=== PATIENT | female | born 1960 | race Caucasian/White ===

== ENCOUNTER 2020-10-05 06:54 | Outpatient (NON) | payer OTHER, SELFPAY ==
[2020-10-05 21:13] LABS: SARS-CoV-2 RNA PCR Positive
== END 2020-10-05 06:55 ==
PROVIDERS: PCP Family Medicine; Visit Provider Family Medicine
DX: U07.1 COVID-19 (principal)
CPT/HCPCS: C9803; U0003; U0005

== ENCOUNTER 2021-03-10 08:45 | Outpatient (CLI) | payer OTHER, SELFPAY ==
--- NOTE | ~2021-03-10 | MM_ITS ---
EXAMINATION: MM screening yves BI w joaquin HISTORY: Screening TECHNIQUE: Craniocaudal and mediolateral oblique 3-D tomosynthesis images were obtained and synthetic 2-D images were generated. CAD analysis was submitted and interpreted. COMPARISON: Comparison to multiple prior studies sequentially, with oldest reviewed study dated 10/08. BREAST PARENCHYMAL COMPOSITION: The breasts are heterogeneously dense, which may obscure small masses . FINDINGS: There is no evidence of suspicious mass, calcification, or architectural distortion to sugg est malignancy in either breast. There has been no suspicious interval change. IMPRESSION: 1. No mammographic evidence of malignancy. 2. Recommend routine screening mammography in one year. BI-RADS Category 1: Negative Reviewed, dictated and finalized at location A.
== END 2021-03-10 08:46 | disposition home or self-care (01) ==
LOC: ANHIMG 08:48
PROVIDERS: PCP Family Medicine; Visit Provider Nurse Practitioner Obstetrics & Gynecology
DX: Z12.31 Encounter for screening mammogram for malignant neoplasm of breast (principal)
CPT/HCPCS: 77063; 77067

== ENCOUNTER → 2021-04-28 17:42 | Outpatient (CLI) | payer OTHER, SELFPAY ==
--- NOTE | ~2021-04-28 | DEXA_ITS ---
Bone Density Report Name: Haydee Delgado Age: 60 Sex: Female Ethnicity: White Date of : 1960 Indication: osteopenia; monitoring treatment; prior fracture; postmenopausal Referring Provider: Jean Claude, Mariebl Hackett Study: Bone densitometry was performed. Exam Date: April 28, 2021 Accession number: [id number] Bone Density: Region BMD T-score Z-score Classification AP Spine (L1, L4) 1.126 0.8 2.4 Normal Femoral Neck (Left) 0.649 -1.8 -0.4 Osteopenia Total Hip (Left) 0.770 -1.4 -0.3 Osteopenia Femoral Neck (Right) 0.655 -1.7 -0.4 Osteopenia Total Hip (Right) 0.794 -1.2 -0.1 Osteopenia Total Hip Mean 0.782 -1.3 -0.2 Osteopenia World Health Organization criteria for BMD impression classify patients as: Normal (T-score at or above -1.0), Osteopenia (T-score between -1.0 and -2.5), or Osteoporosis (T-score at or below -2.5). 10-year Fracture Risk: FRAX not reported because: Treated for osteoporosis Previous Exams: Region Exam Age BMD T-score BMD Change BMD Change Date g/cm2 vs Baseline vs Previous AP Spine(L1, L4) 04/28/2021 60 1.126 0.8 0.092* 0.092* 07/13/2010 49 1.034 0.0 -0.001 0.013 07/09/2009 48 1.021 -0.1 -0.014 -0.036* 06/12/2008 47 1.056 0.2 0.022 0.022 05/31/2007 46 1.035 0.0 Total Hip(Left) 04/28/2021 60 0.770 -1.4 0.031* -0.044* 07/13/2010 49 0.814 -1.0 0.075* 0.069* 07/09/2009 48 0.745 -1.6 0.006 -0.006 06/12/2008 47 0.750 -1.6 0.011 0.011 05/31/2007 46 0.739 -1.7 Total Hip(Right) 04/28/2021 60 0.794 -1.2 0.020 -0.005 07/13/2010 49 0.800 -1.2 0.026 -0.002 07/09/2009 48 0.802 -1.2 0.027* 0.027* 06/12/2008 47 0.774 -1.4 0.000 0.000 05/31/2007 46 0.774 -1.4 *Denotes significance at 95% confidence level, LSC for AP Spine = 0.022 g/cm2, LSC for Total Hip = 0.027 g/cm2 Clinical Information Provided by Patient: Has had a low trauma fracture Is being treated for osteoporosis Has used the following medications: Evista (i.e. raloxifene), Vitamin D, Calcium Patient maximum height was 65 Menopause Age: 38 Drinks caffeinated beverages Onset of menses at age 12 Number of children 2 Impression: The patient has low bone mass, based on the Left
== END ==
PROVIDERS: PCP Family Medicine; Visit Provider Nurse Practitioner Obstetrics & Gynecology
DX: Z78.0 Asymptomatic menopausal state (principal); M85.852 Other specified disorders of bone density and structure, left thigh; M85.851 Other specified disorders of bone density and structure, right thigh
CPT/HCPCS: 77080

== ENCOUNTER 2022-01-24 15:02 | Emergency (ER) | payer OTHER, SELFPAY ==
--- NOTE | ~2022-01-24 | XR_ITS ---
EXAMINATION: XR wrist LT min 3V DATE: 01/24/2022 15:31 INDICATION: Left wrist pain. Fall. TECHNIQUE: 4 views of left wrist were obtained. COMPARISON: None. FINDINGS: Bone alignment is normal. No fracture. There is mild osteoarthritis of triscaphe joint and first carpometacarpal joint. There is moderate osteoarthritis of first and third metacarpophalangeal joints. IMPRESSION: 1. Polyarticular osteoarthritis. Reviewed, dictated and finalized at location B.
--- NOTE | 2022-01-24 15:12 | ED.UPPEXIN ---
HPI - Extremity Injury (Upper) General Chief Complaint: Extremity Injury, Upper Stated Complaint: Lt Wrist Pain Due to Fall Time Seen by Provider: 01/24/22 15:16 Source: patient and RN notes reviewed Mode of arrival: ambulatory Limitations: no limitations History of Present Illness HPI narrative: 61-year-old female presents with concern for multiple injuries after a fall. She reports she fell outside of a store just prior to arrival, injuring her left wrist, her lower lip and her knee. She reports she scraped her knee however it is not painful at this time and it does not hurt to bear weight. She reports her lower lip is swollen, bruised, she is concerned about loose teeth. She reports left wrist pain, slight swelling. MD complaint: injury to: left and wrist Related Data Home Medications Medication Instructions Recorded Confirmed atorvastatin 10 mg PO DAILY 01/24/22 01/24/22 benazepril-hydrochlorothiazide 1 tablet PO DAILY 01/24/22 01/24/22 bupropion HCl 150 mg PO DAILY 01/24/22 01/24/22 buspirone 10 mg PO BID 01/24/22 01/24/22 ergocalciferol (vitamin D2) 1,250 mcg PO WEEKLY 01/24/22 01/24/22 escitalopram oxalate 20 mg PO DAILY 01/24/22 01/24/22 icosapent ethyl [Vascepa] 1 g PO TID 01/24/22 01/24/22 meloxicam 7.5 mg PO BID 01/24/22 01/24/22 raloxifene 60 mg PO DAILY 01/24/22 01/24/22 Allergies Allergy/AdvReac Type Severity Reaction Status Date / Time No Known Allergies Allergy Mild Verified 01/24/22 15:23 Review of Systems Review of Systems: CONSTITUTIONAL: Denies malaise, chills, sweats, or fever. CARDIOVASCULAR: Denies chest pain, palpitations, or edema. RESPIRATORY: Denies cough or dyspnea. SKIN: Reports lower lip swelling, bruising MUSCULOSKELETAL: Reports left wrist pain and swelling NEUROLOGIC: Denies numbness, weakness All systems reviewed & are unremarkable except as noted in HPI and below PMFSH Comments At time of signature, agree with nursing past medical, surgical, social and family history. There is no relevant family history pertinent to the presenting complaint Exam Narrative: GENERAL: Well-appearing, well-nourished, and in no acute distress. HEAD: Normocephalic, atraumatic. EYES: PERRLA, conjunctivae clear NECK: Supple. CHEST: Speaks in full sentences. No respiratory distress. HEART: Regular rate and rhythm. Normal and equal peripheral pulses. EXTREMITIES: Left wrist, hand, is have normal strength and sensation, grossly normal range of motion. Mild circumferential edema, no erythema or ecchymosis. 5/5 strength with digit flexion and extension. Normal sensation with sensitivity to light touch and pain. Ulnar wrist tenderness. No open wounds, no skin tenting, no devitalized tissue or atrophy, no trophic changes, no obvious deformity, alignment normal, nearby joints and structures intact. Distal pulses palpable and equal bilaterally, skin warm, dry, pink. Capillary refill less than 3 seconds. SKIN: Warm, dry, no rash. Very superficial abrasion to the left knee without surrounding erythema, edema, induration or tenderness NEURO: Alert and oriented x3. PSYCH: Normal mood and affect Course Course Emergency Course: Patient is aware of diagnosis, understands and agrees to treatment plan. Anticipatory guidance given. Patient agrees to follow-up as directed and is aware of reasons to seek care at the emergency department. Portions of this record may have been created with voice recognition software Level of Care: Express Care Visit Vital Signs Vital signs: Reviewed. MDM - Extremity Injury (Upper) MDM Narrative Medical decision making narrative: Patients injury and pain is consistent with musculoskeletal etiology. No signs of neurological or vascular compromise on exam. Compartments and tissues are soft without signs of compartment syndrome. Pain is felt appropriate for further evaluation on an outpatient basis. Imaging Data My impression: Images reviewed, interpreted by radiologist, agree, see report. Radi
[2022-01-24 15:14] VITALS: BP 150/88; PULSE 78; RESP 18; TEMP 36.3; O2SAT 100
== END 2022-01-24 15:58 | disposition home or self-care (01) ==
PROVIDERS: Emergency Provider Nurse Practitioner; PCP Family Medicine
DX: S63.502A Unspecified sprain of left wrist, initial encounter (principal); S66.912A Strain of unspecified muscle, fascia and tendon at wrist and hand level, left hand, initial encounter; W19.XXXA Unspecified fall, initial encounter; S00.531A Contusion of lip, initial encounter; E78.00 Pure hypercholesterolemia, unspecified; I10 Essential (primary) hypertension
CPT/HCPCS: 73110; 99213; G0463

== ENCOUNTER 2022-06-08 10:01 | Outpatient (CLI) | payer OTHER, SELFPAY ==
--- NOTE | ~2022-06-08 | MM_ITS ---
EXAMINATION: MM screening yves BI w joaquin HISTORY: Screening mammogram TECHNIQUE: Craniocaudal and mediolateral oblique 3-D tomosynthesis images were obtained and synthetic 2-D images were generated. CAD analysis was submitted and interpreted. COMPARISON: 03/10/2021 bilateral screening mammogram 11/15/2018 bilateral diagnostic mammography and bilateral Limited breast ultrasound 10/18/2018 bilateral screening mammogram BREAST PARENCHYMAL COMPOSITION: The breasts are heterogeneously dense, which may obscure small masses . FINDINGS: There is no evidence of suspicious mass, calcification, or architectural distortion to sugg est malignancy in either breast. There has been no suspicious interval change. IMPRESSION: 1. No mammographic evidence of malignancy. 2. Recommend routine screening mammography in one year. BI-RADS Category 1: Negative Reviewed, dictated and finalized at location A.
== END 2022-06-08 10:02 | disposition home or self-care (01) ==
PROVIDERS: PCP Family Medicine; Visit Provider Family Medicine
DX: Z12.31 Encounter for screening mammogram for malignant neoplasm of breast (principal)
CPT/HCPCS: 77063; 77067

== ENCOUNTER 2023-06-20 08:17 | Outpatient (CLI) | payer OTHER, SELFPAY ==
--- NOTE | 2023-07-11 11:38 | WPDHOMESLEEP ---
Sleep Study - Home Unattended Date of Study: 06/20/23 Ordering Provider: Luke Guidry, Interpreting Provider: Jane Reina, DO Home Sleep Study Type: Watch PAT Height: 1.68 m Weight: 73.936 kg Body Mass Index: 26.3 Neck Circumference (inches): 14 [place]: 13 Reason for Sleep Study Daytime hypersomnia Sleep History The patient is a 62-year-old female with hypertension, depression, anxiety, GERD, hyperlipidemia, osteoarthritis, osteoporosis, prediabetes and peripheral venous insufficiency that had a sleep study ordered by his primary care for evaluation sleep apnea. The patient denies awakening from sleep short of breath. She occasionally awakens at night with heartburn, belching or cough. She frequently snores and is frequently loud that others complain. She occasionally has trouble sleeping when she has a cold. She denies waking up gasping for air throughout the night. She rarely sweats excessively at night. She rarely has heart palpitations or irregular heartbeats during the night. She occasionally falls asleep during the day but never while driving. She denies sleep paralysis and cataplexy. She denies having trouble at school or work due to sleepiness. She occasionally experiences vivid dreamlike scenes upon awakening or falling asleep. She denies feeling afraid of going to sleep. She rarely has nightmares and occasionally remembers her dreams. She occasionally has thoughts racing through her mind. She occasionally feels sad, depressed and anxious. She occasionally has muscular tension. She rarely notices parts of her body jerk. She frequently kicks during the night. She frequently has crawling and aching feelings in her legs but rarely has leg pain during the night. She occasionally grinds her teeth during sleep but never awakens with morning jaw pain. She is frequently bothered by pain during the day and occasionally awakened by pain during the night. She frequently wakes up feeling stiff in the morning. She frequently wakes up with sore or achy muscles. She frequently wakes up with pain in neck, spine or other joints. She goes to bed at 8:30 p.m. on week days. It takes her 1 hour to fall asleep. She wakes up 4 times throughout the night for unknown reasons. When she awakens, she will look at her phone. It can take her 10-15 minutes to fall back asleep. She wakes up at 5:15 a.m. weekdays and 8:00 a.m. on the weekends. She typically gets 6 hours of sleep per night. She does not stay in bed after waking up in the morning. She currently lives with her . She will consume caffeinated beverages within 2 hours of bedtime. She denies engaging in physical exercise before bedtime. She will watch television before falling asleep. She will occasionally take naps in the afternoon or the evening but they are not refreshing. She consumes 4 caffeinated beverages throughout the day. She denies tobacco, alcohol and recreational drug use. Medications Home Medications Medication Instructions Recorded Confirmed Type atorvastatin 10 mg tablet 10 mg PO DAILY 01/24/22 01/24/22 History benazepril 10 1 tablet PO DAILY 01/24/22 01/24/22 History mg-hydrochlorothiazide 12.5 mg tablet bupropion HCl 150 mg 24 hr tablet, 150 mg PO DAILY 01/24/22 01/24/22 History extended release buspirone 10 mg tablet 10 mg PO BID 01/24/22 01/24/22 History ergocalciferol (vitamin D2) 1,250 1,250 mcg PO WEEKLY 01/24/22 01/24/22 History mcg (50,000 unit) capsule escitalopram oxalate 20 mg tablet 20 mg PO DAILY 01/24/22 01/24/22 History icosapent ethyl 1 gram capsule 1 g PO TID 01/24/22 01/24/22 History (Vascepa) meloxicam 7.5 mg tablet 7.5 mg PO BID 01/24/22 01/24/22 History raloxifene 60 mg tablet 60 mg PO DAILY 01/24/22 01/24/22 History Sleep Procedure The sleep study was completed using WatchPAT a technically adequate device with seven channels: peripheral arterial tone, actigraphy, body position, snore, re
[2023-07-11 11:39] VITALS: BMI 26.3
== END 2023-06-21 11:01 | disposition home or self-care (01) ==
LOC: ANHCSM 08:30
PROVIDERS: PCP Family Medicine; Visit Provider Family Medicine
DX: G47.30 Sleep apnea, unspecified (principal); G47.9 Sleep disorder, unspecified
CPT/HCPCS: 95800

== ENCOUNTER → 2023-06-29 08:58 | Outpatient (CLI) | payer OTHER, SELFPAY ==
--- NOTE | ~2023-06-29 | XR_ITS ---
Right ankle Technique: AP, oblique, and lateral views were obtained. Clinical History: Pain Findings: No acute fracture or dislocation is seen. Old, healed fracture deformity of the distal fibu lar shaft noted. Ankle mortise is intact. There is degenerative change at the talonavicular articulat ion. There is enthesopathic change at the Achilles tendon insertion. Impression: No acute abnormality. Old, healed fracture deformity of the distal fibular shaft. Enthesopathic change at the Achilles tendon insertion. Degenerative change at the talonavicular articulation dorsally. Reviewed, dictated and finalized at location . Impression: No acute abnormality. Old, healed fracture deformity of the distal fibular shaft. Enthesopathic change at the Achilles tendon insertion. Degenerative change at the talonavicular articulation dorsally.
--- NOTE | ~2023-06-29 | XR_ITS ---
Left Shoulder Technique: AP and axillary views were obtained. Clinical History: Pain Findings: No fracture or dislocation is seen. Osseous alignment is anatomic. There is moderate degene rative change of the glenohumeral joint with large inferomedial humeral head osteophyte. There is mil d AC joint degenerative change. Soft tissues are unremarkable. Impression: Moderate glenohumeral joint degenerative change. Mild AC joint degenerative change. Reviewed, dictated and finalized at location . Impression: Moderate glenohumeral joint degenerative change. Mild AC joint degenerative change.
--- NOTE | ~2023-06-29 | XR_ITS ---
Right foot Technique: AP, oblique, and lateral views were obtained. Clinical History: Pain Findings: No acute fracture or dislocation is seen. Osseous alignment is anatomic. Joint spaces are p reserved without erosive or degenerative change. There is prominent enthesopathic change at the Achil les tendon insertion. Impression: Prominent enthesopathic change at the Achilles tendon insertion. Reviewed, dictated and finalized at location . Impression: Prominent enthesopathic change at the Achilles tendon insertion.
== END ==
PROVIDERS: PCP Family Medicine; Visit Provider Family Medicine
DX: M19.012 Primary osteoarthritis, left shoulder (principal); M19.071 Primary osteoarthritis, right ankle and foot
CPT/HCPCS: 73030; 73610; 73630

== ENCOUNTER 2023-09-12 09:58 | Outpatient (CLI) | payer MEDICARE, OTHER, SELFPAY ==
--- NOTE | ~2023-09-12 | XR_ITS ---
XR lumbar spine min 4V DATE: 09/12/2023 11:13 INDICATION: Low back pain TECHNIQUE: AP, lateral, coned lateral lumbosacral and bilateral oblique views COMPARISON: November 06, 2012 lumbar spine FINDINGS: There is diffuse osteopenia. There is mild rotatory dextroscoliosis of the lumbar spine. There is mild cupping of the superior vertebral endplate of L1. There is minimal anterior wedging and loss of height of L2 consistent with small compression fracture deformity since November 06, 2012. No other lumbar spine fracture deformity is noted. There is severe degenerative disc disease at L1-2, L2-3 and L3-4. L4-5 and L5-S1 interspaces are well preserved. No spondylolisthesis. The sacroiliac joints are intact. Status post cholecystectomy. Prominent amount of fecal material in the colon. IMPRESSION: Osteopenia Mild rotatory dextroscoliosis Severe degenerative disc disease at L1-2, L2-3 and L3-4 Mild cupping of L1 superior vertebral endplate Minimal anterior wedge compression fracture deformity of L2, new since November 06, 2012 Reviewed, dictated and finalized at location B. 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
--- NOTE | ~2023-09-12 | XR_ITS ---
AP view of the pelvis and AP and lateral views of the right hip Clinical history: Pain Findings: No acute fracture or dislocation is seen. Osseous alignment is anatomic. Bilateral hip and SI joint spaces are preserved. Soft tissues are unremarkable. Impression: No significant abnormality is seen. Reviewed, dictated and finalized at [facility]. 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
== END 2023-09-12 09:59 ==
PROVIDERS: PCP Family Medicine; Visit Provider Family Medicine
DX: M25.551 Pain in right hip (principal); M85.88 Other specified disorders of bone density and structure, other site; M51.36 Other intervertebral disc degeneration, lumbar region
CPT/HCPCS: 72110; 73502

== ENCOUNTER 2023-09-24 09:51 | Outpatient (CLI) | payer MEDICARE, OTHER, SELFPAY ==
--- NOTE | ~2023-09-24 | MM_ITS ---
EXAMINATION: MM screening yves BI w joaquin HISTORY: Screening TECHNIQUE: Craniocaudal and mediolateral oblique 3-D tomosynthesis images were obtained and synthetic 2-D images were generated. CAD analysis was submitted and interpreted. COMPARISON: Comparison to multiple prior studies sequentially, with oldest reviewed study dated 09/2016. BREAST PARENCHYMAL COMPOSITION: The breasts are heterogeneously dense, which may obscure small masses FINDINGS: There is no evidence of suspicious mass, calcification, or architectural distortion to sugg est malignancy in either breast. There has been no suspicious interval change. IMPRESSION: 1. No mammographic evidence of malignancy. 2. Recommend routine screening mammography in one year. BI-RADS Category 1: Negative Reviewed, dictated and finalized at location A. INTERN
== END 2023-09-24 09:52 | disposition home or self-care (01) ==
LOC: ANHIMG 09:54
PROVIDERS: PCP Family Medicine; Visit Provider Family Medicine
DX: Z12.31 Encounter for screening mammogram for malignant neoplasm of breast (principal)
CPT/HCPCS: 77063; 77067

== ENCOUNTER 2024-07-09 08:10 | Outpatient (CLI) | payer MEDICARE, OTHER, SELFPAY ==
--- NOTE | ~2024-07-09 | US_ITS ---
EXAMINATION: US abdomen complete DATE: 07/09/2024 08:54 INDICATION: Generalized abdominal pain. TECHNIQUE: Multiple grayscale and Doppler ultrasound images of the abdomen were obtained. COMPARISON: None FINDINGS: Abdominal aorta is normal in caliber. Inferior vena cava is normal. The visualized portions of the head, body, and tail of the pancreas are normal. There is diffuse hepatic steatosis. There is normal flow in main portal vein. The gallbladder is absent. The common duct is normal and measures 6 mm. The kidneys are normal in size. There are 2 cysts in right kidney measuring up to 3.8 cm. The sp eleni is normal in size. IMPRESSION: 1. Diffuse hepatic steatosis. Reviewed, dictated and finalized at location B.
--- NOTE | ~2024-07-09 | XR_ITS ---
EXAMINATION: XR chest 1V DATE: 07/09/2024 09:15 INDICATION: Epigastric abdominal pain. TECHNIQUE: A single frontal view of the chest was obtained. COMPARISON: None. FINDINGS: There is no pneumonia, pleural effusion, or pneumothorax. The heart size is normal. There i s a moderate-sized hiatal hernia. IMPRESSION: 1. Moderate-sized hiatal hernia. Reviewed, dictated and finalized at location B.
--- NOTE | ~2024-07-09 | XR_ITS ---
EXAMINATION: XR abdomen obstructive series DATE: 07/09/2024 09:15 INDICATION: Epigastric abdominal pain. TECHNIQUE: Upright and supine views of the abdomen on 3 radiographs were obtained. COMPARISON: None. FINDINGS: There are no dilated loops of bowel. There is a volume of stool in the colon. No free intra peritoneal gas. There is a moderate-sized hiatal hernia. Surgical clips in the right upper quadrant a re likely from cholecystectomy. IMPRESSION: 1. Nonobstructive bowel gas pattern. 2. Moderate-sized hiatal hernia. Reviewed, dictated and finalized at location B.
== END 2024-07-09 08:11 | disposition home or self-care (01) ==
PROVIDERS: PCP Family Medicine; Visit Provider Family Medicine
DX: R10.13 Epigastric pain (principal); K44.9 Diaphragmatic hernia without obstruction or gangrene; K76.0 Fatty (change of) liver, not elsewhere classified
CPT/HCPCS: 71045; 74019; 76700

== ENCOUNTER 2024-09-16 00:47 | Day surgery (SDC) | payer MEDICARE, OTHER, SELFPAY ==
[2024-08-27 09:50] VITALS: BMI 24.1
[2024-09-16 06:20] VITALS: BP 119/84; PULSE 81; RESP 18; TEMP 35.8; O2SAT 99; BMI 24.5
[2024-09-16] MEDS: LACTATED RINGERS 1,000 ML 150 ML IV CONT (06:41)
[2024-09-16 06:43] LABS: Glucose Point of Care 99 mg/dl (65-105)
--- NOTE | 2024-09-16 07:23 | WPDANESEPPF ---
Anes - Initial Pre Proc Eval Procedure: Operation Date: 09/16/24 08:00 Proposed Procedures p Esophagogastroduodenoscopy - Eric Woods DO Date/Time: 09/16/24 07:23 Surgeon: Eric Woods DO Pre Op Diagnosis: GERD Patient Data Age: 63 Gender: F Height: 1.65 m Weight: 66.9 kg Last Vital Signs Temp 96.4 F L 09/16/24 06:20 Pulse 81 09/16/24 06:20 Resp 18 09/16/24 06:20 BP 119/84 09/16/24 06:20 Pulse Ox 99 09/16/24 06:20 O2 Del Method Room Air 09/16/24 06:20 Allergies Allergy/AdvReac Type Severity Reaction Status Date / Time No Known Allergies Allergy Mild Verified 08/27/24 09:42 Home Medications ?Medication ?Instructions ?Recorded ?Confirmed ?Type atorvastatin 10 mg tablet 10 mg PO DAILY 01/24/22 09/16/24 History benazepril 10 1 tablet PO DAILY 01/24/22 09/16/24 History mg-hydrochlorothiazide 12.5 mg tablet bupropion HCl 150 mg 24 hr tablet, 150 mg PO DAILY 01/24/22 09/16/24 History extended release buspirone 10 mg tablet 10 mg PO BID 01/24/22 09/16/24 History ergocalciferol (vitamin D2) 1,250 1,250 mcg PO WEEKLY 01/24/22 09/16/24 History mcg (50,000 unit) capsule escitalopram oxalate 20 mg tablet 20 mg PO DAILY 01/24/22 09/16/24 History icosapent ethyl 1 gram capsule 1 g PO TID 01/24/22 09/16/24 History (Vascepa) meloxicam 7.5 mg tablet 7.5 mg PO BID 01/24/22 09/16/24 History raloxifene 60 mg tablet 60 mg PO DAILY 01/24/22 09/16/24 History cyclobenzaprine 10 mg tablet 10 mg PO Q12H PRN muscle spasm 08/27/24 09/16/24 History diclofenac sodium 75 mg 75 mg PO Q12H PRN pain 08/27/24 08/27/24 History tablet,delayed release empagliflozin 25 mg tablet 25 mg PO DAILY 08/27/24 09/16/24 History (Jardiance) fenofibrate 160 mg tablet 54 mg PO DAILY 08/27/24 09/16/24 History metformin 500 mg tablet 500 mg PO DAILY 08/27/24 09/16/24 History metoprolol succinate 25 mg 25 mg PO DAILY 08/27/24 09/16/24 History tablet,extended release 24 hr Laboratory Tests 09/16/24 06:34 POC Capillary Glucose 99 mg/dl (65-105) Patient hx anesthesia problems: none Family hx anesthesia problems: none Results Review: All pre-operative results and documents have been reviewed as part of the pre-operative evaluation. [facility], [facility] Past Medical History Medical History (System 08/06/24 @ 14:06 by Mariam Hillman) Hypertension Diabetes Arthritis Anxiety Surgical History Surgical History (System 08/06/24 @ 14:06 by Mariam Hillman) Hx laparoscopic cholecystectomy H/O tubal ligation Family History Family History (System 08/06/24 @ 14:06 by Mariam Hillman) Father Diabetes mellitus Hypertension Heart disease Cerebrovascular accident Sibling Diabetes mellitus Hypertension Mother Hypertension Heart disease Thyroid disorder Social History Social History (System 08/06/24 @ 14:06 by Mariam Hillman) Smoking status: Never smoker Substance use type: does not use Living arrangements: with family Spiritual care concerns: No Anes - Eval Final PreProcedure Day of Procedure 09/16/24 07:23 Patient weight: normal Heart: regular rate and rhythm Lungs: clear to auscultation Airway: Mallampati scale class II Neurological: alert and oriented Last oral intake: >/= 8 hours ASA classification: II Emergent: no Anesthetic plan: proceed Anesthesia type and monitoring: general GIVS and standard monitoring Results Review: All pre-operative results and documents have been reviewed as part of the pre-operative evaluation. Informed Consent: The patient's anesthetic plan and its attendant risks and benefits were discussed with the patient/family/POA. Questions were solicited and answers provided to the satisfaction of the patient/family/POA.
--- NOTE | 2024-09-16 07:29 | WPDHPUPDATE1 ---
History and Physical Update Update Date/Time: 09/16/24 07:29 History and Physical has been reviewed, including an updated exam of the patient. There are NO changes in the patient's condition. Risks, benefits, and alternatives have been discussed and questions answered. Patient agrees to proceed with procedure.
--- NOTE | 2024-09-16 07:30 | PM.IMHP ---
H&P: HPI History of Present Illness Date/Time: 09/16/24 07:30 Chief Complaint: GERD Narrative: 63 yo woman presents for EGD. She has been experiencing GERD and had an Xray that showed a hiatal hernia. Review of Systems Review of Systems: All systems reviewed & are unremarkable except as noted in HPI and below Constitutional: Constitutional: Denies chills, Denies fever(s), Denies headache(s) and Denies weight loss Eyes: Eyes: Denies change in vision ENT: Denies dizziness, Denies headache(s), Denies neck mass and Denies throat swelling Cardiovascular: Cardiovascular: Denies chest pain, Denies lightheadedness and Denies dyspnea Respiratory: Respiratory: Denies cough, Denies dyspnea and Denies wheezing Gastrointestinal: Gastrointestinal: Denies abdominal pain, Denies change in bowel habits, Denies nausea and Denies vomiting Genitourinary: Genitourinary: Denies hematuria and Denies dysuria Musculoskeletal: Musculoskeletal: Reports as per HPI Integumentary/Breasts: Skin/Breast: Reports as per HPI Neurologic: Denies dizziness and Denies headache(s) Allergic/Immunologic: Allergic/Immunologic: Denies throat swelling and Denies wheezing [facility] Past Medical History Medical History (System 08/06/24 @ 14:06 by Mariam Hillman) Hypertension Diabetes Arthritis Anxiety Surgical History Surgical History (System 08/06/24 @ 14:06 by Mariam Hillman) Hx laparoscopic cholecystectomy H/O tubal ligation Family History Family History (System 08/06/24 @ 14:06 by Mariam Hillman) Father Diabetes mellitus Hypertension Heart disease Cerebrovascular accident Sibling Diabetes mellitus Hypertension Mother Hypertension Heart disease Thyroid disorder Social History Social History (System 08/06/24 @ 14:06 by Mariam Hillman) Smoking status: Never smoker Substance use type: does not use Living arrangements: with family Spiritual care concerns: No Meds Home Medications and Allergies Home Medications ?Medication ?Instructions ?Recorded ?Confirmed ?Type atorvastatin 10 mg tablet 10 mg PO DAILY 01/24/22 09/16/24 History benazepril 10 1 tablet PO DAILY 01/24/22 09/16/24 History mg-hydrochlorothiazide 12.5 mg tablet bupropion HCl 150 mg 24 hr tablet, 150 mg PO DAILY 01/24/22 09/16/24 History extended release buspirone 10 mg tablet 10 mg PO BID 01/24/22 09/16/24 History ergocalciferol (vitamin D2) 1,250 1,250 mcg PO WEEKLY 01/24/22 09/16/24 History mcg (50,000 unit) capsule escitalopram oxalate 20 mg tablet 20 mg PO DAILY 01/24/22 09/16/24 History icosapent ethyl 1 gram capsule 1 g PO TID 01/24/22 09/16/24 History (Vascepa) meloxicam 7.5 mg tablet 7.5 mg PO BID 01/24/22 09/16/24 History raloxifene 60 mg tablet 60 mg PO DAILY 01/24/22 09/16/24 History cyclobenzaprine 10 mg tablet 10 mg PO Q12H PRN muscle spasm 08/27/24 09/16/24 History diclofenac sodium 75 mg 75 mg PO Q12H PRN pain 08/27/24 08/27/24 History tablet,delayed release empagliflozin 25 mg tablet 25 mg PO DAILY 08/27/24 09/16/24 History (Jardiance) fenofibrate 160 mg tablet 54 mg PO DAILY 08/27/24 09/16/24 History metformin 500 mg tablet 500 mg PO DAILY 08/27/24 09/16/24 History metoprolol succinate 25 mg 25 mg PO DAILY 08/27/24 09/16/24 History tablet,extended release 24 hr Allergies Allergy/AdvReac Type Severity Reaction Status Date / Time No Known Allergies Allergy Mild Verified 08/27/24 09:42 Vital Signs Vital Signs - 24 hr 09/16/24 06:20 Temperature 96.4 F L Pulse Rate 81 Respiratory Rate 18 Blood Pressure 119/84 Pulse Oximetry 99 Oxygen Delivery Room Air Exam Const: General: no acute distress and alert Orientation/consciousness: patient oriented x3 HENMT: Head: normocephalic and atraumatic Ears: hearing grossly normal bilaterally Face/Nose/Sinus: Normal nares present Mouth: Yes Normal oral and palatal mucosa present Eyes: Periorbital: periorbital findings normal Sclera: sclerae normal EOM: EOMs intact bilaterally Neck: Neck: normal visual inspection, no lymphadenopathy and trachea midline Chest: Chest palpation & inspection: normal inspection of the chest Resp: Effort & Inspection: normal respiratory effort Auscultation: clear to auscultation bilaterally Cardio: Jugular venous distension: no JVD Rate: regular rate Rhythm: regular rhythm Heart sounds: S1 normal heart sound present and S2 normal heart sound present Peripheral pulses: Peripheral pulses 2+ throughout GI: Inspection: normal to inspection GI Palp: Yes Soft to palpation, No Tenderness to palpation present (GI), No Guarding due to palpation present (GI) and No Rebound tenderness present Percussion: Yes normal to percussion Auscultation: normal bowel sounds : General: Yes no CVA tenderness Back/Spine/Pelvis: Back: no CVA tenderness Neuro: General: patient oriented x3, no focal motor deficits and CN's II-XI intact bilaterally Cognition (Neuro): normal cognition Speech: normal speech Motor exam (neuro): 5/5 motor strength present throughout Extrem: General: capillary refill normal and no clubbing, cyanosis or edema Assessment and Plan Assessment and plan (1) GERD (gastroesophageal reflux disease): Qualifiers: Esophagitis presence: esophagitis presence not specified Qualified Code(s): K21.9 - Gastro-esophageal reflux disease without esophagitis Code(s): K21.9 - Gastro-esophageal reflux disease without esophagitis Status: Acute Assessment and Plan: I have recommended EGD. I have discussed the procedure, risks, benefits, and alternatives. Questions were answered. Patient is agreeable to proceed. (2) Hiatal hernia: Code(s): K44.9 - Diaphragmatic hernia without obstruction or gangrene Status: Acute
[2024-09-16 07:40] VITALS: BP 99/52; PULSE 70; RESP 12; O2SAT 100
[2024-09-16 07:50] VITALS: BP 105/46; PULSE 72; RESP 15; O2SAT 98
[2024-09-16 08:00] VITALS: BP 114/64; PULSE 71; RESP 17; O2SAT 98
[2024-09-16 08:46] LABS: HPYLORIRESULT Negative (Negative)
--- OUTSIDE RECORDS SUMMARY | 2024-09-22 10:31 | XMS_ITS | Encounter Summary ---
Author Organization [facility] Address [facility] [place] [address] [place] [address] Care Team Providers Care Prison Psychiatrist Name Role Phone Unavailable Primary Care Provider Unavailabl e Encounter Details Date Type Department Care Team (Late st Contact Info) Description 07/28/2015 Abstract [facility] Medical [facility] Family & Internal Medicine [facility] [address] [place] [address] Alysha Whitmore MD [address] [place] [id number] Social History Tobacco Use Types Packs/Day Years Used Date Smoking Tobacco: Never Assessed Comments Unknown Sex and Gender Information Value Date Recorded Sex Assigned at Not on file Legal Sex Female 8:14 PM CDT Gender Identity Not on file Sexual Orientation Not on file documented as of this encounter Last Filed Vital Signs Vital Sign Reading Time Taken Comments Blood Pressure 110/70 07/28/2015 9:38 AM FRAMING INSPECTOR Pulse 76 07/28/2015 9:38 AM FRAMING INSPECTOR Temperature - - Respiratory Rate - - Oxygen Saturation - - Inhaled Oxygen Concentration - - Weight 59.9 kg (132 lb) 07/28/2015 9:38 AM FRAMING INSPECTOR Height 165.7 cm (5' 5.25 ) 07/28/2015 9:38 AM CS T Body Mass Index 21.8 07/28/2015 9:38 AM FRAMING INSPECTOR documented in this encounter Progress Notes * Alysha Whitmore MD - 07/28/2015 9:30 AM CST Reason For Visit New Patient Visit Chief Complaint Pt here to get established as a new pt. Needs physical form filled out for work. History of Present Illness HM, Adult Female: The patient is being seen for a health maintenance evaluation. General Health: The patient's health since the last visit is described as good. Immunizations status: up to date. Lifestyle:. She consumes a diverse and healthy diet. She has weight concerns. Screening: Review of Systems Constitutional: feeling tired. Head and Face: negative. Eyes: negative. ENT: negative. Cardiovascular: negative. Respiratory: negative. Gastrointestinal: negative. Genitourinary: negative. Musculoskeletal: joint stiffness. Integumentary negative. Psychiatric: negative. Hematologic and Lymphatic: negative. Neurological Negative. Endocrine Negative. Active Problems 1. No active medical problems Past Medical History 1. History of Fracture (829.0) (T14.8) Surgical History 1. History of Cholecystectomy 2. History of Tubal Ligation Family History Mother 1. No pertinent family history Family History 2. Family history of Anxiety 3. Family history of arthritis (V17.7) (Z82.61) 4. Family history of cardiac disorder (V17.49) (Z82.49) 5. Family history of diabetes mellitus (V18.0) (Z83.3) 6. Family history of hypertension (V17.49) (Z82.49) Social History ?? Caffeine use (V49.89) (F15.90) ?? Employed ?? Exercise: Cycling ?? Exercise: Walking ? Never a smoker ?? No alcohol use ?? Some college Current Meds 1. Benazepril-Hydrochlorothiazide 10-12.5 MG Oral Tablet; take 1/2 tab q d; Therapy: (Recorded:28Jul2015) to Recorded 2. BuPROPion HCl ER (XL) 150 MG Oral Tablet Extended Release 24 Hour; TAKE 1 TABLET BY MOUTH EVERY MORNING; Therapy: [id number] to Recorded 3. Escitalopram Oxalate 10 MG Oral Tablet; TAKE 1 TABLET BY MOUTH EVERY DAY; Therapy: 19Feb2015 to Recorded 4. Fenofibrate 160 MG Oral Tablet; TAKE 1 TABLET DAILY; Therapy: (Recorded:28Jul2015) to Recorded 5. Raloxifene HCl - 60 MG Oral Tablet; TAKE 1 TABLET DAILY; Therapy: (Recorded:28Jul2015) to Recorded Allergies 1. No Known Drug Allergies Vitals Recorded: 28Jul2015 09:38AM Heart Rate 76 Systolic 110 Diastolic 70 O2 Saturation 97 Height 5 ft 5.25 in Weight 132 lb BMI Calculated 21.8 BSA Calculated 1.66 Physical Exam Constitutional General appearance: No acute distress, well appearing and well nourished. Head and Face Head and face: Normal. Eyes Conjunctiva and lids: No swelling, erythema or discharge. Ears, Nose, Mouth, and Throat External inspection of ears and nose: Normal. Neck Neck: Supple, symmetric, trachea midline, no masses. Pulmonary Respiratory effort: No increased work of breathing or signs of respiratory distress. Auscultation of lungs: Clear to auscultation. Cardiovascular Auscultation of heart: Normal rate and rhythm, normal S1 and S2, no murmurs. Carotid pulses: 2+ bilaterally. Examination of extremities for edema and/or varicosities: Normal. Abdomen Abdomen: Non-tender, no masses. Liver and spleen: No hepatomegaly or splenomegaly. Lymphatic Palpation of lymph nodes in neck: No lymphadenopathy. Skin Skin and subcutaneous tissue: Normal without rashes or lesions. Neurologic Cranial nerves: Cranial nerves II-XII intact. Psychiatric Judgment and insight: Normal. Mood and affect: Normal. Assessment 1. Encounter for preventive health examination (V70.0) (Z00.00) Plan Health Maintenance 1. Follow-up PRN Outpatient Follow-up Status: Complete Done: 28Jul2015 Ordered; For: Health Maintenance; Ordered By: Alysha Whitmore Performed: Due: [id number] 2. Fluarix Quadrivalent 0.5 ML Intramuscular Suspension Prefilled Syringe For: Health Maintenance; Ordered By:Alysha Whitmore; Effective Date:28Jul2015; Administered by: Lisa Reyes: 07/28/2015 4:35:00 PM; Last Updated By: Lisa Reyes; 07/28/2015 4:36:19 PM Discussion/Summary Health maintenance, physical exam for childcare. Denies any contagious illnesses and has otherwise good health. Eats healthy and exercises regularly. Thinks she is up-to-date on her TB test. If thereis anything that requires that she can go ahead and return for a TB test. We will go ahead and update her influenza vaccine and she will follow up for routine care as needed. Signatures Electronically signed by : Alysha Whitmore M.D.; Jul 29 2015 7:39AM FRAMING INSPECTOR (Author) documented in this encounter Plan of Treatment Not on file documented as of this encounter Visit Diagnoses Not on filedocumented in this encounter
--- OUTSIDE RECORDS SUMMARY | 2024-09-22 10:31 | XMS_ITS | Clinical Summary ---
Author Organization [facility] Address [facility] [place] [address] [place] [address] Care Team Providers Care Oracle Drm Consultant Name Role Phone Luke Guidry MD Primary Care Provider [phone] Allergies Active Allergy Reactions Criticality Noted Date Comments Codeine Dizziness Low 01/24/2023 Promethazine Dizziness Low 01/24/2023 Medications atorvastatin (LIPITOR) 10 MG tablet atorvastatin 10 mg tablet TAKE 1 TABLET DAILY AT BEDTIME Active benazepril-hydr oCHLOROthiazide (LOTENSIN HCT) 10-12.5 MG tablet benazepril 10 mg-hydrochloroth iazide 12.5 mg tablet Active buPROPion XL (WELLBUTRIN XL) 150 MG 24 hr tablet bupropion HCl XL 150 mg 24 hr tablet, extended release TAKE 1 TABLET DAILY EVERY EVENING 5 Active diclofenac EC (VOLTAREN) 75 MG tablet Take 1 tablet (75 mg total) by mouth every 12 (twelve) hours as needed. 3 Active JARDIANCE 25 MG tablet Take 1 tablet (25 mg total) by mouth every morning. 3 Active escitalopram (LEXAPRO) 20 MG tablet escitalopram 20 mg tablet TAKE 1 TABLET DAILY EVERY MORNING DIRECTED Active fenofibrate 160 MG tablet Take 1 tablet (160 mg total) by mouth daily. Active icosapent ethyl (VASCEPA) 1 G capsule Vascepa 1 gram capsule Active meloxicam (MOBIC) 7.5 MG tablet meloxicam 7.5 mg tablet TAKE 1 TABLET EVERY 12 HOURS WITH FOOD ONLY NEEDED Active metFORMIN ER (GLUCOPHAGE-XR) 500 MG 24 hr tablet Take 1 tablet (500 mg total) by mouth 2 (two) times daily with meals. 3 Active raloxifene (EVISTA) 60 MG tablet raloxifene 60 mg tablet Active methylPREDNISol one, CIARA, (MEDROL DOSEPAK) 4 MG tabletIndicatio ns:Strain of lumbar region, initial encounter 6 TABLETS ON DAY ONE, 5 TABLETS DAY TWO, 4 TABLETS DAY THREE, 3 TABLETS DAY FOUR, 2 TABLETS DAY FIVE, AND 1 TABLET DAY SIX 1 each 3 Active Active Problems No known active problems Encounters Date Type Department Care Team Description 07/05/2024 10:24 AM CDT - 07/05/2024 11:27 AM CDT Emergency [facility] Emergency Room [address] [place] [address] Abisai Hubbard MD Abnormal Lab Results Discharge Disposition: Home or Self Care (Routine Discharge) 07/05/2024 Travel from Last 3 Months Immunizations Name Administration Dates Next Due Influenza (Generic) 06/27/2014 Influenza Adult (Generic) 07/01/2019,07/15/2018, 07/02/2017,07/28/2015 Pneumococcal (Pneumovax 23) 11/11/2019 Shingrix 09/25/2020,07/03/2020,04/03/2019 Tdap (Generic) 01/09/2014 Social History Tobacco Use Types Packs/Day Years Used Date Smoking Tobacco: Never Smokeless Tobacco: Never Tobacco Cessation:Counseling Given: No Alcohol Use Standard Drinks/Week Comments Never 0 (1 standard drink = 0.6 oz pur e alcohol) Comments Unknown Sex and Gender Information Value Date Recorded Sex Assigned at Not on file Legal Sex Female 8:14 PM CDT Gender Identity Not on file Sexual Orientation Not on file Last Filed Vital Signs Vital Sign Reading Time Taken Comments Blood Pressure 107/62 07/05/2024 11:26 AM CDT Pulse 72 07/05/2024 11:26 AM CDT Temperature 36.4 ??C (97.6 ??F) 07/05/2024 11:26 AM C DT Respiratory Rate 18 07/05/2024 11:26 AM CDT Oxygen Saturation 100% 07/05/2024 11:26 AM CDT Inhaled Oxygen Concentration - - Weight 68.5 kg (151 lb) 07/05/2024 10:30 AM CDT Height 165.1 cm (5' 5 ) 07/05/2024 10:30 AM CDT Body Mass Index 25.13 07/05/2024 10:30 AM CDT Plan of Treatment Health Maintenance Due Date Last Done Comments Colorectal Cancer Screening Colonoscopy (10 Years) 1958 Hepatitis C 1976 Mammogram Screening 1998 Dexa Scan (General) 2023 Pneumococcal Vaccine: 65+ Years (2 of 2 - PCV) 2023 11/11/2019 COVID-19 Vaccine (2 - season) 2024 05/13/2021 Influenza Adult (#1) 2024 06/28/2023, 08/16/2022, 08/03/2021, Additional history exists RSV Immunization or 60+ Years (1 - 1-dose 75+ series) 2033 DTaP, Tdap and Td Vaccines (3 - Td or Tdap) 05/21/2034 05/21/2024, 01/09/2014 Pneumococcal Vaccine: Pediatrics (0 to 5 Years) and At-Risk Patients (6 to 64 Years) Aged Out 11/11/2019 No longer eligible based on patient's age to complete this topic Zoster Vaccines Completed 09/25/2020, 06/11, 04/03/2019 Meningococcal Vaccine Aged Out No christa tru eligible based on patient's age to complete this topic RSV Immunizations Under 20 Months Aged Out No longer eligible based on patient's age to complete this topic Procedures Procedure Name Priority Date/Time Associated Diagnosis Comments XR CHEST PORTABLE STAT 07/05/2024 11: 05 AM CDT ECG 12-LEAD Routine 07/05/2024 11:00 AM CDT LIPASE STAT 07/05/2024 10:42 AM CDT TROPONIN, QUANT STAT 07/05/2024 10:42 AM CDT COMPREHENSIVE METABOLIC PANEL STAT 07/05/2024 10:42 AM CDT CBC W/DIFF AUTOMATED STAT 07/05/2024 10:42 AM CDT from Last 3 Months Results * XR CHEST PORTABLE (07/05/2024 11:05 AM CDT) Anatomical Region Laterality Modality Chest Radiographic Jacquie ging 07/05/2024 11:0 8 AM CDT Impressions 07/05/2024 11:10 AM CDT IMPRESSION: 1) No radiographic evidence of active disease the chest. Ordered By: ABISAI HUBBARD Interpreted By: John Oliva MD, 07/05/2024 11:08 AM Narrative 07/05/2024 11:10 AM CDT [address] [place] [address] Examination: XR CHEST PORTABLE Exam time: 07/05/2024 11:05 AM Clinical history: Short of breath, fatigue Comparison: None Technique: AP chest Findings: Heart size within normal limits. Pulmonary vasculature unremarkable. No significant pulmonary parenchymal opacity. No pleural effusion. No hyperinflation. Procedure Note John Oliva MD - 07/05/[address] [place] [address] Examination: XR CHEST PORTABLE Exam time: 07/05/2024 11:05 AM Clinical history: Short of breath, fatigue Comparison: None Technique: AP chest Findings: Heart size within normal limits. Pulmonary vasculatureunremarkable. No significant pulmonary parenchymal opacity. No pleuraleffusion. No hyperinflation. IMPRESSION: 1) No radiographic evidence of active disease the chest. Ordered By: ABISAI HUBBARD Interpreted By: John Oliva MD, 07/05/2024 11:08 AM us Abisai Hubbard MD GENERAL IMAGING Final Result * ECG 12 lead (07/05/2024 11:00 AM CDT) 07/05/2024 11:0 0 AM CDT Narrative [facility] RAD - 07/06/2024 9:46 AM CDT ?[facility] ? Test Date: ?2024-07-05 Pat Name: ? SAMUEL SHANNON ? Department: ?? 85 ? Room: ? EXAM 202 Gender: ? Female ? Detail Supervisor: ?? : ?1960 ? Requested By: ABISAI HUBBARD Order Number: [id number] ? Reading MD: ?? Neptali Dee ? Measurements Intervals ?[place] ? Rate: ? 72 ? P: ?5 TX: ? 211 ?QRS: ?45 QRSD: ? 86 ? T: ?22 QT: ? 391 ? QTc: ?430 ? Interpretive Statements SINUS RHYTHM WITH FIRST DEGREE AV BLOCK No previous ECG available for comparison Procedure Note Neptali Dee MD - 07/06/2024 [facility] Test Date: 2024-07-05 Pat Name: SAMUEL SHANNON Department: 85 Room: EXAM 202 Gender: Female Detail Supervisor: : 1960 Requested By: ABISAI HUBBARD Order Number: [id number] [place] MD: Neptali Dee Measurements Intervals [place] Rate: 72 P: 5 TX: 211 QRS: 45 QRSD: 86 T: 22 QT: 391 QTc: 430 Interpretive Statements SINUS RHYTHM WITH FIRST DEGREE AV BLOCK No previous ECG available for comparison us Abisai Hubbard MD ECG ORDERABLES Final Result [facility] RAD * (ABNORMAL) COMPREHENSIVE METABOLIC PANEL (07/05/2024 10:42 AM CDT) [facility] GLUCOSE 110(H) 70 - 99 MG/DL 07/05/2024 11:[address] [facility] BUN 15 7 - 18 MG/DL 07/05/2024 11:07 [facility] CREATININE S/P/B 1.08(H) 0.55 - 1.02 MG/DL 07/05/2024 11:07 AM [facility] SODIUM S/P/B 143 136 - 145 MMOL/L 07/05/2024 11:07 AM [facility] POTASSIUM S/P/B 3.8 3.5 - 5.1 MMOL/L 07/05/2024 11:07 AM [facility] CHLORIDE S/P/B 108 100 - 108 MMOL/L 07/05/2024 11:07 AM [facility] CO2 30.5 21 - 32 MMOL/L 07/05/2024 11:07 AM [facility] CALCIUM S/P/B 8.8 8.5 - 10.1 MG/DL 07/05/2024 11:07 AM [facility] BILIRUBIN TOTAL S/P/B 0.3 0.2 - 1.2 MG/DL 07/05/2024 11:07 AM [facility] TOTAL PROTEIN S/P/B 5.5(L) 6.4 - 8.2 G/DL 07/05/2024 11:07 AM [facility] ALBUMIN S/P/B 2.7(L) 3.4 - 5.0 G/DL 07/05/2024 11:07 AM [facility] AST 14(L) 15 - 37 U/L 07/05/2024 11:07 AM [facility] ALT 20 14 - 55 U/L 07/05/2024 11:07 AM [facility] ALKALINE PHOSPHATASE S/P/B 67 50 - 136 U/L 07/05/2024 11:07 AM [facility] ANION GAP 4.5(L) 5 - 15 MMOL/L 07/05/2024 11:07 AM CDT [facility] BUN CREATININE RATIO 13.9 6 - 07/05/2024 11:07 AM T [facility] A/G RATIO 1.0 1.0 - 2.0 RATIO 07/05/2024 11:07 AM T [facility] GFR ESTIMATE 57(L) >90 ML/MIN/1.7 3 M2 07/05/2024 11:07 AM T [facility] Comment: NOTE: eGFR is not calculated for patients <18 years of age. This is an estimated GFR calculation using the new CKD EPI creatinine equation without race and so does not require a correction factor for race. This estimated GFR should not be used for calculating drug doses. 07/05/2024 10:4 2 AM CDT us Abisai Hubbard MD LABORATORY Final Result [facility] [address] [place] [address], * (ABNORMAL) CBC W/DIFF AUTOMATED (07/05/2024 10:42 AM CDT) WBC 10.75 4.4 - 11.0 x10'3/uL 07/05/2024 10:58 AM CDT [facility] RBC 3.87(L) 4.50 - 5.10 x10'6/uL 07/05/2024 10:58 AM CDT [facility] HGB 12.3 12.3 - 15.3 G/DL 07/05/2024 10:58 AM CDT [facility] HCT 37.9 35.9 - 44.6 % 07/05/2024 10:58 AM CDT [facility] MCV 97.9(H) 80.0 - 96.0 FL 07/05/2024 10:58 AM CDT [facility] MCH 31.8(H) 25.3 - 30.9 PG 07/05/2024 10:58 AM T [facility] MCHC 32.5 31.0 - 34.1 G/DL 07/05/2024 10:58 AM CDT [facility] RDW 13.6 12.4 - 15.1 % 07/05/2024 10:58 AM T [facility] PLT 315 151 - 353 x10'3/uL 07/05/2024 10:58 AM T [facility] MPV 8.6(L) 9.6 - 12.0 FL 07/05/2024 10:58 AM T [facility] SEG NEUTROPHILS 24(L) 42 - 72 % 11:18 AM T [facility] LYMPHOCYTES 21 15.8 - 45.0 % 07/05/2024 11:18 AM T [facility] MONOCYTES 5(L) 5.7 - 12.5 % 07/05/2024 11:18 AM T [facility] EOSINOPHILS 46(H) 0 - 5.6 % 07/05/2024 11:18 AM T [facility] ATYP. LYMPHS 4 % 07/05/2024 11:18 AM T [facility] ABS. NEUTROPHILS 2.58 1.40 - 6.00 x10'3/uL 07/05/2024 11:18 AM T [facility] ABS. LYMPHOCYTES 2.69 0.80 - 4.70 x10'3/uL 07/05/2024 11:18 AM T [facility] PLT MORPH. NORMAL 07/05/2024 11:18 AM CDT [facility] RBC MORPHOLOGY NORMAL 07/05/2024 11:18 AM CDT [facility] WBC MORPHOLOGY NORMAL 07/05/2024 11:18 AM CDT [facility] 07/05/2024 10:4 2 AM CDT Abisai Hubbard MD LABORATORY Final Result [facility] [address] [place] [address], [place] [phone] * TROPONIN, QUANT (07/05/2024 10:42 AM CDT) Pathologist [facility] TROPONIN I HIGH SENSITIVITY <4 0 - 50 ng/L 07/05/2024 11:14 AM CDT [facility] Comment: HIGH DOSES OF BIOTIN, TROPONIN-SPECIFIC AUTOANTIBODIES, AND ANTIBODY THERAPY CONTAINING HAMA MAY INTERFERE WITH THIS TEST RESULT. CORRELATION TO CLINICAL HISTORY AND PRESENTATION RECOMMENDED. 07/05/2024 10:4 2 AM CDT Abisai Hubbard MD LABORATORY Final Result Performing Organization Address City/[facility]/ZIP Co de Phone Number [facility] [address] [place] [address], [place] [phone] * LIPASE (07/05/2024 10:42 AM CDT) Pathologist [facility] LIPASE 51 16 - 77 UNITS/L 07/05/2024 11:07 AM CDT [facility] 07/05/2024 10:4 2 AM CDT us Abisai Hubbard MD LABORATORY Final Result [facility] [address] [place] [address], [place] [phone] from Last 3 Months Insurance [employer] MEDICARE Care Teams Oracle Drm Consultant Relationship Specialty Start Date End Date Luke Guidry MD PCP - General HOSPITALIST 09/04/23
--- OUTSIDE RECORDS SUMMARY | 2024-09-22 10:31 | XMS_ITS | Encounter Summary ---
Author Organization [facility] Address [facility] [facility] [place] [address] [place] [address] Care Team Providers Care Sports Centre Manager Name Role Phone Unavailable Primary Care Provider Unavailabl e Encounter Details Date Type Department Care Team (Late st Contact Info) Description 06/07/2007 Abstract [facility] CONVERSION [address] [place], [place] [id number] Lynda Guillen MD [address], [place], [place] [id number] Social History Tobacco Use Types Packs/Day Years Used Date Smoking Tobacco: Never Assessed Comments Unknown Sex and Gender Information Value Date Recorded Sex Assigned at Not on file Legal Sex Female 8:14 PM CDT Gender Identity Not on file Sexual Orientation Not on file documented as of this encounter Plan of Treatment Not on file documented as of this encounter Visit Diagnoses Not on filedocumented in this encounter
--- OUTSIDE RECORDS SUMMARY | 2024-09-22 10:31 | XMS_ITS | Encounter Summary ---
Author Organization [facility] Address [facility], [id number] [place] [address] [place] [address] Care Team Providers Care Smt Machine Operator Name Role Phone Unavailable Primary Care Provider Unavailabl e Encounter Details Date Type Department Care Team (Late st Contact Info) Description 09/30/2014 Abstract [facility] Emergency Room [address] [place] [address] Neptali Narvaez Jr., MD [address] [address] Social History Tobacco Use Types Packs/Day Years Used Date Smoking Tobacco: Never Assessed Comments Unknown Sex and Gender Information Value Date Recorded Sex Assigned at Not on file Legal Sex Female 8:14 PM CDT Gender Identity Not on file Sexual Orientation Not on file documented as of this encounter Plan of Treatment Not on file documented as of this encounter Visit Diagnoses Diagnosis Other and unspecified noninfectious gastroenteritis and colitis documented in this encounter
--- OUTSIDE RECORDS SUMMARY | 2024-09-22 10:31 | XMS_ITS | Encounter Summary ---
Author Organization [facility] Address [facility] [facility] [place] [address] [place] [address] Care Team Providers Care Claims Customer Service Representative Name Role Phone Unavailable Primary Care Provider Unavailabl e Encounter Details Date Type Department Care Team (Late st Contact Info) Description 02/23/2004 Abstract [facility] CONVERSION [id number] [place], [place] [id number] Lynda Guillen MD [address], [place], [place] [address] Social History Tobacco Use Types Packs/Day Years [...]
--- OUTSIDE RECORDS SUMMARY | 2024-09-22 10:31 | XMS_ITS | Continuity of Care Document ---
Author Organization [place] - [facility], [facility] Address [address] [place] [address] Care Team Providers Care Environmental Engineering Professor Name Role Phone LUKE GUIDRY Primary Care Provider LUKE GUIDRY Referring Provider LUKE GUIDRY Primary Care Provider [phone] Assessment No assessment recorded. Plan of Treatment Reminders Order Date Submit Date Provider Last Modified By Organization Details Last Modified Time Details Appointments Follow Up 15 2024 08:45A Maximino Guidry MD Not available Not available Not available Lab None recorded. Referral gastroent erologist referral - Please call patient to schedule. 2023 [email or web address] Nicola Monreal MD, [address], [facility] [address], [place], [address], 07/18/2024 15:16:54 Procedures None recorded. Surgeries None recorded. Imaging None recorded. Medication Orders pantopraz ole 40 mg tablet,de layed release 2023 024 [id number], [address], [place], [id number], 07/10/2024 10:40:12 Patient TargetsNo targets recorded. Patient InstructionsNo instructions recorded. 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 Referring Physician: [facility], Encounter Date: 07/10/2024 Results Created Date Observation Date Name Description Value Unit Range Abnormal Flag Note LastModifiedBy Organization Detail LastModifiedTime 07/09/20 24 07/09/2024 US, abdom en, compl ete No observ ation record ed. [email or web address] [facility] [address], [place], [address], 07/10/2024 10:36:28 07/09/20 24 07/09/2024 XR, chest , 1 view No observ ation record ed. [facility] [address], [place], [address], 07/10/2024 11:45:08 Result Notes None recorded. Problems Name Problem SNOMED Code Status Onset Date Resolution Date Notes Provider Name and Address Organization Details Recorded Time Sore throat 066488652 Active 2022 Luke Guidry MD [address], [address], [place], [address] , [employer] 10:45:22 Dysuria 19296686 Active 2022 Luke Guidry MD [address], [address], [place], [address] , [employer] 4 10:45:22 Pharyngit is 911782963 Active 2022 Luke Guidry MD [address], [employer], [place], [address] , [employer] 10:45:22 Dyspnea on exertion 56990828 Active 2022 Luke Guidry MD [address], [address], [place], [address] , [employer] 10:45:22 Gastroeso phageal reflux disease without esophagit is 653273823 Active 2022 Luke Guidry MD [address], [address], [place], [address] , [employer] 10:45:22 Sleep apnea 40410680 Active 2022 Luke Guidry MD [address], [address], [place], [address] , [facility] [employer] [facility] 4 10:45:22 Pain of right ankle joint 08633303902 365747 Active 2022 Luke Guidry MD [address], [address], [place], [address] , [facility] 4 10:45:21 Pain of left shoulder joint 81489836961 670223 Active 2022 Luke Guidry MD [address], [address], [place], [address] , [facility] 4 10:45:21 Pain in right foot 28323012112 9107 Active 2022 Luke Guidry MD [address], [address], [place], [address] , [employer] [facility] 4 10:45:22 Pain in right hip joint 18058878062 9102 Active 2023 Luke Guidry MD [address], [address], [place], [address] , [facility] [employer] [facility] 4 10:45:22 Chronic low back pain 563860413 Active 2023 Luke Guidry MD [address], [address], [place], [address] , [facility] 4 10:45:22 Lumbar radiculop athy 626186558 Active 2023 Luke Guidry MD [address], [place], [address] , [facility] 4 10:45:21 Degenerat ion of lumbar intervert ebral disc 18430610 Active 2023 Luke Guidry MD [address], [address], [place], [address] , [facility] 4 10:45:22 Arthritis 1732462 Active 2023 Luke Guidry MD [address], [place], [address] , [facility] 4 10:45:22 Diabetes mellitus 73113465 Active 2023 Luke Guidry MD [address], [place], [address] , [facility] 4 10:45:22 Bone spur of right foot 28481748819 9103 Active 2023 Luke Guidry MD [address], [place], [address] , [facility] 4 10:45:22 Calcific tendiniti s of achilles tendon 964679001 Active 2023 Luke Guidry MD [address], [place], [address] , [facility] 4 10:45:22 Epigastri c pain 40954830 Active 2023 Luke Guidry MD [address], [place], [address] , [facility] 4 10:45:22 Nausea and vomiting 90677203 Active 2023 Luke Guidry MD [address], [place], [address] , [facility] 4 10:45:22 Gastritis 3053836 Active 2023 Luke Guidry MD [address], [place], [address] , [facility] 4 10:45:22 Abdominal pain 63766371 Active 2023 Luke Guidry MD [address], [place], [address] , [facility] 4 10:45:22 Hiatal hernia with gastroeso phageal reflux 750532418 Active 2023 Luke Guidry MD [address] [address], [place], [address] , [facility] [employer] [facility] [employer] [facility] 4 10:45:22 Impacted cerumen of bilateral ears 32125757845 42507 Active 2017 Luke Guidry MD [address] [address], [place], [address] , [employer] [facility] [employer] [facility] 4 10:45:21 Sprain of left foot [id number] 484417 Active 2021 Luke Guidry MD [address], [address] [address], [place], [address] , [employer] [facility] [employer] [facility] 4 10:45:21 Urticaria 066160587 Completed Not Available [facility] 3 04:51:15 Excessive cerumen in ear canal 479834303 Completed Not Available [facility] 3 04:51:15 Acute sinusitis 73764285 Completed Not Available [facility] 3 04:51:15 Pain of left ankle joint 75009779227 040495 Active 2021 Luke Guidry MD [address], [address], [address] , [facility] [employer] [facility] [employer] [facility] 4 10:45:21 Excessive upper gastroint estinal gas 174666546 Completed Not Available [facility] 3 04:51:15 Impacted cerumen 11919136 Completed Not Available [facility] 3 04:51:15 Congenita l pes cavus 821514870 Active 2021 Luke Guidry MD [address], [address] [address], [place], [address] , [facility] [employer] [facility] [employer] [facility] 4 10:45:22 Periphera l venous insuffici ency 54409434 Active 2017 Luke Guidry MD [address], [address] [address], [place], [address] , [employer] 4 10:45:22 Abdominal pain 66509065 Completed Luke Guidry MD [address], [address], [place], [address] , [employer] [facility] [employer] 4 11:02:57 Mixed anxiety and depressiv e disorder 383357226 Active 2016 Luke Guidry MD [address], [address], [place], [address] , [employer] [facility] [employer] 4 10:45:22 Gastroeso phageal reflux disease 060016671 Active Luke Guidry MD [address], [address], [place], [address] , [employer] [facility] [employer] 4 10:45:22 Osteoarth ritis of knee 364013964 Active 2016 Luke Guidry MD [address], [address], [place], [address] , [employer] [facility] [employer] 4 10:45:22 Lumbar spondylos is 301127615 Active 2021 Luke Guidry MD [address], [address], [place], [address] , [employer] 4 10:45:22 Ankle pain 551804580 Active 2021 Luke Guidry MD [address], [address] [address], [place], [address] , [employer] [facility] [employer] [facility] 4 10:45:22 Urinary symptoms 461701344 Completed Not Available [facility] 3 04:51:16 Gastroent eritis 00141351 Completed Not Available [facility] 3 04:51:16 Eruption 653950790 Completed Not Available [facility] 3 04:51:16 Hypertrig lyceridem ia 717018983 Active 2016 Luke Guidry MD [address], [address], [place], [address] , [employer] [facility] [employer] 4 10:45:22 Osteopeni a 679397506 Active 2017 Luke Guidry MD [address] [address], [place], [address] , [facility] [employer] [facility] [employer] [facility] 4 10:45:22 Pain in left foot 10699541463 9107 Active 2021 Luke Guidry MD [address] [address], [place], [address] , [facility] [employer] [facility] [employer] [facility] 4 10:45:22 Peroneal tendiniti s of left lower limb 94443302734 9107 Active 2021 Luke Guidry MD [address] [address], [place], [address] , [facility] [employer] [facility] [employer] [facility] 4 10:45:22 Vitamin D deficienc y 89050134 Active 2016 Luke Guidry MD [address] [address], [place], [address] , [facility] [employer] [facility] [employer] [facility] 4 10:45:22 Depressiv e disorder 58712386 Active Luke Guidry MD [address] [address], [place], [address] , [facility] [employer] [facility] [employer] [facility] 4 10:45:22 Sinusitis 90100929 Active 2021 Luke Guidry MD [address] [address], [place], [address] , [facility] [employer] [facility] [employer] [facility] 4 10:45:22 Hypertens edward disorder 89786935 Active 2020 Luke Guidry MD [address] [address], [place], [address] , [facility] [employer] [facility] 4 10:45:22 Cervical spondylos is 621457857 Active 2021 Luke Guidry MD [address] [address], [place], [address] , [facility] [employer] [facility] [employer] [facility] 4 10:45:22 Thoracic spondylos is 088518699 Active 2021 Luke Guidry MD [address], [address], [place], [address] , [employer] [facility] 4 10:45:22 Osteoarth ritis 512268532 Active Luke Guidry MD [address], [address], [place], [address] , [employer] [facility] [employer] 4 10:45:22 Kyphoscol iosis deformity of spine 816096067 Active 2021 Luke Guidry MD [address], [address], [place], [address] , [employer] 4 10:45:22 Kyphosis deformity of spine 306145361 Active 2017 Luke Guidry MD [address], [address] [facility], [place], [address] , [employer] [facility] 4 10:45:22 Nausea 525847029 Completed Not Available [facility] 3 04:51:18 Eczema 08277880 Completed Not Available [facility] 3 04:51:19 Anxiety 87455077 Active 2017 Luke Guidry MD [address], [address], [place], [address] , [employer] [facility] 4 10:45:22 Cough 22067660 Active 2021 Luke Guidry MD [address], [address], [place], [address] , [employer] [facility] 4 10:45:22 Abnormal gallbladd er function 58292735 Completed Not Available [facility] 3 04:51:19 Hyperlipi demia 44704298 Active Luke Guidry MD [address], [address], [place], [address] , [employer] 4 10:45:22 Essential hypertens ion 74458617 Completed Not Available [facility] 3 04:51:19 Diarrhea 44493208 Completed Not Available [facility] 3 04:51:20 Osteoporo sis 54276291 Active 2016 Luke Guidry MD [address], [address], [place], [address] , [employer] 4 10:45:22 Prediabet es 074856642 Active 2017 Luke Guidry MD [address], [address], [place], [address] , [employer] 4 10:45:22 Postmenop ausal osteopeni a 704483819 Active 2021 Luke Guidry MD [address], [address], [place], [address] , [employer] 4 10:45:22 Decreased renal function 69561981 Completed Not Available [facility] 3 04:51:20 Epigastri c pain 53694562 Completed Luke Guidry MD [address], [address], [place], [address] , [employer] 4 10:58:33 Hyperglyc emia 15403401 Completed Not Available [facility] 3 04:51:21 Neck pain 46185318 Completed Not Available [facility] 3 04:51:21 Fatigue 73059748 Active 2020 Luke Guidry MD [address], [address], [place], [address] , [employer] 4 10:45:22 Problem Notes None recorded. Procedures Surgical History Date Name Laterality Status Provider Name and Address Organization Details Recorded Time Cholecystectomy completed Not Available [facility] 11/08/2022 04:42:01 Imaging Results None recorded. Procedure Notes None recorded. Medical Equipment None Reported. Allergies Allergen ID Allergen Name Allergen Category Reaction Reaction Severity Criticality Documentation Date Start Date Code Code System Note Provider Name and Address Organization Details Recorded Time 41384 promethaz ine medicatio n dizziness Not available Not available 07/10/20242022 8745 RxNorm Luke Guidry MD [address], [facility] [address], [place], [address], [facility] [employer] [facility] [employer] 4 10:44:50 7971 Phenergan medicatio n dizziness Not available Not available 11/08/2022 10170 8 RxNorm Not Available [facility] 3 05:03:18 7972 codeine medicatio n dizziness Not available Not available 11/08/20222022 2670 RxNorm Luke Guidry MD [address], [facility] [address], [place], [address], [facility] [employer] [facility] 4 10:44:51 Medications Name Sig Start Date Stop Date Status Note LastModified by Organization Details LastModified Time cyclobenza medina 10 mg tablet Take 1 tablet every 12 hours by oral route as needed for 90 days. 2023 active Not Available Not Available Not Avai lable fenofibrat e micronized 160 mg tablet 160 mg by oral route. active Not Available Not Available No t Available amoxicilli n 500 mg capsule TAKE 1 CAPSULE BY MOUTH EVERY 8 HOURS FOR 7 DAYS DIRECTED 12/19 completed Not Available Not Available Not Available clonidine HCl 0.1 mg tablet TAKE 1 TABLET EVERY 12 HOURS DIRECTED 04/11 completed Not Available Not Available Not Available prednisone 10 mg tablet TAKE 4 TABLETS BY MOUTH FOR 2 DAYS THEN 2 FOR 2 DAYS THEN 1 FOR 3 DAYS active Not Available Not Available No t Available atorvastat in 20 mg tablet Take 1 tablet every day by oral route at bedtime for 90 days. active Not Available Not Available No t Available atorvastat in 10 mg tablet active Not Available Not Available Not Available azithromyc in 250 mg tablet TK 2 TS PO ON DAY 1, THEN TK 1 T PO D FOR 4 DAYS active Not Available Not Available No t Available benzonatat e 200 mg capsule Take 1 capsule every 8 hours by oral route as needed for 7 days. active Not Available Not Available No t Available metoprolol succinate ER 50 mg tablet,ext ended release 24 hr active Not Available Not Available Not Available phenazopyr idine 200 mg tablet TAKE 1 TABLET BY MOUTH EVERY 8 HOURS FOR 5 DAYS NEEDED 12/19 completed Not Available Not Available Not Available ondansetro n HCl 4 mg tablet TAKE 1 TABLET BY MOUTH EVERY 6 TO 8 HOURS FOR 7 DAYS NEEDED active Not Available Not Available No t Available Tubersol 5 tub. unit/0.1 mL intraderma l injection solution Inject 0.1 mL by intrader mal route for 1 day. 05/17 completed Not Available Not Available Not Available methylpred nisolone 4 mg tablet 2022 active Not Available Not Available Not Avai lable Debrox 6.5 % ear drops INSTILL 4 DROPS INTO AFFECTED EAR(S) BY OTIC ROUTE 2 TIMES PER DAY active Not Available Not Available No t Available fenofibrat e micronized 200 mg capsule Take 1 capsule every day by oral route in the morning for 90 days. active Not Available Not Available No t Available TobraDex 0.3 %-0.1 % eye ointment APPLY A SMALL AMOUNT ONTO EYELID IN AFFECTED EYE(S) BY OPHTHALM IC ROUTE 2 TIMES PER DAY PRN active prn Not Available Not Available No t Available Zantac 150 mg tablet Take 1 tablet twice a day by oral route for 30 days. active Not Available Not Available No t Available meloxicam 7.5 mg tablet active Not Available Not Available Not Available alprazolam 0.25 mg tablet Take 1 tablet twice a day by oral route as needed. active Not Available Not Available No t Available benzonatat e 100 mg capsule 07/01 completed Not Available Not Available Not Available cephalexin 500 mg capsule 04/03 completed for UTI Not Available Not Available Not Available pantoprazo le 40 mg tablet,del ayed release TAKE 1 TABLET BY MOUTH EVERY DAY DIRECTED 2023 active Not Available Not Available Not Avai lable buspirone 10 mg tablet Take 1 tablet every 12 hours by oral route as needed for 90 days. 10/04 completed Take as needed for anxiety . Not Available Not Available Not Available omeprazole 20 mg capsule,de layed release TAKE ONE CAPSULE BY MOUTH EVERY DAY active Not Available Not Available No t Available raloxifene 60 mg tablet TAKE 1 TABLET DAILY DIRECTED , TAKE DIRECTED BY GYNECOLO GIST active Not Available Not Available No t Available diclofenac sodium 75 mg tablet,del ayed release take 1 tablet by mouth every 12 hours as needed 2023 active Not Available Not Available Not Avai lable metoprolol succinate ER 25 mg tablet,ext ended release 24 hr active Not Available Not Available Not Available ergocalcif halle (vitamin D2) 1,250 mcg (50,000 unit) capsule TAKE 1 CAPSULE WEEKLY 05/21 completed Not Available Not Available Not Available cefuroxime axetil 500 mg tablet 07/01 completed Not Available Not Available Not Available methylpred nisolone 4 mg tablets in a dose pack FOLLOW PACKAGE DIRECTIO NS 09/27 completed Not Available Not Available Not Available ipratropiu m bromide 42 mcg (0.06 %) nasal spray 04/07 completed Not Available Not Available Not Available ondansetro n 4 mg disintegra ting tablet DISSOLVE 1 TABLET ON THE TONGUE EVERY 6 TO 8 HOURS NEEDED active Not Available Not Available No t Available metformin ER 500 mg tablet,ext ended release 24 hr Take 1 tablet twice a day by oral route after meals for 90 days. 2023 active Not Available Not Available Not Avai lable benazepril 10 mg-hydroch lorothiazi de 12.5 mg tablet TAKE 1 TABLET DAILY EVERY MORNING active Not Available Not Available No t Available amoxicilli n 875 mg-potassi um clavulanat e 125 mg tablet TAKE 1 TABLET BY MOUTH EVERY 12 HOURS FOR 7 DAYS active Not Available Not Available No t Available escitalopr am 10 mg tablet Take 1 tablet every day by oral route for 90 days. 03/29 completed has been taking 20 mg since 01/22/17 Not Available Not Available Not Available escitalopr am 20 mg tablet Take 1 tablet every day by oral route as directed for 90 days. 2023 active Not Available Not Available Not Avai lable bupropion HCl XL 150 mg 24 hr tablet, extended release TAKE 1 TABLET DAILY QPM. 2023 active Not Available Not Available Not Avai lable nitrofuran toin monohydrat e/macrocry stals 100 mg capsule Take 1 capsule every 12 hours by oral route for 7 days. 03/20 completed Not Available Not Available Not Available fenofibrat e 160 mg tablet TAKE 1 TABLET DAILY QAM 06/19 completed Not Available Not Available Not Available Fish Oil 1 po qd 2012 active Not Available Not Available Not Avai lable Evista 1 po qd 2012 active Not Available Not Available Not Avai lable multivitam in 1 po qd 10/04 completed Not Available Not Available Not Available Calcium 600 + D(3) 600 mg-10 mcg (400 unit) tablet Take 1 tablet twice a day by oral route as directed . 10/04 completed Not Available Not Available Not Available fenofibrat e 54 mg tablet Take 1 tablet every day by oral route in the morning for 90 days. 12/19 completed Not Available Not Available Not Available Caltrate 600 plus D 2 po qd 10/04 completed Not Available Not Available Not Available Vascepa 1 gram capsule Take 2 capsules twice a day by oral route as directed for 90 days. 2023 active Not Available Not Available Not Avai lable Virtussin AC 10 mg-100 mg/5 mL oral liquid 07/01 completed Not Available Not Available Not Available Afluria 4685-9383( PF) 45 mcg (15 mcg x 3)/0.5 mL intramuscu lar syringe TO BE ADMINIST ERED BY [employer] ST FOR IMMUNIZA TION 09/28 completed Not Available Not Available Not Available Jardiance 25 mg tablet Take 1 tablet every day by oral route in the morning for 90 days. active Not Available Not Available No t Available Shingrix (PF) 50 mcg/0.5 mL intramuscu lar suspension , kit INJECT 0.5 ML IN THE MUSCLE DIRECTED 10/20 completed Not Available Not Available Not Available Adult Aspirin Regimen 81 mg tablet,del ayed release Take 1 tablet every day by oral route after meals for 90 days. active Not Available Not Available No t Available Vitals Date Recorded Body height Body mass index (BMI) Body weight Systolic blood pressure Diastolic blood pressure Provider Name and Address Organization Details Last Updated DateTime 07/10/2024 165.1 cm 25.1 kg/m2 05294.45 g 110 mm[Hg] 60 mm[Hg] TERI [place] [facility] [place] [employer] 4 10:33:26 Date Recorded Body temperature Heart rate Respiratory rate Oxygen saturation Oxygen saturation in Arterial blood by Pulse oximetry Provider Name and Address Organization Details Last Updated DateTime 4 98 [degF] 80 /min 16 /min 98 % 98 % Luke Guidry MD [address], [facility] [address], [place], [address] , [facility] [employer] 4 10:41:55 Social History Question Answer Notes LastModified by Organizat ion Details LastModified Time Tobacco Smoking Status Never Smoker Fidelina Santana null, [facility] [employer] [facility] 06/11/2023 09:52:34 Do You Have An Advance Directive? No [id number] Information not available 11/08/2022 What Is Your Level Of Alcohol Consumption? None [id number] Information not available 11/08/2022 Do You Wear A Helmet When Biking? No [email or web address] Information not available 06/11/2023 What Is Your Level Of Caffeine Consumption? Heavy [id number] Information not available 11/08/2022 How Much Tobacco Do You Chew? None [id number] Information not available 11/08/2022 In The 14 Days Before Symptom Onset, Have You Had Close Contact With A Laboratory-confi rmed COVID-19 While That Case Was Ill? No [email or web address] Information not available 06/11/2023 In The 14 Days Before Symptom Onset, Have You Had Close Contact With A Person Who Is Under Investigation For COVID-19 While That Person Was Ill? No Information not available 06/11/2023 What Type Of Diet Are You Following? REGULAR [id number] Information not available 11/08/2022 Do You Or Have You Ever Used E-cigarettes Or Vape? Never Used Electronic Cigarettes [email or web address] Information not available 06/11/2023 What Is The Highest Grade Or Level Of School You Have Completed Or The Highest Degree You Have Received? 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 No [email or web address] Information not available 06/11/2023 What Is The Fluoride Status Of Your Home? Fluoridated [email or web address] Information not available 06/11/2023 Are There Any Guns Present In Your Home? No [email or web address] Information not available 06/11/2023 Do You Use Insect Repellent Routinely? Yes [email or web address] Information not available 06/11/2023 Where Do You Live? SingleLevelHouse [email or web address] Information not available 06/11/2023 Do You Have A Medical Power Of Jewelry Salesperson? No [email or web address] Information not available 06/11/2023 What Was The Date Of Your Most Recent Tobacco Screening? 06/05/2022 [email or web address] Information not available 06/11/2023 Do You Have Any Pets? Yes [email or web address] Information not available 06/11/2023 What Is Your Relationship Status? [id number] Information not available 11/08/2022 Do You Use Your Seat Belt Or Car Seat Routinely? Yes [email or web address] Information not available 06/11/2023 Do You Have Smoke And Carbon Monoxide Detectors In Your Home? Yes [email or web address] Information not available 06/11/2023 Are You Passively Exposed To Smoke? No [email or web address] Information not available 06/11/2023 Do You Or Have You Ever Used Smokeless Tobacco? Never Used Smokeless Tobacco [id number] Information not available 11/08/2022 Are There Any Smokers In Your House? No [email or web address] Information not available 06/11/2023 Do You Participate In Social Media? Yes [email or web address] Information not available 06/11/2023 Do You Feel Stressed (tense, Restless, Nervous, Or Anxious, Or Unable To Sleep At Night)? [id number] [email or web address] Information not available 06/11/2023 Do You Use Any Illicit Or Recreational Drugs? No [email or web address] Information not available 06/11/2023 Do You Use Sunscreen Routinely? Yes Information not available 06/11/2023 Has Tobacco Cessation Counseling Been Provided? No [email or web address] Information not available 06/11/2023 Have You Recently Traveled Abroad? No [email or web address] Information not available 06/11/2023 Are You Currently In School? No Information not available 06/11/2023 Do You Have Any Dietary Restrictions? No [email or web address] Information not available 06/11/2023 Do You Or Have You Ever Used Any Other Forms Of Tobacco Or Nicotine? No [email or web address] Information not available 06/11/2023 Sex: Female Functional Status Question Answer Note LastModified by Organizat ion Details LastModified Time What is your exercise level? Heavy [id number] Information not available 11/08/2022 Mental Status None recorded. Family History Relationship Description Onset Age of this Age Resolved Age Notes LastModified by Organization Details LastModified Time Father Diabetes mellitus [id number] Not available 11/08/2022 04:42:08 Father Hypertensive disorder [id number] Not available 11/08/2022 04:42:08 Father Family history of stroke [email or web address] Not available 06/11 09:52:31 Father Arthritis [email or web address] Not availa ble 06/11/2023 09:52:31 Mother Arthritis [email or web address] Not availa ble 06/11/2023 09:52:31 Mother Hypertensive disorder [id number] Not available 11/08/2022 04:42:09 Medical History Condition Response BLINDNESS N RHEUMATIC FEVER N KIDNEY STONES N BLADDER PROBLEMS N MRSA N OTHER # 1 N POLIO N LUNG DISEASE/DISORDER N HISTORY OF DRUG ABUSE N RADIATION / CHEMOTHERAPY N COPD N Other # 2 N SURGERY N EAR OR HEARING PROBLEMS N MUMPS N SHINGLES N BOWEL PROBLEMS N FEMALE PROBLEMS / INFECTIONS N DEPRESSION (INCLUDING POST ) Y STROKE/TIA N THYROID DISEASE N ULCERS N BENIGN PROSTATIC HYPERPLASIA N MEASLES N CERVICALGIA N HYPOTENSION N TB SKIN TEST N MYOCARDIAL INFARCTION N PARAPELGIA N OBESITY N GERD/NAUSEA N ANEURYSM N URINARY/BLADDER/KIDNEY PROBLEMS N MENIERE'S DISEASE N ADDICTION CONCERNS N ENDOMETRIOSIS N USE OF BLOOD THINNERS N SKIN PROBLEMS N EMPHYSEMA N GASTROINTESTINAL DISORDER N MUSCLE,JOINT OR BONE PROBLEMS N GASTROINTESTINAL BLEEDING N BLOOD CLOTS N ASTHMA N CATARACTS N ERECTILE DYSFUNCTION N GI PROBLEMS N CHF N Low Testosterone N NEUROPATHY N INFERTILITY N AIDS/HIV N FRACTURES N CHEMOTHERAPY / RADIATION N VISION/EYE PROBLEMS Y LIVER DISEASE N MALE HYPOGONADISM N HYPERTENSION Y TOURETTE'S N ANXIETY DISORDER Y BLOOD TRANSFUSION N ANEMIA/BLOOD DISORDER N CHRONIC EAR INFECTIONS N BRONCHITIS N TUBERCULOSIS N GLAUCOMA N FOOT PROBLEM N DIVERTICULITIS N CHICKENPOX N SLEEP APNEA N ALLERGIES/HAYFEVER N INFECTIOUS DISEASE N HEART ARRHYTHMIA N PROSTATE N INSOMNIA N HIGH CHOLESTEROL / HYPERLIPIDEMIA Y HYPERTHYROIDISM N EYE PROBLEMS N EATING DISORDER N EDEMA N CHRONIC PAIN SYNDROME N CONSTIPATION N HAVE YOU BEEN HOSPITALIZED OR SEEN IN [facility] IN THE PAST YEAR ? N ATHEROSCLEROSIS N BREAST PROBLEMS N DIALYSIS N ECZEMA N FIBROMYALGIA N OSTEOPOROSIS N ARTHRITIS Y NO SIGNIFICANT PAST MEDICAL HISTORY N DIABETES, TYPE Y BAD TEETH N HEARTBURN / REFLUX N ADD/ADHD N AUTISM SPECTRUM DISORDER (ASD) N HEPATITIS / LIVER DISEASE N PULMONARY DISEASE N GOUT N SLEEP DISORDER N ALZHEIMER'S DISEASE N PAIN N HERPES N DEMENTIA N HEADACHES/MIGRAINES N SEIZURES/EPILEPSY N VASCULAR DISEASE N PACEMAKER N DIZZINESS N HEART DISEASE/HEART PROBLEMS N KIDNEY DISEASE N DEVELOPMENTAL OR BEHAVIORAL DISORDERS N MULTIPLE SCLEROSIS N SCARLET FEVER N MENTAL DISORDER/ILLNESS N CANCER: SPECIFY N PNEUMONIA N ATRIAL FIBRILLATION N Gall Stones N PULMONARY EMBOLISM N Gynecological HistoryNo gynecological history recorded. Obstetrics History GPAL:G 0 P 0 0 0 0 Immunizations Vaccine Type Date Status Note Provider Nam e and Address Organization Details Recorded Time zoster recombinant 1 completed Luke Guidry MD [address], [place], [address], [employer] 07/10/2024 10:45:40 zoster recombinant 0 completed Luke Guidry MD [address], [place], [address], [employer] 07/10/2024 10:45:40 influenza, unspecified formulation 4 completed Luke Guidry MD [address], [place], [address], [employer] 07/10/2024 10:45:40 influenza, unspecified formulation 9 completed Luke Guidry MD [address], [place], [address], [employer] 07/10/2024 10:45:40 influenza, unspecified formulation 7 completed Luke Guidry MD [address], [place], [address], [employer] 07/10/2024 10:45:40 influenza, unspecified formulation 8 completed Luke Guidry MD [address], [place], [address], [employer] 07/10/2024 10:45:40 influenza, unspecified formulation 5 completed Luke Guidry MD [address], [address], [place], [address], [employer] [facility] 07/10/2024 10:45:40 Influenza, split virus, trivalent, preservative 4 completed Luke Guidry MD [address], [address], [place], [address], [employer] [facility] 07/10/2024 10:45:41 Influenza, split virus, quadrivalent, PF 9 completed Luke Guidry MD [address], [address], [place], [address], [employer] [facility] 07/10/2024 10:45:41 zoster recombinant 9 completed Not Available [facility] 10/05/2023 09:35:12 Influenza, split virus, quadrivalent, PF 8 completed Luke Guidry MD [address], [address], [place], [address], [employer] [facility] 07/10/2024 10:45:41 Influenza, split virus, quadrivalent, PF 7 completed Luke Guidry MD [address], [address], [place], [address], [employer] [facility] [employer] [facility] 07/10/2024 10:45:41 Influenza, split virus, quadrivalent, PF 2 completed Not Available [employer] 10/05/2023 09:35:12 Influenza, split virus, quadrivalent, PF 1 completed Not Available [employer] 10/05/2023 09:35:12 pneumococcal polysaccharide PPV23 0 completed Luke uGidry MD [address], [address], [place], [address], [employer] [facility] [employer] [facility] 07/10/2024 10:45:40 Tdap 4 completed Not Available [employer] 10/05/2023 09:35:12 Influenza, split virus, quadrivalent, PF 3 completed Luke Guidry MD [address], [place], [address], [facility] [employer] [facility] [employer] [facility] 06/28/2023 11:18:51 Tdap 4 completed Josue perez [employer] 05/21/2024 10:07:07 Past Encounters Encounter ID Performer Location Encounter Start Date Encounter Closed Date Diagnosis/Indication Diagnosis SNOMED-CT Code Diagnosis ICD10 Code Diagnosis Note [id number] Luke Guidry MD [address] [address] 06/19/2024 09:44:17 06/19/2024 10:20:39 Hyperlipidemia 14917545 E78.5 Hypertriglyceridemia 302 208145 E78.2 Prediabetes 347187640 R7 3.03 Depressive disorder 3548 9007 F32.9 Hypertensive disorder 38 846382 I10 Gastroesop hageal reflux disease without esophagitis 166174180 K21.9 Vitamin D deficiency 347 23005 E55.9 Improved Degenerati on of lumbar intervertebral disc 10881788 M51.369 Chronic low back pain 27 5032119 M54.50 [id number] Luke Guidry MD [address] [address] 07/03/2024 10:43:37 07/03/2024 11:35:12 Epigastric pain 39612349 R10.13 Nausea and vomiting 1693 2000 R11.2 Gastritis 9122617 K29.70 Abdominal pain 00804458 R10.9 [id number] Luke Guidry MD [address] [address] 07/10/2024 10:25:30 07/10/2024 10:50:27 Seen in emergency clinic [id number] Z76.89 D/w pt about her findings and further plan of care. Pt agreed. Epigastric pain 40742562 R10.13 Resolved Hiatal her karsten with gastroesophageal reflux 047954683 K21.9 Health Concerns Section Related Observation LastModified by Organization Detai ls LastModified Time None Recorded Concern Status LastModified by Organization Details LastModified Time None Recorded Payers Encounter Date Sequence Insurance Name Policy Number Policy Wright Covered Member ID Wright Member ID Guarantor Name 07/10/2024 2 [place] - DOS PRIOR TO 2024 - [employer] () Haydee Delgado [id number] Haydee Delgado 07/10/2024 1 [place] Haydee Delgado [id number] Haydee Delgado Notes Date Note Type Note Provider Name and Address Organization Details Recorded Time 07/10/2024 text/html Pt is here for f/u on her labs, US, x-ray and ED visit. Pt went to ED on 07/05/24 due to high WBC count and got more testing there and it was good as per pt. So pt was d/c to home without any new Rx. Pt says she is feeling much better and for last 3-4 days, no more pain. Pt is tolerating food well now. No more concern. C/o epigastric area pain for last 1 month, on/off; but for last 1 week, its more constant. Its over her epigastric area only, radiation to back ++. Nausea, vomiting and diarrhea ++, denies any blood in stool/vomitus. Denies any unusual outside food intake, denies any known sick contact. Denies any chest pain/chest pressure/sob/palp itations/sweating /fever/chills/uri nary symptoms. Denies any recent use of any antibiotics. Luke Guidry MD [address] [place] [address], [facility] [address], [place], [address], [facility] [employer] 07/10/2024 10:47:29 OBGyn Episode No OBEpisode recorded.
--- OUTSIDE RECORDS SUMMARY | 2024-09-22 10:31 | XMS_ITS | Encounter Summary ---
Author Organization [facility] Address [facility]. [place], [place] [address] [place] [address] Care Team Providers Care Hygiene Assistant Name Role Phone Unavailable Primary Care Provider Unavailabl e Encounter Details Date Type Department Care Team (Latest Contact Info) Description 09/28/2015 Abstract [facility] Social History Tobacco Use Types Packs/Day Years Used Date Smoking Tobacco: Never Assessed Comments Unknown Sex and Gender Information Value Date Recorded Sex Assigned at Not on file Legal Sex Female 8:14 PM CDT Gender Identity Not on file Sexual Orientation Not on file documented as of this encounter Progress Notes * Generic Conversion MD Antoine - 09/28/2015 11:17 AM CST Message Recorded as Task Date: 09/27/2015 09:32 AM, Created By: Kirstie Hale Task Name: Follow Up [facility] Nurse Team Regarding Patient: Haydee Delgado, Status: Active Comment: Kirstie Hale - 27 Sep 2015 9:32 AM TASK CREATED Caller: Self; Haydee states that she has been breaking out in hives for several months and the only thing that has changed with her is starting the Bupropion. After reading about the medicaiton, she found that itcan cause hives and rash. She would like further information and to know if she needs to change medicaitons. Please contact Haydee at [phone] Lisa Reyes - 27 Sep 2015 1:50 PM TASK EDITED printed task to discuss with Lisa Oliver - 27 Sep 2015 4:32 PM TASK EDITED PER DR ENCARNACION D/C BUPROPION AND SEE HOW SHE DOES OFF OF MED. LMTCB RE MED Lisa Reyes - 27 Sep 2015 4:32 PM TASK IN PROGRESS GayGaryIlene - 28 Sep 2015 10:46 AM TASK EDITED Pt returned call and has been informed of Dr. Encarnacion's recommendations to d/c bupropion. Pt asking if she should stop taking medication abruptly or ween off. Pt takes once daily. Niharika Jackman - 28 Sep 2015 11:10 AM TASK EDITED Printed to review with provider. Niharika Jackman - 28 Sep 2015 11:17 AM TASK EDITED Spoke with pt, she will stop the medication and call us back later on this week to see if the Hiveshave stopped. Signatures Electronically signed by : Niharika Jackman, ; Sep 28 2015 11:17AM TELEPHONE SOLICITOR SUPERVISOR (Author) documented in this encounter Plan of Treatment Not on file documented as of this encounter Visit Diagnoses Not on filedocumented in this encounter
--- OUTSIDE RECORDS SUMMARY | 2024-09-22 10:31 | XMS_ITS | Encounter Summary ---
Author Organization [facility] Address [address] [place] [address]. [place], [place] [id number] [place] [address] Care Team Providers Care Electric Spot Welder Name Role Phone Luke Guidry MD Primary Care Provider [phone] Encounter Details Date Type Department Care Team (Latest Contact Info) Description 07/05/2024 Travel Social History Tobacco Use Types Packs/Day Years Used Date Smoking Tobacco: Never Smokeless Tobacco: Never Alcohol Use Standard Drinks/Week Comments Never 0 [...] Diagnoses Not on filedocumented in this encounter Care Teams Electric Spot Welder Relationship Specialty Start Date End Date Luke Guidry MD PCP - General HOSPITALIST 09/04/23 documented as of this encounter
--- OUTSIDE RECORDS SUMMARY | 2024-09-22 10:31 | XMS_ITS | Encounter Summary ---
Author Organization [facility] Address [address] [place] [address]. [place], [place] [address] [place] [address] Care Team Providers Care Social Media Marketer Name Role Phone Luke Guidry MD Primary Care Provider [phone] Encounter Details Date Type Department Care Team (Latest Contact Info) Description 09/04/2023 Travel Social History Tobacco Use Types Packs/Day [...] on filedocumented in this encounter Care Teams Social Media Marketer Relationship Specialty Start Date End Date Luke Guidry MD PCP - General HOSPITALIST 09/04/23 documented as of this encounter
--- OUTSIDE RECORDS SUMMARY | 2024-09-22 10:31 | XMS_ITS | Encounter Summary ---
Author Organization [facility] Address [address] [place] [address]. [place], [place] [id number] [place] [id number] Care Team Providers Care Field Clerk Name Role Phone Luke Guidry MD Primary Care Provider [phone] Reason for Visit * Reason Comments Back Pain Back pain radiating to right hip and down right leg x5 days Encounter Details Date Type Department Care Team (Late st Contact Info) Description 09/04/2023 10:00 AM ALMOND SORTER Office Visit [facility] [id number] [place] [phone] Rosi Ball, [place] [id number] [place] [address] Back Pain (Back pain radiating to right hip and down right leg x5 days) Social History Tobacco Use Types Packs/Day Years [...] Sign Reading Time Taken Comments Blood Pressure 122/75 09/04/2023 10:12 AM ALMOND SORTER Pulse 81 09/04/2023 10:12 AM ALMOND SORTER Temperature 36.4 ??C (97.6 ??F) 09/04/2023 10:[address] Respiratory Rate 20 09/04/2023 10:12 AM ALMOND SORTER Oxygen Saturation 97% 09/04/2023 10:12 AM ALMOND SORTER Inhaled Oxygen Concentration - - Weight 72.6 kg (160 lb) 09/04/2023 10:12 AM ALMOND SORTER Height 165.7 cm (5' 5.25 ) 09/04/2023 10:12 AM Calvin FATIMA Body Mass Index 26.42 09/04/2023 10:12 AM ALMOND SORTER documented in this encounter Patient Instructions * Attachments The following attachments cannot be sent through Care Everywhere. * Back Exercises (Eritrean) documented in this encounter Progress Notes * OSMAR Flores - 09/04/2023 10:00 AM CST Images from the original note were not included. _ Reason for Visit: Back Pain (Back pain radiating to right hip and down right leg x5 days) Right side History of Present Illness: HPI Haydee Delgado is a 62-year-old female [facility] low back pain rating down the right side. Patient states that 5 days ago she helped her lift something and she has been having pain ever since. She did not feel any pop or issue at the time that she was helping her . It was afterwards. She is not noticing any numbness in her extremity. She is noticing some weakness on her right side compared to her left. She does not have any issues with her bowels or bladder. She has never had pain radiate down her leg from an injury before. But she has had back issues for a long time. She does have a primary care doctor that she normally sees. She is on an anti-inflammatory and she has a muscle relaxant that she uses that has not been helping either. She is a diabetic states her blood sugars have been under very good control. ROS: Review of Systems Feeling well. Denies headaches, vision or hearing problems. No recent colds or flus, denies symptoms suggestive of allergies. Denies dysphagia, heartburn or indigestion. No dyspnea or chest pain on exertion. No nausea, abdominal pain, change in bowel habits, black or bloody stools. No urinary symptoms. No muscle or joint aches or pains. No foot or leg edema. No numbness, tingling,or weakness. No anxiety or depressive symptoms, Sleeping well. No significant weight gain or loss. No fatigue. Medications: Outpatient Medications Marked as Taking for the 09/04/23 encounter (Office Visit) with OSMAR Flores Medication Sig Dispense Refill atorvastatin (LIPITOR) 10 MG tablet atorvastatin 10 mg tablet TAKE 1 TABLET DAILY AT BEDTIME benazepril-hydroCHLOROthiazide (LOTENSIN HCT) 10-12.5 MG tablet benazepril 10 mg-hydrochlorothiazide 12.5 mg tablet buPROPion XL (WELLBUTRIN XL) 150 MG 24 hr tablet bupropion HCl XL 150 mg 24 hr tablet, extended release TAKE 1 TABLET DAILY EVERY EVENING diclofenac EC (VOLTAREN) 75 MG tablet Take 1 tablet (75 mg total) by mouth every 12 (twelve) hours as needed. escitalopram (LEXAPRO) 20 MG tablet escitalopram 20 mg tablet TAKE 1 TABLET DAILY EVERY MORNING DIRECTED fenofibrate 160 MG tablet Take 1 tablet (160 mg total) by mouth daily. icosapent ethyl (VASCEPA) 1 G capsule Vascepa 1 gram capsule JARDIANCE 25 MG tablet Take 1 tablet (25 mg total) by mouth every morning. meloxicam (MOBIC) 7.5 MG tablet meloxicam 7.5 mg tablet TAKE 1 TABLET EVERY 12 HOURS WITH FOOD ONLY NEEDED metFORMIN ER (GLUCOPHAGE-XR) 500 MG 24 hr tablet Take 1 tablet (500 mg total) by mouth 2 (two) times daily with meals. methylPREDNISolone, CIARA, (MEDROL DOSEPAK) 4 MG tablet 6 TABLETS ON DAY ONE, 5 TABLETS DAY TWO, 4 TABLETS DAY THREE, 3 TABLETS DAY FOUR, 2 TABLETS DAY FIVE, AND 1 TABLET DAY SIX 1 each 0 metoprolol succinate ER (TOPROL-XL) 50 MG 24 hr tablet Take 1 tablet (50 mg total) by mouth daily. raloxifene (EVISTA) 60 MG tablet raloxifene 60 mg tablet Review of patient's allergies indicates: Allergen Reactions Codeine Dizziness Promethazine Dizziness Past Medical History: Diagnosis Date HTN (hypertension) History reviewed. No pertinent surgical history. Social History Tobacco Use Smoking status: Never Smokeless tobacco: Never Vaping Use Vaping Use: Never used Substance Use Topics Alcohol use: Never Drug use: Never No family history on file. No family status information on file. Physical Exam Constitutional: Patient is oriented to person, place, and time. Patient appears well-developed and well-nourished. Head: Normocephalic. Eyes: Pupils are equal, round, and reactive to light. Neck: No JVD present. No thyromegaly present. Cardiovascular: Normal rate, regular rhythm, normal heart sounds and intact distal pulses. No murmur heard. Pulmonary/Chest: No respiratory distress. Patient has no wheezes. Patient has no rales. Patient exhibits no tenderness. Abdominal: Patient exhibits no distension and no mass. There is no suprapubic tenderness. There is no rebound and no guarding. Musculoskeletal: Decreased range of motion. She is walking with a guarded gait. There is paraspinous muscle tenderness on the right in the lumbar spine area. Patient exhibits no edema, tenderness or deformity. Straight leg raises are decreased on the right. Lymphadenopathy: Patient has no cervical adenopathy. Neurological: Patient is alert and oriented to person, place, and time. Skin: No rash noted. No erythema. Psychiatric: Patient has a normal mood and affect. The behavior is normal. Thought content normal. No data to display Vitals: 09/04/23 1012 Patient Position: Sitting BP Location: Left arm Cuff size: Adult Regular BP: 122/75 Pulse: 81 Body mass index is 26.42 kg/m??. Assessment and Plan Encounter Diagnose(s) ICD-10-CM SNOMED CT(R) 1. Strain of lumbar region, initial encounter S39.012A LOW BACK STRAIN methylPREDNISolone, CIARA, (MEDROL DOSEPAK) 4 MG tablet We discussed the risk and benefit of adding a steroid and to her treatment plan. She can still use Tylenol but I would hold off on the ibuprofen for now. She will watch her blood sugars and blood pressure while on the steroid therapy. She will follow-up with her PCP if no improvement. Orders Placed This Encounter atorvastatin (LIPITOR) 10 MG tablet benazepril-hydroCHLOROthiazide (LOTENSIN HCT) 10-12.5 MG tablet buPROPion XL (WELLBUTRIN XL) 150 MG 24 hr tablet diclofenac EC (VOLTAREN) 75 MG tablet JARDIANCE 25 MG tablet escitalopram (LEXAPRO) 20 MG tablet fenofibrate 160 MG tablet icosapent ethyl (VASCEPA) 1 G capsule meloxicam (MOBIC) 7.5 MG tablet metFORMIN ER (GLUCOPHAGE-XR) 500 MG 24 hr tablet metoprolol succinate ER (TOPROL-XL) 50 MG 24 hr tablet raloxifene (EVISTA) 60 MG tablet methylPREDNISolone, CIARA, (MEDROL DOSEPAK) 4 MG tablet We discussed the risk and benefit of patient's usage of a steroid Patient was told that if symptoms do not improve to utilize the emergency room, call their PCP, or follow back up with the walk-in clinic. If patient needs any additional time off not discussed at this office visit they will need to contact the PCP or be seen in the walk in clinic. Patient should follow annual wellness exams recommended for age and sex of patient. Items to consider but not limited included yearly annual fasting labs, colonscopy or cologuard when indicated. PSA and prostate for males. Mammogram and female exam for females, Portions of this note were dictated using [employer] speech recognition software. Occasional wrong wordor sound-alike substitutions may have occurred due to the inherent limitations of voice recognition software. Please read the chart carefully and recognize, using context, where the substitutions may have occurred. Rosi Ball PA-C evaluated and Dr. Luz Lopez reviewed and agrees with plan. Cosigned by Luz Lopez MD at 09/04/2023 3:10 PM ALMOND SORTER ND SORTER ND SORTER documented in this encounter Plan of Treatment Not on file documented as of this encounter Visit Diagnoses Diagnosis Strain of lumbar region, initial encounter- Primary documented in this encounter Care Teams Field Clerk Relationship Specialty Start Date End Date Luke Guidry MD PCP - General HOSPITALIST 09/04/23 documented as of this encounter
--- OUTSIDE RECORDS SUMMARY | 2024-09-22 10:31 | XMS_ITS | Encounter Summary ---
Author Organization [facility] Address [address] [place] [address]. [place] [address] [place] [address] Care Team Providers Care Medication Care Manager Name Role Phone Luke Guidry MD Primary Care Provider Reason for Visit * Reason Comments Abnormal Lab Results Encounter Details Date Type Department Care Team (Late st Contact Info) Description 07/05/2024 10:24 AM CDT - 07/05/2024 11:27 AM CDT Emergency [facility] Emergency Room [id number] [place] [address] Abisai Hubbard MD [address] [place] [address] [id number] Abnormal Lab Results Discharge Disposition: Home or Self Care (Routine Discharge) Social History Tobacco Use Types Packs/Day Years [...] Mass Index 25.13 07/05/2024 10:30 AM CDT documented in this encounter Discharge Instructions * Discharge Instructions* Abisai Hubbard MD - 07/05/2024 11:18 AM CDT You had normal labs today, please follow up with your doctor.. You will not be sent home with any prescriptions Please schedule a follow up appointment with your primary care physician within the next 5-7 days Please return to the Emergency Department for any new or worsening concern * Attachments The following attachments cannot be sent through Care Everywhere. * Fatigue ED (Ukrainian) * Complete blood count (CBC) (Ukrainian) documented in this encounter Medications at Time of Discharge atorvastatin (LIPITOR) 10 MG tablet atorvastatin 10 mg tablet TAKE 1 TABLET DAILY AT BEDTIME benazepril-hydro CHLOROthiazide (LOTENSIN HCT) 10-12.5 MG tablet benazepril 10 mg-hydrochlorothia zide 12.5 mg tablet buPROPion XL (WELLBUTRIN XL) 150 MG 24 hr tablet bupropion HCl XL 150 mg 24 hr tablet, extended release TAKE 1 TABLET DAILY EVERY EVENING 03/31/2015 diclofenac EC (VOLTAREN) 75 MG tablet Take 1 tablet (75 mg total) by mouth every 12 (twelve) hours as needed. 07/20/2023 escitalopram (LEXAPRO) 20 MG tablet escitalopram 20 mg tablet TAKE 1 TABLET DAILY EVERY MORNING DIRECTED fenofibrate 160 MG tablet Take 1 tablet (160 mg total) by mouth daily. icosapent ethyl (VASCEPA) 1 G capsule Vascepa 1 gram capsule JARDIANCE 25 MG tablet Take 1 tablet (25 mg total) by mouth every morning. 06/11/2023 meloxicam (MOBIC) 7.5 MG tablet meloxicam 7.5 mg tablet TAKE 1 TABLET EVERY 12 HOURS WITH FOOD ONLY NEEDED metFORMIN ER (GLUCOPHAGE-XR) 500 MG 24 hr tablet Take 1 tablet (500 mg total) by mouth 2 (two) times daily with meals. 06/11/2023 CIARA Dick, (MEDROL DOSEPAK) 4 MG tabletIndication s:Strain of lumbar region, initial encounter 6 TABLETS ON DAY ONE, 5 TABLETS DAY TWO, 4 TABLETS DAY THREE, 3 TABLETS DAY FOUR, 2 TABLETS DAY FIVE, AND 1 TABLET DAY SIX 1 each 09/04/2023 raloxifene (EVISTA) 60 MG tablet raloxifene 60 mg tablet documented as of this encounter ED Notes * Abisai Hubbard MD - 07/05/2024 10:31 AM CDT Chief Complaint Chief Complaint Patient presents with Abnormal Lab Results History of Present Illness Patient is a 63-year-old female with past medical history of diabetes, hyperlipidemia presenting with abnormal labs. She states on she is her primary care provider because at that time she had 3 days of epigastric pain, 1 episode of vomiting. They did a CBC and she thinks they got the results back this morning as her white count was elevated at 22 and she was called to come in. She states they also ordered an x-ray and an ultrasound which she has not yet been able to do. She is feelinggenerally tired, has some shortness of breath on exertion which she states may not be different from previously. She has no further abdominal pain. Has been tolerating p.o. intake, no vomiting. She denies any other symptoms at this time and is otherwise feeling well. No known COVID or flu or other sick contacts. History of cholecystectomy. Medical History ALLERGIES: Review of patient's allergies indicates: Allergen Reactions Codeine Dizziness Promethazine Dizziness MEDICATIONS: Prior to Admission medications Medication Sig Start Date End Date Taking? Authorizing Provider atorvastatin (LIPITOR) 10 MG tablet atorvastatin 10 mg tablet TAKE 1 TABLET DAILY AT BEDTIME Default History Genericprovider benazepril-hydroCHLOROthiazide (LOTENSIN HCT) 10-12.5 MG tablet benazepril 10 mg-hydrochlorothiazide 12.5 mg tablet Default History Genericprovider buPROPion XL (WELLBUTRIN XL) 150 MG 24 hr tablet bupropion HCl XL 150 mg 24 hr tablet, extended release TAKE 1 TABLET DAILY EVERY EVENING 03/31/15 Default History Genericprovider diclofenac EC (VOLTAREN) 75 MG tablet Take 1 tablet (75 mg total) by mouth every 12 (twelve) hours as needed. 07/20/23 Default History Genericprovider escitalopram (LEXAPRO) 20 MG tablet escitalopram 20 mg tablet TAKE 1 TABLET DAILY EVERY MORNING DIRECTED Default History Genericprovider fenofibrate 160 MG tablet Take 1 tablet (160 mg total) by mouth daily. Default History Genericprovider icosapent ethyl (VASCEPA) 1 G capsule Vascepa 1 gram capsule Default History Genericprovider JARDIANCE 25 MG tablet Take 1 tablet (25 mg total) by mouth every morning. 06/11/23 Default History Genericprovider meloxicam (MOBIC) 7.5 MG tablet meloxicam 7.5 mg tablet TAKE 1 TABLET EVERY 12 HOURS WITH FOOD ONLY NEEDED Default History Genericprovider metFORMIN ER (GLUCOPHAGE-XR) 500 MG 24 hr tablet Take 1 tablet (500 mg total) by mouth 2 (two) times daily with meals. 06/11/23 Default History Genericprovider methylPREDNISolone, CIARA, (MEDROL DOSEPAK) 4 MG tablet 6 TABLETS ON DAY ONE, 5 TABLETS DAY TWO, 4 TABLETS DAY THREE, 3 TABLETS DAY FOUR, 2 TABLETS DAY FIVE, AND 1 TABLET DAY SIX 09/04/23 OSMAR Flores raloxifene (EVISTA) 60 MG tablet raloxifene 60 mg tablet Default History Genericprovider PAST MEDICAL HISTORY: Past Medical History: Diagnosis Date HTN (hypertension) PAST SURGICAL HISTORY: History reviewed. No pertinent surgical history. FAMILY HISTORY: No family history on file. SOCIAL HISTORY: Social History Tobacco Use Smoking status: Never Smokeless tobacco: Never Vaping Use Vaping status: Never Used Substance Use Topics Alcohol use: Never Drug use: Never Review of Systems Review of Systems Constitutional: Negative for appetite change, chills and fever. HENT: Negative for congestion, rhinorrhea, sore throat and trouble swallowing. Respiratory: Positive for shortness of breath. Negative for cough and wheezing. Cardiovascular: Negative for chest pain. Gastrointestinal: Negative for abdominal pain, blood in stool, constipation, diarrhea, nausea and vomiting. Genitourinary: Negative for dysuria and hematuria. Skin: Negative for rash and wound. Neurological: Negative for dizziness and light-headedness. Physical Exam Filed Vitals: 07/05/24 1030 BP: 118/67 Pulse: 71 Resp: 18 Temp: 97.9 ??F (36.6 ??C) TempSrc: Temporal SpO2: 97% Weight: 68.5 kg (151 lb) Height: 1.651 m (5' 5 ) Physical Exam Vitals and nursing note reviewed. Constitutional: General: She is not in acute distress. Appearance: Normal appearance. She is not ill-appearing. HENT: Head: Normocephalic and atraumatic. Cardiovascular: Rate and Rhythm: Normal rate and regular rhythm. Pulmonary: Effort: Pulmonary effort is normal. No respiratory distress. Breath sounds: Normal breath sounds. Abdominal: General: Abdomen is flat. There is no distension. Palpations: Abdomen is soft. Tenderness: There is no abdominal tenderness. Skin: General: Skin is warm and dry. Neurological: Mental Status: She is alert. Psychiatric: Mood and Affect: Mood normal. Behavior: Behavior normal. Diagnostic Studies / Procedures ELECTROCARDIOGRAMS: Results for orders placed or performed during the hospital encounter of 07/05/24 ECG 12 lead Narrative [facility] Test Date: 2024-07-05 Pat Name: SAMUEL SHANNON Department: 85 Room: EXAM 202 Gender: Female Crossbar Frame Wirer: : 1960 Requested By: ABISAI HUBBARD Order Number: [id number] Reading MD: Measurements Intervals [place] Rate: 72 P: 5 GA: 211 QRS: 45 QRSD: 86 T: 22 QT: 391 QTc: 430 Interpretive Statements SINUS RHYTHM WITH FIRST DEGREE AV BLOCK No previous ECG available for comparison LABORATORY STUDIES: Results for orders placed or performed during the hospital encounter of 07/05/24 CBC W/DIFF AUTOMATED Result Value Ref Range WBC 10.75 4.4 - 11.0 x10'3/uL RBC 3.87 (L) 4.50 - 5.10 x10'6/uL HGB 12.3 12.3 - 15.3 G/DL HCT 37.9 35.9 - 44.6 % MCV 97.9 (H) 80.0 - 96.0 FL MCH 31.8 (H) 25.3 - 30.9 PG MCHC 32.5 31.0 - 34.1 G/DL RDW 13.6 12.4 - 15.1 % PLT 315 151 - 353 x10'3/uL MPV 8.6 (L) 9.6 - 12.0 FL SEG NEUTROPHILS 24 (L) 42 - 72 % LYMPHOCYTES 21 15.8 - 45.0 % MONOCYTES 5 (L) 5.7 - 12.5 % EOSINOPHILS 46 (H) 0 - 5.6 % ATYP. LYMPHS 4 % ABS. NEUTROPHILS 2.58 1.40 - 6.00 x10'3/uL ABS. LYMPHOCYTES 2.69 0.80 - 4.70 x10'3/uL PLT MORPH. NORMAL RBC MORPHOLOGY NORMAL WBC MORPHOLOGY NORMAL COMPREHENSIVE METABOLIC PANEL Result Value Ref Range GLUCOSE 110 (H) 70 - 99 MG/DL BUN 15 7 - 18 MG/DL CREATININE S/P/B 1.08 (H) 0.55 - 1.02 MG/DL SODIUM S/P/B 143 136 - 145 MMOL/L POTASSIUM S/P/B 3.8 3.5 - 5.1 MMOL/L CHLORIDE S/P/B 108 100 - 108 MMOL/L CO2 30.5 21 - 32 MMOL/L CALCIUM S/P/B 8.8 8.5 - 10.1 MG/DL BILIRUBIN TOTAL S/P/B 0.3 0.2 - 1.2 MG/DL TOTAL PROTEIN S/P/B 5.5 (L) 6.4 - 8.2 G/DL ALBUMIN S/P/B 2.7 (L) 3.4 - 5.0 G/DL AST 14 (L) 15 - 37 U/L ALT 20 14 - 55 U/L ALKALINE PHOSPHATASE S/P/B 67 50 - 136 U/L ANION GAP 4.5 (L) 5 - 15 MMOL/L BUN CREATININE RATIO 13.9 6 - 26 A/G RATIO 1.0 1.0 - 2.0 RATIO GFR ESTIMATE 57 (L) >90 ML/MIN/1.73 M2 TROPONIN, QUANT Result Value Ref Range TROPONIN I HIGH SENSITIVITY <4 0 - 50 ng/L LIPASE Result Value Ref Range LIPASE 51 16 - 77 UNITS/L IMAGING STUDIES XR CHEST PORTABLE Final Result by User, [id number] (07/05 1113) [facility] [address] [place] [address] Examination: XR CHEST PORTABLE Exam time: 07/05/2024 11:05 AM Clinical history: Short of breath, fatigue Comparison: None Technique: AP chest Findings: Heart size within normal limits. Pulmonary vasculature unremarkable. No significant pulmonary parenchymal opacity. No pleural effusion. No hyperinflation. IMPRESSION: 1) No radiographic evidence of active disease the chest. Ordered By: ABISAI HUBBARD Interpreted By: John Oliva MD, 07/05/2024 11:08 AM ED Course / Medical Decision Making Patient is a 63-year-old female who presents with abnormal labs as described above. On arrival she is hemodynamically stable, afebrile. She is clinically well-appearing. Her abdomen is nontender, soft to palpation. She states her abdominal pain, nausea and vomiting have gone. Due to her complaint of shortness of breath will obtain chest x-ray to assess for pneumonia, EKG and troponin rule out ACSarrhythmia. She does not want any COVID or flu swabbing at this time. For the elevated white count will obtain UA to assess for infection. She denies any wounds or rashes. Will obtain CBC to assess leukocytosis today, assess for anemia. Will obtain CMP for renal hepatic impairment electrolyte derangement. Due to her nausea vomiting abdominal pain which has since resolved will obtain a lipase. Sheis agreeable to seeing what her blood work shows and if elevations in liver enzymes or lipase obtaining a CT scan otherwise we will hold off at this time. Answered all questions and she is agreeable with plan. I reviewed care everywhere, unable to see recent lab work done for the last year. She does follow with Dr. Guidry at outlying facility. I am unable to download the note from her visit on 07/03/24. Medical Decision Making ED Course as of 07/05/24 1122 Sat Jul 05, 2024 1101 EKG done at 11:00 rate 65 bpm, sinus, no ectopy; no stemi [JS] ED Course User Index [JS] Abisai Hubbard MD Clinical Impression Fatigue (Primary) Malaise Updated patient on all results. Her white blood cell count is within normal limits, no abnormalities in abdominal labs, no evidence of pneumonia. EKG and troponin are unremarkable. She is not having dysuria or hematuria at this time we will have her follow-up with her primary care provider. She hasultrasound and x-ray do on Sunday and she will see her provider on this coming week. She feels safe for discharge. I discussed strict return precautions answered all questions. She is remained vitally stable in no distress. She feels safe going home. I was able to download patient's note from her encounter, I can only see the assessment. It states that they discussed with her about findings and further plan of care. She declined going to the emergency room. They were going to do labs, nonspecific, ultrasound and x-ray of the abdomen. Medications as directed. Encourage good liquid and fiber intake. And discussed alarming symptoms to call or goto the ER. Portions of this note were dictated using [employer] speech recognition software. Occasional wrong wordor sound-alike substitutions may have occurred due to the inherent limitations of voice recognition software. Please read the chart carefully and recognize, using context, where the substitutions may have occurred. Disposition: Discharge Abisai Hubabrd MD 07/05/24 1122 * Hudson Kim RN - 07/05/2024 10:29 AM CDT Pt ambulatory to ED sent by PCP Dr. Mcnamara for elevated WBC. C/o fatigue documented in this encounter Plan of Treatment Not on file documented as of this encounter Procedures Procedure Name Priority Date/Time Associated Diagnosis Comments XR CHEST PORTABLE STAT 07/05/2024 11: 05 AM CDT ECG 12-LEAD Routine 07/05/2024 11:00 AM CDT COMPREHENSIVE METABOLIC PANEL STAT 07/05/2024 10:42 AM CDT CBC W/DIFF AUTOMATED STAT 07/05/2024 10:42 AM CDT TROPONIN, QUANT STAT 07/05/2024 10:42 AM CDT LIPASE STAT 07/05/2024 10:42 AM CDT documented in this encounter Results * XR CHEST PORTABLE (07/05/2024 11:05 AM CDT) Anatomical Region Laterality Modality Chest Radiographic Jacquie ging 07/05/2024 11:0 8 AM CDT Impressions 07/05/2024 11:10 AM CDT IMPRESSION: 1) No radiographic evidence of active disease the chest. Ordered By: ABISAI HUBBARD Interpreted By: John Oliva MD, 07/05/2024 11:08 AM Narrative 07/05/2024 11:10 AM CDT [address] [place] [address] Examination: XR CHEST PORTABLE Exam time: 07/05/2024 11:05 AM Clinical history: Short of breath, fatigue Comparison: None Technique: AP chest Findings: Heart size within normal limits. Pulmonary vasculature unremarkable. No significant pulmonary parenchymal opacity. No pleural effusion. No hyperinflation. Procedure Note John Oliva MD - 07/05/[address] [place] [address] Examination: XR CHEST PORTABLE Exam time: 07/05/2024 [...] CDT) 07/05/2024 11:0 0 AM CDT Narrative [facility] RAD - 07/06/2024 9:46 AM CDT ?[facility] ? Test Date: ?2024-07-05 Pat Name: ? SAMUEL SHANNON ? Department: ?? 85 ? Room: ? EXAM 202 Gender: ? Female ? Crossbar Frame Wirer: ?? : ?1960 ? Requested By: ABISAI HUBBARD Order Number: [id number] ? Reading MD: ?? Neptali Dee ? Measurements Intervals ?Rhod[place]ron ? Rate: ? 72 ? P: ?5 GA: ? 211 ?QRS: ?45 QRSD: ? 86 ? T: ?22 QT: ? 391 ? QTc: ?430 ? Interpretive Statements SINUS RHYTHM WITH FIRST DEGREE AV BLOCK No previous ECG available for comparison Procedure Note Neptali Dee MD - 07/06/2024 [facility] Test Date: 2024-07-05 Pat Name: SAMUEL SHANNON Department: 85 Room: EXAM 202 Gender: Female Crossbar Frame Wirer: : 1960 Requested By: ABISAI HUBBARD Order Number: [id number] Reading MD: Neptali Dee Measurements Intervals [place] Rate: 72 P: 5 GA: 211 QRS: 45 QRSD: 86 T: 22 QT: 391 QTc: 430 Interpretive Statements SINUS RHYTHM WITH FIRST DEGREE AV BLOCK No previous ECG available for comparison us Abisai Hubbard MD ECG ORDERABLES Final Result Performing Organization Address [facility]/ZIP Co de Phone Number [facility] * LIPASE (07/05/2024 10:42 AM CDT) LIPASE 51 16 - 77 UNITS/L 07/05/2024 11:07 AM CDT [facility] 07/05/2024 10:4 2 AM CDT us Abisai Hubbard MD LABORATORY Final Result Performing Organization Address [facility] Co de Phone Number [facility] [address] [place] [address], [place] [phone] * TROPONIN, QUANT (07/05/2024 10:42 AM CDT) [facility] TROPONIN I HIGH SENSITIVITY <4 0 - 50 ng/L 07/05/2024 11:14 AM CDT [facility] Comment: HIGH DOSES OF BIOTIN, TROPONIN-SPECIFIC AUTOANTIBODIES, AND ANTIBODY THERAPY CONTAINING HAMA MAY INTERFERE WITH THIS TEST RESULT. CORRELATION TO CLINICAL HISTORY AND PRESENTATION RECOMMENDED. 07/05/2024 10:4 2 AM CDT us Abisai Hubbard MD LABORATORY Final Result [facility] [address] [place] [address], [place] [phone] * (ABNORMAL) COMPREHENSIVE METABOLIC PANEL (07/05/2024 10:42 AM CDT) [facility] GLUCOSE 110(H) 70 - 99 MG/DL 07/05/2024 11:07 AM CDT [facility] BUN 15 7 - 18 MG/DL 07/05/2024 11:07 AM CDT [facility] CREATININE S/P/B 1.08(H) 0.55 - 1.02 MG/DL 07/05/2024 11:07 AM CDT [facility] SODIUM S/P/B 143 136 - 145 MMOL/L 07/05/2024 11:07 AM CDT [facility] POTASSIUM S/P/B 3.8 3.5 - 5.1 MMOL/L 07/05/2024 11:07 AM CDT [facility] CHLORIDE S/P/B 108 100 - 108 MMOL/L 07/05/2024 11:07 AM CDT [facility] CO2 30.5 21 - 32 MMOL/L 07/05/2024 11:07 AM [facility] CALCIUM S/P/B 8.8 8.5 - 10.1 MG/DL 07/05/2024 11:07 AM [facility] BILIRUBIN TOTAL S/P/B 0.3 0.2 - 1.2 MG/DL 07/05/2024 11:07 AM [facility] TOTAL PROTEIN S/P/B 5.5(L) 6.4 - 8.2 G/DL 07/05/2024 11:07 AM [facility] ALBUMIN S/P/B 2.7(L) 3.4 - 5.0 G/DL 07/05/2024 11:07 AM [facility] AST 14(L) 15 - 37 U/L 07/05/2024 11:07 AM [facility] ALT 20 14 - 55 U/L 07/05/2024 11:07 AM [facility] ALKALINE PHOSPHATASE S/P/B 67 50 - 136 U/L 07/05/2024 11:07 AM [facility] ANION GAP 4.5(L) 5 - 15 MMOL/L 07/05/2024 11:07 AM [facility] BUN CREATININE RATIO 13.9 6 - 07/05/2024 11:07 AM [facility] A/G RATIO 1.0 1.0 - 2.0 RATIO 07/05/2024 11:07 AM [facility] GFR ESTIMATE 57(L) >90 ML/MIN/1.7 3 M2 07/05/2024 11:07 AM [facility] Comment: NOTE: eGFR is not calculated for patients <18 years of age. This is an estimated GFR calculation using the new CKD EPI creatinine equation without race and so does not require a correction factor for race. This estimated GFR should not be used for calculating drug doses. 07/05/2024 10:4 2 AM CDT us Abisai Hubbard MD LABORATORY Final Result [facility] [address] [place] [id number], [place] [phone] * (ABNORMAL) CBC W/DIFF AUTOMATED (07/05/2024 10:42 AM CDT) WBC 10.75 4.4 - 11.0 x10'3/uL 07/05/2024 10:58 AM CDT [facility] RBC 3.87(L) 4.50 - 5.10 x10'6/uL 07/05/2024 10:58 AM CDT [facility] HGB 12.3 12.3 - 15.3 G/DL 07/05/2024 10:58 AM CDT [facility] HCT 37.9 35.9 - 44.6 % 07/05/2024 10:58 AM CDT [facility] MCV 97.9(H) 80.0 - 96.0 FL 07/05/2024 10:58 AM CDT [facility] MCH 31.8(H) 25.3 - 30.9 PG 07/05/2024 10:58 AM CDT [facility] MCHC 32.5 31.0 - 34.1 G/DL 07/05/2024 10:58 AM CDT [facility] RDW 13.6 12.4 - 15.1 % 07/05/2024 10:58 AM CDT [facility] PLT 315 151 - 353 x10'3/uL 07/05/2024 10:58 AM CDT [facility] MPV 8.6(L) 9.6 - 12.0 FL 07/05/2024 10:58 AM CDT [facility] SEG NEUTROPHILS 24(L) 42 - 72 % 11:18 AM CDT [facility] LYMPHOCYTES 21 15.8 - 45.0 % 07/05/2024 11:18 AM CDT [facility] MONOCYTES 5(L) 5.7 - 12.5 % 07/05/2024 11:18 AM CDT [facility] EOSINOPHILS 46(H) 0 - 5.6 % 07/05/2024 11:18 AM CDT [facility] ATYP. LYMPHS 4 % 07/05/2024 11:18 AM CDT [facility] ABS. NEUTROPHILS 2.58 1.40 - 6.00 x10'3/uL 07/05/2024 11:18 AM CDT [facility] ABS. LYMPHOCYTES 2.69 0.80 - 4.70 x10'3/uL 07/05/2024 11:18 AM T [facility] PLT MORPH. NORMAL 07/05/2024 11:18 AM T [facility] RBC MORPHOLOGY NORMAL 07/05/2024 11:18 AM CDT [facility] WBC MORPHOLOGY NORMAL 07/05/2024 11:18 AM T [facility] 07/05/2024 10:4 2 AM CDT us Abisai Hubbard MD LABORATORY Final Result [facility] [address] [place] [address], [place] [phone] documented in this encounter Visit Diagnoses Diagnosis Fatigue- Primary Other malaise and fatigue Malaise Other malaise and fatigue documented in this encounter Care Teams Medication Care Manager Relationship Specialty Start Date End Date Luke Guidry MD PCP - General HOSPITALIST 09/04/23 documented as of this encounter
--- OUTSIDE RECORDS SUMMARY | 2024-09-22 10:31 | XMS_ITS | Data Portability ---
Author Organization [facility], Main Office Address [address] [place] [address] Care Team Providers Care Wheelage Clerk Name Role Phone LUKE GUIDRY Primary Care Provider LUKE GUIDRY Referring Provider LUKE GUIDRY Primary Care Provider [phone] Assessment Encounter Date Assessment Date Assessment LastModified by Organization Details LastModified Time 12/27/2023 12/27/2023 63 yo F with - HLD - HTG - PRE-DM - HTN - DDD L-SPINE, severe - C, T, L SPONDYLOSIS - KYPHOSCOLIOSIS OF SPINE - RT SHOULDER OA - LT KNEE OA - LT ANKLE PAIN, chronic - OSTEOPENIA - FATIGUE, chronic - DEPRESSION - H/O OSTEOPOROSIS - H/O VIT D DEFICIENCY HbA1c: 6.0(05/03/22) - 6.0(08/02/22) - 6.0(01/20/23) - 6.2(05/26/23) - 6.1(09/15/23) - 5.9(12/15/23) X-ray L-spine: 09/12/23. X-ray Rt hip: 09/12/23. X-ray Rt shoulder, Lt foot, Lt ankle: 06/29/23. Home sleep study: 06/20/23. Annual labs: 05/26/23. X-ray scoliosis: 05/05/22. Annual labs: 05/03/22. X-ray Lt wrist: 01/24/22. Annual labs: 03/20/19. X-ray Rt shoulder: 09/27/18. Annual labs: 04/04/18. US Rt LE venous: 01/14/18. X-ray Lt knee: 07/10/17. Annual labs: 03/29/17. D/w pt in detail about her findings, recent labs & imagines and further plan of care. All meds verified with pt. Meds as directed. Cont OTC Knee sleeve as directed prn. BP diary education given and advised to call us if any concerns. Diet and exercise explained in detail. Fall risk precautions explained. Cont f/u with Ortho at [facility] as per schedule. Cont f/u with Gyne as per schedule. Cont f/u with Ophtho at [facility] as per schedule. Cont f/u with Cardio as per schedule. Advised to refer to Psych/counsellor; but pt declined. Advised to refer to Pain clinic/Spine surgeon; but pt declined. HM: [facility] - 03/31, normal as per pt. Cont f/u with Gyne as per their recommendations. Mammo - 09/24/23, normal. Colonoscopy - 10-11 yrs ago, normal as per pt. Pt declined. Cologuard 05/17/22, Neg. DEXA - 04/28/21, Osteopenia ++. Tdap - 01/21. Flu - Pt declined. Pneumo - 11/11/19. Shingrix - 07/03/20, 09/25/20. F/u in 3 months. Annual labs in 06/03. Not available 12/27/2023 10:14:35 05/21/2024 05/21/2024 63 yo F with - WELL ADULT VISIT - HLD - HTG - PRE-DM - HTN - DDD L-SPINE, severe - C, T, L SPONDYLOSIS - KYPHOSCOLIOSIS OF SPINE - RT SHOULDER OA - LT KNEE OA - LT ANKLE PAIN, chronic - OSTEOPENIA - FATIGUE, chronic - DEPRESSION - H/O OSTEOPOROSIS - H/O VIT D DEFICIENCY HbA1c: 6.0(05/03/22) - 6.0(08/02/22) - 6.0(01/20/23) - 6.2(05/26/23) - 6.1(09/15/23) - 5.9(12/15/23) X-ray L-spine: 09/12/23. X-ray Rt hip: 09/12/23. X-ray Rt shoulder, Lt foot, Lt ankle: 06/29/23. Home sleep study: 06/20/23. Annual labs: 05/26/23. X-ray scoliosis: 05/05/22. Annual labs: 05/03/22. X-ray Lt wrist: 01/24/22. Annual labs: 03/20/19. X-ray Rt shoulder: 09/27/18. Annual labs: 04/04/18. US Rt LE venous: 01/14/18. X-ray Lt knee: 07/10/17. Annual labs: 03/29/17. D/w pt in detail about her findings, recent labs & imagines and further plan of care. Will do routine labs. All meds verified with pt. Meds as directed. Cont OTC Knee sleeve as directed prn. BP diary education given and advised to call us if any concerns. Diet and exercise explained in detail. Fall risk precautions explained. Cont f/u with Ortho at [facility] as per schedule. Cont f/u with Gyne as per schedule. Cont f/u with Ophtho at [facility] as per schedule. Cont f/u with Cardio as per schedule. Cont f/u with [facility]erm at [facility] as per schedule. Advised to refer to Psych/counsellor; but pt declined. Advised to refer to Pain clinic/Spine surgeon; but pt declined. HM: WWE - 03/31, normal as per pt. Cont f/u with Gyne as per their recommendations. Mammo - 09/24/23, normal. Colonoscopy - 10-11 yrs ago, normal as per pt. Pt declined. Cologuard 05/17/22, Neg. DEXA - 04/28/21, Osteopenia ++. Tdap - 01/21. Flu - Pt declined. Pneumo - 11/11/19. Shingrix - 07/03/20, 09/25/20. F/u in 2-3 weeks. Annual labs in 06/04. [email or web address] Not available 05/21/2024 09:53:06 06/19/2024 06/19/2024 63 yo F with - HLD, uncontrolled - HTG, uncontrolled - PRE-DM, improved - HTN - DDD L-SPINE, severe - C, T, L SPONDYLOSIS - KYPHOSCOLIOSIS OF SPINE - RT SHOULDER OA - LT KNEE OA - LT ANKLE PAIN, chronic - OSTEOPENIA - FATIGUE, chronic - DEPRESSION - H/O OSTEOPOROSIS - H/O VIT D DEFICIENCY HbA1c: 6.0(05/03/22) - 6.0(08/02/22) - 6.0(01/20/23) - 6.2(05/26/23) - 6.1(09/15/23) - 5.9(12/15/23) - 6.0(05/31/24) Annual labs: 05/31/24. X-ray L-spine: 09/12/23. X-ray Rt hip: 09/12/23. X-ray Rt shoulder, Lt foot, Lt ankle: 06/29/23. Home sleep study: 06/20/23. Annual labs: 05/26/23. X-ray scoliosis: 05/05/22. Annual labs: 05/03/22. X-ray Lt wrist: 01/24/22. Annual labs: 03/20/19. X-ray Rt shoulder: 09/27/18. Annual labs: 04/04/18. US Rt LE venous: 01/14/18. X-ray Lt knee: 07/10/17. Annual labs: 03/29/17. D/w pt in detail about her findings, recent labs & imagines and further plan of care. Pt declined any Repatha for her uncontrolled HLD. All meds verified with pt. Meds as directed. Cont OTC Knee sleeve as directed prn. BP diary education given and advised to call us if any concerns. Diet and exercise explained in detail. Fall risk precautions explained. Cont f/u with Ortho at [facility] as per schedule. Cont f/u with Gyne as per schedule. Cont f/u with Ophtho at [facility] as per schedule. Cont f/u with Cardio as per schedule. Cont f/u with Derm at [facility] as per schedule. Pt has done PT and now doing at home. Advised to refer to Psych/counsellor; but pt declined. Advised to refer to Pain clinic/Spine surgeon; but pt declined. HM: WWE - 03/31, normal as per pt. Cont f/u with Gyne as per their recommendations. Mammo - 09/24/23, normal. Colonoscopy - 10-11 yrs ago, normal as per pt. Pt declined. Cologuard 05/17/22, Neg. DEXA - 04/28/21, Osteopenia ++. Ordered. Tdap - 05/21/24. Flu - Pt declined. Pneumo - 11/11/19. On next visit. Shingrix - 07/03/20, 09/25/20. F/u in 3 months. Lipids, A1c in 10/04. Annual labs in 06/04. [email or web address] Not available 06/19/2024 10:17:25 07/03/2024 07/03/2024 D/w pt about her findings and further plan of care. Explained about different options for her. Pt declined to go to ED. Will do labs and US & x-ray abdomen. Meds as directed. Good liquid and fiber intake explained. Educated pt about alarming symptoms to monitor at home and call us back or get checked in ED. Pt verbalized understanding it. F/u as directed. [email or web address] Not available 07/03/2024 11:25:23 Plan of Treatment Reminders Order Date Submit Date Provider Last Modified By Organization Details Last Modified Time Details Appointments Follow Up 15 2024 08:45A Maximino Guidry MD Not available Not available Not available Lab vitamin B12 + folate, serum or blood [address] (Lab), [address] [place], [address], 05/29/2024 10:37:35 magnesium , serum or plasma [address] (Lab), [address] [place], [address], 05/29/2024 10:37:36 CBC w/ auto diff [address] (Lab), [address] [place], [address], 05/29/2024 10:37:35 urinalysi s complete, reflex culture [address] (Lab), [address] [place], [address], 05/29/2024 10:37:35 glycohemo globin, total, blood 2023 024 [email or web address] [facility] (Lab), [address] [place], [address], 06/23/2024 08:06:33 CMP, serum or plasma [address] (Lab), [address] [place], [address], 05/29/2024 10:37:34 lipid panel, serum [address] (Lab), [address] [place], [address], 05/29/2024 10:37:35 TSH, serum or plasma [address] (Lab), [address] [place], [address], 05/29/2024 10:37:35 vitamin D, 25-hydrox y, total, serum [address] (Lab), [address] [place], [address], 05/29/2024 10:37:35 glycohemo globin, total, blood 2023 025 [email or web address] [facility] (Lab), [address] [place], [address], 09/11/2024 15:00:49 lipid panel, serum 2023 025 [facility] (Lab), [address] [place], [address], 09/18/2024 09:48:56 CBC w/ auto diff 2023 024 [facility] (Lab), [address] [place], [address], 07/05/2024 11:56:04 CMP, serum or plasma 2023 024 [facility] (Lab), [address] [place], [address], 07/04/2024 14:29:26 lipase, serum or plasma [address] (Lab), [address] [place], [address], 07/17/2024 08:25:27 amylase, serum or plasma [address] (Lab), [address] [place], [address], 07/17/2024 08:25:27 ESR (erythroc yte sedimenta tion rate), blood [address] (Lab), [address] [place], [address], 07/17/2024 08:25:27 urinalysi s complete, reflex culture [address] (Lab), [address] [place], [address], 07/17/2024 08:25:27 troponin I, ultrasens itive, serum [address] (Lab), [address] [place], [address], 07/17/2024 08:25:27 Referral gastroent erologist referral - Please call patient to schedule. 2023 Nicola Monreal MD, [address] [facility], [address], [place], [address], 07/18/2024 15:16:54 Procedures None recorded. Surgeries None recorded. Imaging DEXA 2023 024 [email or web address] 56 [facility], [address], [address], [place], [address], 06/04/2024 16:42:19 XR, abdomen, 2 or more views + XR, chest, 1 view 2023 024 [email or web address] 56 [facility], [address], [address], [place], [address], 07/10/2024 10:04:53 US, abdomen, complete 2023 024 [facility], [address], [address], [place], [address], 07/09/2024 15:12:26 Medication Orders cyclobenz aprine 10 mg tablet 2023 024 [facility], [address] [place] [address], [address], 12/27/2023 10:09:55 fenofibra te 160 mg tablet 2023 024 [email or web address] [facility], [address] [place] [address], [address], 06/19/2024 09:58:05 Vascepa 1 gram capsule 2023 024 [facility], [address] [place] [address], [address], 12/27/2023 10:08:28 benazepri l 10 mg-hydroc hlorothia zide 12.5 mg tablet 2023 024 [facility], [address] [place] [address], [address], 12/27/2023 10:07:43 metformin ER 500 mg tablet,ex tended release 24 hr 2023 024 [email or web address] [facility], [address] [place] [address], [address], 07/10/2024 10:44:57 Jardiance 25 mg tablet 2023 024 [facility], [address] [place] [address], [address], 07/10/2024 10:44:56 diclofena c sodium 75 mg tablet,de layed release 2023 024 [facility], [address] [place] [address], [address], 07/10/2024 10:44:56 bupropion HCl XL 150 mg 24 hr tablet, extended release 2023 024 [email or web address], [address] [place] [address], [address], 12/27/2023 10:07:45 escitalop shaneka 20 mg tablet 2023 024 [facility], [address] [place] [address], [address], 12/27/2023 10:13:09 atorvasta tin 10 mg tablet 2023 024 [email or web address] [facility], [address] [place] [address], [address], 06/19/2024 09:57:59 cyclobenz aprine 10 mg tablet 2023 024 [facility], [address] [place] [address], [address], 05/21/2024 09:50:03 fenofibra te 160 mg tablet 2023 024 [email or web address] [facility], [address] [place] [address], [address], 06/19/2024 09:58:05 Vascepa 1 gram capsule 2023 [facility], [address] [place] [address], [address], 05/21/2024 09:50:05 benazepri l 10 mg-hydroc hlorothia zide 12.5 mg tablet 2023 024 [facility], [address] [place] [address], [address], 05/21/2024 09:50:01 metformin ER 500 mg tablet,ex tended release 24 hr 2023 024 [email or web address] [facility], [address] [place] [address], [address], 07/10/2024 10:44:57 Jardiance 25 mg tablet 2023 024 [email or web address] [facility], [address] [place] [address], [address], 07/10/2024 10:44:56 diclofena c sodium 75 mg tablet,de layed release 2023 024 [email or web address] [facility], [address] [place] [address], [address], 07/10/2024 10:44:56 atorvasta tin 10 mg tablet 2023 024 [email or web address] [facility], [address] [place] [address], [address], 06/19/2024 09:57:59 bupropion HCl XL 150 mg 24 hr tablet, extended release 2023 024 [facility], [address] [place] [address], [address], 05/21/2024 09:50:01 escitalop shaneka 20 mg tablet 2023 [email or web address] [facility], [address] [place] [address], [address], 05/21/2024 09:50:22 cyclobenz aprine 10 mg tablet 2023 [facility], [address] [place] [address], [address], 06/19/2024 09:57:12 Vascepa 1 gram capsule 2023 [facility], [address] [place] [address], [address], 06/19/2024 09:57:07 fenofibra te micronize d 200 mg capsule 2023 [facility], [address] [place] [address], [address], 06/19/2024 09:57:10 benazepri l 10 mg-hydroc hlorothia zide 12.5 mg tablet 2023 [facility], [address] [place] [address], [address], 06/19/2024 09:57:08 metformin ER 500 mg tablet,ex tended release 24 hr 2023 [email or web address] [facility], [address] [place] [address], [address], 07/10/2024 10:44:57 Jardiance 25 mg tablet 2023 [facility], [address] [place] [address], [address], 07/10/2024 10:44:56 diclofena c sodium 75 mg tablet,de layed release 102023 [email or web address] [facility], [address] [place] [address], [address], 07/10/2024 10:44:55 atorvasta tin 20 mg tablet 2023 [facility], [address] [place] [address], [address], 06/19/2024 09:57:13 bupropion HCl XL 150 mg 24 hr tablet, extended release 2023 [facility], [address] [place] [address], [address], 06/19/2024 09:57:13 escitalop shaneka 20 mg tablet 2023 [facility], [address] [place] [address], [address], 06/19/2024 09:57:07 ondansetr on HCl 4 mg tablet 2023 [id number], [address] [place], [place], [id number], 07/03/2024 11:05:55 pantopraz ole 40 mg tablet,de layed release 2023 [email or web address] [facility] #[id number], [address] [place], [place], [id number], 07/03/2024 11:27:24 pantopraz ole 40 mg tablet,de layed release 2023 [id number], [address] [place], [place], [id number], 07/10/2024 10:40:12 Patient TargetsNo targets recorded. Patient InstructionsNo instructions recorded. 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 Referring Physician: Luke Guidry, Family Medicine, Encounter Date: 07/10/2024 Results Created Date Observation Date Name Description Value Unit Range Abnormal Flag Note LastModifiedBy Organization Detail LastModifiedTime 12/19/1906/29/2023 XR, foot, 3 or more view No observ ation record ed. Not Available 2023 10:03:24 12/19/19 24 06/29/2023 XR, ankle , 3 or more view No observ ation record ed. [email or web address] Not Available 2023 10:03:24 07/09/20 24 07/09/2024 US, abdom en, compl ete No observ ation record ed. [email or web address] [facility] [address], [place], [address], 07/10/2024 10:36:28 07/09/20 24 07/09/2024 XR, chest , 1 view No observ ation record ed. [facility] [address], [place], [address], 07/10/2024 11:45:08 Result Notes None recorded. Problems Name Problem SNOMED Code Status Onset Date Resolution Date Notes Provider Name and Address Organization Details Recorded Time Sore throat 947598261 Active 2022 Luke Guidry MD [address], [address], [place], [address] , [facility] 10:45:22 Dysuria 83481819 Active 2022 Luke Guidry MD [address], [address], [place], [address] , [facility] 4 10:45:22 Pharyngit is 184065592 Active 2022 Luke Guidry MD [address], [address], [place], [address] , [facility] 10:45:22 Dyspnea on exertion 32213019 Active 2022 Luke Guidry MD [address], [address], [place], [address] , [place] [facility] 4 10:45:22 Gastroeso phageal reflux disease without esophagit is 989853596 Active 2022 Luke Guidry MD [address], [address], [place], [address] , [place] [facility] 4 10:45:22 Sleep apnea 37204132 Active 2022 Luke Guidry MD [address], [address], [place], [address] , [place] [facility] 4 10:45:22 Pain of right ankle joint 62428013628 135809 Active 2022 Luke Guidry MD [address], [address], [place], [address] , [place] [facility] 4 10:45:21 Pain of left shoulder joint 45077384657 422992 Active 2022 Luke Guidry MD [address], [address], [place], [address] , [place] [facility] 4 10:45:21 Pain in right foot 38546406357 9107 Active 2022 Luke Guidry MD [address], [address], [place], [address] , [place] [facility] 4 10:45:22 Pain in right hip joint 09216083804 9102 Active 2023 Luke Guidry MD [address], [address], [place], [address] , [place] [facility] 4 10:45:22 Chronic low back pain 811500086 Active 2023 Luke Guidry MD [address], [address], [place], [address] , [place] [facility] 4 10:45:22 Lumbar radiculop athy 142809922 Active 2023 Luke Guidry MD [address], [address], [place], [address] , [facility] 10:45:21 Degenerat ion of lumbar intervert ebral disc 40279381 Active 2023 Luke Guidry MD [address], [address], [place], [address] , [facility] 4 10:45:22 Arthritis 0969860 Active 2023 Luke Guidry MD [address], [address], [place], [address] , [facility] 4 10:45:22 Diabetes mellitus 51562050 Active 2023 Luke Guidry MD [address], [address], [place], [address] , [facility] 10:45:22 Bone spur of right foot 81451746067 9103 Active 2023 Luke Guirdy MD [address], [address], [place], [address] , [facility] 10:45:22 Calcific tendiniti s of achilles tendon 410659116 Active 2023 Luke Guidry MD [address], [address], [place], [address] , [facility] 10:45:22 Epigastri c pain 92910851 Active 2023 Luke Guidry MD [address], [address], [place], [address] , [facility] 4 10:45:22 Nausea and vomiting 08097749 Active 2023 Luke Guidry MD [address], [address], [place], [address] , [facility] 4 10:45:22 Gastritis 4485224 Active 2023 Luke Guidry MD [address], [address], [place], [address] , [employer] [facility] 4 10:45:22 Abdominal pain 10511045 Active 2023 Luke Guidry MD [address], [address], [place], [address] , [employer] [facility] [employer] [facility] 4 10:45:22 Hiatal hernia with gastroeso phageal reflux 628444054 Active 2023 Luke Guidry MD [address], [address], [place], [address] , [employer] [facility] 4 10:45:22 Impacted cerumen of bilateral ears 75894966234 78372 Active 2017 Luke Guidry MD [address], [address], [place], [address] , [employer] [facility] 4 10:45:21 Sprain of left foot 15810763446 098904 Active 2021 Luke Guidry MD [address], [address], [place], [address] , [employer] [facility] [employer] [facility] 4 10:45:21 Urticaria 290289233 Completed Not Available [facility] 3 04:51:15 Excessive cerumen in ear canal 433263122 Completed Not Available [facility] 3 04:51:15 Acute sinusitis 72922653 Completed Not Available [facility] 3 04:51:15 Pain of left ankle joint 61491690312 082827 Active 2021 Luke Guidry MD [address], [address], [place], [address] , [employer] [facility] [employer] [facility] 4 10:45:21 Excessive upper gastroint estinal gas 642455520 Completed Not Available [facility] 3 04:51:15 Impacted cerumen 59930744 Completed Not Available [facility] 3 04:51:15 Congenita l pes cavus 740875670 Active 2021 Luke Guidry MD [address], [place], [address] , [facility] 4 10:45:22 Periphera l venous insuffici ency 17962150 Active 2017 Luke Guidry MD [address], [place], [address] , [employer] 4 10:45:22 Abdominal pain 06242796 Completed Luke Guidry MD [address], [place], [address] , [facility] 4 11:02:57 Mixed anxiety and depressiv e disorder 968733294 Active 2016 Luke Guidry MD [address], [place], [address] , [employer] 4 10:45:22 Gastroeso phageal reflux disease 848390992 Active Luke Guidry MD [address], [place], [address] , [facility] 4 10:45:22 Osteoarth ritis of knee 329462100 Active 2016 Luke Guidry MD [address], [place], [address] , [facility] 4 10:45:22 Lumbar spondylos is 393875835 Active 2021 Luke Guidry MD [address], [place], [address] , [facility] 4 10:45:22 Ankle pain 969130300 Active 2021 Luke Guidry MD [address], [place], [address] , [facility] 4 10:45:22 Urinary symptoms 219653465 Completed Not Available [facility] 3 04:51:16 Gastroent eritis 05435555 Completed Not Available [facility] 3 04:51:16 Eruption 643112183 Completed Not Available [facility] 3 04:51:16 Hypertrig lyceridem ia 484456892 Active 2016 Luke Guidry MD [address], [address], [place], [address] , [facility] 4 10:45:22 Osteopeni a 627562579 Active 2017 Luke Guidry MD [address], [address], [place], [address] , [facility] 4 10:45:22 Pain in left foot 01338285374 9107 Active 2021 Luke Guidry MD [address], [address], [place], [address] , [facility] 4 10:45:22 Peroneal tendiniti s of left lower limb 63253089872 9107 Active 2021 Luke Guidry MD [address], [address], [place], [address] , [facility] 4 10:45:22 Vitamin D deficienc y 49691872 Active 2016 Luke Guidry MD [address], [address], [place], [address] , [facility] 4 10:45:22 Depressiv e disorder 35781014 Active Luke Guidry MD [address], [address], [place], [address] , [facility] 4 10:45:22 Sinusitis 26470037 Active 2021 Luke Guidry MD [address], [address], [place], [address] , [facility] 4 10:45:22 Hypertens edward disorder 01064601 Active 2020 Luke Guidry MD [address], [address], [place], [address] , [facility] 4 10:45:22 Cervical spondylos is 246098378 Active 2021 Luke Guidry MD [address], [address], [place], [address] , [facility] 4 10:45:22 Thoracic spondylos is 258669289 Active 2021 Luke Guidry MD [address], [address], [place], [address] , [facility] 4 10:45:22 Osteoarth ritis 733104548 Active Luke Guidry MD [address], [address], [place], [address] , [facility] 4 10:45:22 Kyphoscol iosis deformity of spine 152522868 Active 2021 Luke Guidry MD [address], [address], [place], [address] , [facility] 4 10:45:22 Kyphosis deformity of spine 751592417 Active 2017 Luke Guidry MD [address], [address], [place], [address] , [facility] 4 10:45:22 Nausea 749606570 Completed Not Available [facility] 3 04:51:18 Eczema [id number] Completed Not Available [employer] 3 04:51:19 Anxiety 53359671 Active 2017 Luke Guidry MD [address], [address], [place], [address] , [employer] 4 10:45:22 Cough 39823197 Active 2021 Luke Guidry MD [address], [address], [place], [address] , [employer] 4 10:45:22 Abnormal gallbladd er function 96682254 Completed Not Available [employer] 3 04:51:19 Hyperlipi demia 09957245 Active Luke Guidry MD [address], [address], [place], [address] , [employer] 4 10:45:22 Essential hypertens ion 61429949 Completed Not Available [employer] 3 04:51:19 Diarrhea 50773272 Completed Not Available [facility] 3 04:51:20 Osteoporo sis 95946781 Active 2016 Luke Guidry MD [address], [address], [place], [address] , [employer] 4 10:45:22 Prediabet es 241836810 Active 2017 Luke Guidry MD [address], [address], [place], [address] , [employer] 4 10:45:22 Postmenop ausal osteopeni a 792093003 Active 2021 Luke Guidry MD [address], [place], [address] , [employer] [facility] [employer] 4 10:45:22 Decreased renal function 41634960 Completed Not Available [facility] 3 04:51:20 Epigastri c pain 33523954 Completed Luke Guidry MD [address], [place], [address] , [employer] 4 10:58:33 Hyperglyc emia 90056468 Completed Not Available [employer] 3 04:51:21 Neck pain 17666283 Completed Not Available [facility] 3 04:51:21 Fatigue 03806176 Active 2020 Luke Guidry MD [address], [address], [place], [address] , [facility] [employer] [facility] [employer] 10:45:22 Problem Notes None recorded. Procedures Surgical History Date Name Laterality Status Provider Name and Address Organization Details Recorded Time Cholecystectomy completed Not Available [employer] 11/08/2022 04:42:01 Imaging Results Imaging Date Name Status LastModified by Organiz ation Details LastModified Time 06/29/2023 XR, foot, 3 or more view completed [email or web address] Information not available 12/27/2023 10:03:24 06/29/2023 XR, ankle, 3 or more view completed Information not available 12/27/2023 10:03:24 07/09/2024 US, abdomen, complete completed [facility] [address], [place], [address], 07/10/2024 10:36:28 07/09/2024 XR, chest, 1 view completed [email or web address] [facility] [address], [place], [address], 07/10/2024 11:45:08 Procedure Notes None recorded. Medical Equipment None Reported. Allergies Allergen ID Allergen Name Allergen Category Reaction Reaction Severity Criticality Documentation Date Start Date Code Code System Note Provider Name and Address Organization Details Recorded Time 12881 promethaz ine medicatio n dizziness Not available Not available 07/10/20242022 8745 RxNorm Luke Guidry MD [address], [place], [address], [facility] [employer] [facility] [employer] 4 10:44:50 7971 Phenergan medicatio n dizziness Not available Not available 11/08/2022 66468 8 RxNorm Not Available [employer] 05:03:18 7972 codeine medicatio n dizziness Not available Not available 11/08/20222022 2670 RxNorm Luke Guidry MD [address], [place], [address], [facility] [employer] [facility] [employer] [facility] 4 10:44:51 Medications Name Sig Start Date [...] Not Available Not Available Not Available Afluria 7468-1963( PF) 45 mcg (15 mcg x 3)/0.5 mL intramuscu lar syringe TO BE ADMINIST ERED BY PHARMACI ST FOR IMMUNIZA TION 09/28 completed Not [...] height Body mass index (BMI) Body weight Body temperature Heart rate Respiratory rate Systolic blood pressure Diastolic blood pressure Provider Name and Address Organization Details Last Updated DateTime 4 165.1 cm 26.3 kg/m2 85923.3 4 g 98.2 [degF] 78 /min 16 /min 132 mm[Hg] 72 mm[Hg] [employer] [facility] [employer] [facility] [employer] 4 10:02:06 Date Recorded Body height Body mass index (BMI) Body weight Body temperature Heart rate Respiratory rate Oxygen saturation Oxygen saturation in Arterial blood by Pulse oximetry Systolic blood pressure Diastolic blood pressure Provider Name and Address Organization Details Last Updated DateTime 4 165.1 cm 26.6 kg/m2 91567.1 3 g 98.1 [degF] 76 /min 16 /min 99 % 99 % 112 mm[Hg] 76 mm[Hg] [employer] [facility] [employer] [facility] 4 09:40:04 Date Recorded Body height Body mass index (BMI) Body weight Body temperature Heart rate Respiratory rate Oxygen saturation Oxygen saturation in Arterial blood by Pulse oximetry Systolic blood pressure Diastolic blood pressure Provider Name and Address Organization Details Last Updated DateTime 4 165.1 cm 26.1 kg/m2 00562.5 7 g 98.2 [degF] 76 /min 16 /min 99 % 99 % 118 mm[Hg] 78 mm[Hg] Josue Ayala [facility] 09:52:48 Date Recorded Body height Body mass index (BMI) Body weight Body temperature Heart rate Respiratory rate Oxygen saturation Oxygen saturation in Arterial blood by Pulse oximetry Systolic blood pressure Diastolic blood pressure Provider Name and Address Organization Details Last Updated DateTime 165.1 cm 25.7 kg/m2 26285.6 7 g 98.2 [degF] 84 /min 16 /min 98 % 98 % 106 mm[Hg] 76 mm[Hg] Josue Ayala [facility] 10:55:55 Date Recorded Body height Body mass index (BMI) Body weight Systolic blood pressure Diastolic blood pressure Provider Name and Address Organization Details Last Updated DateTime 07/10/2024 165.1 cm 25.1 kg/m2 93573.45 g 110 mm[Hg] 60 mm[Hg] Karen King Poonam [facility] 10:33:26 Date Recorded Body temperature Heart rate Respiratory rate Oxygen saturation Oxygen saturation in Arterial blood by Pulse oximetry Provider Name and Address Organization Details Last Updated DateTime 98 [degF] 80 /min 16 /min 98 % 98 % Luke Guidry MD [address] [place] [address], [address] , [facility] 10:41:55 Social History Question Answer Notes LastModified by Organizat ion Details LastModified Time Tobacco Smoking Status Never Smoker Fidelina Santana [facility], [facility] 06/11/2023 09:52:34 Do You Have An Advance Directive? No [id number] Information not available 11/08/2022 What Is Your Level Of Alcohol Consumption? None [id number] Information not available 11/08/2022 Do You Wear A Helmet When Biking? No [email or web address] Information not available 06/11/2023 What Is Your Level Of Caffeine Consumption? Heavy [id number] Information not available 11/08/2022 How Much Tobacco Do You Chew? None [id number] Information not available 11/08/2022 In The 14 Days Before Symptom Onset, Have You Had Close Contact With A Laboratory-confi rmed COVID-19 While That Case Was Ill? No Information not available 06/11/2023 In The 14 Days Before Symptom Onset, Have You Had Close Contact With A Person Who Is Under Investigation For COVID-19 While That Person Was Ill? No [email or web address] Information not available 06/11/2023 What Type Of Diet Are You Following? REGULAR [id number] Information not available 11/08/2022 Do You Or Have You Ever Used E-cigarettes Or Vape? Never Used Electronic Cigarettes [email or web address] Information not available 06/11/2023 What Is The Highest Grade Or Level Of School You Have Completed Or The Highest Degree You Have Received? 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 No [email or web address] Information not available 06/11/2023 What Is The Fluoride Status Of Your Home? Fluoridated Information not available 06/11/2023 Are There Any Guns Present In Your Home? No [email or web address] Information not available 06/11/2023 Do You Use Insect Repellent Routinely? Yes [email or web address] Information not available 06/11/2023 Where Do You Live? SingleLevelHouse [email or web address] Information not available 06/11/2023 Do You Have A Medical Power Of Membership Advisor? No [email or web address] Information not available 06/11/2023 What Was The Date Of Your Most Recent Tobacco Screening? 06/05/2022 Information not available 06/11/2023 Do You Have Any Pets? Yes [email or web address] Information not available 06/11/2023 What Is Your Relationship Status? [id number] Information not available 11/08/2022 Do You Use Your Seat Belt Or Car Seat Routinely? Yes [email or web address] Information not available 06/11/2023 Do You Have Smoke And Carbon Monoxide Detectors In Your Home? Yes [email or web address] Information not available 06/11/2023 Are You Passively Exposed To Smoke? No [email or web address] Information not available 06/11/2023 Do You Or Have You Ever Used Smokeless Tobacco? Never Used Smokeless Tobacco MIGRATION.[id number] Information not available 11/08/2022 Are There Any Smokers In Your House? No [email or web address] Information not available 06/11/2023 Do You Participate In Social Media? Yes [email or web address] Information not available 06/11/2023 Do You Feel Stressed (tense, Restless, Nervous, Or Anxious, Or Unable To Sleep At Night)? [id number] [email or web address] Information not available 06/11/2023 Do You Use Any Illicit Or Recreational Drugs? No [email or web address] Information not available 06/11/2023 Do You Use Sunscreen Routinely? Yes [email or web address] Information not available 06/11/2023 Has Tobacco Cessation Counseling Been Provided? No [email or web address] Information not available 06/11/2023 Have You Recently Traveled Abroad? No [email or web address] Information not available 06/11/2023 Are You Currently In School? No [email or web address] Information not available 06/11/2023 Do You Have Any Dietary Restrictions? No [email or web address] Information not available 06/11/2023 Do You Or Have You Ever Used Any Other Forms Of Tobacco Or Nicotine? No [email or web address] Information not available 06/11/2023 Sex: Female Functional Status Question Answer Note LastModified by [employer] ion Details LastModified Time What is your exercise level? Heavy [id number] Information not available 11/08/2022 Mental Status None recorded. Family History Relationship Description Onset Age of this Age Resolved Age Notes LastModified by Organization Details LastModified Time Father Diabetes mellitus [id number] Not available 11/08/2022 04:42:08 Father Hypertensive disorder [id number] Not available 11/08/2022 04:42:08 Father Family history of stroke [email or web address] Not available 06/11 09:52:31 Father Arthritis [email or web address] Not availa ble 06/11/2023 09:52:31 Mother Arthritis Not availa ble 06/11/2023 09:52:31 Mother Hypertensive disorder [id number] Not available 11/08/2022 04:42:09 Medical History Condition Response BLINDNESS N RHEUMATIC FEVER N KIDNEY STONES N BLADDER PROBLEMS N MRSA N OTHER # 1 N POLIO N LUNG DISEASE/DISORDER N HISTORY OF DRUG ABUSE N RADIATION / CHEMOTHERAPY N COPD N Other # 2 N SURGERY N EAR OR HEARING PROBLEMS N MUMPS N SHINGLES N FEMALE PROBLEMS / INFECTIONS N DEPRESSION (INCLUDING POST ) Y BOWEL PROBLEMS N STROKE/TIA N THYROID DISEASE N ULCERS N BENIGN PROSTATIC HYPERPLASIA N MEASLES N CERVICALGIA N TB SKIN TEST N HYPOTENSION N MYOCARDIAL INFARCTION N PARAPELGIA N OBESITY [...] GLAUCOMA N FOOT PROBLEM N DIVERTICULITIS N SLEEP APNEA N CHICKENPOX N ALLERGIES/HAYFEVER N INFECTIOUS DISEASE N PROSTATE N HEART ARRHYTHMIA N INSOMNIA N HIGH CHOLESTEROL / HYPERLIPIDEMIA Y EYE PROBLEMS N HYPERTHYROIDISM N EATING DISORDER N EDEMA N CHRONIC PAIN SYNDROME N CONSTIPATION N HAVE YOU BEEN HOSPITALIZED OR SEEN IN [facility] IN THE PAST YEAR ? N ATHEROSCLEROSIS N BREAST PROBLEMS N DIALYSIS N ECZEMA N FIBROMYALGIA N OSTEOPOROSIS N ARTHRITIS Y NO SIGNIFICANT PAST MEDICAL HISTORY N DIABETES, TYPE Y BAD TEETH N HEARTBURN / REFLUX N ADD/ADHD N AUTISM SPECTRUM DISORDER (ASD) N HEPATITIS / LIVER DISEASE N PULMONARY DISEASE N GOUT N SLEEP DISORDER N ALZHEIMER'S DISEASE N PAIN N DEMENTIA N HERPES N SEIZURES/EPILEPSY N HEADACHES/MIGRAINES N VASCULAR DISEASE N PACEMAKER N DIZZINESS N HEART DISEASE/HEART PROBLEMS N KIDNEY DISEASE N SCARLET FEVER N DEVELOPMENTAL OR BEHAVIORAL DISORDERS N MENTAL DISORDER/ILLNESS N MULTIPLE SCLEROSIS N CANCER: SPECIFY N PNEUMONIA N ATRIAL FIBRILLATION N Gall Stones N PULMONARY EMBOLISM N Gynecological HistoryNo gynecological history recorded. Obstetrics History GPAL:G 0 P 0 0 0 0 Immunizations Vaccine Type Date Status Note Provider Nam e and Address Organization Details Recorded Time zoster recombinant 1 completed Luke Guidry MD [address] [address], [place], [address], [employer] [facility] [employer] 07/10/2024 10:45:40 zoster recombinant 0 completed Luke Guidry MD [address], [facility] [address], [place], [address], [employer] [facility] [employer] [facility] 07/10/2024 10:45:40 influenza, unspecified formulation 4 completed Luke Guidry MD [address], [address], [place], [address], [employer] [facility] [employer] [facility] 07/10/2024 10:45:40 influenza, unspecified formulation 9 completed Luke Guidry MD [address], [address], [place], [address], [employer] [facility] [employer] [facility] 07/10/2024 10:45:40 influenza, unspecified formulation 7 completed Luke Guidry MD [address], [address], [place], [address], [employer] [facility] [employer] [facility] 07/10/2024 10:45:40 influenza, unspecified formulation 8 completed Luke Guidry MD [address], [place], [address], [employer] [facility] [employer] [facility] 07/10/2024 10:45:40 influenza, unspecified formulation 5 completed Luke Guidry MD [address], [address], [place], [address], [employer] [facility] [employer] [facility] 07/10/2024 10:45:40 Influenza, split virus, trivalent, preservative 4 completed Luke Guidry MD [address], [place], [address], [employer] [facility] [employer] [facility] 07/10/2024 10:45:41 Influenza, split virus, quadrivalent, PF 9 completed Luke Guidry MD [address], [address], [place], [address], [employer] [facility] [employer] [facility] 07/10/2024 10:45:41 zoster recombinant 9 completed Not Available [facility] 10/05/2023 09:35:12 Influenza, split virus, quadrivalent, PF 8 completed Luke Guidry MD [address], [address], [place], [address], [employer] 07/10/2024 10:45:41 Influenza, split virus, quadrivalent, PF 7 completed Luke Guidry MD [address], [facility] [address], [place], [address], [facility] 07/10/2024 10:45:41 Influenza, split virus, quadrivalent, PF 2 completed Not Available [facility] 10/05/2023 09:35:12 Influenza, split virus, quadrivalent, PF 1 completed Not Available [facility] 10/05/2023 09:35:12 pneumococcal polysaccharide PPV23 0 completed Luke Guidry MD [address], [facility] [address], [place], [address], [employer] 07/10/2024 10:45:40 Tdap 4 completed Not Available [facility] 10/05/2023 09:35:12 Influenza, split virus, quadrivalent, PF 3 completed Luke Guidry MD [address], [address] [address], [place], [address], [employer] 06/28/2023 11:18:51 Tdap 4 completed Josue perez, [employer] [facility] [employer] 05/21/2024 10:07:07 Past Encounters Encounter ID Performer Location Encounter Start Date Encounter Closed Date Diagnosis/Indication Diagnosis SNOMED-CT Code Diagnosis ICD10 Code Diagnosis Note [id number] [facility] [place] [address] [place] [address] 01/05/2021 00:00:00 01/05/2021 09:05:52 [id number] [facility] [place] [address] [place] [address] 01/19/2021 00:00:00 01/19/2021 12:01:[id number] [address] 03/15/2021 00:00:00 03/15/2021 09:15:46 [id number] [facility] [place] [address] [place] [address] 04/21/2021 00:00:00 04/21/2021 09:26:13 [id number] [facility] [place] [address] [place] [address] 05/05/2021 00:00:00 05/05/2021 12:23:14 [id number] [facility] [place] [address] [place] [address] 07/25/2021 00:00:00 07/25/2021 10:27:05 [id number] [facility] [place] [address] [place] [address] 08/02/2021 00:00:00 08/02/2021 18:19:46 [id number] [facility] [place] [address] [place] [address] 10/19/2021 00:00:00 10/19/2021 10:21:41 [id number] [facility] [place] [address] [place] [address] 11/09/2021 00:00:00 11/10/2021 12:11:57 [id number] [facility] [place] [address] [place] [address] 11/17/2021 00:00:00 11/17/2021 12:43:19 [id number] [facility] [place] [address] [place] [address] 02/13/2022 00:00:00 02/13/2022 17:53:55 [id number] [facility] [place] [address] [place] [address] 03/23/2022 00:00:00 03/23/2022 16:07:09 [id number] [facility] [place] [address] [place] [address] 05/03/2022 00:00:00 05/03/2022 12:03:[id number] [address] 05/17/2022 00:00:00 05/17/2022 12:34:46 [id number] _ATHENA_M IGRATION_ DEFAULT_1 _1 , 06/05/2022 00:00:00 06/05/2022 15:38:[id number] [address] 08/02/2022 00:00:00 08/02/2022 17:34:[id number] [address] 08/16/2022 00:00:00 08/16/2022 10:21:[id number] [address] 10/30/2022 00:00:00 10/30/2022 11:59:14 [id number] Luke Guidry MD [address] [address] 11/09/2022 11:49:23 11/09/2022 12:35:26 Sore throat 610427470 J02.9 Dysuria 60363356 R30.0 Pharyngitis 426936861 J0 2.9 Hypertriglyceridemia 302 559344 E78.2 Hyperlipidemia 07871567 E78.5 Prediabetes 511228522 R7 3.03 Depressive disorder 9007 7967 F32.9 [id number] Luke Guidry MD [address] [address] 12/19/2022 09:45:19 12/19/2022 10:10:23 Fatigue 72123141 R53.83 Dyspnea on exertion 6084 5006 R06.09 Depressive disorder 5408 9007 F32.9 Hypertensive disorder 38 562289 I10 Mixed anxi ety and depressive disorder 772075884 F41.8 Prediabetes 223937708 R7 3.03 Gastroesop hageal reflux disease without esophagitis 090026653 K21.9 [id number] Luke Guidry MD [address] [address] 01/01/2023 10:10:01 01/01/2023 10:26:01 [id number] Luke Guidry MD [address] [address] 04/11/2023 13:56:42 04/11/2023 14:16:19 Dyspnea on exertion 46516106 R06.09 resolved Fatigue 70681111 R53.83 Depressive disorder 3548 9007 F32.9 Hypertensive disorder 38 925543 I10 Mixed anxi ety and depressive disorder 315704128 F41.8 Prediabetes 239813586 R7 3.03 Gastroesop hageal reflux disease without esophagitis 699632062 K21.9 Hyperlipidemia 34043183 E78.5 Hypertriglyceridemia 302 292633 E78.2 [id number] Luke Guidry MD [address] [address] 05/21/2023 09:49:01 05/21/2023 10:09:33 Depressive disorder 75062272 F32.9 Dyspnea on exertion 6084 5006 R06.09 resolved Fatigue 92270926 R53.83 Hypertensive disorder 38 403946 I10 Mixed anxi ety and depressive disorder 729321203 F41.8 Prediabetes 644065270 R7 3.03 Gastroesop hageal reflux disease without esophagitis 322031330 K21.9 Hyperlipidemia 66755698 E78.5 Hypertriglyceridemia 302 222968 E78.[address] [facility] th examination 498835000 Z00.00 Vitamin D deficiency 347 20014 E55.9 Screening mammography 24 586305 Z12.31 Sleep apnea 95593060 G47 .30 [id number] Luke Guidry MD [address] [address] 06/11/2023 09:51:50 06/11/2023 10:36:30 Depressive disorder 97634613 F32.9 Dyspnea on exertion 6084 5006 R06.09 resolved Fatigue 27199558 R53.83 Hypertensive disorder 38 637831 I10 Mixed anxi ety and depressive disorder 717120388 F41.8 Prediabetes 150278427 R7 3.03 Gastroesop hageal reflux disease without esophagitis 020831537 K21.9 Hyperlipidemia 56779491 E78.5 Hypertriglyceridemia 302 080088 E78.2 Vitamin D deficiency 347 55916 E55.9 Resolved [id number] Luke Guidry MD [address] [address] 06/28/2023 10:49:13 06/28/2023 11:25:35 Pain of right ankle joint 1000506580 7016253 M25.571 Pain of le ft shoulder joint 0711730623 2864276 M25.512 Pain in right foot 59717 14463 08464 M79.671 Administra tion of influenza vaccine 94694583 Z23 [id number] Luke Guidry MD [address] [address] 07/18/2023 10:16:02 07/18/2023 10:47:41 Pain of right ankle joint 6732458066 6901924 M25.571 Pain in right foot 07987 64694 22427 M79.671 Pain of le ft shoulder joint 2082784824 1237053 M25.512 Osteoarthritis 128985747 M19.90 Lt shoulder, Rt foot, Rt ankle [id number] Luke Guidry MD [address] [address] 09/12/2023 09:56:20 09/12/2023 10:24:18 Pain in right hip joint 3863756593 21764 M25.551 Chronic low back pain 27 8676217 M54.50 Lumbar radiculopathy 128 919525 M54.16 Rt [id number] Luke Guidry MD [address] [address] 09/27/2023 09:55:22 09/27/2023 10:39:10 Prediabetes 569397008 R73.03 Depressive disorder 3548 9007 F32.9 Dyspnea on exertion 6084 5006 R06.09 resolved Fatigue 17495750 R53.83 Hypertensive disorder 38 732482 I10 Mixed anxi ety and depressive disorder 174955865 F41.8 Gastroesop hageal reflux disease without esophagitis 756003499 K21.9 Hyperlipidemia 92147545 E78.5 Hypertriglyceridemia 302 084036 E78.2 Vitamin D deficiency 347 27781 E55.9 Resolved Degenerati on of lumbar intervertebral disc 33200069 M51.36 [id number] [place] Linda DPM [facility] [address] [place] [address] 10/04/2023 10:45:09 10/10/2023 09:34:14 Calcific tendinitis of achilles tendon 305253539 M76.61 recommend rice therapy and topical Voltaren gelStretch ing and icing instructio ns reviewed knee flexedcont inue supportive shoe gearFollow -up in February for surgical clearance- retrocalca kieran exostectom y with hardware Bone spur of right foot 3048395783 15755 M25.774 calcanealx -rays reviewedtr eatment options reviewed [id number] Luke Guidry MD [facility] [place] [address] [place] [address] 12/27/2023 09:55:10 12/27/2023 10:18:25 Prediabetes 126470886 R73.03 Depressive disorder 3548 9007 F32.9 Dyspnea on exertion 6084 5006 R06.09 resolved Hypertensive disorder 38 533001 I10 Mixed anxi ety and depressive disorder 574566297 F41.8 Gastroesop hageal reflux disease without esophagitis 118306712 K21.9 Hyperlipidemia 42456822 E78.5 Hypertriglyceridemia 302 810323 E78.2 Vitamin D deficiency 347 73554 E55.9 Resolved Degenerati on of lumbar intervertebral disc 60605311 M51.36 Chronic low back pain 27 3444629 M54.50 [id number] Luke Guidry MD [address] [address] 05/21/2024 09:33:14 05/21/2024 09:56:37 Prediabetes 911703119 R73.03 Hyperlipidemia 02066135 E78.5 Hypertriglyceridemia 302 167341 E78.2 Depressive disorder 3548 9007 F32.9 Hypertensive disorder 38 857023 I10 Mixed anxi ety and depressive disorder 143248326 F41.8 Gastroesop hageal reflux disease without esophagitis 486038449 K21.9 Vitamin D deficiency 347 58944 E55.9 Degenerati on of lumbar intervertebral disc 10709306 M51.36 Chronic low back pain 27 6868354 M54.50 Osteopenia 150901747 M85 .80 Active immunization 3387 9002 Z23 [id number] Luke Guidry MD [address] [address] 06/19/2024 09:44:17 06/19/2024 10:20:39 Hyperlipidemia 55286156 E78.5 Hypertriglyceridemia 302 875077 E78.2 Prediabetes 642058065 R7 3.03 Depressive disorder 3548 9007 F32.9 Hypertensive disorder 38 347852 I10 Gastroesop hageal reflux disease without esophagitis 580031412 K21.9 Vitamin D deficiency 347 43654 E55.9 Improved Degenerati on of lumbar intervertebral disc 02808799 M51.369 Chronic low back pain 27 [id number] M54.50 [id number] Luke Guidry MD [address] [address] 07/03/2024 10:43:37 07/03/2024 11:35:12 Epigastric pain [id number] R10.13 Nausea and vomiting 1693 2000 R11.2 Gastritis [id number] K29.70 Abdominal pain [id number] R10.9 [id number] Luke Guidry MD [address] [id number] 07/10/2024 10:25:30 07/10/2024 10:50:27 Seen in emergency clinic [id number] Z76.89 D/w pt about her findings and further plan of care. Pt agreed. Epigastric pain [id number] R10.13 Resolved Hiatal her karsten with gastroesophageal reflux [id number] K21.9 Health Concerns Section Related Observation LastModified by Organization Detai ls LastModified Time None Recorded Concern Status LastModified by Organization Details LastModified Time None Recorded Advance Directives Directive N: Payers Encounter Date Sequence Insurance Name Policy Number Policy Wright Covered Member ID Wright Member ID Guarantor Name 12/27/2023 2 EAST - DOS PRIOR TO 2024 - [employer] () Haydee Delgado [id number] Haydee Delgado 12/27/2023 1 MEDICARE-PR (MEDICARE) Haydee Delgado [id number] Haydee Delgado 05/21/2024 2 [place] - [place] PRIOR TO 2024 - [employer] () Haydee Delgado [id number] Haydee Delgado 05/21/2024 1 MEDICARE-PR (MEDICARE) Haydee Delgado [id number] Haydee Delgado 06/19/2024 2 [place] - [place] PRIOR TO 2024 - [employer] () Haydee Delgado [id number] Haydee Delgado 06/19/2024 1 MEDICARE-PR (MEDICARE) Haydee Delgado [id number] Haydee Delgado 07/03/2024 2 [place]AST - [place] PRIOR TO 2024 - [employer] () Haydee Delgado [id number] Haydee Delgado 07/03/2024 1 MEDICARE-PR (MEDICARE) Haydee Delgado [id number] Haydee Delgado 07/10/2024 2 [place]AST - [place] PRIOR TO 2024 - [employer] () Haydee Delgado [id number] Haydee Delgado 07/10/2024 1 MEDICARE-PR (MEDICARE) Haydee Delgado [id number] Haydee Delgado Notes Date Note Type Note Provider Name and Address Organization Details Recorded Time 12/27/2023 text/html Pt is here for f/u on her labs and chronic conditions. Doing overall better. Denies any problem with meds. Denies any new concern. Doing much better with her back pain. Pt has finished PT and now doing at home. C/o Rt hip pain for last 3-4 weeks. Pt denies any recent fall/injury. Pt did help her to move some stuff couple weeks ago, but it was not that heavy. At times, she get this pain going over her Rt buttock, Rt thigh, Rt leg too. No incontinence. Pt has chronic low back pain for last several yrs, but its not that bad. Doing overall Ok with her mood. Denies any problem with meds. Denies any mood swings/SI/HI. Pt is f/u with Cardio for her SOB and got testing done with them and she is doing better now. No concerns with it. Pt has chronic GERD and is controlled well with otc meds. Denies any blood in stool. Luke Guidry MD [address] [facility], [place], [address], [employer] [facility] [employer] 12/27/2023 10:15:17 05/21/2024 text/html Pt is here for her annual exam. Doing overall better. Denies any problem with meds. Denies any new concern. Doing much better with her back pain. Pt has finished PT and now doing at home. C/o Rt hip pain for last 3-4 weeks. Pt denies any recent fall/injury. Pt did help her to move some stuff couple weeks ago, but it was not that heavy. At times, she get this pain going over her Rt buttock, Rt thigh, Rt leg too. No incontinence. Pt has chronic low back pain for last several yrs, but its not that bad now. Doing overall Ok with her mood. Denies any problem with meds. Denies any mood swings/SI/HI. Pt is f/u with Cardio for her SOB and got testing done with them and she is doing better now. No concerns with it. Pt has chronic GERD and is controlled well with otc meds. Denies any blood in stool. Luke Guidry MD [address] [facility], [address], [place], [address], [employer] [facility] [employer] 05/21/2024 09:55:41 06/19/2024 text/html Pt is here for f/u on her annual labs. Doing overall better. Denies any problem with meds. Denies any new concern. Doing much better with her back pain. Pt has finished PT and now doing at home. Pt has chronic low back pain for last several yrs, but its not that bad now. Doing overall Ok with her mood. Denies any problem with meds. Denies any mood swings/SI/HI. Pt is f/u with Cardio for her SOB and got testing done with them and she is doing better now. No concerns with it. Pt has chronic GERD and is controlled well with otc meds. Denies any blood in stool. Luke Guidry MD [address] [facility], [facility] [address], [place], [address], [employer] 06/19/2024 10:18:27 07/03/2024 text/html ACV: C/o epigastric area pain for last 1 [...] use of any antibiotics. Luke Guidry MD [address] [facility], [facility] [address], [place], [address], [employer] 07/03/2024 11:27:28 07/10/2024 text/html Pt is here for f/u [...] use of any antibiotics. Luke Guidry MD [address] [facility], [facility] [address], [place], [address], [facility] 07/10/2024 10:47:29 OBGyn Episode No OBEpisode recorded.
--- OUTSIDE RECORDS SUMMARY | 2024-09-22 10:31 | XMS_ITS | Encounter Summary ---
Author Organization [facility] Address [facility]. [place], [place] [address] [place] [id number] Care Team Providers Care Livestock Inspector Name Role Phone Unavailable Primary Care Provider Unavailabl e Encounter Details Date Type Department Care Team (Latest Contact Info) Description 10/22/2015 Abstract [facility] Social History Tobacco Use Types Packs/Day Years Used Date Smoking Tobacco: Never Assessed Comments Unknown Sex and Gender Information Value Date Recorded Sex Assigned at Not on file Legal Sex Female 8:14 PM CDT Gender Identity Not on file Sexual Orientation Not on file documented as of this encounter Progress Notes * Generic Conversion MD Antoine - 10/22/2015 11:51 AM CST Message Recorded as Task Date: 10/01/2015 01:28 PM, Created By: Mark Huerta Task Name: Medical Complaint [facility]back [facility] Regarding Patient: Haydee Delgado, Status: Active Comment: Mark Huerta - 01 Oct 2015 1:28 PM TASK CREATED Caller: Self; Wanted to let doctor know rash has cleared since she stop taking anti- depressent. Should we try a new medication? Maryana Sweet - 01 Oct 2015 1:44 PM TASK REASSIGNED: Previously Ass[facility] Alysha Whitmore - 10 Oct 2015 3:34 PM TASK REPLIED TO: Previously Assigned To [facility] Whitmore perhaps she should schedule an appt to discuss her symptoms and treatment options Niharika Jackman - 11 Oct 2015 7:31 AM TASK REASSIGNED: Previously Assigned To [facility] Lisa Reyes 11 Oct 2015 9:17 AM TASK IN PROGRESS Lisa Reyes 11 Oct 2015 9:19 AM TASK EDITED Left message to schedule an appt to discuss her symptoms and treatment options. Lisa Reyes 14 Oct 2015 4:00 PM TASK EDITED LEFT MESSAGE TO CALL OFFICE RE AN APPT FOR HER ANTI DEPRESSION MED. Lisa Reyes 21 Oct 2015 11:29 AM TASK EDITED called and left message x 3 requesting her to call back either for an appt to discuss the Anti depressant or let us know if she has decided to not take the med. Kirstie Hale 21 Oct 2015 1:23 PM TASK EDITED Pt returned call and stated that she was told to stop taking bupropion because she had broken out in a rash and she and Dr. Encarnacion thought that might be causing the rash because it is the only thing she had changed. Louisa states that she now knows that is not the case so she is taking the bupropion. She is planning to be available for the rest of the day today if further information is needed, but she is taking her antidepressant. Lisa Reyes 21 Oct 2015 1:29 PM TASK REASSIGNED: Previously Assigned To [facility] FYI med put back on med list... Alysha Whitmore - 21 Oct 2015 3:50 PM TASK REPLIED TO: Previously Assigned To Alysha Whitmore That is fine to take her medication did she need a callback from us? Signatures Electronically signed by : Lisa Reyes MA; Oct 22 2015 11:51AM HAND SAMPLE MAKER (Author) documented in this encounter Plan of Treatment Not on file documented as of this encounter Visit Diagnoses Not on filedocumented in this encounter
--- OUTSIDE RECORDS SUMMARY | 2024-09-22 10:34 | XMS_ITS | CONTINUITY OF CARE DOCUMENT ---
Author Name isac chau Address Unknown Organization [facility] Address [address] [place] [address] Phone [phone] Care Team Providers Care Director Organizational Name Role Phone Francisco ESPINOSA, Isidro Unavailable AUNDREA ESPINOSA, MARTIR Stanton Unavailable [phone] BRONWYN ESPINOSA, EFFIE Stanton Unavailable INSURANCE PROVIDERS Payer name Policy type / Coverage type [place] [employer] party ID LAURIE WALL [id number] [employer] Commercial insuran ce company [id number]
--- OUTSIDE RECORDS SUMMARY | 2024-09-22 10:34 | XMS_ITS | Continuity of Care Document ---
Author Organization [place] - [facility], [facility] [place] Address [address] [place] [address] Care Team Providers Care Nursing Unit Clerk Name Role Phone LUKE GUIDRY Primary Care Provider LUKE GUIDRY Referring Provider [phone] LUKE GUIDRY Primary Care Provider Assessment Encounter Date Assessment Date Assessment LastModified by Organization Details LastModified Time 07/03/2024 07/03/2024 D/w pt about her findings [...] Pt verbalized understanding it. F/u as directed. [email or web address] Not available 07/03/2024 11:25:23 Plan of Treatment Reminders Order Date Submit Date Provider Last Modified By Organization Details Last Modified Time Details Appointments Follow Up 15 2024 08:45A Maximino Guidry MD Not available Not available Not available Lab CBC w/ auto diff 2023 [facility] (Lab), [address] [place], [address], 07/05/2024 11:56:04 CMP, serum or plasma 2023 024 [facility] (Lab), [address] [place], [address], 07/04/2024 14:29:26 lipase, serum or plasma [address] (Lab), [address] [place], [address], 07/17/2024 08:25:27 amylase, serum or plasma [address] (Lab), [address] [place], [address], 07/17/2024 08:25:27 ESR (erythroc yte sedimenta tion rate), blood [address] (Lab), [address] [place], [address], 07/17/2024 08:25:27 urinalysi s complete, reflex culture [address] (Lab), [address] [place], [address], 07/17/2024 08:25:27 troponin I, ultrasens itive, serum [address] (Lab), [address] [place], [address], 07/17/2024 08:25:27 Referral None recorded. Procedures None recorded. Surgeries None recorded. Imaging XR, abdomen, 2 or more views + XR, chest, 1 view 2023 [email or web address] [id number] [facility], [address], [place], [address], 07/10/2024 10:04:53 US, abdomen, [facility] [address], [place], [address], 07/09/2024 15:12:26 Medication Orders ondansetr on HCl 4 mg tablet 2023 [id number], [address], [place], [place], [id number], 07/03/2024 11:05:55 pantopraz ole 40 mg tablet,de layed release 2023 [facility] #[id number], [address], [place], [place], [id number], 07/03/2024 11:27:24 Patient TargetsNo targets recorded. Patient InstructionsNo instructions recorded. Reason for Referral None Reported. Results Created Date Observation Date Name Description Value Unit Range Abnormal Flag Note LastModifiedBy Organization Detail LastModifiedTime 07/09/2007/09/2024 US, abdom en, compl ete No observ ation record ed. [email or web address] [facility] [address], [place], [address], 07/10/2024 10:36:28 07/09/2007/09/2024 XR, chest , 1 view No observ ation record ed. [email or web address] [facility] [address], [place], [address], 07/10/2024 11:45:08 Result Notes None recorded. Problems Name Problem SNOMED Code Status Onset Date Resolution Date Notes Provider Name and Address Organization Details Recorded Time Sore throat 782448138 Active 2022 Luke Guidry MD [address], [address], [place], [address] , [employer] 10:45:22 Dysuria 63098050 Active 2022 Luke Guidry MD [address], [place], [address] , [employer] 10:45:22 Pharyngit is 088988996 Active 2022 Lkue Guidry MD [address], [address], [place], [address] , [place] - [facility] 4 10:45:22 Dyspnea on exertion 42937181 Active 2022 Luke Guidry MD [address], [address], [place], [address] , [place] - [facility] 4 10:45:22 Gastroeso phageal reflux disease without esophagit is 252864686 Active 2022 Luke Guidry MD [address], [address], [place], [address] , [employer] - [facility] 4 10:45:22 Sleep apnea 08692050 Active 2022 Lkue Guidry MD [address], [address], [place], [address] , [employer] - [facility] 4 10:45:22 Pain of right ankle joint 49465930565 301694 Active 2022 Luke Guidry MD [address], [address], [place], [address] , [employer] - S [employer] [facility] 4 10:45:21 Pain of left shoulder joint 89314528850 895990 Active 2022 Luke Guidry MD [address], [address], [place], [address] , [employer] - [facility] 4 10:45:21 Pain in right foot 32501652027 9107 Active 2022 Luke Guidry MD [address], [address], [place], [address] , [employer] - [facility] 4 10:45:22 Pain in right hip joint 35809220146 9102 Active 2023 Luke Guidry MD [address], [address], [place], [address] , [place] - [facility] 4 10:45:22 Chronic low back pain 815553368 Active 2023 Luke Guidry MD [address], [place], [address] , [facility] [employer] [facility] [employer] GROUP [facility] 10:45:22 Lumbar radiculop athy 665430559 Active 2023 Luke Guidry MD [address], [place], [address] , [employer] [facility] [employer] [facility] 10:45:21 Degenerat ion of lumbar intervert ebral disc 54339587 Active 2023 Luke Guidry MD [address], [place], [address] , [employer] [facility] [employer] [facility] 10:45:22 Arthritis 2175537 Active 2023 Luke Guidry MD [address], [place], [address] , [employer] [facility] [employer] GROUP [facility] 10:45:22 Diabetes mellitus 73866424 Active 2023 Luke Guidry MD [address], [place], [address] , [employer] [facility] [employer] [facility] 10:45:22 Bone spur of right foot 21310437272 9103 Active 2023 Luke Guidry MD [address], [place], [address] , [employer] [facility] [employer] [facility] 10:45:22 Calcific tendiniti s of achilles tendon 084013582 Active 2023 Luke Guidry MD [address], [place], [address] , [employer] [facility] [employer] [facility] 10:45:22 Epigastri c pain 72178945 Active 2023 Luke Guidry MD [address], [place], [address] , [employer] [facility] 4 10:45:22 Nausea and vomiting 15859095 Active 2023 Luke Guidry MD [address], [place], [address] , [facility] 4 10:45:22 Gastritis 8042642 Active 2023 Luke Guidry MD [address], [place], [address] , [facility] 4 10:45:22 Abdominal pain 42794104 Active 2023 Luke Guidry MD [address], [address], [place], [address] , [facility] - [facility] 4 10:45:22 Hiatal hernia with gastroeso phageal reflux 289450171 Active 2023 Luke Guidry MD [address], [place], [address] , [facility] 4 10:45:22 Impacted cerumen of bilateral ears 71384776378 55763 Active 2017 Luke Guidry MD [address], [address], [place], [address] , [facility] 4 10:45:21 Sprain of left foot 99872455814 541793 Active 2021 Luke Guidry MD [address], [address], [place], [address] , [facility] 4 10:45:21 Urticaria 989762073 Completed Not Available [facility] 3 04:51:15 Excessive cerumen in ear canal 574496443 Completed Not Available [facility] 3 04:51:15 Acute sinusitis 13395852 Completed Not Available [facility] 3 04:51:15 Pain of left ankle joint 40066441717 135528 Active 2021 Luke Guidry MD [address], [address], [place], [address] , [employer] 4 10:45:21 Excessive upper gastroint estinal gas 899665899 Completed Not Available [facility] 3 04:51:15 Impacted cerumen 14164000 Completed Not Available [facility] 3 04:51:15 Congenita l pes cavus 851157397 Active 2021 Luke Guidry MD [address], [place], [address] , [employer] 4 10:45:22 Periphera l venous insuffici ency 19870098 Active 2017 Luke Guidry MD [address], [place], [address] , [employer] 4 10:45:22 Abdominal pain 92710970 Completed Luke Guidry MD [address], [place], [address] , [employer] 4 11:02:57 Mixed anxiety and depressiv e disorder 389003141 Active 2016 Luke Guidry MD [address], [place], [address] , [employer] 4 10:45:22 Gastroeso phageal reflux disease 739629386 Active Luke Guidry MD [address], [place], [address] , [employer] 4 10:45:22 Osteoarth ritis of knee 805743297 Active 2016 Luke Guidry MD [address], [place], [address] , [employer] 4 10:45:22 Lumbar spondylos is 605088950 Active 2021 Luke Guidry MD [address], [place], [address] , [employer] 4 10:45:22 Ankle pain 466615306 Active 2021 Luke Guidry MD [address], [place], [address] , [facility] [employer] [facility] 4 10:45:22 Urinary symptoms 694281578 Completed Not Available [facility] 3 04:51:16 Gastroent eritis 94749702 Completed Not Available [facility] 3 04:51:16 Eruption 768896922 Completed Not Available [facility] 3 04:51:16 Hypertrig lyceridem ia 314850858 Active 2016 Luke Guidry MD [address], [place], [address] , [facility] [employer] [facility] 4 10:45:22 Osteopeni a 916444962 Active 2017 Luke Guidry MD [address] [place], [address] , [facility] [employer] [facility] 4 10:45:22 Pain in left foot 92397635032 9107 Active 2021 Luke Guidry MD [address], [place], [address] , [facility] [employer] [facility] 4 10:45:22 Peroneal tendiniti s of left lower limb 09260869571 9107 Active 2021 Luke Guidry MD [address], [place], [address] , [facility] [employer] [facility] 4 10:45:22 Vitamin D deficienc y 93837321 Active 2016 Luke Guidry MD [address], [place], [address] , [facility] [employer] [facility] 4 10:45:22 Depressiv e disorder 06164074 Active Luke Guidry MD [address], [place], [address] , [facility] [employer] 4 10:45:22 Sinusitis 75173933 Active 2021 Luke Guidry MD [address], [address], [place], [address] , [employer] 4 10:45:22 Hypertens edward disorder 63034727 Active 2020 Luke Guidry MD [address], [address], [place], [address] , [employer] 4 10:45:22 Cervical spondylos is 090582347 Active 2021 Luke Guidry MD [address], [address], [place], [address] , [employer] 4 10:45:22 Thoracic spondylos is 853635660 Active 2021 Luke Guidry MD [address], [place], [address] , [employer] 4 10:45:22 Osteoarth ritis 128935641 Active Luke Guidry MD [address], [address], [place], [address] , [employer] 4 10:45:22 Kyphoscol iosis deformity of spine 431848267 Active 2021 Luke Guidry MD [address], [address], [place], [address] , [employer] 4 10:45:22 Kyphosis deformity of spine 443476297 Active 2017 Luke Guidry MD [address], [place], [address] , [employer] 4 10:45:22 Nausea 600183316 Completed Not Available [facility] 3 04:51:18 Eczema 95769477 Completed Not Available [facility] 3 04:51:19 Anxiety 35967657 Active 2017 Luke Guidry MD [address], [place], [address] , [employer] GROUP [employer] 4 10:45:22 Cough 65562263 Active 2021 Luke Guidry MD [address], [address], [place], [address] , [employer] - [employer] GROUP [employer] 4 10:45:22 Abnormal gallbladd er function 46097642 Completed Not Available [facility] 3 04:51:19 Hyperlipi demia 81172668 Active Luke Guidry MD [address], [address], [place], [address] , [employer] 4 10:45:22 Essential hypertens ion 66770534 Completed Not Available [facility] 3 04:51:19 Diarrhea 50199624 Completed Not Available [facility] 3 04:51:20 Osteoporo sis 77959222 Active 2016 Luke Guidry MD [address], [address], [place], [address] , [employer] 4 10:45:22 Prediabet es 280641167 Active 2017 Luke Guidry MD [address], [address], [place], [address] , [employer] 4 10:45:22 Postmenop ausal osteopeni a 793640563 Active 2021 Luke Guidry MD [address], [address], [place], [address] , [employer] 4 10:45:22 Decreased renal function 20876468 Completed Not Available [facility] 3 04:51:20 Epigastri c pain 05526381 Completed Luke Guidry MD [address], [place], [address] , [employer] 4 10:58:33 Hyperglyc emia 94529276 Completed Not Available [facility] 3 04:51:21 Neck pain 21175975 Completed Not Available [facility] 3 04:51:21 Fatigue 41460393 Active 2020 Luke Guidry MD [address], [address] , [facility] [employer] [facility] [employer] [facility] 4 10:45:22 Problem Notes None recorded. Procedures Surgical History Date Name Laterality Status Provider Name and Address Organization Details Recorded Time Cholecystectomy completed Not Available [facility] 11/08/2022 04:42:01 Imaging Results None recorded. Procedure Notes None recorded. Medical Equipment None Reported. Allergies Allergen ID Allergen Name Allergen Category Reaction Reaction Severity Criticality Documentation Date Start Date Code Code System Note Provider Name and Address Organization Details Recorded Time 86695 promethaz ine medicatio n dizziness Not available Not available 07/10/20242022 8745 RxNorm Luke Guidry MD [address], [address], [employer] [facility] [employer] 4 10:44:50 7971 Phenergan medicatio n dizziness Not available Not available 11/08/2022 61818 8 RxNorm Not Available [facility] 3 05:03:18 7972 codeine medicatio n dizziness Not available Not available 11/08/20222022 2670 RxNorm Luke Guidry MD [address], [address], [employer] [facility] [employer] 4 10:44:51 Medications Name Sig Start Date [...] Not Available Not Available Not Available Afluria 9235-8619( PF) 45 mcg (15 mcg x 3)/0.5 [...] Details Last Updated DateTime 4 165.1 cm 25.7 kg/m2 62540.6 7 g 98.2 [degF] 84 /min 16 /min 98 % 98 % 106 mm[Hg] 76 mm[Hg] Josue Ayala [employer] 4 10:55:55 Social History Question Answer Notes LastModified by Organizat ion Details LastModified Time Tobacco Smoking Status Never Smoker Fidelina perez [employer] 06/11/2023 09:52:34 Do You Have An Advance Directive? No [id number] Information not available 11/08/2022 What Is Your Level Of Alcohol Consumption? None [id number] Information not available 11/08/2022 Do You Wear A Helmet When Biking? No [email or web address] Information not available 06/11/2023 What Is Your Level Of Caffeine Consumption? Heavy MIGRATION.76196 [id number] Information not available 11/08/2022 How Much Tobacco Do You Chew? None [id number] Information not available 11/08/2022 In The 14 Days Before Symptom Onset, Have You Had Close Contact With A Laboratory-confi rmed COVID-19 While That Case Was Ill? No [email or web address] Information not available 06/11/2023 In The 14 Days Before Symptom Onset, Have You Had Close Contact With A Person Who Is Under Investigation For COVID-19 While That Person Was Ill? No [email or web address] Information not available 06/11/2023 What Type Of Diet Are You Following? REGULAR [id number] Information not available 11/08/2022 Do You Or Have You Ever Used E-cigarettes Or Vape? Never Used Electronic Cigarettes [email or web address] Information not available 06/11/2023 What Is The Highest Grade Or Level Of School You Have Completed Or The Highest Degree You Have Received? 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 No [email or web address] Information not available 06/11/2023 What Is The Fluoride Status Of Your Home? Fluoridated [email or web address] Information not available 06/11/2023 Are There Any Guns Present In Your Home? No [email or web address] Information not available 06/11/2023 Do You Use Insect Repellent Routinely? Yes [email or web address] Information not available 06/11/2023 Where Do You Live? SingleLevelHouse [email or web address] Information not available 06/11/2023 Do You Have A Medical Power Of Purchasing Contracting Clerk? No [email or web address] Information not available 06/11/2023 What Was The Date Of Your Most Recent Tobacco Screening? 06/05/2022 [email or web address] Information not available 06/11/2023 Do You Have Any Pets? Yes [email or web address] Information not available 06/11/2023 What Is Your Relationship Status? [id number] [id number] Information not available 11/08/2022 Do You Use Your Seat Belt Or Car Seat Routinely? Yes [email or web address] Information not available 06/11/2023 Do You Have Smoke And Carbon Monoxide Detectors In Your Home? Yes [email or web address] Information not available 06/11/2023 Are You Passively Exposed To Smoke? No Information not available 06/11/2023 Do You Or Have You Ever Used Smokeless Tobacco? Never Used Smokeless Tobacco MIGRATION.36573 [id number] Information not available 11/08/2022 Are There Any Smokers In Your House? No [email or web address] Information not available 06/11/2023 Do You Participate In Social Media? Yes [email or web address] Information not available 06/11/2023 Do You Feel Stressed (tense, Restless, Nervous, Or Anxious, Or Unable To Sleep At Night)? [id number] [email or web address] Information not available 06/11/2023 Do You Use Any Illicit Or Recreational Drugs? No [email or web address] Information not available 06/11/2023 Do You Use Sunscreen Routinely? Yes [email or web address] Information not available 06/11/2023 Has Tobacco Cessation Counseling Been Provided? No [email or web address] Information not available 06/11/2023 Have You Recently Traveled Abroad? No [email or web address] Information not available 06/11/2023 Are You Currently In School? No [email or web address] Information not available 06/11/2023 Do You Have Any Dietary Restrictions? No Information not available 06/11/2023 Do You Or Have You Ever Used Any Other Forms Of Tobacco Or Nicotine? No [email or web address] Information not available 06/11/2023 Sex: Female Functional Status Question Answer Note LastModified by Organizat ion Details LastModified Time What is your exercise level? Heavy [id number] Information not available 11/08/2022 Mental Status None recorded. Family History Relationship Description Onset Age of this Age Resolved Age Notes LastModified by Organization Details LastModified Time Father Diabetes mellitus [id number] [id number] Not available 11/08/2022 04:42:08 Father Hypertensive disorder [id number].321 [id number] Not available 11/08/2022 04:42:08 Father Family history of stroke [email or web address] Not available 06/11 09:52:31 Father Arthritis [email or web address] Not availa ble 06/11/2023 09:52:31 Mother Arthritis [email or web address] Not availa ble 06/11/2023 09:52:31 Mother Hypertensive disorder [id number] [id number] Not available 11/08/2022 04:42:09 Medical History Condition [...] HAVE YOU BEEN HOSPITALIZED OR SEEN IN [facility] IN THE PAST YEAR ? N [...] recombinant 1 completed Luke Guidry MD [address], [address], [employer] 07/10/2024 10:45:40 zoster recombinant 0 completed Luke Guidry MD [address] [address], [place], [address], [employer] 07/10/2024 10:45:40 influenza, unspecified formulation 4 completed Luke Guidry MD [address], [address] [address], [place], [address], [employer] 07/10/2024 10:45:40 influenza, unspecified formulation 9 completed Luke Guidry MD [address], [address] [address], [place], [address], [employer] 07/10/2024 10:45:40 influenza, unspecified formulation 7 completed Luke Guidry MD [address], [address], [place], [address], [employer] [facility] 07/10/2024 10:45:40 influenza, unspecified formulation 8 completed Luke Guidry MD [address], [address], [place], [address], [employer] [facility] 07/10/2024 10:45:40 influenza, unspecified formulation 5 completed Luke Guidry MD [address], [address], [place], [address], [employer] 07/10/2024 10:45:40 Influenza, split virus, trivalent, preservative 4 completed Luke Guidry MD [address], [address], [place], [address], [employer] 07/10/2024 10:45:41 Influenza, split virus, quadrivalent, PF 9 completed Luke Guidry MD [address], [address], [place], [address], [employer] [facility] 07/10/2024 10:45:41 zoster recombinant 9 completed Not Available [facility] 10/05/2023 09:35:12 Influenza, split virus, quadrivalent, PF 8 completed Luke Guidry MD [address], [address], [place], [address], [employer] [facility] 07/10/2024 10:45:41 Influenza, split virus, quadrivalent, PF 7 completed Luke Guidry MD [address], [address], [place], [address], [employer] [facility] [employer] [facility] 07/10/2024 10:45:41 Influenza, split virus, quadrivalent, PF 2 completed Not Available [facility] 10/05/2023 09:35:12 Influenza, split virus, quadrivalent, PF 1 completed Not Available [facility] 10/05/2023 09:35:12 pneumococcal polysaccharide PPV23 0 completed Luke Guidry MD [address], [place], [address], [employer] 07/10/2024 10:45:40 Tdap 4 completed Not Available [facility] 10/05/2023 09:35:12 Influenza, split virus, quadrivalent, PF 3 completed Luke Guidry MD [address] [facility] [address], [place], [address], [employer] 06/28/2023 11:18:51 Tdap 4 completed Josue perez, [employer] 05/21/2024 10:07:07 Past Encounters Encounter ID Performer Location Encounter Start Date Encounter Closed Date Diagnosis/Indication Diagnosis SNOMED-CT Code Diagnosis ICD10 Code Diagnosis Note [id number] Luke Guidry MD [address] [address] 06/19/2024 09:44:17 06/19/2024 10:20:39 Hyperlipidemia 63844945 E78.5 Hypertriglyceridemia 302 235116 E78.2 Prediabetes 805343957 R7 3.03 Depressive disorder 3548 9007 F32.9 Hypertensive disorder 38 979492 I10 Gastroesop hageal reflux disease without esophagitis 314740337 K21.9 Vitamin D deficiency 347 70582 E55.9 Improved Degenerati on of lumbar intervertebral disc 41179465 M51.369 Chronic low back pain 27 5578106 M54.50 [id number] Luke Guidry MD [address] [address] 07/03/2024 10:43:37 07/03/2024 11:35:12 Epigastric pain [id number] R10.13 Nausea and vomiting 1693 2000 R11.2 Gastritis [id number] K29.70 Abdominal pain [id number] R10.9 Health Concerns Section Related Observation LastModified by Organization Detai ls LastModified Time None Recorded Concern Status LastModified by Organization Details LastModified Time None Recorded Payers Encounter Date Sequence Insurance Name Policy Number Policy Wright Covered Member ID Wright Member ID Guarantor Name 07/03/2024 2 EAST - DOS PRIOR TO 2024 - [employer] () Haydee Delgado [id number] Haydee Delgado 07/03/2024 1 MEDICARE-MD (MEDICARE) Haydee Delgado [id number] Haydee Delgado Notes Date Note Type Note Provider Name and Address Organization Details Recorded Time 07/03/2024 text/html ACV: C/o epigastric area pain [...] of any antibiotics. Luke Guidry MD [address] [facility], [facility] [address], [place], [address], [place] - [employer] 07/03/2024 11:27:28 OBGyn Episode No OBEpisode recorded.
--- OUTSIDE RECORDS SUMMARY | 2024-09-22 10:35 | XMS_ITS ---
Author Organization [facility] Address [address] [place], [place] [id number] Care Team Providers Care Lieutenant Colonel Name Role Phone ROSELIA HOLT Unavailable [phone] Lasha Guidry Unavailable Unavailable FRANK MENDOZA Unavailable [phone] REASON FOR VISIT no reason given Encounters Encounter Location Date Provider Diagnosis [facility] [address] [facility] [address] [place], [place] [id number] 07/17/2023 FRANK MENDOZA Plan Of Treatment No Information Progress Notes * YAEL SHANNONGEORGINANOLVIAB: 959 (63 yo F)Acc No.[id number]:07/17/2023 Patient:?SAMUEL SHANNON Provider:?Frank Mendoza DPM :1960???Age:62 Y???Sex:Female D ate:07/17/2023 Address:[address] [place] [address] Subjective: * Chief Complaints: * ???1. No reason given. * Medical History:? Objective: * Vitals:? Assessment: Plan: * Treatment: * Billing Information: * Visit Code:? * Procedure Codes:? * Electronic signature of FRANK MENDOZA DPM on 09/22/2024 at 10:35 AM KENO WRITER / RUNNER Sign off status: Pending * Provider:?Frank Mendoza DPM Date:?07/17/20 Generated for Andryi ng/Famikaylag/eTransmitting on:?09/22/2024 10:35 AM KENO WRITER / RUNNER
--- OUTSIDE RECORDS SUMMARY | 2024-09-22 10:35 | XMS_ITS | Encounter Summary ---
Author Organization [facility] Address [address] [place] [address] Care Team Providers Care News Editor Name Role Phone Luke Guidry MD Primary Care Provider [phone] Reason for Visit * Reason Comments Follow-up 10 week follow up. Encounter Details Date Type Department Care Team ([facility] st Contact Info) Description 06/27/2023 9:15 AM CDT Office Visit [facility] Cardiology [address] [facility] [address] [place] [id number] Dov Royal MD [address] [id number] Essential hypertension (Primary Dx); Diastolic dysfunction; Dyslipidemia Social History Tobacco Use Types Packs/Day Years Used Date Smoking Tobacco: Never Smokeless Tobacco: Never Comments Unknown Sex and Gender Information Value Date Recorded Sex Assigned at Not on file Legal Sex Female 10:37 AM CDT Gender Identity Female 01/25/2023 6:36 AM CDT Sexual Orientation Straight 01/25/2023 6: 36 AM CDT documented as of this encounter Last Filed Vital Signs Vital Sign Reading Time Taken Comments Blood Pressure 108/70 06/27/2023 9:01 AM CDT Pulse 80 06/27/2023 9:01 AM CDT Temperature - - Respiratory Rate - - Oxygen Saturation 97% 06/27/2023 9:01 AM CDT Inhaled Oxygen Concentration - - Weight 74.8 kg (165 lb) 06/27/2023 9:01 AM CDT Height 167.6 cm (5' 6 ) 06/27/2023 9:01 AM CDT Body Mass Index 26.63 06/27/2023 9:01 AM CDT documented in this encounter Progress Notes * Dov Royal MD - 06/27/2023 9:15 AM CDT [facility] CARDIOLOGY 06/27/2023 CHIEF COMPLAINT Shortness of breath, fatigue HPI Haydee Delgado is a 62 y.o. female with hypertension, ? Prediabetes, dyslipidemia, anxiety/ depression. 01/24/2023 initial evaluation-patient has been referred by Dr. Guidry for cardiovascular evaluation and management. Patient denies any known prior cardiac history including clinical NE, angina, heart failure or any known arrhythmias. She states that she has been experiencing dyspnea on exertion for about 2 months. She states that she gets short of breath when she climbs about 12-13 steps. She alsohas palpitations associated with shortness of breath. Denies chest pain. No dizziness or syncope. No PND, orthopnea lower extremity swelling. Denies any known history of WILLIAM. Patient reports partial compliance with antihypertensives. She states that she is not fully compliant with clonidine. 06/27/2023-on the follow-up visit today, patient reports improvement in her shortness of breath. Nochest pain. No other cardiovascular symptoms. Recent echocardiogram showed normal LVEF, grade 1 diastolic dysfunction, no valvular abnormality. MEDICAL HISTORY she has a past medical history of Hypertension., prediabetes, anxiety Cholecystectomy she Allergies Allergen Reactions Codeine Dizziness Promethazine Dizziness Current Outpatient Medications Medication Sig Dispense Refill atorvastatin (LIPITOR) 10 mg tablet atorvastatin 10 mg tablet TAKE 1 TABLET DAILY AT BEDTIME benazepril-hydroCHLOROthiazide (LOTENSIN HCT) 10-12.5 mg per tablet benazepril 10 mg-hydrochlorothiazide 12.5 mg tablet buPROPion XL (WELLBUTRIN XL) 150 mg 24 hr tablet bupropion HCl XL 150 mg 24 hr tablet, extended release TAKE 1 TABLET DAILY EVERY EVENING escitalopram (LEXAPRO) 20 mg tablet escitalopram 20 mg tablet TAKE 1 TABLET DAILY EVERY MORNING DIRECTED icosapent ethyL (Vascepa) 1 gram capsule Vascepa 1 gram capsule meloxicam (MOBIC) 7.5 mg tablet meloxicam 7.5 mg tablet TAKE 1 TABLET EVERY 12 HOURS WITH FOOD ONLY NEEDED metoprolol XL (TOPROL-XL) 50 mg extended release tablet Take 1 tablet (50 mg total) by mouth daily 30 tablet 11 raloxifene (EVISTA) 60 mg tablet raloxifene 60 mg tablet No current facility-administered medications for this visit. she family history includes Diabetes in her father; Hypertension in her father and mother; Stroke in her father. she reports that she has never smoked. She has never used smokeless tobacco. No alcohol history on file. Denies tobacco, alcohol or illicit drugs. 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 Lives with the . REVIEW OF SYSTEMS General ROS: Positive for fatigue Psychological ROS: Positive for - anxiety, depression Ophthalmic ROS: negative for - loss of vision ENT ROS: negative for - sore throat, epistaxis, headaches, nasal congestion Allergy and Immunology ROS: negative for - hives, postnasal drip Hematological and Lymphatic ROS: negative for - overt bleeding problems, bruising Respiratory ROS: negative for - cough, hemoptysis, wheezing Cardiovascular ROS: Dyspnea has improved Gastrointestinal ROS: negative for - abdominal pain Endocrine ROS: negative for - hot flashes, polydipsia/polyuria Musculoskeletal ROS: negative for - joint pain, muscle pain Neurological ROS: negative for - gait disturbance, weakness Dermatological ROS: negative for pruritus, rash LABS AND OTHER DIAGNOSTIC TESTS REVIEWED Lab Results Component Value Date WBC 6.9 01/25/2023 HGB 13.1 01/25/2023 HCT 41.0 01/25/2023 MCV 93 01/25/2023 No lab exists for component: LABALBU Lab Results Component Value Date WBC 6.9 01/25/2023 HGB 13.1 01/25/2023 HCT 41.0 01/25/2023 MCV 93 01/25/2023 No results found for: CHOL No results found for: HDL No results found for: LDL ] No results found for: TRIG Lab Results Component Value Date POCCHOL 198 01/24/2023 POCHDL 55 01/24/2023 POCTRIG 387 01/24/2023 POCLDL 66 01/24/2023 POCNONHDL 143 01/24/2023 POCCHLPL 198 01/24/2023 Lipids-total cholesterol 198, HDL 55, triglycerides 387, LDL 66, glucose 187. 01/24/2023 EKG-sinus rhythm, nonspecific ST-T abnormality. 01/24/2023 Echo- Normal left ventricular size and wall thickness. Normal global left ventricular systolic function. Impaired diastolic relaxation Grade I. Ejection fraction about 60 %. Global Longitudinal Strain -14 %. Normal Doppler with normal valvular structure and function. Normal sinus rhythm. 03/21/2023 PHYSICAL EXAM Vitals BP 108/70 (BP Location: Left arm, Patient Position: Sitting) Pulse 80 Ht 167.6 cm (5' 6 ) Wt 74.8 kg (165 lb) SpO2 97% BMI 26.63 kg/m?? General appearance - alert, no distress, oriented to time, place, person Mental status - affect appropriate to mood Eyes - extraocular eye movements intact, no pallor Ears - external ears appear normal, hearing grossly normal Nose - normal and patent, no discharge Mouth - mucous membranes moist, tongue normal Neck - supple, no JVD Chest - clear to auscultation Heart - normal rate, regular rhythm, normal S1, S2, soft systolic murmur Abdomen - soft, nontender Neurological - alert, oriented, normal speech, no gross motor deficits Musculoskeletal - no major deformity, no amputations Extremities - no pedal edema, no clubbing or cyanosis Skin - no rashes (on the exposed areas), no cyanosis ASSESSMENT Diagnoses and all orders for this visit: Essential hypertension (Primary) Diastolic dysfunction Dyslipidemia PLAN/RECOMMENDATIONS 62 y.o. female with hypertension, ? Prediabetes, dyslipidemia, anxiety/ depression. -improvement in dyspnea. Recent echocardiogram showed normal LV systolic function, grade 1 diastolic dysfunction, no valvular abnormality. Patient is prediabetic and diastolic dysfunction. Option of SGL T2 inhibitor was discussed with the patient but patient does not want any additional medicationsat this time. -blood pressure well controlled with current antihypertensives including benazepril/hydrochlorothiazide, metoprolol succinate. Low-salt diet counseling was done. Will determine need for any sleep study in future. -patient is currently on atorvastatin and cosapent ethyl for mixed dyslipidemia. -counseling done regarding heart healthy/low-salt diet, aerobic activity as tolerated. -follow-up in approximately 12 months or sooner if needed. Dov Royal MD 06/27/23 Voice recognition software was used to complete this document, therefore, button sewer hand variances may occur. documented in this encounter Plan of Treatment Not on file documented as of this encounter Visit Diagnoses Diagnosis Essential hypertension- Primary Unspecified essential hypertension Diastolic dysfunction Unspecified heart disease Dyslipidemia Other and unspecified hyperlipidemia documented in this encounter Care Teams News Editor Relationship Specialty Start Date End Date Luke Guidry MD [address] [place] [address] PCP - General Family Medicine 12/29/22 documented as of this encounter
--- OUTSIDE RECORDS SUMMARY | 2024-09-22 10:35 | XMS_ITS | Clinical Summary ---
Author Organization [facility] Address [address] [place] [id number] Care Team Providers Care Bessemer Bottom Maker Name Role Phone Luke Guidry MD Primary Care Provider [phone] Allergies Active Allergy Reactions Criticality Noted Date Comments Codeine Dizziness Low 01/24/2023 Promethazine Dizziness Low 01/24/2023 Medications escitalopram (LEXAPRO) 20 mg tablet escitalopram 20 mg tablet TAKE 1 TABLET DAILY EVERY MORNING DIRECTED Active benazepril-hydro CHLOROthiazide (LOTENSIN HCT) 10-12.5 mg per tablet benazepril 10 mg-hydrochloroth iazide 12.5 mg tablet Active meloxicam (MOBIC) 7.5 mg tablet meloxicam 7.5 mg tablet TAKE 1 TABLET EVERY 12 HOURS WITH FOOD ONLY NEEDED Active buPROPion XL (WELLBUTRIN XL) 150 mg 24 hr tablet bupropion HCl XL 150 mg 24 hr tablet, extended release TAKE 1 TABLET DAILY EVERY EVENING Active raloxifene (EVISTA) 60 mg tablet raloxifene 60 mg tablet Active icosapent ethyL (Vascepa) 1 gram capsule Vascepa 1 gram capsule Active pantoprazole DR (PROTONIX) 40 mg EC tablet Take 1 tablet (40 mg total) by mouth daily 4 Active ondansetron (ZOFRAN) 4 mg tablet TAKE 1 TABLET BY MOUTH EVERY 6 TO 8 HOURS FOR 7 DAYS NEEDED 4 Active atorvastatin (LIPITOR) 20 mg tablet 4 Active fenofibrate micronized (LOFIBRA) 200 mg capsule 4 Active metFORMIN XR (GLUCOPHAGE XR) 500 mg 24 hr tablet Take 1 tablet (500 mg total) by mouth 2 times daily 3 Active Jardiance 25 mg tablet Take 1 tablet (25 mg total) by mouth every morning Active diclofenac DR (VOLTAREN) 75 mg EC tablet Take 1 tablet (75 mg total) by mouth every 12 (twelve) hours as needed 3 Active cyclobenzaprine (FLEXERIL) 10 mg tablet 4 Active metoprolol XL (TOPROL-XL) 25 mg extended release tabletIndication s:Essential hypertension Take 1 tablet (25 mg total) by mouth daily 90 tablet 3 4 025 Active Active Problems No known active problems Encounters Date Type Department Care Team Description 07/11/2024 1:00 PM CDT Office Visit [facility] Cardiology [address] [place] [address] Gabrielle Brandon NP Diastolic dysfunction; SILVA (dyspnea on exertion); Essential hypertension; Dyslipidemia; Lipid screening from Last 3 Months Medical History Medical History Date Comments Hypertension Family History Medical History Relation Name Comments Diabetes Father Hypertension Father Stroke Father Hypertension Mother Relation Name Status Comments Father Mother Social History Tobacco Use Types Packs/Day Years Used Date Smoking Tobacco: Never Smokeless Tobacco: Never Tobacco Cessation:Counseling Given: Not Answered Personal Safety Answer Date Recorded Getting School Help Needed Not on file 09/24 Comments Unknown Sex and Gender Information Value Date Recorded Sex Assigned at Not on file Legal Sex Female 10:37 AM CDT Gender Identity Female 01/25/2023 6:36 AM CDT Sexual Orientation Straight 01/25/2023 6: 36 AM CDT Obstetrics History Last Filed Vital Signs Vital Sign Reading Time Taken Comments Blood Pressure 90/56 07/11/2024 1:08 PM CDT Pulse 78 07/11/2024 1:08 PM CDT Temperature - - Respiratory Rate - - Oxygen Saturation 98% 07/11/2024 1:08 PM CDT Inhaled Oxygen Concentration - - Weight 69.4 kg (153 lb) 07/11/2024 1:08 PM CDT Height 167.6 cm (5' 6 ) 07/11/2024 1:08 PM CDT Body Mass Index 24.69 07/11/2024 1:08 PM CDT Plan of Treatment Health Maintenance Due Date Last Done Comments Breast Cancer Screening-Mammogram 1960 Cervical Cancer Screening 1960 Colon Cancer Screening-Colonoscopy 1960 Depression Screening 1960 Fall Risk Assessment 1960 Hepatitis C Screening 1960 Osteoporosis Screening-Bone Density Scan 1960 Hepatitis B Screening 1976 Pneumococcal vaccine 65+ (2 of 2 - PCV) 2023 11/11/2019 Well Visit 65+ 2023 Covid-19 Vaccine (2 - 2023-2 5 season) 2024 05/13/2021 Influenza Vaccine (#1) 2024 3, 08/16/2022, 08/03/2021, Additional history exists DTaP/Tdap/Td Vaccine (3 - Td or Tdap) 05/21/2034 05/21/2024, 01/09/2014 Zoster Vaccine Completed 09/25/2020, 06/11, 04/03/2019 Procedures Procedure Name Priority Date/Time Associated Diagnosis Comments POCT LIPID PANEL Routine 07/11/2024 1:13 PM CDT Lipid screening from Last 3 Months Results * POCT lipid panel (07/11/2024 1:13 PM CDT) Cholesterol, POC 144 mg/dL HDL, POC 32 mg/dL Triglycerides, POC 154 mg/dL LDL Cholesterol POC 81 mg/dL Chol/HDL Ratio, POC 2.5 Non-HDL Cholesterol, POC 112 mg/dL Cholesterol Total, POC 144 mg/dL Capillary blood 07/11/2024 1 :13 PM CDT Gabrielle Brandon NP POINT OF CARE TEST ORDERA BLES Final Result from Last 3 Months Insurance MEDICARE FOR LIFE Care Teams Bessemer Bottom Maker Relationship Specialty Start Date End Date Luke Guidry MD [address] [place] [address] PCP - General Family Medicine 12/29/22
--- OUTSIDE RECORDS SUMMARY | 2024-09-22 10:35 | XMS_ITS | Referral Summary ---
Author Organization [facility] Address [address] [place] [address] Care Team Providers Care Factory Process Workers Name Role Phone Luke Guidry MD Primary Care Provider [phone] Encounters Date Type Department Care Team Description 07/11/2024 1:00 PM CDT Office Visit [facility] Cardiology [address] [facility] [address] [place] [address] Gabrielle Brandon NP Diastolic dysfunction; SILVA (dyspnea on exertion); Essential hypertension; Dyslipidemia; Lipid screening from Last 3 Months Allergies Active Allergy Reactions Criticality Noted Date [...] Active Active Problems No known active problems Social History Tobacco Use Types Packs/Day Years [...] Orientation Straight 01/25/2023 6: 36 AM CDT Last Filed Vital Signs Vital Sign Reading [...] 07/11/2024 1:08 PM CDT Plan of Treatment Not on file Procedures Procedure Name Priority Date/Time Associated Diagnosis [...] Result from Last 3 Months Insurance MEDICARE [employer] Care Teams Factory Process Workers Relationship Specialty Start Date End Date Luke Guidry MD [address] [place] [address] PCP - General Family Medicine 12/29/22
--- OUTSIDE RECORDS SUMMARY | 2024-09-22 10:35 | XMS_ITS | Encounter Summary ---
Author Organization [facility] Address [address] [address] Care Team Providers Care Collections Specialist Name Role Phone Luke Guidry MD Primary Care Provider [phone] Reason for Referral * Cardiology (Routine) - Closed Specialty Diagnoses / Procedures Referred By Lisa gonzalez Referred To Contact Diagnoses SILVA (dyspnea on exertion) Essential hypertension Procedures Transthoracic Echo (TTE) Complete W Doppler/CF Claudine Burgess MD [address] [place] [address] Phone: tel: fax: [facility] Referral ID Status Reason Start Date Expiration Date Visits Re quested Visits Authorized [id number] Closed 01/24/2023 02/23/2024 1 1 Reason for Visit * Consultation (Routine) - Closed Specialty Diagnoses / Procedures Referred By Lisa gonzalez Referred To Contact Cardiology Diagnoses Fatigue, unspecified type Other forms of dyspnea Essential hypertension Major depressive disorder with single episode, remission status unspecified Other specified anxiety disorders Prediabetes Gastroesophageal reflux disease with esophagitis, unspecified whether hemorrhage Luke Guidry MD [address] [place] [address] [place] [address] Phone: tel: fax: [facility] Cardiology [address] [place] [phone] Phone: tel: fax: Referral ID Status Reason Start Date Expiration Date V isits Requested Visits Authorized [id number] Closed Specialty Services Required 12/29/2022 01/28/2024 1 1 Encounter Details Date Type Department Care Team (Late st Contact Info) Description 01/24/2023 9:30 AM CDT Office Visit [facility] Cardiology [address] [place] [address] Claudine Burgess MD [address] [address] SILVA (dyspnea on exertion) (Primary Dx); Palpitations; Essential hypertension; Prediabetes; Lipid screening Social History Tobacco Use Types Packs/Day Years [...] Sign Reading Time Taken Comments Blood Pressure 140/80 01/24/2023 9:40 AM CDT Pulse 100 01/24/2023 9:40 AM CDT Temperature - - Respiratory Rate - - Oxygen Saturation 98% 01/24/2023 9:40 AM CDT Inhaled Oxygen Concentration - - Weight 75.3 kg (166 lb) 01/24/2023 9:40 AM CDT Height 167.6 cm (5' 6 ) 01/24/2023 9:40 AM CDT Body Mass Index 26.79 01/24/2023 9:40 AM CDT documented in this encounter Ordered Prescriptions Prescription Sig Dispense Quantity Refills Last Filled Start Date End Date metoprolol XL (TOPROL-XL) 50 mg extended release tablet Take 1 tablet (50 mg total) by mouth daily 30 tablet 11 01/24/2023 01/01/2024 documented in this encounter Progress Notes * Claudine Burgess MD - 01/24/2023 9:30 AM CDT [facility] CARDIOLOGY 01/24/2023 CHIEF COMPLAINT Shortness of breath, fatigue HPI Samuel Shannon is a 62 y.o. female with hypertension, ? Prediabetes, dyslipidemia, anxiety/ depression. 01/24/2023 initial evaluation-patient has been referred by Dr. Guidry for cardiovascular evaluation and management. Patient denies any known prior cardiac history including clinical GA, angina, heart failure or any known arrhythmias. [...] she is not fully compliant with clonidine. MEDICAL HISTORY she has a past medical [...] EVERY 12 HOURS WITH FOOD ONLY NEEDED raloxifene (EVISTA) 60 mg tablet raloxifene 60 mg tablet metoprolol XL (TOPROL-XL) 50 mg extended release tablet Take 1 tablet (50 mg total) by mouth daily 30 tablet 11 No current facility-administered medications for this visit. [...] for - cough, hemoptysis, wheezing Cardiovascular ROS: negative for - chest pain, positive for dyspnea on exertion associated with palpitations Gastrointestinal ROS: negative for - abdominal pain, nausea/vomiting, hematemesis, blood in the stool Endocrine ROS: negative for - hot flashes, polydipsia/polyuria Musculoskeletal ROS: negative for - joint pain, muscle pain Neurological ROS: negative for - gait disturbance, weakness Dermatological ROS: negative for pruritus, rash LABS AND OTHER DIAGNOSTIC TESTS REVIEWED No results found for: WBC, HGB, HCT, MCV, PLT No lab exists for component: LABALBU No results found for: WBC, HGB, HCT, MCV, PLT No results found for: CHOL No results found for: HDL No results found for: LDL] No results found for: TRIG Lab Results Component Value Date POCCHOL 198 01/24/2023 POCHDL 55 01/24/2023 POCTRIG 387 01/24/2023 POCLDL 66 01/24/2023 POCNONHDL 143 01/24/2023 POCCHLPL 198 01/24/2023 Lipids-total cholesterol 198, HDL 55, triglycerides 387, LDL 66, glucose 187. 01/24/2023 EKG-sinus rhythm, nonspecific ST-T abnormality. 01/24/2023 PHYSICAL EXAM Vitals BP 140/80 (BP Location: Left arm, Patient Position: Sitting) Pulse 100 Ht 167.6 cm (5' 6 ) Wt 75.3 kg (166 lb) SpO2 98% BMI 26.79 kg/m?? General appearance - alert, no distress, [...] Diagnoses and all orders for this visit: SILVA (dyspnea on exertion) (Primary) - Ambulatory referral to Cardiology - Comprehensive metabolic panel; Future - CBC with auto differential; Future - Pro B-type natriuretic peptide; Future - Transthoracic Echo (TTE) Complete W Doppler/CF; Future Palpitations - TSH reflex to free T4; Future Essential hypertension - Ambulatory referral to Cardiology - ECG 12 lead - Transthoracic Echo (TTE) Complete W Doppler/CF; Future Prediabetes - Ambulatory referral to Cardiology - Hemoglobin A1c; Future Lipid screening - POCT lipid panel Other orders - metoprolol XL (TOPROL-XL) 50 mg extended release tablet; Take 1 tablet (50 mg total) by mouth daily PLAN/RECOMMENDATIONS 62 y.o. female with hypertension, ? Prediabetes, dyslipidemia, anxiety/ depression. -patient has been experiencing dyspnea on climbing stairs for last couple of months. Current EKG shows sinus rhythm with nonspecific ST-T abnormality. Will do echocardiogram with Doppler to rule out any structural heart disease. -blood pressure is mildly elevated in the clinic today. Patient is not fully compliant with clonidine, which will be weaned off. Patient may continue benazepril/hydrochlorothiazide combination. Due to relatively elevated heart rates, will add metoprolol succinate 50 mg p.o. daily. Will modify antihy pertensives as needed. Low-salt diet counseling was done. Will determine need for any sleep study in future. -check labs including CMP, CBC, NT proBNP, thyroid panel. -patient is currently on atorvastatin and cosapent ethyl for mixed dyslipidemia. -counseling done regarding heart healthy/low-salt diet, aerobic activity as tolerated. -follow-up in 8-10 weeks or sooner if needed. 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 documented in this encounter Plan of Treatment Not on file documented as of this encounter Procedures Procedure Name Priority Date/Time Associated Diagnosis Comments POCT LIPID PANEL Routine 01/24/2023 9:52 AM CDT Lipid screening ECG 12-LEAD Routine 01/24/2023 Essential hypertension documented in this encounter Results * TRANSTHORACIC ECHO (TTE) COMPLETE W DOPPLER/CF WO CONTRAST (03/21/2023 8:55 AM CDT) Anatomical Region Laterality Modality Ultrasound 03/21/2023 8:28 AM CDT Narrative 03/21/2023 4:34 PM CDT [facility] Cardiology [address], [place] [address] [address], [place] [address] P:[phone] P:[phone] Echocardiographic Report Patient Name: SAMUEL SHANNON : 1960 Study Date: 03/21/2023 8:28:10 AM Gender: F Tech: Location: [place] Ref.Provider: CLAUDINE BURGESS Height(Cm): 168 BSA: 1.87 Weight(Kg): 75.3 Heart Rate: 69 BP: 146 / 89 Quality: Good Order Provider: CLAUDINE BURGESS Procedures: Echocardiographic Report: Transthoracic echocardiogram with complete 2D, M-Mode, and color Doppler examination. With Strain Analysis. Indications: Hypertensive Heart Disease, and Shortness of breath. Measurements: 2D/M Mode ? Doppler ? Measurement ?Value ?Normal Range ?Measurement ?Value ?Normal Range ? LVIDd 2D ? 4.03 ? [ 3.90 - 5.30 ] cm ?DIAZ Vmax ? 2.06 ? [ 2.00 - 4.00 ] cm2 ? LVIDs 2D ? 2.80 ? [ 2.30 - 3.90 ] cm ?AV Mean PG ? 2 ?mmHg ? LVPWd 2D ? 0.85 ? [ 0.60 - 1.00 ] cm ?AV Peak Den ?1.03 ? m/s ? IVSd 2D ?0.85 ? [ 0.60 - 0.90 ] cm ?AV Peak PG ? 4 ?mmHg ? LA Dimension MM ?2.34 ? [ 2.70 - 3.80 ] cm ?AV VTI ? 20.27 ?cm ? AoR Diam MM ?2.59 ? [ 2.60 - 3.70 ] cm ?LVOT Diam ?1.91 ? [ 1.70 - 2.10 ] cm ? LA Volume Index ?12 ? [ 16 - 28 ] cc/m2 ? LVOT Peak Den ?0.74 ? [ 0.70 - 1.10 ] m/s ? ACS MM ? 1.41 ? cm ?LVOT VTI ? 13.77 ?cm ?MV E Peak Den ?0.61 ? [ 0.60 - 1.30 ] m/s ?MV A Peak Den ?0.55 ? [ 0.40 - 0.80 ] m/s ?MV Decel Time ?166 ?[ 150 - 200 ] msec ?Lateral E` ? 0.07 ? cm/sec ?E` ? 0.06 ? cm/sec ?E/E` ? 9 ? - Findings: Interpretation Site: Exam was interpreted at [facility]. Left Ventricle: Normal left ventricular size. Normal left ventricular wall thickness. Normal global left ventricular systolic function. Impaired diastolic relaxation Grade I. Ejection fraction is visually estimated at 60 %. Ejection fraction is measured at 58 %. Global Longitudinal Strain is -14 %. Right Ventricle: Normal right ventricular size. Normal right ventricular systolic function. Left Atrium: The left atrium is normal in size. Right Atrium: The right atrium is normal in size. Atrial Septum: Normal atrial septum. Mitral Valve: Normal appearance of the mitral valve. Aortic Valve: Normal appearance of the aortic valve. No evidence of hemodynamically significant aortic stenosis by Doppler. Tricuspid Valve: Normal appearance of the tricuspid valve. Trivial regurgitation in the tricuspid valve. Pulmonic Valve: Normal appearance of the pulmonic valve. Trivial regurgitation in the pulmonic valve. Pericardium: Normal pericardium with no significant pericardial effusion. There is an anterior echo free space consistent with epicardial fat pad. Aorta: Normal aortic root. IVC: Normal size and normal respiratory collapse consistent with normal right atrial pressure (<5 mmHg). Conclusions: Normal left ventricular size and wall thickness. Normal global left ventricular systolic function. Impaired diastolic relaxation Grade I. Ejection fraction about 60 %. Global Longitudinal Strain -14 %. Normal Doppler with normal valvular structure and function. Normal sinus rhythm. Electronically Signed By: Claudine Burgess MD, [facility] 2023-03-21 16:34:29 CDT CC: CC: Procedure Note Claudine Burgess MD - 03/21/2023 [facility] Cardiology [address] [facility] [address] [place] [id number] [address] [facility] [address], [place] [address] P:[phone] P:[phone] Echocardiographic Report Patient Name: Lauren SHANNON ID: [id number] : [id number] Date: 03/21/2023 8:28:10 AM Gender: FAccession #: [id number] Tech: Location: [place] Ref.Provider: CLAUDINE BURGESSHeight(Cm): 168 BSA: 1.87Weight(Kg): 75.3 Heart Rate: 69BP: 146 / 89 Quality: GoodOrder Provider: CLAUDINE BURGESS Procedures: Echocardiographic Report: Transthoracic echocardiogram with complete 2D, M-Mode, and color Dopplerexamination. With Strain Analysis. Indications: Hypertensive Heart Disease, and Shortness of breath. Measurements: 2D/M Mode Doppler Measurement Value Normal Range Measurement ValueNormal Range LVIDd 2D 4.03 [ 3.90 - 5.30 ] cm DIAZ Vmax 2.06[ 2.00 - 4.00 ] cm2 LVIDs 2D 2.80 [ 2.30 - 3.90 ] cm AV Mean PG 2mmHg LVPWd 2D 0.85 [ 0.60 - 1.00 ] cm AV Peak Den 1.03m/s IVSd 2D 0.85 [ 0.60 - 0.90 ] cm AV Peak PG 4mmHg LA Dimension MM 2.34 [ 2.70 - 3.80 ] cm AV VTI 20.27cm AoR Diam MM 2.59 [ 2.60 - 3.70 ] cm LVOT Diam 1.91[ 1.70 - 2.10 ] cm LA Volume Index 12 [ 16 - 28 ] cc/m2 LVOT Peak Den 0.74[ 0.70 - 1.10 ] m/s ACS MM 1.41 cm LVOT VTI 13.77cm MV E Peak Den 0.61[ 0.60 - 1.30 ] m/s MV A Peak Den 0.55[ 0.40 - 0.80 ] m/s MV Decel Time 166[ 150 - 200 ] msec Lateral E` 0.07cm/sec E` 0.06cm/sec E/E` 9 - Findings: Interpretation Site: Exam was interpreted at [facility]. Left Ventricle: Normal left ventricular size. Normal left ventricular wall thickness.Normal global left ventricular systolic function. Impaired diastolic relaxation Grade I.Ejection fraction is visually estimated at 60 %. Ejection fraction is measured at 58 %.Global Longitudinal Strain is -14 %. Right Ventricle: Normal right ventricular size. Normal right ventricular systolicfunction. Left Atrium: The left atrium is normal in size. Right Atrium: The right atrium is normal in size. Atrial Septum: Normal atrial septum. Mitral Valve: Normal appearance of the mitral valve. Aortic Valve: Normal appearance of the aortic valve. No evidence of hemodynamicallysignificant aortic stenosis by Doppler. Tricuspid Valve: Normal appearance of the tricuspid valve. Trivial regurgitation in thetricuspid valve. Pulmonic Valve: Normal appearance of the pulmonic valve. Trivial regurgitation in thepulmonic valve. Pericardium: Normal pericardium with no significant pericardial effusion. There is ananterior echo free space consistent with epicardial fat pad. Aorta: Normal aortic root. IVC: Normal size and normal respiratory collapse consistent with normal rightatrial pressure (<5 mmHg). Conclusions: Normal left ventricular size and wall thickness. Normal global leftventricular systolic function. Impaired diastolic relaxation Grade I. Ejection fraction about60 %. Global Longitudinal Strain -14 %. Normal Doppler with normal valvular structure and function. Normal sinus rhythm. Electronically Signed By: Claudine Burgess MD, [facility] 2023-03-21 16:34:29 CDT CC: CC: Result Bonifacio Burgess MD CV ECHO PROCEDURES Final Result * POCT lipid panel (01/24/2023 9:52 AM CDT) Cholesterol, POC 198 mg/dL HDL, POC 55 mg/dL Triglycerides, POC 387 mg/dL LDL Cholesterol POC 66 mg/dL Chol/HDL Ratio, POC 1.2 Non-HDL Cholesterol, POC 143 mg/dL Cholesterol Total, POC 198 mg/dL Capillary blood 01/24/2023 9 :52 AM CDT Result Bonifacio Burgess MD POINT OF CARE TEST ORDERABLES Ed ited Result - Final * ECG 12 lead (01/24/2023) Result Bonifacio Burgess MD ECG ORDERABLES Edited Result - Final documented in this encounter Visit Diagnoses Diagnosis SILVA (dyspnea on exertion)- Primary Other dyspnea and respiratory abnormality Palpitations Essential hypertension Unspecified essential hypertension Prediabetes Other abnormal glucose Lipid screening Screening for lipoid disorders SILVA (dyspnea on exertion) Other dyspnea and respiratory abnormality Essential hypertension Unspecified essential hypertension documented in this encounter Discontinued Medications Medication Sig Discontinue Reason Start Date End Da te cloNIDine (CATAPRES) 0.1 mg tablet clonidine HCl 0.1 mg tablet TAKE 1 TABLET EVERY 12 HOURS DIRECTED 01/24/2023 documented as of this encounter Historical Medications * This list may reflect changes made after this encounter. icosapent ethyL (Vascepa) 1 gram capsule Vascepa 1 gram capsule raloxifene (EVISTA) 60 mg tablet raloxifene 60 mg tablet buPROPion XL (WELLBUTRIN XL) 150 mg 24 hr tablet bupropion HCl XL 150 mg 24 hr tablet, extended release TAKE 1 TABLET DAILY EVERY EVENING meloxicam (MOBIC) 7.5 mg tablet meloxicam 7.5 mg tablet TAKE 1 TABLET EVERY 12 HOURS WITH FOOD ONLY NEEDED benazepril-hydro CHLOROthiazide (LOTENSIN HCT) 10-12.5 mg per tablet benazepril 10 mg-hydrochlorothia zide 12.5 mg tablet escitalopram (LEXAPRO) 20 mg tablet escitalopram 20 mg tablet TAKE 1 TABLET DAILY EVERY MORNING DIRECTED atorvastatin (LIPITOR) 10 mg tablet atorvastatin 10 mg tablet TAKE 1 TABLET DAILY AT BEDTIME 4 cloNIDine (CATAPRES) 0.1 mg tablet clonidine HCl 0.1 mg tablet TAKE 1 TABLET EVERY 12 HOURS DIRECTED 3 added in this encounter Orders Outpatient Referral Count Last Ordered Date Fir st Ordered Date AMB REFERRAL TO CARDIOLOGY 1 01/24/2023 documented in this encounter Care Teams Collections Specialist Relationship Specialty Start Date End Date Luke Guidry MD [address] [place] [address] PCP - General Family Medicine 12/29/22 documented as of this encounter
--- OUTSIDE RECORDS SUMMARY | 2024-09-22 10:35 | XMS_ITS | Continuity of Care Document ---
Author Organization [place] - [facility], [facility] Address [address] [place] [address] Care Team Providers Care Ceramic Designer Name Role Phone LUKE GUIDRY Primary Care Provider LUKE GUIDRY Referring Provider LUKE GUIDRY Primary Care Provider [phone] Assessment Encounter Date Assessment Date Assessment LastModified by Organization Details LastModified Time 06/19/2024 06/19/2024 63 yo F with - [...] precautions explained. Cont f/u with Ortho at [facility] as per schedule. Cont f/u with Gy[facility] as per schedule. Cont f/u with Ophtho at [place] as per schedule. Cont f/u with Cardio [...] A1c in 10/04. Annual labs in 06/04. [email or web address] Not available 06/19/2024 10:17:25 Plan of Treatment Reminders Order Date Submit Date Provider Last Modified By Organization Details Last Modified Time Details Appointments Follow Up 2024 08:45A M Luke Guidry MD Not available Not available Not available Lab glycohemo globin, total, blood 2023 025 [facility] ([facility] [address] [place], [address], 09/11/2024 15:00:49 lipid panel, serum 2023 [email or web address] [facility] ([facility]), [address] [place], [address], 09/18/2024 09:48:56 Referral None recorded. Procedures None recorded. Surgeries None recorded. Imaging None recorded. Medication Orders cyclobenz aprine 10 mg tablet 2023 [facility], [address] [place] [address], [address], 06/19/2024 09:57:12 Vascepa 1 gram capsule 2023 [facility], [address] [place] [address], [address], 06/19/2024 09:57:07 fenofibra te micronize d 200 mg capsule 2023 [facility], [address] [place] [address], [address], 06/19/2024 09:57:10 benazepri l 10 mg-hydroc hlorothia zide 12.5 mg tablet 2023 [facility], [address] [place] [address], [address], 06/19/2024 09:57:08 metformin ER 500 mg tablet,ex tended release 24 hr 2023 [email or web address] [facility], [address] [place] [address], [address], 07/10/2024 10:44:57 Jardiance 25 mg tablet 2023 [facility], [address] [place] [address], [address], 07/10/2024 10:44:56 diclofena c sodium 75 mg tablet,de layed release 2023 [email or web address] [facility], [address] [place] [address], [address], 07/10/2024 10:44:55 atorvasta tin 20 mg tablet 2023 [facility], [address] [place] [address], [address], 06/19/2024 09:57:13 bupropion HCl XL 150 mg 24 hr tablet, extended release 2023 [facility], [address] [place] [address], [address], 06/19/2024 09:57:13 escitalop shaneka 20 mg tablet 2023 [facility] [employer] [facility], [address] [place] [address], [address], 06/19/2024 09:57:07 Patient TargetsNo targets recorded. Patient InstructionsNo instructions recorded. Reason for Referral None Reported. Results Created Date Observation Date Name Description Value Unit Range Abnormal Flag Note LastModifiedBy Organization Detail LastModifiedTime 07/09/2007/09/2024 US, abdom en, compl ete No observ ation record ed. [facility] [address], [place], [address], 07/10/2024 10:36:28 07/09/20 24 07/09/2024 XR, chest , 1 view No observ ation record ed. [email or web address] [facility] [address], [place], [address], 07/10/2024 11:45:08 Result Notes None recorded. Problems Name Problem SNOMED Code Status Onset Date Resolution Date Notes Provider Name and Address Organization Details Recorded Time Sore throat 022597537 Active 2022 Luke Guidry MD [address], [place], [address] , [place] [facility] 4 10:45:22 Dysuria 96816268 Active 2022 Luke Guidry MD [address], [address], [place], [address] , [place] [facility] 4 10:45:22 Pharyngit is 662546867 Active 2022 Luke Guidry MD [address], [address], [place], [address] , [place] [facility] 4 10:45:22 Dyspnea on exertion 54772560 Active 2022 Luke Guidry MD [address], [address] [address], [place], [address] , [place] [facility] 4 10:45:22 Gastroeso phageal reflux disease without esophagit is 513355560 Active 2022 Luke Guidry MD [address], [address], [place], [address] , [place] [facility] 10:45:22 Sleep apnea 77882942 Active 2022 Luke Guidry MD [address], [address] [place] [address], [place], [address] , [place] [facility] 4 10:45:22 Pain of right ankle joint 66523083672 706630 Active 2022 Luke Guidry MD [address], [address], [place], [address] , [place] [facility] 4 10:45:21 Pain of left shoulder joint 82929182939 421697 Active 2022 Luke Guidry MD [address], [address], [place], [address] , [place] [facility] 4 10:45:21 Pain in right foot 10309461345 9107 Active 2022 Luke Guidry MD [address], [address], [place], [address] , [place] [facility] 4 10:45:22 Pain in right hip joint 45690411651 9102 Active 2023 Luke Guidry MD [address], [address], [place], [address] , [place] [facility] 4 10:45:22 Chronic low back pain 702505784 Active 2023 Luke Guidry MD [address], [address], [place], [address] , [place] [facility] [employer] [facility] 4 10:45:22 Lumbar radiculop athy 299507343 Active 2023 Luke Guidry MD [address], [address], [place], [address] , [place] [facility] 10:45:21 Degenerat ion of lumbar intervert ebral disc 78486842 Active 2023 Luke Guidry MD [address], [address], [place], [address] , [place] [facility] [employer] [facility] 10:45:22 Arthritis 8442855 Active 2023 Luke Guidry MD [address], [address], [place], [address] , [place] [facility] 10:45:22 Diabetes mellitus 90807290 Active 2023 Luke Guidry MD [address], [address], [place], [address] , [place] [facility] 10:45:22 Bone spur of right foot 81642757300 9103 Active 2023 Luke Guidry MD [address], [address], [place], [address] , [place] [facility] 10:45:22 Calcific tendiniti s of achilles tendon 743353753 Active 2023 Luke Guidry MD [address], [address], [place], [address] , [place] [facility] 10:45:22 Epigastri c pain 62270631 Active 2023 Luke Guidry MD [address], [address], [place], [address] , [place] [facility] 10:45:22 Nausea and vomiting 59785896 Active 2023 Luke Guidry MD [address], [address], [place], [address] , [place] [facility] 10:45:22 Gastritis 2321500 Active 2023 Luke Guidry MD [address], [address], [place], [address] , [place] [facility] 10:45:22 Abdominal pain 70660949 Active 2023 Luke Guidry MD [address], [address], [place], [address] , [place] [facility] [employer] [facility] 4 10:45:22 Hiatal hernia with gastroeso phageal reflux 569332977 Active 2023 Luke Guidry MD [address], [address], [place], [address] , [place] [facility] 4 10:45:22 Impacted cerumen of bilateral ears 30110694392 83845 Active 2017 Luke Guidry MD [address], [address], [place], [address] , [place] [facility] 4 10:45:21 Sprain of left foot 11859609600 114692 Active 2021 Luke Guidry MD [address], [address], [place], [address] , [place] [facility] 4 10:45:21 Urticaria 982434784 Completed Not Available [facility] 3 04:51:15 Excessive cerumen in ear canal 445115570 Completed Not Available [facility] 3 04:51:15 Acute sinusitis 78080428 Completed Not Available [facility] 3 04:51:15 Pain of left ankle joint 63648915272 088774 Active 2021 Luke Guidry MD [address], [address], [place], [address] , [employer] 4 10:45:21 Excessive upper gastroint estinal gas 551186110 Completed Not Available [facility] 3 04:51:15 Impacted cerumen 22137136 Completed Not Available [facility] 3 04:51:15 Congenita l pes cavus 558590569 Active 2021 Luke Guidry MD [address], [address], [place], [address] , [employer] 4 10:45:22 Periphera l venous insuffici ency 77713509 Active 2017 Luke Guidry MD [address], [address], [place], [address] , [employer] 4 10:45:22 Abdominal pain 38391391 Completed Luke Guidry MD [address], [address], [place], [address] , [employer] 4 11:02:57 Mixed anxiety and depressiv e disorder 678335111 Active 2016 Luke Guidry MD [address], [address], [place], [address] , [employer] 4 10:45:22 Gastroeso phageal reflux disease 467861306 Active Luke Guidry MD [address], [address], [place], [address] , [employer] 4 10:45:22 Osteoarth ritis of knee 616566744 Active 2016 Luke Guidry MD [address], [address], [place], [address] , [place] [facility] [facility] [employer] 4 10:45:22 Lumbar spondylos is 503336685 Active 2021 Luke Guidry MD [address], [address], [place], [address] , [place] [facility] [employer] [facility] [employer] 4 10:45:22 Ankle pain 148152461 Active 2021 Luke Guidry MD [address], [address], [place], [address] , [employer] [place] [facility] [facility] [employer] 4 10:45:22 Urinary symptoms 617563588 Completed Not Available [facility] 3 04:51:16 Gastroent eritis 05080295 Completed Not Available [facility] 3 04:51:16 Eruption 398367954 Completed Not Available [facility] 3 04:51:16 Hypertrig lyceridem ia 822823977 Active 2016 Luke Guidry MD [address], [address], [place], [address] , [email or web address] [facility] [employer] [facility] [employer] 4 10:45:22 Osteopeni a 436808509 Active 2017 Luke Guidry MD [address], [address], [place], [address] , [email or web address] [facility] [employer] [facility] [employer] 4 10:45:22 Pain in left foot 04386169463 9107 Active 2021 Luke Guidry MD [address], [address], [place], [address] , [place] [facility] [employer] [facility] [employer] 4 10:45:22 Peroneal tendiniti s of left lower limb 17361758076 9107 Active 2021 Luke Guidry MD [address], [address], [place], [address] , [place] [facility] [employer] [facility] [employer] 4 10:45:22 Vitamin D deficienc y 76534373 Active 2016 Luke Guidry MD [address], [address], [place], [address] , [place] [facility] [facility] 4 10:45:22 Depressiv e disorder 56355474 Active Luke Guidry MD [address], [address], [place], [address] , [place] [facility] [employer] [facility] 4 10:45:22 Sinusitis 36468480 Active 2021 Luke Guidry MD [address], [address], [place], [address] , [place] [facility] [employer] [facility] [facility] 4 10:45:22 Hypertens edward disorder 12306389 Active 2020 Luke Guidry MD [address], [address], [place], [address] , [place] [facility] [employer] [facility] [employer] 4 10:45:22 Cervical spondylos is 195805924 Active 2021 Luke Guidry MD [address], [address], [place], [address] , [place] [facility] [employer] [facility] [employer] 4 10:45:22 Thoracic spondylos is 280745438 Active 2021 Luke Guidry MD [address], [address], [place], [address] , [place] [facility] [employer] [facility] 4 10:45:22 Osteoarth ritis 405449288 Active Luke Guidry MD [address], [address], [place], [address] , [place] [facility] [employer] [facility] 4 10:45:22 Kyphoscol iosis deformity of spine 775599060 Active 2021 Luke Guidry MD [address], [address], [place], [address] , [place] [facility] 4 10:45:22 Kyphosis deformity of spine 416027079 Active 2017 Luke Guidry MD [address], [address], [place], [address] , [employer] 4 10:45:22 Nausea 705838592 Completed Not Available [facility] 3 04:51:18 Eczema 74551543 Completed Not Available [facility] 3 04:51:19 Anxiety 99191328 Active 2017 Luke Guidry MD [address], [address], [place], [address] , [employer] 4 10:45:22 Cough 25370141 Active 2021 Luke Guidry MD [address], [address], [place], [address] , [employer] 4 10:45:22 Abnormal gallbladd er function 57418300 Completed Not Available [facility] 3 04:51:19 Hyperlipi demia 47975717 Active Luke Guidry MD [address], [address], [place], [address] , [employer] 4 10:45:22 Essential hypertens ion 46886047 Completed Not Available [facility] 3 04:51:19 Diarrhea 31523715 Completed Not Available [facility] 3 04:51:20 Osteoporo sis 54960934 Active 2016 Luke Guidry MD [address], [place], [address] , [employer] 4 10:45:22 Prediabet es 720343575 Active 2017 Luke Guidry MD [address], [place], [address] , [employer] 4 10:45:22 Postmenop ausal osteopeni a 893438110 Active 2021 Luke Guidry MD [address], [place], [address] , [employer] 4 10:45:22 Decreased renal function 1958 Completed Not Available [employer] 3 04:51:20 Epigastri c pain 08261639 Completed Luke Guidry MD [address] [facility], [address] [address], [place], [address] , [facility] [employer] [facility] 4 10:58:33 Hyperglyc emia 49547584 Completed Not Available [facility] 3 04:51:21 Neck pain 46057557 Completed Not Available [facility] 3 04:51:21 Fatigue 65493890 Active 2020 Luke Guidry MD [address] [facility], [address] [address], [place], [address] , [facility] [employer] [facility] 4 10:45:22 Problem Notes None [...] Name and Address Organization Details Recorded Time 45157 promethaz ine medicatio n dizziness Not available Not available 07/10/20242022 8745 RxNorm Luke Guidry MD [address] [facility], [address] [address], [place], [address], [facility] [employer] [facility] 4 10:44:50 7971 Phenergan medicatio n dizziness Not available Not available 11/08/2022 47871 8 RxNorm Not Available [facility] 3 05:03:18 7972 codeine medicatio n dizziness Not available Not available 11/08/20222022 2670 RxNorm Luke Guidry MD [address] [facility], [address] [address], [place], [address], [facility] [employer] [facility] 4 10:44:51 Medications Name Sig Start [...] Not Available Not Available Not Available Afluria ( PF) 45 mcg (15 mcg x 3)/0.5 mL intramuscu lar syringe TO BE ADMINIST ERED BY PHARMACI FOR IMMUNIZA TION 09/28 completed Not Available [...] Updated DateTime 4 165.1 cm 26.1 kg/m2 52704.5 7 g 98.2 [degF] 76 /min 16 /min 99 % 99 % 118 mm[Hg] 78 mm[Hg] Josue Ayala [employer] 4 09:52:48 Social History Question Answer Notes LastModified by Organizat ion Details LastModified Time Tobacco Smoking Status Never Smoker Fidelina perez, [employer] 06/11/2023 09:52:34 Do You Have An Advance Directive? No [id number] Information not available 11/08/2022 What Is Your Level Of Alcohol Consumption? None [id number] Information not available 11/08/2022 Do You Wear A Helmet When Biking? No [email or web address] Information not available 06/11/2023 What Is Your Level Of Caffeine Consumption? Heavy [id number] Information not available 11/08/2022 How Much Tobacco Do You Chew? None [id number] Information not available 11/08/2022 In The 14 Days Before Symptom Onset, Have You Had Close Contact With A [facility] While That Case Was Ill? No Information not available 06/11/2023 In The 14 Days Before Symptom Onset, Have You Had Close Contact With A Person Who Is Under Investigation For COVID-19 While That Person Was Ill? No [email or web address] Information not available 06/11/2023 What Type Of Diet Are You Following? REGULAR [id number] Information not available 11/08/2022 Do You Or Have You Ever Used E-cigarettes Or Vape? Never Used Electronic Cigarettes Information not available 06/11/2023 What Is The Highest Grade Or Level Of School You Have Completed Or The Highest Degree You Have Received? 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 No [email or web address] Information not available 06/11/2023 What Is The Fluoride Status Of Your Home? Fluoridated [email or web address] Information not available 06/11/2023 Are There Any Guns Present In Your Home? No [email or web address] Information not available 06/11/2023 Do You Use Insect Repellent Routinely? Yes [email or web address] Information not available 06/11/2023 Where Do You Live? SingleLevelHouse [email or web address] Information not available 06/11/2023 Do You Have A Medical Power Of Pantograph Watcher? No [email or web address] Information not available 06/11/2023 What Was The Date Of Your Most Recent Tobacco Screening? 06/05/2022 [email or web address] Information not available 06/11/2023 Do You Have Any Pets? Yes [email or web address] Information not available 06/11/2023 What Is Your Relationship Status? [id number] Information not available 11/08/2022 Do You Use Your Seat Belt Or Car Seat Routinely? Yes [email or web address] Information not available 06/11/2023 Do You Have Smoke And Carbon Monoxide Detectors In Your Home? Yes [email or web address] Information not available 06/11/2023 Are You Passively Exposed To Smoke? No [email or web address] Information not available 06/11/2023 Do You Or Have You Ever Used Smokeless Tobacco? Never Used Smokeless Tobacco MIGRATION.[id number] [id number] Information not available 11/08/2022 Are There Any Smokers In Your House? No [email or web address] Information not available 06/11/2023 Do You Participate In Social Media? Yes [email or web address] Information not available 06/11/2023 Do You Feel Stressed (tense, Restless, Nervous, Or Anxious, Or Unable To Sleep At Night)? [id number] [email or web address] Information not available 06/11/2023 Do You Use Any Illicit Or Recreational Drugs? No Information not available 06/11/2023 Do You Use Sunscreen Routinely? Yes Information not available 06/11/2023 Has Tobacco Cessation Counseling Been Provided? No [email or web address] Information not available 06/11/2023 Have You Recently Traveled Abroad? No [email or web address] Information not available 06/11/2023 Are You Currently In School? No Information not available 06/11/2023 Do You Have Any Dietary Restrictions? No [email or web address] Information not available 06/11/2023 Do You Or Have You Ever Used Any Other Forms Of Tobacco Or Nicotine? No [email or web address] Information not available 06/11/2023 Sex: Female Functional Status Question Answer Note LastModified by [employer] ion Details LastModified Time What is your exercise level? Heavy [id number] Information not available 11/08/2022 Mental Status None recorded. Family History Relationship Description Onset Age of this Age Resolved Age Notes LastModified by Organization Details LastModified Time Father Diabetes mellitus [id number] [id number] Not available 11/08/2022 04:42:08 Father Hypertensive disorder [id number].240 [id number] Not available 11/08/2022 04:42:08 Father Family history of stroke [email or web address] Not available 06/11 09:52:31 Father Arthritis Not availa ble 06/11/2023 09:52:31 Mother Arthritis [email or web address] Not availa ble 06/11/2023 09:52:31 Mother Hypertensive disorder [id number] Not available 11/08/2022 04:42:09 Medical History Condition [...] recombinant 1 completed Luke Guidry MD [address] [facility], [address], [address], [employer] 07/10/2024 10:45:40 zoster recombinant 0 completed Luke Guidry MD [address] [facility], [address] [address], [place], [address], [employer] [facility] [employer] [facility] 07/10/2024 10:45:40 influenza, unspecified formulation 4 completed Luke Guidry MD [address], [address], [place], [address], [employer] [facility] [employer] [facility] 07/10/2024 10:45:40 influenza, unspecified formulation 9 completed Luke Guidry MD [address], [address], [place], [address], [employer] [facility] [employer] [facility] 07/10/2024 10:45:40 influenza, unspecified formulation 7 completed Luke Guidry MD [address], [address], [place], [address], [employer] [facility] [employer] [facility] 07/10/2024 10:45:40 influenza, unspecified formulation 8 completed Luke Guidry MD [address], [address], [place], [address], [employer] [facility] [employer] [facility] 07/10/2024 10:45:40 influenza, unspecified formulation 5 completed Luke Guidry MD [address], [address], [place], [address], [employer] [facility] [employer] [facility] 07/10/2024 10:45:40 Influenza, split virus, trivalent, preservative 4 completed Luke Guidry MD [address], [address], [place], [address], [employer] [facility] [employer] [facility] 07/10/2024 10:45:41 Influenza, split virus, quadrivalent, PF 9 completed Luke Guidry MD [address], [address], [place], [address], [employer] [facility] [employer] [facility] 07/10/2024 10:45:41 zoster recombinant 9 completed Not Available [employer] 10/05/2023 09:35:12 Influenza, split virus, quadrivalent, PF 8 completed Luke Guidry MD [address], [address], [place], [address], [employer] [facility] [employer] 07/10/2024 10:45:41 Influenza, split virus, quadrivalent, PF 7 completed Luke Guidry MD [address], [address], [place], [address], [employer] 07/10/2024 10:45:41 Influenza, split virus, quadrivalent, PF 2 completed Not Available [facility] 10/05/2023 09:35:12 Influenza, split virus, quadrivalent, PF 1 completed Not Available [facility] 10/05/2023 09:35:12 pneumococcal polysaccharide PPV23 0 completed Luke Guidry MD [address], [address], [place], [address], [employer] 07/10/2024 10:45:40 Tdap 4 completed Not Available [facility] 10/05/2023 09:35:12 Influenza, split virus, quadrivalent, PF 3 completed Luke Guidry MD [address], [address], [place], [address], [employer] 06/28/2023 11:18:51 Tdap 4 completed Josue perez [employer] 05/21/2024 10:07:07 Past Encounters Encounter ID Performer Location Encounter Start Date Encounter Closed Date Diagnosis/Indication Diagnosis SNOMED-CT Code Diagnosis ICD10 Code Diagnosis Note [id number] Luke Guidry MD [facility] [address] [address] 05/21/2024 09:33:14 05/21/2024 09:56:37 Prediabetes 411829534 R73.03 Hyperlipidemia 84371685 E78.5 Hypertriglyceridemia 302 887704 E78.2 Depressive disorder 3548 9007 F32.9 Hypertensive disorder 38 673255 I10 Mixed anxi ety and depressive disorder 614975258 F41.8 Gastroesop hageal reflux disease without esophagitis 836044737 K21.9 Vitamin D deficiency 347 55047 E55.9 Degenerati on of lumbar intervertebral disc 70586031 M51.36 Chronic low back pain 27 0661656 M54.50 Osteopenia 166599469 M85 .80 Active immunization [id number] Luke Guidry MD [facility] [address] [place] [id number] 1 06/19/2024 09:44:17 06/19/2024 10:20:39 Hyperlipidemia 12585916 E78.5 Hypertriglyceridemia 302 699614 E78.2 Prediabetes 831630424 R7 3.03 Depressive disorder 3548 9007 F32.9 Hypertensive disorder 38 598209 I10 Gastroesop hageal reflux disease without esophagitis 793280733 K21.9 Vitamin D deficiency 347 68837 E55.9 Improved Degenerati on of lumbar intervertebral disc 12340852 M51.369 Chronic low back pain 27 8853620 M54.50 Health Concerns Section Related Observation LastModified by Organization Detai ls LastModified Time None Recorded Concern Status LastModified by Organization Details LastModified Time None Recorded Payers Encounter Date Sequence Insurance Name Policy Number Policy Wright Covered Member ID Wright Member ID Guarantor Name 06/19/2024 2 EAST - DOS PRIOR TO 2024 - [employer] () Haydee Delgado [id number] Haydee Delgado 06/19/2024 1 [place] Haydee Delgado [id number] Haydee Delgado Notes Date Note Type Note Provider Name and Address Organization Details Recorded Time 06/19/2024 text/html Pt is here for f/u [...] blood in stool. Luke Guidry MD [address] [facility], [place], [address], [facility] [employer] 06/19/2024 10:18:27 OBGyn Episode No OBEpisode recorded.
--- OUTSIDE RECORDS SUMMARY | 2024-09-22 10:35 | XMS_ITS | Encounter Summary ---
Author Organization [facility] Address [address] [facility] [address] [place] [address] Care Team Providers Care Conference Planning Manager Name Role Phone Luke Guidry MD Primary Care Provider [phone] Reason for Visit * Cardiology (Routine) - Closed Specialty Diagnoses / Procedures Referred By Contac t Referred To Contact Diagnoses SILVA (dyspnea on exertion) Essential hypertension Procedures Transthoracic Echo (TTE) Complete W Doppler/CF Claudine Burgess MD [address] [address] Phone: tel: fax: [facility] Referral ID Status Reason Start Date Expiration Date Visits Re quested Visits Authorized [id number] Closed 01/24/2023 02/23/2024 1 1 Encounter Details Date Type Department Care Team (Latest Contact Info) Description 03/21/2023 8:15 AM CDT Ancillary Procedure [facility] Cardiology [address] [facility] [address] [place] [address] SILVA (dyspnea on exertion); Essential hypertension Social History Tobacco Use Types Packs/Day Years [...] Sign Reading Time Taken Comments Blood Pressure 146/89 03/21/2023 8:54 AM CDT Pulse - - Temperature - - Respiratory Rate - - Oxygen Saturation - - Inhaled Oxygen Concentration - - Weight - - Height - - Body Mass Index - - documented in this encounter Plan of Treatment Not on file documented as of this encounter Procedures Procedure Name Priority Date/Time Associated Diagnosis Comments TRANSTHORACIC ECHO (TTE) COMPLETE W DOPPLER/CF WO CONTRAST Routine 03/21/2023 8:55 AM CDT SILVA (dyspnea on exertion) Essential hypertension documented in this encounter Results * TRANSTHORACIC ECHO (TTE) COMPLETE W DOPPLER/CF WO CONTRAST (03/21/2023 8:55 AM CDT) Anatomical Region Laterality Modality Ultrasound 03/21/2023 8:28 AM CDT Narrative 03/21/2023 4:34 PM CDT [facility] Cardiology [address] [facility] [address], [place] [address] [address] [facility] [address], [place] [address] P:[phone] P:[phone] Echocardiographic Report Patient Name: SAMUEL SHANNON : 1960 Study Date: 03/21/2023 8:28:10 AM Gender: F Tech: Location: MD Ref.Provider: CLAUDINE BURGESS Height(Cm): 168 BSA: 1.87 [...] Findings: Interpretation Site: Exam was interpreted at [facility]. Left Ventricle: Normal left ventricular size. [...] rhythm. Electronically Signed By: Claudine Burgess MD, [facility] 2023-03-21 16:34:29 CDT CC: CC: Procedure Note Claudine Burgess MD - 03/21/2023 [facility] Cardiology [address], [place] [address] [address], [place] [address] P:[phone] P:[phone] Echocardiographic Report Patient Name: Enedina SHANNONrommel ID: [id number] : [id number] Date: 03/21/2023 8:28:10 AM Gender: FAccession #: [id number] Tech: Location: MD Ref.Provider: CLAUDINE BURGESSHeight(Cm): 168 BSA: 1.87Weight(Kg): 75.3 [...] Findings: Interpretation Site: Exam was interpreted at [facility]. Left Ventricle: Normal left ventricular size. [...] rhythm. Electronically Signed By: Claudine Burgess MD, [facility] 2023-03-21 16:34:29 CDT CC: CC: us Claudine Burgess MD CV ECHO PROCEDURES Final Result documented in this encounter Visit Diagnoses Diagnosis SILVA (dyspnea on exertion) Other dyspnea and respiratory abnormality Essential hypertension Unspecified essential hypertension documented in this encounter Care Teams Conference Planning Manager Relationship Specialty Start Date End Date Luke Guidry MD [address] [facility] [place] [address] PCP - General Family Medicine 12/29/22 documented as of this encounter
--- OUTSIDE RECORDS SUMMARY | 2024-09-22 10:35 | XMS_ITS | Encounter Summary ---
Author Organization [facility] Address [address] [place] [address] Care Team Providers Care Senior Education Specialist Name Role Phone Luke Guidry MD Primary Care Provider [phone] Reason for Visit * Reason Comments Annual Exam Encounter Details Date Type Department Care Team (Late st Contact Info) Description 07/11/2024 1:00 PM CDT Office Visit [facility] Cardiology [address] [facility] [address] [place] [address] Gabrielle Brandon NP [address] [place], [place] [id number] Diastolic dysfunction; SILVA (dyspnea on exertion); Essential hypertension; Dyslipidemia; Lipid screening Social History Tobacco Use Types [...] Mass Index 24.69 07/11/2024 1:08 PM CDT documented in this encounter Ordered Prescriptions Prescription Sig Dispense Quantity Refills Last Filled Start Date End Date metoprolol XL (TOPROL-XL) 25 mg extended release tabletIndications: Essential hypertension Take 1 tablet (25 mg total) by mouth daily 90 tablet 3 07/11/2024 07/11/2025 documented in this encounter Progress Notes * Gabrielle Brandon NP - 07/11/2024 1:00 PM CDT Images from the original note were not included. [facility] Cardiology [address] [place] [address] Date of Visit: 07/11/2024 Patient ID: Haydee Delgado 1960 Chief Complaint Patient presents with Annual Exam Haydee Delgado is a 63 y.o. female who is an established patient of Dr. Royal with a history of dyspnea returning to the office for routine follow-up. History of Present Illness: Haydee Delgado is a 63 y.o. female with hypertension, ? Prediabetes, dyslipidemia, anxiety/ depression. 01/24/2023 initial evaluation-patient has been referred by Dr. Guidry for cardiovascular evaluation and management. Patient denies any known prior cardiac history including clinical MT, angina, heart failure or any known arrhythmias. [...] grade 1 diastolic dysfunction, no valvular abnormality. 07/11/2024 office visit with SPORTS SPECIALIST: She is here for annual follow-up and has no cardiac concerns. No worsening dyspnea. Does feel a dizzy today. She usually exercises at least a couple days a week riding a stationary bike and lifting weights recently has had problems with GI symptoms and has not exercise that much. She was just diagnosed with a hiatal hernia. Pantoprazole has improved her symptoms. Medical History: Past Medical History: Diagnosis Date Hypertension History reviewed. No pertinent surgical history. Social History Tobacco Use Smoking Status Never Smokeless Tobacco Never Social History Tobacco Use Smoking status: Never Smokeless tobacco: Never Substance and Sexual Activity Drug use: None Sexual activity: None Alcohol Use: Not on file Family History Problem Relation Age of Onset Hypertension Mother Stroke Father Hypertension Father Diabetes Father Review of Systems Constitutional: Negative for malaise/fatigue, weight gain and weight loss. Cardiovascular: Negative for chest pain, dyspnea on exertion, leg swelling, near-syncope, orthopnea, palpitations, paroxysmal nocturnal dyspnea and syncope. Respiratory: Negative for cough, shortness of breath and sleep disturbances due to breathing. Hematologic/Lymphatic: Negative for bleeding problem. Does not bruise/bleed easily. Gastrointestinal: Positive for nausea. Neurological: Positive for dizziness. Vital Signs: BP 90/56 (BP Location: Left arm, Patient Position: Sitting) Pulse 78 Ht 167.6 cm (5' 6 ) Wt 69.4 kg (153 lb) SpO2 98% BMI 24.69 kg/m?? Physical Exam Constitutional: General: She is not in acute distress. Appearance: She is well-developed. HENT: Head: Normocephalic and atraumatic. Eyes: General: No scleral icterus. Conjunctiva/sclera: Conjunctivae normal. Neck: Vascular: No JVD. Trachea: No tracheal deviation. Cardiovascular: Rate and Rhythm: Normal rate and regular rhythm. Heart sounds: Normal heart sounds. No murmur heard. Pulmonary: Effort: Pulmonary effort is normal. No respiratory distress. Breath sounds: Normal breath sounds. Abdominal: General: There is no abdominal bruit. Skin: General: Skin is warm and dry. Neurological: Mental Status: She is alert and oriented to person, place, and time. Psychiatric: Mood and Affect: Mood normal. Behavior: Behavior normal. Allergies Allergen Reactions Codeine Dizziness Promethazine Dizziness Current Outpatient Medications: atorvastatin (LIPITOR) 20 mg tablet, , Disp: , Rfl: benazepril-hydroCHLOROthiazide (LOTENSIN HCT) 10-12.5 mg per tablet, benazepril 10 mg-hydrochlorothiazide 12.5 mg tablet, Disp: , Rfl: buPROPion XL (WELLBUTRIN XL) 150 mg 24 hr tablet, bupropion HCl XL 150 mg 24 hr tablet, extended release TAKE 1 TABLET DAILY EVERY EVENING, Disp: , Rfl: cyclobenzaprine (FLEXERIL) 10 mg tablet, , Disp: , Rfl: diclofenac DR (VOLTAREN) 75 mg EC tablet, Take 1 tablet (75 mg total) by mouth every 12 (twelve) hours as needed, Disp: , Rfl: escitalopram (LEXAPRO) 20 mg tablet, escitalopram 20 mg tablet TAKE 1 TABLET DAILY EVERY MORNING ASDIRECTED, Disp: , Rfl: fenofibrate micronized (LOFIBRA) 200 mg capsule, , Disp: , Rfl: icosapent ethyL (Vascepa) 1 gram capsule, Vascepa 1 gram capsule, Disp: , Rfl: Jardiance 25 mg tablet, Take 1 tablet (25 mg total) by mouth every morning, Disp: , Rfl: metFORMIN XR (GLUCOPHAGE XR) 500 mg 24 hr tablet, Take 1 tablet (500 mg total) by mouth 2 times daily, Disp: , Rfl: ondansetron (ZOFRAN) 4 mg tablet, TAKE 1 TABLET BY MOUTH EVERY 6 TO 8 HOURS FOR 7 DAYS NEEDED, Disp: , Rfl: pantoprazole DR (PROTONIX) 40 mg EC tablet, Take 1 tablet (40 mg total) by mouth daily, Disp: , Rfl: raloxifene (EVISTA) 60 mg tablet, raloxifene 60 mg tablet, Disp: , Rfl: meloxicam (MOBIC) 7.5 mg tablet, meloxicam 7.5 mg tablet TAKE 1 TABLET EVERY 12 HOURS WITH FOOD ONLY NEEDED (Patient not taking: Reported on 07/11/2024), Disp: , Rfl: metoprolol XL (TOPROL-XL) 25 mg extended release tablet, Take 1 tablet (25 mg total) by mouth daily, Disp: 90 tablet, Rfl: 3 Lab Results Component Value Date BUNSER 20 01/25/2023 CREATININE 1.08 (H) 01/25/2023 EGFR 57 (L) 01/25/2023 Lab Results Component Value Date WBC 6.9 01/25/2023 HGB 13.1 01/25/2023 HCT 41.0 01/25/2023 MCV 93 01/25/2023 Recent Results (from the past 4 hour(s)) POCT lipid panel Collection Time: 07/11/24 1:13 PM Result Value Ref Range Cholesterol, POC 144 mg/dL HDL, POC 32 mg/dL Triglycerides, POC 154 mg/dL LDL, Direct, POC 81 mg/dL Chol/HDL Ratio, POC 2.5 Non-HDL Cholesterol, POC 112 mg/dL Cholesterol Total, POC 144 mg/dL Lab Results Component Value Date POCCHOL 144 07/11/2024 POCHDL 32 07/11/2024 POCTRIG 154 07/11/2024 POCLDL 81 07/11/2024 POCNONHDL 112 07/11/2024 POCCHLPL 144 07/11/2024 Assessment: Diagnoses and all orders for this visit: Diastolic dysfunction SILVA (dyspnea on exertion) Essential hypertension - metoprolol XL (TOPROL-XL) 25 mg extended release tablet; Take 1 tablet (25 mg total) by mouth daily Dyslipidemia Lipid screening - POCT lipid panel Plan/Recommendations: Dr. Royal met her last year in consultation for evaluation of dyspnea on exertion. Echocardiogram showed grade 1 diastolic dysfunction. Her dyspnea has not worsened. She is now on Jardiance at diabetic dosing. No further cardiac testing is indicated at this time. She is hypotensive today and feeling mildly dizzy. She has lost 12 lb over the last year with dietary changes and exercise. She likely does not need as much antihypertensive medication at this point.Reduce metoprolol succinate to 25 mg once daily. If low blood pressures persist, contact the officefor guidance on how to discontinue the metoprolol altogether. She could also consider talking to PCP about the dosing of her benazepril/HCTZ combination pill. Point of care lipid testing today looks favorable. Continue Vascepa and fenofibrate. Routine follow-up Dr. Royal in 1 year. 07/11/2024 TAMIA Worley- Nurse Practitioner with [facility] Cardiology This note is dictated and transcribed using [employer] Direct Software. Physical Science Professor variancesmay occur. Despite proofreading, typographical errors may occur. documented in this encounter Plan of Treatment Not on file documented as of this encounter Procedures Procedure Name Priority Date/Time Associated Diagnosis Comments POCT LIPID PANEL Routine 07/11/2024 1:13 PM CDT Lipid screening documented in this encounter Results * POCT lipid panel (07/11/2024 1:13 PM CDT) Cholesterol, POC 144 mg/dL HDL, POC 32 mg/dL Triglycerides, POC 154 mg/dL LDL Cholesterol POC 81 mg/dL Chol/HDL Ratio, POC 2.5 Non-HDL Cholesterol, POC 112 mg/dL Cholesterol Total, POC 144 mg/dL Capillary blood 07/11/2024 1 :13 PM CDT Gabrielle Brandon NP POINT OF CARE TEST ORDERA BLES Final Result documented in this encounter Visit Diagnoses Diagnosis Diastolic dysfunction Unspecified heart disease SILVA (dyspnea on exertion) Other dyspnea and respiratory abnormality Essential hypertension Unspecified essential hypertension Dyslipidemia Other and unspecified hyperlipidemia Lipid screening Screening for lipoid disorders documented in this encounter Discontinued Medications Medication Sig Discontinue Reason Start Date End Da te atorvastatin (LIPITOR) 10 mg tablet atorvastatin 10 mg tablet TAKE 1 TABLET DAILY AT BEDTIME Alternate therapy 07/11/2024 metoprolol XL (TOPROL-XL) 50 mg extended release tablet TAKE 1 TABLET DAILY Other 01/01/2024 07/11/2024 documented as of this encounter Historical Medications * This list may reflect changes made after this encounter. cyclobenzaprine (FLEXERIL) 10 mg tablet 05/21/[address] (VOLTAREN) 75 mg EC tablet Take 1 tablet (75 mg total) by mouth every 12 (twelve) hours as needed 07/20/2023 Jardiance 25 mg tablet Take 1 tablet (25 mg total) by mouth every morning metFORMIN XR (GLUCOPHAGE XR) 500 mg 24 hr tablet Take 1 tablet (500 mg total) by mouth 2 times daily 06/11/2023 fenofibrate micronized (LOFIBRA) 200 mg capsule 06/19/2024 atorvastatin (LIPITOR) 20 mg tablet 06/19/2024 ondansetron (ZOFRAN) 4 mg tablet TAKE 1 TABLET BY MOUTH EVERY 6 TO 8 HOURS FOR 7 DAYS NEEDED 07/03/[address] (PROTONIX) 40 mg EC tablet Take 1 tablet (40 mg total) by mouth daily 07/03/2024 added in this encounter Care Teams Senior Education Specialist Relationship Specialty Start Date End Date Luke Guidry MD [address] [facility] [place] [address] PCP - General Family Medicine 12/29/22 documented as of this encounter
--- OUTSIDE RECORDS SUMMARY | 2024-09-22 10:35 | XMS_ITS | Encounter Summary ---
Author Organization [facility] Address [address] [facility] [address] [place] [address] Care Team Providers Care Senior Energy Market Coordinator Name Role Phone Luke Guidry MD Primary Care Provider [phone] Encounter Details Date Type Department Care Team (Late st Contact Info) Description 01/25/2023 Orders Only [facility] Medical [facility] Cardiology [address] [facility] [address] [place] [id number] [place] [address] [place] [address] [address] [place] [address] Social History Tobacco Use Types Packs/Day Years Used Date Smoking Tobacco: Never Smokeless Tobacco: Never Comments Unknown Sex and Gender Information Value Date Recorded Sex Assigned at Not on file Legal Sex Female 10:37 AM CDT Gender Identity Female 01/25/2023 6:36 AM CDT Sexual Orientation Straight 01/25/2023 6: 36 AM CDT documented as of this encounter Plan of Treatment Not on file documented as of this encounter Procedures Procedure Name Priority Date/Time Associated Diagnosis Comments TSH RFX ON ABNORMAL TO FREE T4 Routine 01/25/2023 9:22 AM CDT CBC WITH AUTO DIFFERENTIAL Routine 01/25/2023 9:22 AM CDT B-TYPE NATRIURETIC PEPTIDE Routine 01/25/2023 9:22 AM CDT HEMOGLOBIN A1C Routine 01/25/2023 9:22 AM CDT COMPREHENSIVE METABOLIC PANEL Routine 01/25/2023 9:22 AM CDT documented in this encounter Results * B-type natriuretic peptide (01/25/2023 9:22 AM CDT) [facility] B-Type Natriuretic Peptide 16.6 0.0 - 100.0 pg/mL [facility] - Comment:[employer] [facility] [facility] XP methodology 01/25/2023 9:22 AM CDT 01/25/2023 Narrative [facility] - 01/26/2023 9:12 AM CDT Performed at: ??01 - [address] ??[id number] Stave Inspector: Malcom Vences PhD, Phone: ??[phone] Dov Royal MD LAB BLOOD ORDERABLES Final Resul t Performing Organization Address [facility] Co de Phone Number [facility] - * TSH Rfx on Abnormal to Free T4 (01/25/2023 9:22 AM CDT) [facility] TSH 1.890 0.450 - 4.500 uIU/mL [facility] - 01/25/2023 9:22 AM CDT 01/25/2023 Narrative [facility] - 01/26/2023 7:11 AM CDT Performed at: ??01 - [address] ??[id number] Stave Inspector: Malcom Vences PhD, Phone: ??[phone] Dov Royal MD LAB BLOOD ORDERABLES Final Resul t Performing Organization Address [facility] Co de Phone Number [facility] - * (ABNORMAL) Hemoglobin A1c (01/25/2023 9:22 AM CDT) Pathologist [facility] Hgb A1C 6.0(H) 4.8 - 5.6 % [facility] - 01 Comment: ? Prediabetes: 5.7 - 6.4 ? Diabetes: >6.4 ? Glycemic control for adults with diabetes: <7.0 01/25/2023 9:22 AM CDT 01/25/2023 Narrative [facility] - 01/26/2023 1:07 AM CDT Performed at: ??01 - [address] ??[id number] Stave Inspector: Malcom Vences PhD, Phone: ??[phone] us Dov Royal MD LAB BLOOD ORDERABLES Final Resul t [facility] - 01 * (ABNORMAL) Comprehensive metabolic panel (01/25/2023 9:22 AM CDT) Glucose 104(H) 70 - 99 mg/dL [facility] - 01 BUN 20 8 - 27 mg/dL [facility] - 01 Creatinine, Serum 1.08(H) 0.57 - 1.00 mg/dL [facility] - 01 eGFR 57(L) >59 mL/min/1.7 3 [facility] - 01 BUN/creat ratio 19 12 - 28 [facility] - 01 Sodium 138 134 - 144 mmol/L [facility] - 01 Potassium, sr 5.1 3.5 - 5.2 mmol/L [facility] - 01 Chloride 99 96 - 106 mmol/L [facility] - 01 CO2 25 20 - 29 mmol/L [facility] - 01 Calcium 10.5(H) 8.7 - 10.3 mg/dL [facility] - 01 Protein, sr 6.9 6.0 - 8.5 g/dL [facility] - 01 Albumin 4.6 3.8 - 4.8 g/dL [facility] - 01 Globulin, Total 2.3 1.5 - 4.5 g/dL [facility] - 01 A/G Ratio 2.0 1.2 - 2.2 [facility] - 01 Bilirubin, Total 0.5 0.0 - 1.2 mg/dL [facility] - 01 Alk phos 84 44 - 121 IU/L [facility] - 01 AST 19 0 - 40 IU/L [facility] - 01 ALT 17 0 - 32 IU/L [facility] - 01 01/25/2023 9:22 AM CDT 01/25/2023 Narrative [facility] - 01/26/2023 1:07 AM CDT Performed at: ?? - [facility] [address], [place], [place] ??[id number] Stave Inspector: Malcom Vences PhD, Phone: ??[phone] us Dov Royal MD LAB BLOOD ORDERABLES Final Resul t [facility] - 01 * CBC with auto differential (01/25/2023 9:22 AM CDT) WBC 6.9 3.4 - 10.8 x10E3/uL [facility] - 01 RBC 4.43 3.77 - 5.28 x10E6/uL [facility] - 01 Hgb 13.1 11.1 - 15.9 g/dL [facility] - 01 Hct 41.0 34.0 - 46.6 % [facility] - 01 MCV 93 79 - 97 fL [facility] - 01 MCH 29.6 26.6 - 33.0 pg [facility] - 01 MCHC 32.0 31.5 - 35.7 g/dL [facility] - 01 Rdw 13.0 11.7 - 15.4 % [facility] - 01 Platelets 304 150 - 450 x10E3/uL [facility] - 01 Neutrophils pct 50 Not Estab. % [facility] - 01 Lymphs pct 39 Not Estab. % [facility] - 01 Monocytes pct 7 Not Estab. % [facility] - 01 Eosinophils pct 4 Not Estab. % [facility] - 01 Basophil pct 0 Not Estab. % [facility] - 01 Neutrophil abs 3.4 1.4 - 7.0 x10E3/uL [facility] - 01 Lymphs (Absolute) 2.7 0.7 - 3.1 x10E3/uL [facility] - 01 Monocyte abs 0.5 0.1 - 0.9 x10E3/uL [facility] - 01 Eosinophils, abs 0.3 0.0 - 0.4 x10E3/uL [facility] - 01 Basophils, abs 0.0 0.0 - 0.2 x10E3/uL [facility] - 01 Immature Granulocytes 0 Not Estab. % [facility] - 01 Immature Grans (Abs) 0.0 0.0 - 0.1 x10E3/uL [facility] - 01 01/25/2023 9:22 AM CDT 01/25/2023 Narrative [facility] - 01/26/2023 12:07 AM CDT Performed at: ??01 - [facility] [address] ??[id number] Stave Inspector: Malcom Vences PhD, Phone: ??[phone] us Dov Royal MD LAB BLOOD ORDERABLES Final Resul t [facility] - 01 documented in this encounter Visit Diagnoses Not on filedocumented in this encounter Care Teams Senior Energy Market Coordinator Relationship Specialty Start Date End Date Luke Guidry MD [address] [facility] [place] [address] PCP - General Family Medicine 12/29/22 documented as of this encounter
--- OUTSIDE RECORDS SUMMARY | 2024-09-22 10:36 | XMS_ITS | Patient Health Record ---
Author Organization [facility] Address [address] [place], [place] [address] Care Team Providers Care Rivet Spinner Name Role Phone ROSELIA HOLT Unavailable [phone] Lasha Guidry Unavailable Unavailable Reason For Referral No Information Immunizations Vaccine Route Administration Date Status Comme nts Influenza, high dose seasonal Unknown 06/28/2023 Admini stered Plan Of Treatment No Information Insurance Providers Payer Name Payer Address Payer Phone Subscriber Number Group Number Insured Name Patient Relationship to Insured Coverage Start Date Coverage End Date [facility] [address] [place] [address] [id number] DIANA SHANNON Spouse - patient is the spouse of the insured
--- OUTSIDE RECORDS SUMMARY | 2024-09-22 10:36 | XMS_ITS ---
[facility] Address [address] [place], [place] [id number] Care Team Providers Care Shot Examiner Name Role Phone ROSELIA HOLT Unavailable [phone] Lasha Guidry Unavailable Unavailable FRANK MENDOZA Unavailable [phone] REASON FOR VISIT *Foot Pain, For the past 2 weeks, the patient has had pain to the outside and back of her right foot. No accident or injury reported. She denies any calf pain. She has no shortness of breath. The outside of the foot can get puffy. It hurts to walk on Vital Signs Weight 143 lbs 07/03/2023 Weight-kg 64.86 kg 07/03/2023 Height 66.00 in 07/03/2023 Height-cm 167.64 cm 07/03/2023 BMI 23.08 kg/m2 07/03/2023 Encounters Encounter Location Date Provider Diagnosis [facility] [address] [place], [place] [id number] 07/03/2023 FRANK MENDOZA Peroneal tendinitis, right leg M76.71 ; Nondisplaced fracture of cuboid bone of right foot, initial encounter for closed fracture S92.214A and Pain in right foot M79.671 Assessments Encounter Date Diagnosis (ICD Code) Assessment Notes Treatment Notes Treatment Clinical Notes Section Notes 07/03/2023 Peroneal tendinitis, right leg (ICD-10 - M76.71) Peroneal Tendonitis: I discussed anti-inflammatory treatment options and various means of immobilization with the patient. I educated the patient on icing and stretching, supportive shoegear, and the use of orthotic devices and bracing. 07/03/2023 Nondisplaced fracture of cuboid bone of right foot, initial encounter for closed fracture (ICD-10 - S92.214A) 07/03/2023 Pain in right foot (ICD-10 - M79.671) 07/03/2023 Other Cuboid Stress Fracture: I discussed with the patient the nature and etiology of stress fractures. I discussed various treatment options consisting of immobilization, reducing activity and rest. I also discussed the use of orthotics to help prevent recurrence. Cam Walker: A CAM walker was fitted and dispensed. The patient was instructed on its use. Rest: Rest the affected foot as much as possible. Plan Of Treatment Treatment Notes Assessment Notes Peroneal tendinitis, right leg Peroneal Tendonitis: I discussed anti-inflammatory treatment options and various means of immobilization with the patient. I educated the patient on icing and stretching, supportive shoegear, and the use of orthotic devices and bracing. Other Cuboid Stress Fracture: I discussed with the patient the nature and etiology of stress fractures. I discussed various treatment options consisting of immobilization, reducing activity and rest. I also discussed the use of orthotics to help prevent recurrence. Cam Walker: A CAM walker was fitted and dispensed. The patient was instructed on its use. Rest: Rest the affected foot as much as possible. Next Appt Details Follow Up: 2 Weeks, Reason: Repeat xrays 3 views of the right foot. See how CAM boot helped cuboid and peroneal tendons Progress Notes * MASTER SHANNONB: [birth year] (62 yo F)Acc No.[id number]:07/03/2023 Patient:?SAMUEL SHANNON Provider:?Frank Mendoza DPM :1960???Age:62 Y???Sex:Female D ate:07/03/2023 Address:[address] [place] [address] Subjective: * Chief Complaints: * ???1. *Foot Pain. 2. For the past 2 weeks, the patient has had pain to the outside and back of her right foot. No accident or injury reported. She denies any calf pain. She has no shortness of breath. The outside of the foot can get puffy. It hurts to walk on. * HPI: ???HPI:?New Complaint?Established patient presents with a new complaint., Patient complains of an issue to _Rt foot and ankle. pt complain of swollen around and ankle and around the back of foot. , Patient denies any injury., Duration of problem is _2-3 weeks ., MA: _BS.? * ROS:?General / Constitutional:?Patient denies?chills, fever, weakness, night sweats.?Musculoskeletal:?Patient denies?childhood foot problems, weakness.?Patient complains of?joint pain.?Peripheral Vascular:?Patient denies?ulceration of feet, cold extremities.?Skin:?Patient denies?ulcerations, discoloration.?Neurologic:?Patient denies?balance difficulty, confusion, difficulty speaking, dizziness.? * Medical History:? Objective: * Vitals:?Wt:143lbs, Wt-k .86 kg, Ht: 66.00 in, Ht-cm: 167.64 cm, BMI:23.08Index, Body Surface Area: 1.74. * Examination: ???Constitutional: ?Constitutional?The patient is awake, alert, well developed, well groomed and well nourished..?Dermatologic: ?Skin findings:?Skin is warm, dry, supple with no breaks in the skin..?Vascular: ?Dorsalis pedis pulse:?2/4, bilateral.?Posterior tibial pulse:?2/4, bilaterally.?Capillary refill:?less than 3 seconds.?Edema:?No edema, bilateral.?Neurologic: ?Gross sensation?Gross sensation is intact to light touch..?Musculoskeletal: ?Muscle Strength?Muscle strength is 5/5 in regards to dorsiflexion, plantarflexion, inversion, and eversion in bilateral lower extremities..?Pain on palpation?peroneal tendons of the right foot.? There is pain with eversion against resistance.? Pain on palpation to the cuboid of the right foot.? Pain the abduction of the forefoot on the rearfoot right.?Radiographs: ?Right Foot?No evidence of fracture, dislocation, or other osseous lesions.? Stress fracture can not be ruled out.? Assessment: * Assessment: 1.?Nondisplaced fracture of cuboid bone of right foot, initial encounter for closed fracture - S92.214A (Primary)?2.?Peroneal tendinitis, right leg - M76.71?3.?Pain in right foot - M79.671? Plan: * Treatment: 2.?Others? Notes: Cuboid Stress Fracture: I discussed with the patient the nature and etiology of stress fractures. I discussed various treatment options consisting of immobilization, reducing activity and rest. I also discussed the use of orthotics to help prevent recurrence. Cam Walker: A CAM walker was fitted and dispensed. The patient was instructed on its use. Rest: Rest the affected foot as much as possible. ?? * Procedure Codes:?24022 X-RAY EXAM OF FOOT, Modifiers: RT , L4361 WALKING BOOT PNEUMATIC AND/OR VAC, Modifiers: RT , NU * Follow Up:?2 Weeks (Reason: Repeat xrays 3 views of the right foot. See how CAM boot helped cuboid and peroneal tendons) * Billing Information: * Visit Code:? 31787 Office Visit, Est Pt., Level 3. * Procedure Codes:? 42700 X-RAY EXAM OF FOOT. Modifiers: RT L4361 WALKING BOOT PNEUMATIC AND/OR VAC. Modifiers: RT, NU * Sign off status: Completed true * Provider:?Frank Mendoza DPM Date:?07/03/20 23 Generated for Amina jones/Joellen/eTransmitting on:?09/22/2024 10:35 AM COMPLIANCE TESTING ANALYST History and Physical Notes * HPI (History of Present Illness) Category Sub-Category Detail Notes Category Not es HPI New Complaint Established rocío ent presents with a new complaint., Patient complains of an issue to _Rt foot and ankle. pt complain of swollen around and ankle and around the back of foot. , Patient denies any injury., Duration of problem is _2-3 weeks ., MA: _BS Examination Category Sub-Category Detail Notes Category Not es Dermatologic Skin findings: Skin is warm, dr maria g, supple with no breaks in the skin. Neurologic Gross sensation Gross sensation is intact to light touch. Vascular Dorsalis pedis pulse: 2/4, bilateral Edema: No edema, bilateral Capillary refill: less than 3 seconds Posterior tibial pulse: 2/4, bilaterally Musculoskeletal Muscle Strength Muscle strength is 5/5 in regards to dorsiflexion, plantarflexion, inversion, and eversion in bilateral lower extremities. Pain on palpation peroneal tendons of the right foot. There is pain with eversion against resistance. Pain on palpation to the cuboid of the right foot. Pain the abduction of the forefoot on the rearfoot right Constitutional Constitutional The patient is a wake, alert, well developed, well groomed and well nourished. Radiographs Right Foot No evidence of f racture, dislocation, or other osseous lesions. Stress fracture can not be ruled out
== END 2024-09-16 08:13 | disposition home or self-care (01) ==
PROVIDERS: PCP Family Medicine; Visit Provider Surgery
PROC: 0DJ08ZZ Inspection of Upper Intestinal Tract, Via Natural or Artificial Opening Endoscopic (ICD-10-PCS; CPT 43239; principal; 2024-09-16 08:00)
DX: K21.9 Gastro-esophageal reflux disease without esophagitis (principal); K44.9 Diaphragmatic hernia without obstruction or gangrene; I10 Essential (primary) hypertension; E11.9 Type 2 diabetes mellitus without complications; F41.9 Anxiety disorder, unspecified; M19.90 Unspecified osteoarthritis, unspecified site; Z79.84 Long term (current) use of oral hypoglycemic drugs; Z79.810 Long term (current) use of selective estrogen receptor modulators (SERMs); Z98.890 Other specified postprocedural states; Z90.49 Acquired absence of other specified parts of digestive tract; Z98.51 Tubal ligation status; Z82.49 Family history of ischemic heart disease and other diseases of the circulatory system
CPT/HCPCS: 43239; 82948; 87081; J2003; J2704; J7120

== ENCOUNTER 2024-10-17 08:25 | Outpatient (CLI) | payer MEDICARE, OTHER, SELFPAY ==
--- NOTE | ~2024-10-17 | XR_ITS ---
EXAMINATION: XR UGIAC wo kub DATE: 10/17/2024 09:15 INDICATION: Diaphragmatic hernia without obstruction. TECHNIQUE: The patient drank thick barium, gas-producing crystals, and thin barium. Fluoroscopy of th e esophagus, stomach, and proximal small bowel was performed. Fluoroscopy exposure time was 0.5 minut es. The total number of images was 226. Total dose-area product was 1.089 Gy-cm^2. COMPARISON: None. FINDINGS: There is no mass or stricture of the esophagus. Esophageal motility is normal. There is a m oderate-sized sliding hiatal hernia. There was no gastroesophageal reflux with provocative maneuvers. The stomach and proximal small bowel show normal folding patterns. Surgical clips in the right upper quadrant are likely from cholecystectomy. IMPRESSION: 1. Moderate-sized sliding hiatal hernia. Reviewed, dictated and finalized at location A. S AND SKINS COLORER
--- OUTSIDE RECORDS SUMMARY | 2024-10-17 08:35 | XMS_ITS | CONTINUITY OF CARE DOCUMENT ---
Author Name isac chau Address Unknown Organization [facility] Address [address] [place] [address] Phone [phone] Care Team Providers Care Under Water Assistant Name Role Phone Francisco ESPINOSA, Isidro Unavailable [phone] AUNDREA ESPINOSA, MARTIR Stanton Unavailable BRONWYN ESPINOSA, EFFIE Stanton Unavailable INSURANCE PROVIDERS Payer name Policy type / Coverage type Dewitt red green party ID LAURIE WALL [id number] [employer] Commercial insuran ce company [id number]
--- OUTSIDE RECORDS SUMMARY | 2024-10-17 08:35 | XMS_ITS | Patient Health Record ---
Author Organization [facility] Address [address] [place], [place] [id number] Care Team Providers Care Electronics System Mechanic Name Role Phone ROSELIA Grant Unavailable [phone] Lasha Guidry Unavailable Unavailable Reason For Referral No Information Immunizations Vaccine Route Administration Date Status Comme nts Influenza, high dose seasonal Unknown 06/28/2023 Admini stered Plan Of Treatment No Information Insurance Providers Payer Name Payer Address Payer Phone Subscriber Number Group Number Insured Name Patient Relationship to Insured Coverage Start Date Coverage End Date [facility] [address] [place] [address] [id number] DIANA SHANNON Spouse - patient is the spouse of the insured
--- OUTSIDE RECORDS SUMMARY | 2024-10-17 08:36 | XMS_ITS | Clinical Summary ---
Author Organization [facility] Address [address] [place] [id number] Care Team Providers Care Relocation Specialist Name Role Phone Luke Guidry MD Primary Care Provider [phone] Allergies Active Allergy Reactions Criticality Noted Date [...] Active Active Problems No known active problems Medical History Medical History Date Comments Hypertension [...] Last Done Comments Breast Cancer Screening-Mammogram 1960 Colon Cancer Screening-Colonoscopy 1960 Depression Screening 1958 Fall Risk Assessment 1960 Hepatitis C Screening 1960 Osteoporosis Screening-Bone Density Scan 1960 Hepatitis B Screening 1976 Pneumococcal vaccine 65+ (2 of 2 - PCV) 2023 11/11/2019 Well Visit 65+ 2023 Covid-19 Vaccine (2 - 2023-2 5 season) 2024 05/13/2021 Influenza Vaccine (#1) 2024 , 08/16/2022, 08/03/2021, Additional history exists DTaP/Tdap/Td Vaccine (3 - Td or Tdap) 05/21/2034 05/21/2024, 01/09/2014 Zoster Vaccine Completed 09/25/2020, 06/11, 04/03/2019 Insurance MEDICARE FOR LIFE Care Teams Relocation Specialist Relationship Specialty Start Date End Date Luke Guidry MD [address] [place] [address] PCP - General Family Medicine 12/29/22
--- OUTSIDE RECORDS SUMMARY | 2024-10-17 08:36 | XMS_ITS | Clinical Summary ---
Author Organization [facility] Address [address] [place] [address] Care Team Providers Care Computer Numerical Control Operator Name Role Phone Luke Guidry MD Primary Care Provider [phone] Allergies Active Allergy Reactions Criticality Noted Date [...] mouth 2 (two) times daily with meals. 10/02/202 3 Active raloxifene (EVISTA) 60 MG tablet raloxifene 60 mg tablet Active methylPREDNISol one, CIARA, (MEDROL DOSEPAK) 4 MG tabletIndicatio ns:Strain of lumbar region, initial encounter 6 TABLETS ON DAY ONE, 5 TABLETS DAY TWO, 4 TABLETS DAY THREE, 3 TABLETS DAY FOUR, 2 TABLETS DAY FIVE, AND 1 TABLET DAY SIX 1 each 3 Active Active Problems No known active problems Immunizations Name Administration Dates Next Due Influenza [...] 72 07/05/2024 11:26 AM CDT Temperature 36.4 C (97.6 F) 07/05/2024 11:26 AM CDT Respiratory Rate 18 07/05/2024 11:26 AM CDT Oxygen Saturation 100% 07/05/2024 11:26 AM CDT Inhaled Oxygen Concentration - - Weight 68.5 kg (151 lb) 07/05/2024 10:30 AM CDT Height 165.1 cm (5' 5 ) 07/05/2024 10:30 AM CDT Body Mass Index 25.13 07/05/2024 10:30 AM CDT Plan of Treatment Health Maintenance Due Date Last Done Comments Colorectal Cancer Screening Colonoscopy (10 Years) 1958 PHQ-2 (Physician Lummi) 1970 Hepatitis C 1976 Mammogram Screening 1998 Annual Medicare Wellness Visit 2023 Dexa Scan (General) 2023 Pneumococcal Vaccine: 65+ Years (2 of 2 - PCV) 2023 11/11/2019 COVID-19 Vaccine (2 - 2023- season) 2024 05/13/2021 Influenza Adult (#1) 2024 06/28/2023, 08/16/2022, 08/03/2021, Additional history exists PHQ-2 (Physician Lummi) 09/10/2024 RSV Immunization or 60+ Years (1 - 1-dose 75+ series) 2033 DTaP, Tdap and Td Vaccines (3 - Td or Tdap) 05/21/2034 05/21/2024, 01/09/2014 Zoster Vaccines Completed 09/25/2020, 06/11, 04/03/2019 Meningococcal B Vaccine Aged Out No l onger eligible based on patient's age to complete this topic Meningococcal Vaccine Aged Out No christa tru eligible based on patient's age to complete this topic RSV Immunizations Under 20 Months Aged Out No longer eligible based on patient's age to complete this topic Insurance MEDICARE [facility] Care Teams Computer Numerical Control Operator Relationship Specialty Start Date End Date Luke Guidry MD PCP - General HOSPITALIST 09/04/23
--- OUTSIDE RECORDS SUMMARY | 2024-10-17 08:36 | XMS_ITS | Data Portability ---
Author Organization [employer], Main Office Address [address] [place] [address] Care Team Providers Care Java Software Developer Name Role Phone LUKE GUIDRY Primary Care Provider LUKE GUIDRY Referring Provider LUKE GUIDRY Primary Care Provider [phone] Assessment Encounter Date Assessment Date Assessment LastModified by Organization Details LastModified Time 05/21/2024 05/21/2024 63 yo F with - [...] precautions explained. Cont f/u with Ortho at [facility] as per schedule. Cont f/u with Gyne as per schedule. Cont f/u with Ophtho at [place] as per schedule. Cont f/u with Cardio as per schedule. Cont f/u with Derm at [facility] as per schedule. Advised to refer to [...] in 2-3 weeks. Annual labs in 06/04. [email or web address] Not available 05/21/2024 09:53:06 06/19/2024 06/19/2024 63 [...] precautions explained. Cont f/u with Ortho at [facility] as per schedule. Cont f/u with Gyne as per schedule. Cont f/u with Ophtho at [place] as per schedule. Cont f/u with Cardio [...] Lipids, A1c in 10/04. Annual labs in 9/25. [email or web address] Not available 06/19/2024 10:17:25 07/03/2024 07/03/2024 D/w [...] Pt verbalized understanding it. F/u as directed. [email or web address] Not available 07/03/2024 11:25:23 2024 2024 64 yo F with - CHRONIC CONSTIPATION - HLD, improved - HTG, improved - PRE-DM, improved - HTN - GERD - HIATAL HERNIA - DDD L-SPINE, severe - C, T, L SPONDYLOSIS - KYPHOSCOLIOSIS OF SPINE - RT SHOULDER OA - LT KNEE OA - LT ANKLE PAIN, chronic - OSTEOPENIA - FATIGUE, chronic - DEPRESSION - H/O OSTEOPOROSIS - H/O VIT D DEFICIENCY HbA1c: 6.0(05/03/22) - 6.0(08/02/22) - 6.0(01/20/23) - 6.2(05/26/23) - 6.1(09/15/23) - 5.9(12/15/23) - 6.0(05/31/24) - 6.1(09/20/24) Annual labs: 05/31/24. X-ray L-spine: 09/12/23. X-ray [...] & imagines and further plan of care. Advised pt to f/u with her GI about her constipation concern. Samples given to pt. All meds verified with pt. Meds as directed. Cont OTC Knee sleeve as directed prn. Good liquid and fiber intake explained in detail. BP diary education given and advised to call us if any concerns. Diet and exercise explained in detail. Fall risk precautions explained. Cont f/u with Ortho at [facility] as per schedule. Cont f/u with Gyne as per schedule. Cont f/u with Ophtho at [place] as per schedule. Cont f/u with Cardio as per schedule. Cont f/u with Derm at [facility] as per schedule. Pt has done PT and now doing at home. Advised to refer to Psych/counsellor; but pt declined. Advised to refer to Pain clinic/Spine surgeon; but pt declined. Pt declined any Repatha for her uncontrolled HLD. HM: WWE - 03/31, normal as per pt. Cont f/u with Gyne as per their recommendations. Mammo - 09/24/23, normal. Colonoscopy - 10-11 yrs ago, normal as per pt. Pt declined. Cologuard 05/17/22, Neg. DEXA - 04/28/21, Osteopenia ++. Ordered. Tdap - 05/21/24. Flu - Pt declined. Pneumo - 11/11/19. At pharmacy. Shingrix - 07/03/20, 09/25/20. F/u in 3 months. Lipids, A1c in 01/02. Annual labs in 06/04. [email or web address] Not available 2024 10:19:27 Plan of Treatment Reminders Order Date Submit Date Provider Last Modified By Organization Details Last Modified Time Details Appointments Follow Up 15 2024 09:30A M Luke Guidry MD Not available Not available Not available Lab vitamin B12 + folate, serum or blood [address] (Lab), [address] [place], [address], 05/29/2024 10:37:35 magnesium , serum or plasma [address] (Lab), [address] [place], [address], 05/29/2024 10:37:36 CBC w/ auto diff [address] (Lab), [address] [place], [address], 05/29/2024 10:37:35 urinalysi s complete, reflex culture [address] (Lab), [address] [place], [address], 05/29/2024 10:37:35 glycohemo globin, total, blood [address] (Lab), [address] [place], [address], 06/23/2024 08:06:33 CMP, serum or plasma [address] (Lab), [address] [place], [address], 05/29/2024 10:37:34 lipid panel, serum [address] (Lab), [address] [place], [address], 05/29/2024 10:37:35 TSH, serum or plasma [address] (Lab), [address] [place], [address], 05/29/2024 10:37:35 vitamin D, 25-hydrox y, total, serum [address] (Lab), [address] [place], [address], 05/29/2024 10:37:35 glycohemo globin, total, blood 2023 025 [facility] (Lab), [address] [place], [address], 10/11/2024 04:09:12 lipid panel, serum 2023 025 [email or web address] [facility] (Lab), [address] [place], [address], 09/18/2024 09:48:56 CBC w/ auto diff 2023 024 [facility] (Lab), [address] [place], [address], 07/05/2024 11:56:04 CMP, serum or plasma 2023 024 [facility] (Lab), [address] [place], [address], 07/04/2024 14:29:26 lipase, serum or plasma [email or web address] (Lab), [address] [place], [address], 07/17/2024 08:25:27 amylase, serum or plasma [email or web address] (Lab), [address] [place], [address], 07/17/2024 08:25:27 ESR (erythroc yte sedimenta tion rate), blood [address] (Lab), [address] [place], [address], 07/17/2024 08:25:27 urinalysi s complete, reflex culture [address] (Lab), [address] [place], [address], 07/17/2024 08:25:27 troponin I, ultrasens itive, serum 2023 024 [email or web address] [facility] (Lab), [address] [place], [address], 07/17/2024 08:25:27 glycohemo globin, total, blood [email or web address] (Lab), [address] [place], [address], 2024 10:08:22 lipid panel, serum [email or web address] (Lab), [address] [place], [address], 2024 10:08:23 Referral gastroent erologist referral - Please call patient to schedule. 2023 024 [email or web address] Nicola Monreal MD, [address] [facility], [address], [place], [address], 07/18/2024 15:16:54 Procedures None recorded. Surgeries None recorded. Imaging DEXA [email or web address] [facility], [address], [address], [place], [address], 06/04/2024 16:42:19 XR, abdomen, 2 or more views + XR, chest, 1 view [email or web address] [facility], [address], [address], [place], [address], 07/10/2024 10:04:53 US, abdomen, complete [email or web address] [facility], [address], [address], [place], [address], 07/09/2024 15:12:26 Medication Orders cyclobenz aprine 10 mg tablet 2023 024 [facility], [address] [place] [address], [address], 05/21/2024 09:50:03 fenofibra te 160 mg tablet 2023 024 [email or web address] [facility], [address] [place] [address], [address], 06/19/2024 09:58:05 Vascepa 1 gram capsule 2023 024 [facility], [address] [place] [address], [address], 05/21/2024 09:50:05 benazepri l 10 mg-hydroc hlorothia zide 12.5 mg tablet 2023 024 [facility], [address] [place] [address], [address], 05/21/2024 09:50:01 metformin ER 500 mg tablet,ex tended release 24 hr 2023 024 [email or web address] [facility], [address] [place] [address], [address], 07/10/2024 10:44:57 Jardiance 25 mg tablet 2023 024 [facility], [address] [place] [address], [address], 07/10/2024 10:44:56 diclofena c sodium 75 mg tablet,de layed release 2023 024 [email or web address] [facility], [address] [place] [address], [address], 07/10/2024 10:44:56 atorvasta tin 10 mg tablet [id number] [email or web address] [facility], [address] [place] [address], [address], 06/19/2024 09:57:59 bupropion HCl XL 150 mg 24 hr tablet, extended release 2023 [facility], [address] [place] [address], [address], 05/21/2024 09:50:01 escitalop shaneka 20 mg tablet 2023 [email or web address] [facility], [address] [place] [address], [address], 05/21/2024 09:50:22 cyclobenz aprine 10 mg tablet 2023 [facility], [address] [place] [address], [address], 06/19/2024 09:57:12 Vascepa 1 gram capsule 2023 024 [facility], [address] [place] [address], [address], 06/19/2024 09:57:07 fenofibra te micronize d 200 mg capsule 2023 024 [facility], [address] [place] [address], [address], 06/19/2024 09:57:10 benazepri l 10 mg-hydroc hlorothia zide 12.5 mg tablet 2023 024 [facility], [address] [place] [address], [address], 06/19/2024 09:57:08 metformin ER 500 mg tablet,ex tended release 24 hr 2023 024 [email or web address] [facility], [address] [place] [address], [address], 07/10/2024 10:44:57 Jardiance 25 mg tablet 2023 [email or web address], [address] [place] [address], [address], 07/10/2024 10:44:56 diclofena c sodium 75 mg tablet,de layed release 2023 [email or web address], [address] [place] [address], [address], 07/10/2024 10:44:55 atorvasta tin 20 mg tablet 2023 [facility], [address] [place] [address], [address], 06/19/2024 09:57:13 bupropion HCl XL 150 mg 24 hr tablet, extended release 2023 [facility], [address] [place] [address], [address], 06/19/2024 09:57:13 escitalop shaneka 20 mg tablet 2023 [facility], [address] [place] [address], [address], 06/19/2024 09:57:07 ondansetr on HCl 4 mg tablet 2023 [facility], [address] [place], [place], [id number], 07/03/2024 11:05:55 pantopraz ole 40 mg tablet,de layed release [address] [facility]16722, [address] [place], [id number], 07/03/2024 11:27:24 pantopraz ole 40 mg tablet,de layed release 2023 024 [facility] #32297, [address] [facility], [place], [place], [id number], 07/10/2024 10:40:12 cyclobenz aprine 10 mg tablet 2024 025 [facility], [address] [place] [address], [address], 2024 10:08:33 Vascepa 1 gram capsule 2024 025 [facility], [address] [place] [address], [address], 2024 10:08:28 fenofibra te micronize d 200 mg capsule 2024 025 [facility], [address] [place] [address], [address], 2024 10:08:32 benazepri l 10 mg-hydroc hlorothia zide 12.5 mg tablet 2024 025 [facility], [address] [place] [address], [address], 2024 10:08:27 metformin ER 500 mg tablet,ex tended release 24 hr 2024 025 [facility], [address] [place] [address], [address], 2024 10:08:30 Jardiance 25 mg tablet 2024 025 [facility], [address] [place] [address], [address], 2024 10:08:33 diclofena c sodium 75 mg tablet,de layed release 2024 025 [facility], [address] [place] [address], [address], 2024 10:08:29 atorvasta tin 20 mg tablet 2024 025 [facility], [address] [place] [address], [address], 2024 10:08:30 docusate sodium 100 mg capsule 2024 025 [facility] #09183, [address] [facility], [place], [place], [id number], 2024 10:11:03 Linzess 72 mcg capsule 2024 025 [facility] #66468, [address] [facility], [place], [place], [id number], 2024 10:11:00 Macrobid 100 mg capsule 2024 025 [facility] #38217, [address] [facility], [place], [place], [id number], 2024 10:09:10 bupropion HCl XL 150 mg 24 hr tablet, extended release 2024 025 [facility], [address] [place] [address], [address], 2024 10:08:26 escitalop shaneka 20 mg tablet 2024 025 [facility], [address] [place] [address], [address], 2024 10:08:32 Patient TargetsNo targets recorded. Patient InstructionsNo instructions recorded. Reason for Referral Trust Evaluation Supervisor Referral for Hiatal hernia with gastroesophageal reflux Please call patient to schedule. Referring Physician: Luke Guidry, Family Medicine, Encounter Date: 07/10/2024 Results Created Date Observation Date Name Description Value Unit Range Abnormal Flag Note LastModifiedBy Organization Detail LastModifiedTime 07/09/20 24 07/09/2024 US, abdom en, compl ete No observ ation record ed. [facility] [address], [place], [address], 07/10/2024 10:36:28 07/09/20 24 07/09/2024 XR, chest , 1 view No observ ation record ed. [email or web address] [facility] [address], [place], [address], 07/10/2024 11:45:08 Result Notes None recorded. Problems Name Problem SNOMED Code Status Onset Date Resolution Date Notes Provider Name and Address Organization Details Recorded Time Sore throat 500812758 Active 2022 Luke Guidry MD [address], [address], [place], [address] , [facility] [employer] [facility] [employer] 10:45:22 Dysuria 80838109 Active 2022 Luke Guidry MD [address], [address], [place], [address] , [employer] [facility] [employer] 10:45:22 Pharyngit is 484145228 Active 2022 Luke Guidry MD [address], [address], [place], [address] , [employer] [facility] [employer] 4 10:45:22 Dyspnea on exertion 64003883 Active 2022 Luke Guidry MD [address], [place], [address] , [employer] [facility] [employer] [facility] 4 10:45:22 Gastroeso phageal reflux disease without esophagit is 492447642 Active 2022 MD Roger Jimenez [address], [place], [address] , [employer] [facility] [employer] 10:45:22 Sleep apnea 97241059 Active 2022 Luke Guidry MD [address], [place], [address] , [place] [facility] 4 10:45:22 Pain of right ankle joint 98808169729 377956 Active 2022 Luke Guidry MD [address], [address], [place], [address] , [place] [facility] 4 10:45:21 Pain of left shoulder joint 36598646897 186480 Active 2022 Luke Guidry MD [address], [address], [place], [address] , [place] [facility] 4 10:45:21 Pain in right foot 25539464111 9107 Active 2022 Luke Guidry MD [address], [address], [place], [address] , [place] [facility] 4 10:45:22 Pain in right hip joint 22870202296 9102 Active 2023 Luke Guidry MD [address], [address], [place], [address] , [place] [facility] 4 10:45:22 Chronic low back pain 196243405 Active 2023 Luke Guidry MD [address], [address], [place], [address] , [place] [facility] 4 10:45:22 Lumbar radiculop athy 081778142 Active 2023 Luke Guidry MD [address], [address], [place], [address] , [place] [facility] 4 10:45:21 Degenerat ion of lumbar intervert ebral disc 66318918 Active 2023 Luke Guidry MD [address], [address], [place], [address] , [place] [facility] 4 10:45:22 Arthritis 8302285 Active 2023 Luke Guidry MD [address], [address], [place], [address] , [place] [facility] 4 10:45:22 Diabetes mellitus 17305625 Active 2023 Luke Guidry MD [address], [address], [place], [address] , [place] [facility] 4 10:45:22 Bone spur of right foot 69035236108 9103 Active 2023 Luke Guidry MD [address], [address], [place], [address] , [place] [facility] 4 10:45:22 Calcific tendiniti s of achilles tendon 466803440 Active 2023 Luke Guidry MD [address], [address], [place], [address] , [place] [facility] 4 10:45:22 Epigastri c pain 51101267 Active 2023 Luke Guidry MD [address], [address], [place], [address] , [place] [facility] 10:45:22 Nausea and vomiting 70495765 Active 2023 Luke Guidry MD [address], [address], [place], [address] , [place] [facility] 4 10:45:22 Gastritis 1330559 Active 2023 Luke Guidry MD [address], [address], [place], [address] , [place] [facility] 4 10:45:22 Abdominal pain 24752022 Active 2023 Luke Guidry MD [address], [address], [place], [address] , [place] [facility] 4 10:45:22 Hiatal hernia with gastroeso phageal reflux 400177298 Active 2023 Luke Guidry MD [address], [place], [address] , [employer] [facility] 4 10:45:22 Urinary tract infectiou s disease 86078171 Active 2024 Luke Giudry MD [address], [address], [place], [address] , [employer] [facility] 5 10:08:35 Chronic idiopathi c constipat ion 00935647 Active 2024 Luke Guidry MD [address], [address], [place], [address] , [employer] [facility] 5 10:09:35 Impacted cerumen of bilateral ears 08783574777 87795 Active 2017 Luke Guidry MD [address], [address], [place], [address] , [employer] [facility] 4 10:45:21 Sprain of left foot 97741452203 857856 Active 2021 Luke Guidry MD [address], [address], [place], [address] , [employer] [facility] 4 10:45:21 Urticaria 945598854 Completed Not Available [facility] 3 04:51:15 Excessive cerumen in ear canal 455398902 Completed Not Available [facility] 3 04:51:15 Acute sinusitis 86133027 Completed Not Available [facility] 3 04:51:15 Pain of left ankle joint 82935765688 039086 Active 2021 Luke Guidry MD [address], [address], [place], [address] , [employer] [facility] 4 10:45:21 Excessive upper gastroint estinal gas 584744225 Completed Not Available [facility] 3 04:51:15 Impacted cerumen 64779471 Completed Not Available [facility] 3 04:51:15 Congenita l pes cavus 081967545 Active 2021 Luke Guidry MD [address], [address], [place], [address] , [employer] 4 10:45:22 Periphera l venous insuffici ency 89451948 Active 2017 Luke Guidry MD [address], [address], [place], [address] , [employer] 4 10:45:22 Abdominal pain 48161043 Completed Luke Guidry MD [address], [place], [address] , [employer] 4 11:02:57 Mixed anxiety and depressiv e disorder 899074281 Active 2016 Luke Guidry MD [address], [address], [place], [address] , [employer] 4 10:45:22 Gastroeso phageal reflux disease 568549113 Active Luke Guidry MD [address], [address], [place], [address] , [employer] 4 10:45:22 Osteoarth ritis of knee 336745439 Active 2016 Luke Guidyr MD [address], [address], [place], [address] , [employer] 4 10:45:22 Lumbar spondylos is 883504267 Active 2021 Luke Guidry MD [address], [place], [address] , [employer] 4 10:45:22 Ankle pain 502982926 Active 2021 Luke Guidry MD [address], [address], [place], [address] , [employer] 4 10:45:22 Urinary symptoms 190413718 Completed Not Available [facility] 3 04:51:16 Gastroent eritis 39382103 Completed Not Available [facility] 3 04:51:16 Eruption 317966166 Completed Not Available [facility] 3 04:51:16 Hypertrig lyceridem ia 819783625 Active 2016 Luke Guidry MD [address], [address], [place], [address] , [employer] [facility] 4 10:45:22 Osteopeni a 421785374 Active 2017 Luke Guidry MD [address], [address], [place], [address] , [employer] [facility] [employer] 4 10:45:22 Pain in left foot 64610003399 9107 Active 2021 Luke Guidry MD [address], [address], [place], [address] , [employer] [facility] [employer] 4 10:45:22 Peroneal tendiniti s of left lower limb 54404155087 9107 Active 2021 Luke Guidry MD [address], [address], [place], [address] , [employer] 4 10:45:22 Vitamin D deficienc y 14129667 Active 2016 Luke Guidry MD [address], [address], [place], [address] , [employer] [facility] 4 10:45:22 Depressiv e disorder 63752670 Active Luke Guidry MD [address], [address], [place], [address] , [employer] [facility] [employer] 4 10:45:22 Sinusitis 50248253 Active 2021 Luke Guidry MD [address], [address], [place], [address] , [employer] [facility] 4 10:45:22 Hypertens edward disorder 95115059 Active 2020 Luke Guidry MD [address], [address], [place], [address] , [place] [facility] 4 10:45:22 Cervical spondylos is 021436746 Active 2021 Luke Guidry MD [address], [address], [place], [address] , [place] [facility] 4 10:45:22 Thoracic spondylos is 350039623 Active 2021 Luke Guidry MD [address], [address], [place], [address] , [place] [facility] 4 10:45:22 Osteoarth ritis 565554904 Active Luke Guidry MD [address], [address], [place], [address] , [place] [facility] 4 10:45:22 Kyphoscol iosis deformity of spine 881194434 Active 2021 Luke Guidry MD [address], [address], [place], [address] , [place] [facility] 4 10:45:22 Kyphosis deformity of spine 590465963 Active 2017 Luke Guidry MD [address], [address], [place], [address] , [place] [facility] 4 10:45:22 Nausea 217918283 Completed Not Available [facility] 3 04:51:18 Eczema 33125034 Completed Not Available [facility] 3 04:51:19 Anxiety 44958990 Active 2017 Luke Guidry MD [address], [address], [place], [address] , [place] [facility] 4 10:45:22 Cough 91900283 Active 2021 Luke Guidry MD [address], [address], [place], [address] , [place] [facility] [employer] 4 10:45:22 Abnormal gallbladd er function 75704727 Completed Not Available [facility] 3 04:51:19 Hyperlipi demia 84546414 Active Luke Guidry MD [address], [address], [place], [address] , [employer] 4 10:45:22 Essential hypertens ion 70612676 Completed Not Available [facility] 3 04:51:19 Diarrhea 48545788 Completed Not Available [facility] 3 04:51:20 Osteoporo sis 35895333 Active 2016 Luke Guidry MD [address], [address], [place], [address] , [employer] 4 10:45:22 Prediabet es 253522251 Active 2017 Luke Guidry MD [address], [address], [place], [address] , [employer] 4 10:45:22 Postmenop ausal osteopeni a 347625474 Active 2021 Luke Guidry MD [address], [address], [place], [address] , [employer] 4 10:45:22 Decreased renal function 99246381 Completed Not Available [facility] 3 04:51:20 Epigastri c pain 01404738 Completed Luke Guidry MD [address], [address], [place], [address] , [employer] 4 10:58:33 Hyperglyc emia 89120595 Completed Not Available [facility] 3 04:51:21 Neck pain 73001420 Completed Not Available [facility] 3 04:51:21 Fatigue 03139562 Active 2020 Luke Guidry MD [address], [address], [place], [address] , [employer] 10:45:22 Problem Notes None recorded. Procedures Surgical History Date Name Laterality Status Provider Name and Address Organization Details Recorded Time Cholecystectomy completed Not Available [employer] [facility] 11/08/2022 04:42:01 Imaging Results Imaging Date Name Status LastModified by Organiz ation Details LastModified Time 07/09/2024 US, abdomen, complete completed [email or web address] [facility] [address], [place], [address], 07/10/2024 10:36:28 07/09/2024 XR, chest, 1 view completed [email or web address] [facility] [address], [place], [address], 07/10/2024 11:45:08 Procedure Notes None recorded. Medical Equipment None Reported. Allergies Allergen ID Allergen Name Allergen Category Reaction Reaction Severity Criticality Documentation Date Start Date Code Code System Note Provider Name and Address Organization Details Recorded Time 86795 promethaz ine medicatio n dizziness Not available Not available 07/10/20242022 8745 RxNorm Luek Guidry MD [address] [facility], [address], [place], [address] [place] [address] [employer] 10:44:50 7971 Phenergan medicatio n dizziness Not available Not available 11/08/2022 65124 8 RxNorm Not Available [facility] 3 05:03:18 7972 codeine medicatio n dizziness Not available Not available 11/08/20222022 2670 RxNorm Luke Guidry MD [address], [address], [place], [address] [place] [address] [employer] 10:44:51 Medications Name Sig Start Date Stop Date Status Note LastModified by Organization Details LastModified Time cyclobenza medina 10 mg tablet Take 1 tablet every 12 hours by oral route as needed for 90 days. active Not Available Not Available No t Available fenofibrat e micronized 160 mg tablet 160 [...] release TAKE 1 TABLET BY MOUTH EVERY MORNING active Not Available Not Available No t Available buspirone 10 mg tablet Take 1 tablet every 12 hours by oral route as needed for 90 days. 10/04 completed Take as needed for anxiety . Not Available Not Available Not Available docusate sodium 100 mg capsule TAKE 1 CAPSULE BY MOUTH TWICE DAILY NEEDED active Not Available Not Available No t Available omeprazole 20 mg capsule,de layed release TAKE ONE CAPSULE BY MOUTH EVERY DAY active Not Available Not Available No t Available raloxifene 60 mg tablet TAKE 1 TABLET DAILY DIRECTED , TAKE DIRECTED BY GYNECOLO GIST active Not Available Not Available No t Available diclofenac sodium 75 mg tablet,del ayed release take 1 tablet by mouth every 12 hours as needed active Not Available Not Available No t Available metoprolol succinate ER 25 mg tablet,ext ended [...] mg tablet,ext ended release 24 hr Take 2 tablets twice a day by oral route after meals for 90 days. active Not Available Not Available No t Available benazepril 10 mg-hydroch lorothiazi de 12.5 mg tablet TAKE 1 TABLET DAILY EVERY MORNING 2024 active Not Available Not Available Not Avai lable amoxicilli n 875 mg-potassi um clavulanat e [...] oral route as directed for 90 days. active Not Available Not Available No t Available bupropion HCl XL 150 mg 24 hr tablet, extended release TAKE 1 TABLET DAILY QPM. active Not Available Not Available No t Available nitrofuran toin monohydrat e/macrocry stals 100 mg capsule TAKE 1 CAPSULE BY MOUTH EVERY 12 HOURS FOR 7 DAYS active Not Available Not Available No t Available fenofibrat e 160 mg tablet TAKE [...] completed Not Available Not Available Not Available icosapent ethyl 1 gram capsule Take 2 capsules twice a day by oral route as directed for 90 days. active Not Available Not Available No t Available Virtussin AC 10 mg-100 mg/5 mL oral liquid 07/01 completed Not Available Not Available Not Available Afluria 3485-5573( PF) 45 mcg (15 mcg x 3)/0.5 mL intramuscu lar syringe TO BE ADMINIST ERED BY PHARMACI ST FOR IMMUNIZA TION 09/28 completed Not Available Not Available Not Available Jardiance 25 mg tablet Take 1 tablet every day by oral route in the morning for 90 days. active Not Available Not Available No t Available Linzess 72 mcg capsule Take by oral route for 90 days. active Not Available Not [...] Updated DateTime 4 165.1 cm 26.6 kg/m2 10883.1 3 g 98.1 [degF] 76 /min 16 /min 99 % 99 % 112 mm[Hg] 76 mm[Hg] Josue Ayala [facility] [employer] [facility] 4 09:40:04 Date Recorded Body height Body mass index (BMI) Body weight Body temperature Heart rate Respiratory rate Oxygen saturation Oxygen saturation in Arterial blood by Pulse oximetry Systolic blood pressure Diastolic blood pressure Provider Name and Address Organization Details Last Updated DateTime 4 165.1 cm 26.1 kg/m2 83257.5 7 g 98.2 [degF] 76 /min 16 /min 99 % 99 % 118 mm[Hg] 78 mm[Hg] [facility] [employer] [facility] 4 09:52:48 Date Recorded Body height Body mass index (BMI) Body weight Body temperature Heart rate Respiratory rate Oxygen saturation Oxygen saturation in Arterial blood by Pulse oximetry Systolic blood pressure Diastolic blood pressure Provider Name and Address Organization Details Last Updated DateTime 4 165.1 cm 25.7 kg/m2 06582.6 7 g 98.2 [degF] 84 /min 16 /min 98 % 98 % 106 mm[Hg] 76 mm[Hg] [facility] [employer] [facility] 4 10:55:55 Date Recorded Body height Body mass index (BMI) Body weight Systolic blood pressure Diastolic blood pressure Provider Name and Address Organization Details Last Updated DateTime 07/10/2024 165.1 cm 25.1 kg/m2 50483.45 g 110 mm[Hg] 60 mm[Hg] TERI Shelby [facility] [employer] [facility] 4 10:33:26 Date Recorded Body temperature Heart rate Respiratory rate Oxygen saturation Oxygen saturation in Arterial blood by Pulse oximetry Provider Name and Address Organization Details Last Updated DateTime 98 [degF] 80 /min 16 /min 98 % 98 % Luke Guidry MD [address], [place], [address], [facility] [employer] 4 10:41:55 Date Recorded Body height Body mass index (BMI) Body weight Body temperature Heart rate Systolic blood pressure Diastolic blood pressure Provider Name and Address Organization Details Last Updated DateTime 5 165.1 cm 25 kg/m2 85791.6 1 g 97.2 [degF] 88 /min 112 mm[Hg] 70 mm[Hg] Sally Bellamy RN [facility] [employer] 5 09:56:35 Date Recorded Oxygen saturation Oxygen saturation in Arterial blood by Pulse oximetry Provider Name and Address Organization Details Last Updated DateTime 2024 98 % 98 % Luke Guidry MD [address], [place], [address], [employer] [facility] [employer] 2024 10:06:57 Social History Question Answer Notes LastModified by Organizat ion Details LastModified Time Tobacco Smoking Status [facility] 06/11/2023 09:52:34 Do You Have An Advance Directive? No [id number] Information not available 11/08/2022 What Is Your Level Of Alcohol Consumption? None [id number] Information not available 11/08/2022 Do You Wear A Helmet When Biking? No Information not available 06/11/2023 What Is Your Level Of Caffeine Consumption? Moderate Information not available 2024 How Much Tobacco Do You Chew? None [id number] Information not available 11/08/2022 In The 14 Days Before Symptom Onset, Have You Had Close Contact With A Laboratory-confi rmed COVID-19 While That Case Was Ill? No Information not available 06/11/2023 In The 14 Days Before Symptom Onset, Have You Had Close Contact With A Person Who Is Under Investigation For COVID-19 While That Person Was Ill? No [email or web address] Information not available 06/11/2023 What Type Of Diet Are You Following? REGULAR [id number] Information not available 11/08/2022 Do You Or Have You Ever Used E-cigarettes Or Vape? Never Used Electronic Cigarettes [email or web address] Information not available 06/11/2023 What Is The Highest Grade Or Level Of School You Have Completed Or The Highest Degree You Have Received? 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 No [email or web address] Information not available 06/11/2023 What Is The Fluoride Status Of Your Home? Fluoridated [email or web address] Information not available 06/11/2023 Are There Any Guns Present In Your Home? No [email or web address] Information not available 06/11/2023 Do You Use Insect Repellent Routinely? Yes [email or web address] Information not available 06/11/2023 Where Do You Live? SingleLevelHouse [email or web address] Information not available 06/11/2023 Do You Have A Medical Power Of Bill Adjuster? No [email or web address] Information not available 06/11/2023 What Was The Date Of Your Most Recent Tobacco Screening? 06/05/2022 Information not available 06/11/2023 Do You Have Any Pets? Yes [email or web address] Information not available 06/11/2023 What Is Your Relationship Status? [id number] Information not available 11/08/2022 Do You Use Your Seat Belt Or Car Seat Routinely? Yes [email or web address] Information not available 06/11/2023 Do You Have Smoke And Carbon Monoxide Detectors In Your Home? Yes [email or web address] Information not available 06/11/2023 Are You Passively Exposed To Smoke? No [email or web address] Information not available 06/11/2023 Do You Or Have You Ever Used Smokeless Tobacco? Never Used Smokeless Tobacco MIGRATION.[id number] Information not available 11/08/2022 Are There Any Smokers In Your House? No Information not available 06/11/2023 Do You Participate In Social Media? Yes [email or web address] Information not available 06/11/2023 Do You Feel Stressed (tense, Restless, Nervous, Or Anxious, Or Unable To Sleep At Night)? [id number] Information not available 06/11/2023 Do You Use Any Illicit Or Recreational Drugs? No [email or web address] Information not available 06/11/2023 Do You Use Sunscreen Routinely? Yes [email or web address] Information not available 06/11/2023 Has Tobacco Cessation Counseling Been Provided? No [email or web address] Information not available 06/11/2023 Have You Recently Traveled Abroad? No [email or web address] Information not available 06/11/2023 Are You Currently In School? No Information not available 06/11/2023 Do You Have Any Dietary Restrictions? No [email or web address] Information not available 06/11/2023 Do You Or Have You Ever Used Any Other Forms Of Tobacco Or Nicotine? No Information not available 06/11/2023 Sex: Female Functional Status Question Answer Note LastModified by [employer] ion Details LastModified Time What is your exercise level? Heavy [id number] Information not available 11/08/2022 Mental Status None recorded. Family History Relationship Description Onset Age of this Age Resolved Age Notes LastModified by Organization Details LastModified Time Father Diabetes mellitus [id number] Not available 11/08/2022 04:42:08 Father Hypertensive disorder [id number] [id number] Not available 11/08/2022 04:42:08 Father Family history of stroke [email or web address] Not available 09/24 09:47:28 Father Arthritis [email or web address] Not availa ble 2024 09:47:28 Mother Arthritis [email or web address] Not availa ble 2024 09:47:28 Mother Hypertensive disorder [id number] [id number] Not available 11/08/2022 04:42:09 Medical History Condition Response BLINDNESS N RHEUMATIC FEVER N KIDNEY STONES N BLADDER PROBLEMS N MRSA N OTHER # 1 N POLIO N LUNG DISEASE/DISORDER N HISTORY OF DRUG ABUSE N COPD N RADIATION / CHEMOTHERAPY N Other # 2 N SURGERY N EAR OR HEARING PROBLEMS N MUMPS N SHINGLES N BOWEL PROBLEMS N FEMALE PROBLEMS / INFECTIONS N DEPRESSION (INCLUDING POST ) Y STROKE/TIA N THYROID DISEASE N ULCERS N BENIGN PROSTATIC HYPERPLASIA N MEASLES N CERVICALGIA N TB SKIN TEST N HYPOTENSION N MYOCARDIAL INFARCTION N OBESITY N PARAP[place]IA N GERD/NAUSEA N ANEURYSM N URINARY/BLADDER/KIDNEY PROBLEMS [...] HAVE YOU BEEN HOSPITALIZED OR SEEN IN [facility] IN THE PAST YEAR ? N [...] 1 completed Luke Guidry MD [address], [address] [address], [place], [address], [employer] 07/10/2024 10:45:40 zoster recombinant 0 completed Luke Guidry MD [address], [facility] [address], [place], [address], [employer] 07/10/2024 10:45:40 influenza, unspecified formulation 4 completed Luke Guidry MD [address], [address], [place], [address], [employer] [facility] 07/10/2024 10:45:40 influenza, unspecified formulation 9 completed Luke Guidry MD [address], [address], [place], [address], [employer] 07/10/2024 10:45:40 influenza, unspecified formulation 7 completed Luke Guidry MD [address], [address], [place], [address], [employer] [facility] 07/10/2024 10:45:40 influenza, unspecified formulation 8 completed Luke Guidry MD [address], [address], [place], [address], [employer] 07/10/2024 10:45:40 influenza, unspecified formulation 5 completed Luke Guidry MD [address], [address], [place], [address], [employer] [facility] 07/10/2024 10:45:40 Influenza, split virus, trivalent, preservative 4 completed Luke Guidry MD [address], [address], [place], [address], [employer] [facility] 07/10/2024 10:45:41 Influenza, split virus, quadrivalent, PF 9 completed Luke Guidry MD [address], [address], [place], [address], [employer] [facility] 07/10/2024 10:45:41 zoster recombinant 9 completed Not Available [employer] 10/05/2023 09:35:12 Influenza, split virus, quadrivalent, PF 8 completed Luke Guidry MD [address], [address], [place], [address], [employer] 07/10/2024 10:45:41 Influenza, split virus, quadrivalent, PF 7 completed Luke Guidry MD [address] [facility], [facility] [address], [place], [address], [employer] 07/10/2024 10:45:41 Influenza, split virus, quadrivalent, PF 2 completed Not Available [facility] 10/05/2023 09:35:12 Influenza, split virus, quadrivalent, PF 1 completed Not Available [facility] 10/05/2023 09:35:12 pneumococcal polysaccharide PPV23 0 completed Luke Guidry MD [address] [facility], [facility] [address], [place], [address], [employer] 07/10/2024 10:45:40 Tdap 4 completed Not Available [facility] 10/05/2023 09:35:12 Influenza, split virus, quadrivalent, PF 3 completed Luke Guidry MD [address] [facility], [facility] [address], [place], [address], [employer] 06/28/2023 11:18:51 Tdap 4 completed Josue perez, [employer] [facility] [employer] 05/21/2024 10:07:07 Past Encounters Encounter ID Performer Location Encounter Start Date Encounter Closed Date Diagnosis/Indication Diagnosis SNOMED-CT Code Diagnosis ICD10 Code Diagnosis Note [id number] [facility] [place] [address] [place] [address] 01/05/2021 00:00:00 01/05/2021 09:05:52 [id number] [facility] [place] [address] [place] [address] 01/19/2021 00:00:00 01/19/2021 12:01:17 [id number] [facility] [address] [address] 03/15/2021 00:00:00 03/15/2021 09:15:46 [id number] [facility] [place] [address] [place] [address] 04/21/2021 00:00:00 04/21/2021 09:26:13 [id number] [facility] [place] [address] [place] [address] 05/05/2021 00:00:00 05/05/2021 12:23:14 [id number] [facility] [place] [address] [place] [address] 07/25/2021 00:00:00 07/25/2021 10:27:05 [id number] [facility] [place] [address] [place] [address] 08/02/2021 00:00:00 08/02/2021 18:19:46 [id number] [facility] [place] [address] [place] [address] 10/19/2021 00:00:00 10/19/2021 10:21:41 [id number] [facility] [place] [address] [place] [address] 11/09/2021 00:00:00 11/10/2021 12:11:57 [id number] [facility] [address] [place] [address] 11/17/2021 00:00:00 11/17/2021 12:43:19 [id number] [facility] [address] [place] [address] 02/13/2022 00:00:00 02/13/2022 17:53:55 [id number] [facility] [place] [address] [place] [address] 03/23/2022 00:00:00 03/23/2022 16:07:09 [id number] [facility] [place] [address] [place] [address] 05/03/2022 00:00:00 05/03/2022 12:03:19 [id number] [facility] [place] [address] [place] [address] 05/17/2022 00:00:00 05/17/2022 12:34:46 [id number] _KIKO_M IGRATION_ DEFAULT_1 _1 , 06/05/2022 00:00:00 06/05/2022 15:38:46 [id number] [facility] [address] [address] 08/02/2022 00:00:00 08/02/2022 17:34:[id number] [address] 08/16/2022 00:00:00 08/16/2022 10:21:[id number] [address] 10/30/2022 00:00:00 10/30/2022 11:59:14 [id number] Luke Guidry MD [address] [address] 11/09/2022 11:49:23 11/09/2022 12:35:26 Sore throat 748080940 J02.9 Dysuria 62876073 R30.0 Pharyngitis 219048073 J0 2.9 Hypertriglyceridemia 302 790522 E78.2 Hyperlipidemia 92485955 E78.5 Prediabetes 457743263 R7 3.03 Depressive disorder 3548 9007 F32.9 [id number] Luke Guidry MD [address] [address] 12/19/2022 09:45:19 12/19/2022 10:10:23 Fatigue 56296601 R53.83 Dyspnea on exertion 6084 5006 R06.09 Depressive disorder 3548 9007 F32.9 Hypertensive disorder 38 891381 I10 Mixed anxi ety and depressive disorder 379034500 F41.8 Prediabetes 182264941 R7 3.03 Gastroesop hageal reflux disease without esophagitis 600849275 K21.9 [id number] Luke Guidry MD [address] [address] 01/01/2023 10:10:01 01/01/2023 10:26:01 [id number] Luke Guidry MD [address] [address] 04/11/2023 13:56:42 04/11/2023 14:16:19 Dyspnea on exertion 75188722 R06.09 resolved Fatigue 28688444 R53.83 Depressive disorder 3548 9007 F32.9 Hypertensive disorder 38 295857 I10 Mixed anxi ety and depressive disorder 231845332 F41.8 Prediabetes 090304830 R7 3.03 Gastroesop hageal reflux disease without esophagitis 993618231 K21.9 Hyperlipidemia 39845415 E78.5 Hypertriglyceridemia 302 309573 E78.2 [id number] Luke Guidry MD [address] [address] 05/21/2023 09:49:01 05/21/2023 10:09:33 Depressive disorder 48516482 F32.9 Dyspnea on exertion 6084 5006 R06.09 resolved Fatigue 10382526 R53.83 Hypertensive disorder 38 359350 I10 Mixed anxi ety and depressive disorder 417697880 F41.8 Prediabetes 655280133 R7 3.03 Gastroesop hageal reflux disease without esophagitis 386196422 K21.9 Hyperlipidemia 92701750 E78.5 Hypertriglyceridemia 302 345712 E78.2 Adult [facility] th examination 218886854 Z00.00 Vitamin D deficiency 347 21699 E55.9 Screening mammography 24 778859 Z12.31 Sleep apnea 05375128 G47 .30 [id number] Luke Guidry MD [address] [address] 06/11/2023 09:51:50 06/11/2023 10:36:30 Depressive disorder 81091194 F32.9 Dyspnea on exertion 6084 5006 R06.09 resolved Fatigue 37889550 R53.83 Hypertensive disorder 38 220029 I10 Mixed anxi ety and depressive disorder 208132779 F41.8 Prediabetes 984065208 R7 3.03 Gastroesop hageal reflux disease without esophagitis 814834862 K21.9 Hyperlipidemia 23856566 E78.5 Hypertriglyceridemia 302 634486 E78.2 Vitamin D deficiency 347 98206 E55.9 Resolved [id number] Luke Guidry MD [address] [address] 06/28/2023 10:49:13 06/28/2023 11:25:35 Pain of right ankle joint 0767457774 9751995 M25.571 Pain of le ft shoulder joint 0559004592 3923849 M25.512 Pain in right foot 57933 91324 05158 M79.671 Administra tion of influenza vaccine 62102106 Z23 [id number] Luke Guidry MD [address] [address] 07/18/2023 10:16:02 07/18/2023 10:47:41 Pain of right ankle joint 3608589741 7389648 M25.571 Pain in right foot 87998 91327 50209 M79.671 Pain of le ft shoulder joint 0834475475 1794108 M25.512 Osteoarthritis 562076001 M19.90 Lt shoulder, Rt foot, Rt ankle [id number] Luke Guidry MD [address] [address] 09/12/2023 09:56:20 09/12/2023 10:24:18 Pain in right hip joint 8101990990 01298 M25.551 Chronic low back pain 27 5510575 M54.50 Lumbar radiculopathy 128 911098 M54.16 Rt [id number] Luke Guidry MD [address] [address] 09/27/2023 09:55:22 09/27/2023 10:39:10 Prediabetes 729075710 R73.03 Depressive disorder 3548 9007 F32.9 Dyspnea on exertion 6084 5006 R06.09 resolved Fatigue 44475911 R53.83 Hypertensive disorder 38 160155 I10 Mixed anxi ety and depressive disorder 492648663 F41.8 Gastroesop hageal reflux disease without esophagitis 069876872 K21.9 Hyperlipidemia 16160237 E78.5 Hypertriglyceridemia 302 871667 E78.2 Vitamin D deficiency 347 91495 E55.9 Resolved Degenerati on of lumbar intervertebral disc 28388396 M51.36 [id number] [place] Linda DPM [facility] [place] [address] [place] [address] 10/04/2023 10:45:09 10/10/2023 09:34:14 Calcific tendinitis of achilles tendon 031229500 M76.61 recommend rice therapy and topical Voltaren gelStretch ing and icing instructio ns reviewed knee flexedcont inue supportive shoe gearFollow -up in February for surgical clearance- retrocalca kieran exostectom y with hardware Bone spur of right foot 9247787936 38394 M25.774 calcanealx -rays reviewedtr eatment options reviewed [id number] Luke Guidry MD [address] [address] 12/27/2023 09:55:10 12/27/2023 10:18:25 Prediabetes 984043678 R73.03 Depressive disorder 3548 7 F32.9 Dyspnea on exertion 6084 5006 R06.09 resolved Hypertensive disorder 38 552739 I10 Mixed anxi ety and depressive disorder 949753192 F41.8 Gastroesop hageal reflux disease without esophagitis 423224996 K21.9 Hyperlipidemia 22990815 E78.5 Hypertriglyceridemia 302 721008 E78.2 Vitamin D deficiency 347 33308 E55.9 Resolved Degenerati on of lumbar intervertebral disc 66446038 M51.36 Chronic low back pain 27 5995607 M54.50 [id number] Luke Guidry MD [facility] [address] [address] 05/21/2024 09:33:14 05/21/2024 09:56:37 Prediabetes 280558813 R73.03 Hyperlipidemia 58692412 E78.5 Hypertriglyceridemia 302 840750 E78.2 Depressive disorder 3548 9007 F32.9 Hypertensive disorder 38 054859 I10 Mixed anxi ety and depressive disorder 507653103 F41.8 Gastroesop hageal reflux disease without esophagitis 510281685 K21.9 Vitamin D deficiency 347 85325 E55.9 Degenerati on of lumbar intervertebral disc 52818691 M51.36 Chronic low back pain 27 6746903 M54.50 Osteopenia 935866326 M85 .80 Active immunization 3387 9002 Z23 [id number] Luke Guidry MD [address] [address] 06/19/2024 09:44:17 06/19/2024 10:20:39 Hyperlipidemia 74851556 E78.5 Hypertriglyceridemia 302 365871 E78.2 Prediabetes 942977832 R7 3.03 Depressive disorder 3548 9007 F32.9 Hypertensive disorder 38 848995 I10 Gastroesop hageal reflux disease without esophagitis 729834991 K21.9 Vitamin D deficiency 347 15980 E55.9 Improved Degenerati on of lumbar intervertebral disc 18167973 M51.369 Chronic low back pain 27 9782003 M54.50 [id number] Luke Guidry MD [address] [address] 07/03/2024 10:43:37 07/03/2024 11:35:12 Epigastric pain 91046945 R10.13 Nausea and vomiting 1693 2000 R11.2 Gastritis 8541025 K29.70 Abdominal pain 28541779 R10.9 [id number] Luke Guidry MD [address] [address] 07/10/2024 10:25:30 07/10/2024 10:50:27 Seen in emergency clinic 076678149 Z76.89 D/w pt about her findings and further plan of care. Pt agreed. Epigastric pain 53747905 R10.13 Resolved Hiatal her karsten with gastroesophageal reflux 416263176 K21.9 [id number] Luke Guidry MD [facility] [address] [place] [address] 2024 09:45:37 2024 10:18:31 Hyperlipidemia 18558576 E78.5 Hypertriglyceridemia 302 877725 E78.2 Prediabetes 733755550 R7 3.03 Depressive disorder 3548 9007 F32.9 Hypertensive disorder 38 531582 I10 Gastroesop hageal reflux disease without esophagitis 485008636 K21.9 Vitamin D deficiency 347 57464 E55.9 Improved Degenerati on of lumbar intervertebral disc 20728601 M51.369 Chronic low back pain 27 3260168 M54.50 Urinary tr act infectious disease 74132178 N39.0 Chronic id iopathic constipation 55522401 K59.04 Health Concerns Section Related Observation LastModified by Organization Detai ls LastModified Time None Recorded Concern Status LastModified by Organization Details LastModified Time None Recorded Advance Directives Directive N: Payers Encounter Date Sequence Insurance Name Policy Number Policy Wright Covered Member ID Wright Member ID Guarantor Name 05/21/2024 2 EAST - DOS PRIOR TO 2024 - [employer] () Haydee Delgado [id number] Haydee Delgado 05/21/2024 1 [place] Haydee Delgado [id number] Haydee Delgado 06/19/2024 2 [place]AST - DOS PRIOR TO 2024 - [employer] () Haydee Delgado [id number] Haydee Delgado 06/19/2024 1 [place] Haydee Delgado [id number] Haydee Delgado 07/03/2024 2 [place]AST - [place] PRIOR TO 2024 - [employer] () Haydee Delgado [id number] Haydee Delgado 07/03/2024 1 [place] Haydee Delgado [id number] Haydee Delgado 07/10/2024 2 EAST - DOS PRIOR TO 2024 - HUMANA () Haydee Delgado [id number] Haydee Delgado 07/10/2024 1 [place]) Haydee Delgado [id number] Haydee Delgado 2024 2 EAST - [place] PRIOR TO 2024 - HUMANA () Haydee Delgado [id number] Haydee Delgado 2024 1 [place] Haydee Delgado [id number] Haydee Delgado Notes Date Note Type Note Provider Name and Address Organization Details Recorded Time 05/21/2024 text/html Pt is here for h er annual exam. Doing overall better. Denies any [...] blood in stool. Luke Guidry MD [address] [facility], [address], [place], [address], [place] [employer] 05/21/2024 09:55:41 06/19/2024 text/html Pt is here for f /u on her annual labs. Doing overall better. [...] blood in stool. Luke Guidry MD [address] [facility], [facility] [address], [place], [address], [employer] 06/19/2024 10:18:27 07/03/2024 text/html ACV: C/o epigastric area pain for last 1 month, on/off; but for last 1 week, its more constant. Its over her epigastric area only, radiation to back ++. Nausea, vomiting and diarrhea ++, denies any blood in stool/vomitus. Denies any unusual outside food intake, denies any known sick contact. Denies any chest pain/chest pressure/sob/palpi tations/sweating/f ever/chills/urinar y symptoms. Denies any recent use of any antibiotics. Luke Guidry MD [address] [facility], [facility] [address], [place], [address], [employer] 07/03/2024 11:27:28 07/10/2024 text/html Pt is here for f /u on her labs, US, x-ray and ED [...] known sick contact. Denies any chest pain/chest pressure/sob/palpi tations/sweating/f ever/chills/urinar y symptoms. Denies any recent use of any antibiotics. Luke Guidry MD [address], [address], [place], [address], [employer] 07/10/2024 10:47:29 2024 text/html FUV + ACV: C/o urinary urgency, frequency and burning for last 1 week. UTI in the past, same symptoms. C/o constipation for last few years, but for last few months, its getting more worse. Pt has tried few otc supplements and fibers, but still not getting any better. Denies any blood in stool. Pt is f/u with GI for her Hiatal hernia and will be getting more testing done with them. Pt is here for f/u on her labs and chronic conditions. Doing overall better. Denies any problem with meds. Doing much better with her back pain. [...] concerns with it. Pt has chronic GERD & hiatal hernia and is controlled well with meds. Denies any blood in stool. Luke Guidry MD [address], [address], [place], [address], [employer] 2024 10:19:46 OBGyn Episode No OBEpisode recorded.
--- OUTSIDE RECORDS SUMMARY | 2024-10-17 08:36 | XMS_ITS ---
Author Organization [facility] Address [address] [place], [place] [address] Care Team Providers Care Parts Expediter Name Role Phone ROSELIA Grant Unavailable [phone] Lasha Guidry Unavailable Unavailable FRANK MENDOZA Unavailable [phone] REASON FOR VISIT no reason given Encounters Encounter Location Date Provider Diagnosis [facility] [address] [facility] [address] [place], [place] [id number] 07/17/2023 FRANK MENDOZA Plan Of Treatment No Information Progress Notes * MASTER SHANNONB: 959 (64 yo F)Acc No.[id number]:07/17/2023 Patient: SAMUEL LEMUS Provider: Suma Mendoza DPM :1960 A ge:62 Y S ex:Female Date:07/17/2023 Address:[address] [place], [place] [id number] Subjective: * Chief Complaints: * 1 . No reason given. * Medical History: Objective: * Vitals: Assessment: Plan: * Treatment: * Billing Information: * Visit Code: * Procedure Codes: * Electronic signature of FRANK MENDOZA DPM on 10/17/2024 at 08:36 AM TIRE WORKER Sign off status: Pending * Provider: Suma Mendoza DPM Date: 1 09/16/2022 Generated for Amina jones/Joellen/eTransmitting on: 0 10/17/2024 08:36 AM TIRE WORKER
--- OUTSIDE RECORDS SUMMARY | 2024-10-17 08:36 | XMS_ITS | Continuity of Care Document ---
Author Name [facility] Organization [facility] Care Team Providers Care Ticket Dispenser Changer Name Role Phone [facility] Unavailable Unavailable Medications Combined list of outpatient medications from Department of Defense and Veterans Affairs facilities.Medications provided include 1) outpatient medications from the last 15 months, and 2) patient-reported medications. Medication Details Route Status Patient Instructions Prescription Expires Prescription Number Last Dispense Date Ordering Provider Order Date Order Qty Source ATORVASTATI N CALCIUM (ATORVASTAT IN CALCIUM), 10 MG, TABLET, ORAL, APOTEX ANA, 1000 ea. BOTTLE Active [id number] 4 2023 90 Pharmac y Data Transac tion Service Facilit y ATORVASTATI N CALCIUM (atorvastat in calcium), 10 MG, TABLET, ORAL, LEXIE PHARMACEU, 1000 ea. BOTTLE Active [id number] 4 2023 90 Pharmac y Data Transac tion Service Facilit y ATORVASTATI N CALCIUM (atorvastat in calcium), 10 MG, TABLET, ORAL, LEXIE PHARMACEU, 1000 ea. BOTTLE Active [id number] 4 2023 90 Pharmac y Data Transac tion Service Facilit y BENAZEPRIL- HYDROCHLORO THIAZIDE (benazepril HCl/hydroch lorothiazid e), 10-12.5 MG, TABLET, ORAL, PADAGIS, 100 ea. BOTTLE Active [id number] 4 2023 90 Pharmac y Data Transac tion Service Facilit y BENAZEPRIL- HYDROCHLORO THIAZIDE (benazepril HCl/hydroch lorothiazid e), 10-12.5 MG, TABLET, ORAL, PADAGIS, 100 ea. BOTTLE Cancele d [id number] : 2023 0 Pharmac y Data Transac tion Service Facilit y BENAZEPRIL- HYDROCHLORO THIAZIDE (benazepril HCl/hydroch lorothiazid e), 10-12.5 MG, TABLET, ORAL, PADAGIS, 100 ea. BOTTLE Active [id number] 4 2023 90 Pharmac y Data Transac tion Service Facilit y BUPROPION XL (bupropion HCl), 150 MG, TAB ER 24H, ORAL, AVKARE, 30 ea. BOTTLE Cancele d [id number] : 2023 0 Pharmac y Data Transac tion Service Facilit y BUPROPION XL (bupropion HCl), 150 MG, TAB ER 24H, ORAL, [employer] 500 ea. BOTTLE Active [id number] 2023 90 Pharmac y Data Transac tion Service Facilit y BUPROPION XL (bupropion HCl), 150 MG, TAB ER 24H, ORAL, [employer] 500 ea. BOTTLE Cancele d [id number] : 2023 0 Pharmac y Data Transac tion Service Facilit y CYCLOBENZAP RINE HCL (cyclobenza medina HCl), 10 MG, TABLET, ORAL, AVKARE, 1000 ea. BOTTLE Cancele d [id number] : 2023 0 Pharmac y Data Transac tion Service Facilit y CYCLOBENZAP RINE HCL (cyclobenza medina HCl), 10 MG, TABLET, ORAL, AVKARE, 1000 ea. BOTTLE Active [id number] 2023 180 Pharmac y Data Transac tion Service Facilit y CYCLOBENZAP RINE HCL (cyclobenza medina HCl), 10 MG, TABLET, ORAL, AVKARE, 1000 ea. BOTTLE Active [id number] 4 2023 180 Pharmac y Data Transac tion Service Facilit y CYCLOBENZAP RINE HCL (cyclobenza medina HCl), 10 MG, TABLET, ORAL, AVKARE, 1000 ea. BOTTLE Active [id number] 2023 180 Pharmac y Data Transac tion Service Facilit y DICLOFENAC SODIUM (diclofenac sodium), 75 MG, TABLET DR, ORAL, ADVAGEN PHARMA, 500 ea. BOTTLE Cancele d [id number] : 2023 0 Pharmac y Data Transac tion Service Facilit y DICLOFENAC SODIUM (DICLOFENAC SODIUM), 75 MG, TABLET DR, ORAL, AVKARE, 1000 ea. BOTTLE Active [id number] 2023 180 Pharmac y Data Transac tion Service Facilit y DICLOFENAC SODIUM (DICLOFENAC SODIUM), 75 MG, TABLET DR, ORAL, AVKARE, 1000 ea. BOTTLE Active [id number] 2023 60 Pharmac y Data Transac tion Service Facilit y ESCITALOPRA M OXALATE (escitalopr am oxalate), 20 MG, TABLET, ORAL, [employer], 1000 ea. BOTTLE Cancele d [id number] : 2023 0 Pharmac y Data Transac tion Service Facilit y ESCITALOPRA M OXALATE (escitalopr am oxalate), 20 MG, TABLET, ORAL, [employer], 1000 ea. BOTTLE Active [id number] 2023 90 Pharmac y Data Transac tion Service Facilit y ESCITALOPRA M OXALATE (escitalopr am oxalate), 20 MG, TABLET, ORAL, [employer], 1000 ea. BOTTLE Active [id number] 2023 90 Pharmac y Data Transac tion Service Facilit y ESCITALOPRA M OXALATE (ESCITALOPR AM OXALATE), 20 MG, TABLET, ORAL, EXELAN PHARMACE, 1000 ea. BOTTLE Cancele d [id number] : 2023 0 Pharmac y Data Transac tion Service Facilit y ESCITALOPRA M OXALATE (ESCITALOPR AM OXALATE), 20 MG, TABLET, ORAL, EXELAN PHARMACE, 1000 ea. BOTTLE Active [id number] 2023 90 Pharmac y Data Transac tion Service Facilit y FENOFIBRATE (fenofibrat e), 160 MG, TABLET, ORAL, PROFICIENT RX L, 90 ea. BOTTLE Active [id number] 2023 90 Pharmac y Data Transac tion Service Facilit y FENOFIBRATE (fenofibrat e), 160 MG, TABLET, ORAL, PROFICIENT RX L, 90 ea. BOTTLE Active [id number] 2023 90 Pharmac y Data Transac tion Service Facilit y ICOSAPENT ETHYL (icosapent ethyl), 1 G, CAPSULE, ORAL, APOTEX ANA, 120 ea. BOTTLE Active [id number] 2023 360 Pharmac y Data Transac tion Service Facilit y ICOSAPENT ETHYL (icosapent ethyl), 1 G, CAPSULE, ORAL, APOTEX ANA, 120 ea. BOTTLE Active [id number] 2023 360 Pharmac y Data Transac tion Service Facilit y JARDIANCE (EMPAGLIFLO ZIN), 25 MG, TABLET, ORAL, BOEHRINGER ING., 30 ea. BOTTLE Cancele d [id number] : 2023 0 Pharmac y Data Transac tion Service Facilit y JARDIANCE (EMPAGLIFLO ZIN), 25 MG, TABLET, ORAL, BOEHRINGER ING., 30 ea. BOTTLE Active [id number] 2023 90 Pharmac y Data Transac tion Service Facilit y JARDIANCE (EMPAGLIFLO ZIN), 25 MG, TABLET, ORAL, BOEHRINGER ING., 30 ea. BOTTLE Active [id number] 2023 90 Pharmac y Data Transac tion Service Facilit y JARDIANCE (EMPAGLIFLO ZIN), 25 MG, TABLET, ORAL, BOEHRINGER ING., 30 ea. BOTTLE Cancele d [id number] : 2023 0 Pharmac y Data Transac tion Service Facilit y JARDIANCE (EMPAGLIFLO ZIN), 25 MG, TABLET, ORAL, BOEHRINGER ING., 30 ea. BOTTLE Cancele d [id number] : 2023 0 Pharmac y Data Transac tion Service Facilit y METFORMIN HCL ER (metformin HCl), 500 MG, TAB ER 24H, ORAL, AVKARE, 1000 ea. BOTTLE Active [id number] 2023 180 Pharmac y Data Transac tion Service Facilit y METFORMIN HCL ER (metformin HCl), 500 MG, TAB ER 24H, ORAL, AVKARE, 1000 ea. BOTTLE Cancele d [id number] : 2023 0 Pharmac y Data Transac tion Service Facilit y METFORMIN HCL ER (metformin HCl), 500 MG, TAB ER 24H, ORAL, GRANULES PHARMA, 500 ea. BOTTLE Cancele d [id number] : 2023 0 Pharmac y Data Transac tion Service Facilit y METFORMIN HCL ER (metformin HCl), 500 MG, TAB ER 24H, ORAL, GRANULES PHARMA, 500 ea. BOTTLE Active [id number] 4 2023 180 Pharmac y Data Transac tion Service Facilit y METHYLPREDN ISOLONE (methylpred nisolone), 4 MG, TAB DS PK, ORAL, [employer], 21 ea. DOSE-PACK Active [id number] 2022 21 Pharmac y Data Transac tion Service Facilit y METOPROLOL SUCCINATE (metoprolol succinate), 50 MG, TAB ER 24H, ORAL, [employer] 1000 ea. BOTTLE Active [id number] 2023 90 Pharmac y Data Transac tion Service Facilit y Allergies, Adverse Reactions, Alerts Combined list of allergies from Department of Defense and Veterans Affairs facilities. It does not include entries that were removed or entered in error. Substance Category Reaction Severity Reaction type Status Date Reported Comments Source No Known Allergies Drug allergy (disorder) active 01/08/2008 [facility] ([facility]) Immunizations Combined list of available immunizations from the Department of Defense and Veterans Affairs facilities. Immunization Series Date Given Administered By Site Reaction Lot Number CVX Code Drug Cable Installer Repairer Status Comments Source zoster recombinant 2020 ALUL, () Not Given zoster recombina nt DoD zoster recombinant 2019 [facility], () Not Given zoster recombina nt DoD Influenza, seasonal, injectable, preservative free 2013 ALUL, RUSHDI DO () Not Given Influenza , seasonal, injectabl e, preservat edward free DoD tuberculin skin test; purified protein derivative solution, intradermal 1 1999 Unknown, Provider [id number] Sanofi Pasteur ([facility]) complet ed tuberculi n skin test; purified protein derivativ e solution, intraderm al DoD Social History Combined list of available smoking, tobacco, and other social history from Department of Defense and Veterans Affairs facilities. Social History Type Response Date Comment Sour e This section is an empty social history section. DoD
--- OUTSIDE RECORDS SUMMARY | 2024-10-17 08:36 | XMS_ITS | Referral Summary ---
Author Organization [facility] Address [address] [place] [address] Care Team Providers Care Label Drier Name Role Phone Luke Guidry MD Primary Care Provider [phone] Allergies Active Allergy Reactions Criticality Noted Date [...] CDT Plan of Treatment Not on file Insurance MEDICARE FOR LIFE Care Teams Label Drier Relationship Specialty Start Date End Date Luke Guidry MD [address] [place] [address] PCP - General Family Medicine 12/29/22
--- OUTSIDE RECORDS SUMMARY | 2024-10-17 08:36 | XMS_ITS ---
Author Organization [facility] Address [address] [place], [place] [address] Care Team Providers Care Extractor Operator Helper Name Role Phone ROSELIA Grant Unavailable [phone] Lasha Guidry Unavailable Unavailable FRANK MENDOZA Unavailable [phone] REASON FOR VISIT *Foot Pain, For the past 2 weeks, the patient has had pain to the outside and back of her right foot. No accident or injury reported. She denies any calf pain. She has no shortness of breath. The outside of the foot can get puffy. It hurts to walk on Vital Signs Height 66.00 in 07/03/2023 Weight 143 lbs 07/03/2023 BMI 23.08 kg/m2 07/03/2023 Height-cm 167.64 cm 07/03/2023 Weight-kg 64.86 kg 07/03/2023 Encounters Encounter Location Date Provider Diagnosis [facility] [place] [address] [facility] [address] [place], [place] [id number] 07/03/2023 FRANK MENDOZA Peroneal tendinitis, right leg [...] * MASTER SHANNONB: [birth year] (62 yo F)Acc No.[id number]:07/03/2023 Patient: Louisa HERMES SAMUEL Provider: Suma Mendoza DPM :1960 A ge:62 Y S ex:Female Date:07/03/2023 Address:[address] [place], [place] [address] Subjective: * Chief Complaints: * 1 . *Foot Pain. 2. For the past 2 weeks, the patient has had pain to the outside and back of her right foot. No accident or injury reported. She denies any calf pain. She has no shortness of breath. The outside of the foot can get puffy. It hurts to walk on. * HPI: H PI: New Complaint E stablished patient presents with a new complaint., Patient complains of an issue to _Rt foot and ankle. pt complain of swollen around and ankle and around the back of foot. , Patient denies any injury., Duration of problem is _2-3 weeks ., MA: _BS. * ROS: G eneral / Constitutional: Patient denies c hills, fever, weakness, night sweats. M usculoskeletal: Patient denies c hildhood foot problems, weakness. P atient complains of j oint pain. P eripheral Vascular: Patient denies u lceration of feet, cold extremities. ? S kin: Patient denies u lcerations, discoloration. ? N eurologic: Patient denies b alance difficulty, confusion, difficulty speaking, dizziness. * Medical History: Objective: * Vitals: W t:143lbs, Wt-k.86 kg, Ht: 66.00 in, Ht-cm: 167.64 cm, BMI:23.08Index, Body Surface Area: 1.74. * Examination: C onstitutional: Constitutional T he patient is awake, alert, well developed, well groomed and well nourished.. D ermatologic: Skin findings: S kin is warm, dry, supple with no breaks in the skin.. V ascular: Dorsalis pedis pulse: 2 /4, bilateral. Posterior tibial pulse: 2 /4, bilaterally. Capillary refill: l ess than 3 seconds. Edema: N o edema, bilateral. N eurologic: Gross sensation G ross sensation is intact to light touch..? M usculoskeletal: Muscle Strength M uscle strength is 5/5 in regards to dorsiflexion, plantarflexion, inversion, and eversion in bilateral lower extremities.. Pain on palpation p eroneal tendons of the right foot. There is pain with eversion against resistance. Pain on palpation to the cuboid of the right foot. Pain the abduction of the forefoot on the rearfoot right. R adiographs: Right Foot N o evidence of fracture, dislocation, or other osseous lesions. Stress fracture can not be ruled out. Assessment: * Assessment: 1. N ondisplaced fracture of cuboid bone of right foot, initial encounter for closed fracture - S92.214A (Primary) 2 . P eroneal tendinitis, right leg - M76.71 3 . P ain in right foot - M79.671 Plan: * Treatment: 2. O thers Notes: Cuboid Stress Fracture: I discussed with [...] the affected foot as much as possible. * Procedure Codes: 7 3630 X-RAY EXAM OF FOOT, Modifiers: RT , L4361 WALKING BOOT PNEUMATIC AND/OR VAC, Modifiers: RT , NU * Follow Up: 2 Weeks (Reason: Repeat xrays 3 views of the right foot. See how CAM boot helped cuboid and peroneal tendons) * Billing Information: * Visit Code: 42532 Office Visit, Est Pt., Level 3. * Procedure Codes: 04157 X-RAY EXAM OF FOOT. Modifiers: RT L4361 WALKING BOOT PNEUMATIC AND/OR VAC. 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 [...]
== END 2024-10-17 08:26 | disposition home or self-care (01) ==
LOC: ANHIMG 08:28
PROVIDERS: PCP Family Medicine; Visit Provider Surgery
DX: K44.9 Diaphragmatic hernia without obstruction or gangrene (principal)
CPT/HCPCS: 74246

== ENCOUNTER 2024-11-24 12:21 | Outpatient (CLI) | payer MEDICARE, OTHER, SELFPAY ==
--- NOTE | ~2024-11-24 | DEXA_ITS ---
Bone Density Report Name: SAMUEL SHANNON Age: 64 Sex: Female Ethnicity: White Date of : 1960 Indication: osteopenia; monitoring treatment; height loss; prior fracture; Referring Provider: KHARI, [facility] Study: Bone densitometry was performed. Exam Date: November 24, 2024 Accession number: [id number] Bone Density: Region BMD T-score Z-score Classification AP Spine(L1-L4) 1.344 2.7 4.5 Normal Femoral Neck (Left) 0.644 -1.8 -0.3 Osteopenia Total Hip (Left) 0.732 -1.7 -0.4 Osteopenia Femoral Neck (Right) 0.685 -1.5 0.1 Osteopenia Total Hip (Right) 0.777 -1.4 -0.1 Osteopenia Total Hip Mean 0.755 -1.6 -0.3 Osteopenia World Health Organization criteria for BMD impression classify patients as: Normal (T-score at or above -1.0), Osteopenia (T-score between -1.0 and -2.5), or Osteoporosis (T-score at or below -2.5). 10-year Fracture Risk: FRAX not reported because: Treated for osteoporosis Previous Exams: Region Exam Age BMD T-score BMD Change BMD Change Date g/cm2 vs Baseline vs Previous Total Hip(Left) 11/24/2024 64 0.732 -1.7 -0.016 (-2.2%) -0.033 (-4.3%) 10/29/2017 57 0.765 -1.4 0.017 (2.3%) 0.017 (2.3%) 09/29/2015 55 0.748 -1.6 Total Hip(Right) 11/24/2024 64 0.777 -1.4 0.026 (3.4%) -0.019 (-2.4%) 10/29/2017 57 0.796 -1.2 0.045 (5.9%)* 0.045 (5.9%)* 09/29/2015 55 0.751 -1.6 *Denotes significance at 95% confidence level, LSC for Total Hip = 0.027 g/cm2 Clinical Information Provided by Patient: Has had a low trauma fracture Is being treated for osteoporosis Has used the following medications: Evista (i.e. raloxifene), Vitamin D, Calcium Patient maximum height was 65 Menopause Age: 43 Drinks caffeinated beverages Onset of menses at age 12 Number of children 2 Impression: The patient has low bone mass, based on the Left Femoral Neck T-score. The patient has risk factors, including: previous fracture. The BMD for the Total Hip(Left) decreased, changing by -4.3% since the last DXA exam. Discussion: SIGNIFICANT BONE LOSS OBSERVED. Adherence to therapy (including calcium and vitamin D intake) should be assessed. If compliance is not a factor, review management and exclusion of secondary causes of bone loss. It is important to ask patients whether they are taking their medications and to encourage continued and appropriate compliance with their osteoporosis therapies to reduce fracture risk. It is also important to review their risk factors and encourage appropriate calcium and vitamin D intakes, exercise, fall prevention and other lifestyle measures. Follow-Up: Consider a repeat BMD and Vertebral Fracture Assessment (VFA) exam in 2 years or sooner if medically necessary, to reassess this patient's status. Reported by: SUAD on 11/24/2024 12:54:00 PM. Reviewed, dictated and finalized at location A.
--- OUTSIDE RECORDS SUMMARY | 2024-11-24 14:41 | XMS_ITS | Data Portability ---
Author Organization [facility], Main Office Address [address] [place] [address] Care Team Providers Care Banking Consultant Name Role Phone LUKE GUIDRY Primary Care Provider [phone] LUKE GUIDRY Referring Provider LUKE GUIDRY Primary Care Provider Assessment Encounter [...] precautions explained. Cont f/u with Ortho at [facility] as per schedule. Cont f/u with Gyne as per schedule. Cont f/u with Ophtho at [facility] as per schedule. Cont f/u with Cardio as per schedule. Cont f/u with Derm at [facility] as per schedule. Advised to [...] in 2-3 weeks. Annual labs in 06/04. [email or web address] Not available 05/21/2024 09:53:06 06/19/2024 06/19/2024 63 [...] precautions explained. Cont f/u with Ortho at [facility] as per schedule. Cont f/u with Gyne as per schedule. Cont f/u with Ophtho at [place] as per schedule. Cont f/u with Cardio [...] A1c in 10/04. Annual labs in 9/25. Not available 06/19/2024 10:17:25 07/03/2024 07/03/2024 D/w [...] Pt verbalized understanding it. F/u as directed. [email or web address] Not available 07/03/2024 11:25:23 2024 2024 64 [...] precautions explained. Cont f/u with Ortho at [facility] as per schedule. Cont f/u with Gyne as per schedule. Cont f/u with Ophtho at [facility] as per schedule. Cont f/u with Cardio as per schedule. Cont f/u with Derm at [facility] as per schedule. Pt has [...] A1c in 01/02. Annual labs in 06/04. [email or web address] Not available 2024 10:19:27 Plan of Treatment Reminders Order Date Submit Date Provider Last Modified By Organization Details Last Modified Time Details Appointments Follow Up 2024 09:30A Maximino Guidry MD Not available Not available Not available Lab glycohemo globin, total, blood 2024 025 [email or web address] [facility] (Lab), [address] [place], [address], 2024 10:08:22 lipid panel, serum 2024 025 [facility] (Lab), [address] [place], [address], 2024 10:08:23 CBC w/ auto diff 2023 [facility] (Lab), [address] [place], [address], 07/05/2024 11:56:04 CMP, serum or plasma 2023 [facility] (Lab), [address] [place], [address], 07/04/2024 14:29:26 lipase, serum or plasma [address] (Lab), [address] [place], [address], 07/17/2024 08:25:27 amylase, serum or plasma [address] (Lab), [address] [place], [address], 07/17/2024 08:25:27 ESR (erythroc yte sedimenta tion rate), blood [address] (Lab), [address] [place], [address], 07/17/2024 08:25:27 urinalysi s complete, reflex culture [address] (Lab), [address] [place], [address], 07/17/2024 08:25:27 troponin I, ultrasens itive, serum [address] (Lab), [address] [place], [address], 07/17/2024 08:25:27 glycohemo globin, total, blood [address] (Lab), [address] [place], [address], 10/23/2024 14:01:26 lipid panel, serum [address] (Lab), [address] [place], [address], 10/23/2024 14:01:26 vitamin B12 + folate, serum or blood [address] (Lab), [address] [place], [address], 05/29/2024 10:37:35 magnesium , serum or plasma [address] (Lab), [address] [place], [address], 05/29/2024 10:37:36 CBC w/ auto diff [address] (Lab), [address] [place], [address], 05/29/2024 10:37:35 urinalysi s complete, reflex culture [address] (Lab), [address] [place], [address], 05/29/2024 10:37:35 glycohemo globin, total, blood [email or web address] [place] [address] (Lab), [address] [place], [address], 06/23/2024 08:06:33 CMP, serum or plasma [address] (Lab), [address] [place], [address], 05/29/2024 10:37:34 lipid panel, serum [address] (Lab), [address] [place], [address], 05/29/2024 10:37:35 TSH, serum or plasma [address] (Lab), [address] [place], [address], 05/29/2024 10:37:35 vitamin D, 25-hydrox y, total, serum [address] (Lab), [address] [place], [address], 05/29/2024 10:37:35 Referral gastroent erologist referral - Please call patient to schedule. 2023 Nicola Monreal MD, [address] [facility], [address], [place], [address], 07/18/2024 15:16:54 Procedures None recorded. Surgeries None recorded. Imaging XR, abdomen, 2 or more views + XR, chest, 1 view 2023 [email or web address] [place] [address] Imaging, [address], [address], [place], [address], 07/10/2024 10:04:53 US, abdomen, complete 2023 024 [email or web address], [address], [address], [place], [address], 07/09/2024 15:12:26 DEXA 2023 024 [email or web address] 56 [facility], [address], [address], [place], [address], 06/04/2024 16:42:19 Medication Orders cyclobenz aprine 10 mg tablet 2024 [facility], [address] [place] [address], [address], 2024 10:08:33 Vascepa 1 gram capsule 2024 025 [facility], [address] [place] [address], [address], 2024 10:08:28 fenofibra te micronize d 200 mg capsule 2024 025 [facility], [address] [place] [address], [address], 2024 10:08:32 benazepri l 10 mg-hydroc hlorothia zide 12.5 mg tablet 2024 025 [facility], [address] [place] [address], [address], 2024 10:08:27 metformin ER 500 mg tablet,ex tended release 24 hr 2024 025 [facility], [address] [place] [address], [address], 2024 10:08:30 Jardiance 25 mg tablet 2024 025 [facility], [address] [place] [address], [address], 2024 10:08:33 diclofena c sodium 75 mg tablet,de layed release 2024 025 [facility], [address] [place] [address], [address], 2024 10:08:29 atorvasta tin 20 mg tablet 2024 025 [facility], [address] [place] [address], [place], [address], 2024 10:08:30 docusate sodium 100 mg capsule 2024 [facility], [address] [place], [place], [id number], 2024 10:11:03 Linzess 72 mcg capsule 2024 [facility] #61757, [address] [place], [place], [id number], 2024 10:11:00 Macrobid 100 mg capsule 2024 [facility] #69486, [address] [place], [place], [id number], 2024 10:09:10 bupropion HCl XL 150 mg 24 hr tablet, extended release 2024 [facility], [address] [place] [address], [address], 2024 10:08:26 escitalop shaneka 20 mg tablet 2024 025 [facility], [address] [place] [address], [address], 2024 10:08:32 pantopraz ole 40 mg tablet,de layed release 2023 024 [facility] #97316, [address], [place], [id number], 07/10/2024 10:40:12 ondansetr on HCl 4 mg tablet 2023 [facility] #59641, [address] [place], [place], [id number], 07/03/2024 11:05:55 pantopraz ole 40 mg tablet,de layed release 2023 [email or web address] [facility] #87371, [address] [facility], [place], [place], [id number], 07/03/2024 11:27:24 cyclobenz aprine 10 mg tablet 2023 [facility], [address] [place] [address], [address], 06/19/2024 09:57:12 Vascepa 1 gram capsule 2023 [facility], [address] [place] [address], [address], 06/19/2024 09:57:07 fenofibra te micronize d 200 mg capsule 2023 [facility], [address] [place] [address], [address], 06/19/2024 09:57:10 benazepri l 10 mg-hydroc hlorothia zide 12.5 mg tablet 2023 [facility], [address] [place] [address], [address], 06/19/2024 09:57:08 metformin ER 500 mg tablet,ex tended release 24 hr 2023 [email or web address], [address] [place] [address], [address], 07/10/2024 10:44:57 Jardiance 25 mg tablet 2023 [email or web address], [address] [place] [address], [address], 07/10/2024 10:44:56 diclofena c sodium 75 mg tablet,de layed release 2023 024 [email or web address] [facility], [address] [place] [address], [address], 07/10/2024 10:44:55 atorvasta tin 20 mg tablet 2023 024 [facility], [address] [place] [address], [address], 06/19/2024 09:57:13 bupropion HCl XL 150 mg 24 hr tablet, extended release 2023 024 [facility], [address] [place] [address], [address], 06/19/2024 09:57:13 escitalop shaneka 20 mg tablet 2023 024 [facility], [address] [place] [address], [address], 06/19/2024 09:57:07 cyclobenz aprine 10 mg tablet 2023 024 [facility], [address] [place] [address], [address], 05/21/2024 09:50:03 fenofibra te 160 mg tablet 2023 024 [email or web address] [facility], [address] [place] [address], [address], 06/19/2024 09:58:05 Vascepa 1 gram capsule 2023 024 [facility], [address] [place] [address], [address], 05/21/2024 09:50:05 benazepri l 10 mg-hydroc hlorothia zide 12.5 mg tablet 2023 024 [facility], [address] [place] [address], [address], 05/21/2024 09:50:01 metformin ER 500 mg tablet,ex tended release 24 hr 2023 024 [facility], [address] [place] [address], [address], 07/10/2024 10:44:57 Jardiance 25 mg tablet 2023 024 [email or web address] [facility], [address] [place] [address], [address], 07/10/2024 10:44:56 diclofena c sodium 75 mg tablet,de layed release 2023 024 [facility], [address] [place] [address], [address], 07/10/2024 10:44:56 atorvasta tin 10 mg tablet 2023 024 [facility], [address] [place] [address], [address], 06/19/2024 09:57:59 bupropion HCl XL 150 mg 24 hr tablet, extended release 2023 024 [facility], [address] [place] [address], [address], 05/21/2024 09:50:01 escitalop shaneka 20 mg tablet 2023 024 [facility], [address] [place] [address], [address], 05/21/2024 09:50:22 Patient TargetsNo targets recorded. Patient InstructionsNo instructions recorded. Reason for Referral [employer] Referral for Hiatal hernia with gastroesophageal reflux Please call patient to schedule. Referring Physician: [facility], Encounter Date: 07/10/2024 Results Created Date Observation Date Name Description Value Unit Range Abnormal Flag Note LastModifiedBy Organization Detail LastModifiedTime 07/09/20 24 07/09/2024 US, abdom en, compl ete No observ ation record ed. [email or web address] [facility] [address], [place], [address], 07/10/2024 10:36:28 07/09/20 24 07/09/2024 XR, chest , 1 view No observ ation record ed. [email or web address] [facility] [address], [place], [address], 07/10/2024 11:45:08 10/17/19 25 10/17/2024 XR, kidne y + urete r + bladd er No observ ation record ed. [email or web address] [facility] [address], [place], [address], 10/19/2024 17:30:30 Result Notes None recorded. Problems Name Problem SNOMED Code Status Onset Date Resolution Date Notes Provider Name and Address Organization Details Recorded Time Sore throat 127434394 Active 2022 Luke Guidry MD [address], [address], [place], [address] , [facility] [employer] 10:45:22 Dysuria 26760119 Active 2022 Luke Guidry MD [address], [address], [place], [address] , [employer]az S [employer] 10:45:22 Pharyngit is 434408129 Active 2022 Luke Guidry MD [address], [address], [place], [address] , [facility] [employer] 4 10:45:22 Dyspnea on exertion 66520397 Active 2022 Luke Guidry MD [address], [address], [place], [address] , [facility] [employer] [facility] 10:45:22 Gastroeso phageal reflux disease without esophagit is 668158753 Active 2022 Luke Guidry MD [address], [address], [place], [address] , [place] [facility] 4 10:45:22 Sleep apnea 68520065 Active 2022 Luke Guidry MD [address], [address], [place], [address] , [place] [facility] 4 10:45:22 Pain of right ankle joint 24973161260 713557 Active 2022 Luke Guidry MD [address], [address], [place], [address] , [place] [facility] 4 10:45:21 Pain of left shoulder joint 21127176192 858140 Active 2022 Luke Guidry MD [address], [address], [place], [address] , [place] [facility] 4 10:45:21 Pain in right foot 36926982126 9107 Active 2022 Luke Guidry MD [address], [address], [place], [address] , [place] [facility] 4 10:45:22 Pain in right hip joint 65360517766 9102 Active 2023 Luke Guidry MD [address], [address], [place], [address] , [place] [facility] 4 10:45:22 Chronic low back pain 024879836 Active 2023 Luke Guidry MD [address], [address], [place], [address] , [place] [facility] 4 10:45:22 Lumbar radiculop athy 130617713 Active 2023 Luke Guidry MD [address], [address], [place], [address] , [place] [facility] 4 10:45:21 Degenerat ion of lumbar intervert ebral disc 43585529 Active 2023 Luke Guidry MD [address], [address], [place], [address] , [place] [facility] 4 10:45:22 Arthritis 1273380 Active 2023 Luke Guidry MD [address], [address], [place], [address] , [place] [facility] 4 10:45:22 Diabetes mellitus 62536699 Active 2023 Luke Guidry MD [address], [address], [place], [address] , [place] [facility] 4 10:45:22 Bone spur of right foot 86100911774 9103 Active 2023 Luke Guidry MD [address], [address], [place], [address] , [place] [facility] [employer] [facility] 4 10:45:22 Calcific tendiniti s of achilles tendon 496254370 Active 2023 Luke Guidry MD [address], [address], [place], [address] , [place] [facility] 4 10:45:22 Epigastri c pain 57919922 Active 2023 Luke Guidry MD [address], [address], [place], [address] , [place] [facility] 4 10:45:22 Nausea and vomiting 48821421 Active 2023 Luke Guidry MD [address], [address], [place], [address] , [place] [facility] 4 10:45:22 Gastritis 9505074 Active 2023 Luke Guidry MD [address], [address], [place], [address] , [place] [facility] 4 10:45:22 Abdominal pain 02001764 Active 2023 Luke Guidry MD [address], [address], [place], [address] , [facility] [employer] [facility] 4 10:45:22 Hiatal hernia with gastroeso phageal reflux 363775612 Active 2023 Luke Guidry MD [address], [address], [place], [address] , [employer] [facility] 4 10:45:22 Urinary tract infectiou s disease 31075581 Active 2024 Luke Guidry MD [address], [address], [place], [address] , [facility] [employer] [facility] 5 10:08:35 Chronic idiopathi c constipat ion 74991956 Active 2024 Luke Guidry MD [address], [address], [place], [address] , [facility] [employer] [facility] 5 10:09:35 Impacted cerumen of bilateral ears 39628654884 44755 Active 2017 Luke Guidry MD [address], [address], [place], [address] , [facility] [employer] [facility] 4 10:45:21 Sprain of left foot 54316751777 704931 Active 2021 Luke Guidry MD [address], [address], [place], [address] , [facility] 4 10:45:21 Urticaria 469751058 Completed Not Available [facility] 3 04:51:15 Excessive cerumen in ear canal 440742965 Completed Not Available [facility] 3 04:51:15 Acute sinusitis 46297543 Completed Not Available [facility] 3 04:51:15 Pain of left ankle joint 50105067342 888728 Active 2021 Luke Guidry MD [address], [address], [place], [address] , [employer] 4 10:45:21 Excessive upper gastroint estinal gas 349141786 Completed Not Available [facility] 3 04:51:15 Impacted cerumen 90244389 Completed Not Available [facility] 3 04:51:15 Congenita l pes cavus 473342612 Active 2021 Luke Guidry MD [address], [place], [address] , [employer] 4 10:45:22 Periphera l venous insuffici ency 42063344 Active 2017 Luke Guidry MD [address], [place], [address] , [employer] 4 10:45:22 Abdominal pain 53513562 Completed Luke Guidry MD [address], [place], [address] , [employer] 4 11:02:57 Mixed anxiety and depressiv e disorder 585667008 Active 2016 Luke Guidry MD [address], [place], [address] , [employer] 4 10:45:22 Gastroeso phageal reflux disease 641481810 Active Luke Guidry MD [address], [place], [address] , [employer] 4 10:45:22 Osteoarth ritis of knee 370533012 Active 2016 Luke Guidry MD [address], [place], [address] , [employer] 4 10:45:22 Lumbar spondylos is 092248451 Active 2021 Luke Guidry MD [address], [place], [address] , [employer] 4 10:45:22 Ankle pain 833854406 Active 2021 Luke Guidry MD [address], [place], [address] , [employer] 4 10:45:22 Urinary symptoms 822420134 Completed Not Available [facility] 3 04:51:16 Gastroent eritis 83550327 Completed Not Available [facility] 3 04:51:16 Eruption 828962868 Completed Not Available [facility] 3 04:51:16 Hypertrig lyceridem ia 732557063 Active 2016 Luke Guidry MD [address], [place], [address] , [employer] 4 10:45:22 Osteopeni a 371660592 Active 2017 Luke Guidry MD [address], [place], [address] , [employer] 4 10:45:22 Pain in left foot 55755487396 9107 Active 2021 Luke Guidry MD [address], [place], [address] , [employer] 4 10:45:22 Peroneal tendiniti s of left lower limb 20653987814 9107 Active 2021 Luke Guidry MD [address], [place], [address] , [employer] 4 10:45:22 Vitamin D deficienc y 71738419 Active 2016 Luke Guidry MD [address], [place], [address] , [employer] 4 10:45:22 Depressiv e disorder 83419332 Active Luke Guidry MD [address], [place], [address] , [employer] 4 10:45:22 Sinusitis 31980365 Active 2021 Luke Guidry MD [address], [address], [place], [address] , [employer] 4 10:45:22 Hypertens edward disorder 70967200 Active 2020 Luke Guidry MD [address], [address], [place], [address] , [employer] 4 10:45:22 Cervical spondylos is 440673098 Active 2021 Luke Guidry MD [address], [address], [place], [address] , [employer] 4 10:45:22 Thoracic spondylos is 838182459 Active 2021 Luke Guidry MD [address], [address], [place], [address] , [employer] 4 10:45:22 Osteoarth ritis 247340015 Active Luke Guidry MD [address], [address], [place], [address] , [employer] 4 10:45:22 Kyphoscol iosis deformity of spine 078100181 Active 2021 Luke Guidry MD [address] [employer], [address], [place], [address] , [employer] 4 10:45:22 Kyphosis deformity of spine 963485537 Active 2017 Luke Guidry MD [address], [address], [place], [address] , [employer] 4 10:45:22 Nausea 679228896 Completed Not Available [facility] 3 04:51:18 Eczema 25884374 Completed Not Available [facility] 3 04:51:19 Anxiety 65419631 Active 2017 Luke Guidry MD [address], [address], [place], [address] , [facility] 4 10:45:22 Cough 98342178 Active 2021 Luke Guidry MD [address], [address], [place], [address] , [facility] 4 10:45:22 Abnormal gallbladd er function 83560592 Completed Not Available [facility] 3 04:51:19 Hyperlipi demia 21072388 Active Luke Guidry MD [address], [address], [place], [address] , [facility] - [facility] [employer] 4 10:45:22 Essential hypertens ion 78144826 Completed Not Available [facility] 3 04:51:19 Diarrhea 38200054 Completed Not Available [facility] 3 04:51:20 Osteoporo sis 10325148 Active 2016 Luke Guidry MD [address], [address] [address], [place], [address] , [facility] [employer] 4 10:45:22 Prediabet es 300312406 Active 2017 Luke Guidry MD [address], [address] [address], [place], [address] , [facility] - [facility] [employer] [facility] 4 10:45:22 Postmenop ausal osteopeni a 181019805 Active 2021 Luke Guidry MD [address], [address] [address], [place], [address] , [facility] 4 10:45:22 Decreased renal function 75061225 Completed Not Available [facility] 3 04:51:20 Epigastri c pain 66490368 Completed Luke Guidry MD [address], [address], [place], [address] , [facility] [employer] 4 10:58:33 Hyperglyc emia 07686558 Completed Not Available [facility] 3 04:51:21 Neck pain 35567669 Completed Not Available [facility] 3 04:51:21 Fatigue 14764055 Active 2020 Luke Guidry MD [address], [address], [place], [address] , [facility] [employer] [facility] 4 10:45:22 Problem Notes None recorded. Procedures Surgical History Date Name Laterality Status Provider Name and Address Organization Details Recorded Time Cholecystectomy completed Not Available [facility] 11/08/2022 04:42:01 Imaging Results Imaging Date Name Status LastModified by Organiz ation Details LastModified Time 07/09/2024 US, abdomen, complete completed [email or web address] [facility] [address], [place], [address], 07/10/2024 10:36:28 07/09/2024 XR, chest, 1 view completed [facility] [address], [place], [address], 07/10/2024 11:45:08 10/17/2024 XR, kidney + ureter + bladder completed [email or web address] [place] [id number] [facility] [address], [place], [address], 10/19/2024 17:30:30 Procedure Notes None recorded. Medical Equipment None Reported. Allergies Allergen ID Allergen Name Allergen Category Reaction Reaction Severity Criticality Documentation Date Start Date Code Code System Note Provider Name and Address Organization Details Recorded Time 61607 promethaz ine medicatio n dizziness Not available Not available 07/10/20242022 8745 RxNorm Luke Guidry MD [address], [address], [place], [address], [employer] 4 10:44:50 7971 Phenergan medicatio n dizziness Not available Not available 11/08/2022 84797 8 RxNorm Not Available [facility] 05:03:18 7972 codeine medicatio n dizziness Not available Not available 11/08/20222022 2670 RxNorm Luke Guidry MD [address], [address], [place], [address], [facility] 4 10:44:51 Medications Name Sig Start Date [...] Not Available Not Available Not Available [employer] 2093-0232( PF) 45 mcg (15 mcg x 3)/0.5 mL intramuscu lar syringe TO BE ADMINIST ERED BY [employer] ST FOR IMMUNIZA TION 09/28 completed Not [...] Updated DateTime 4 165.1 cm 26.6 kg/m2 28120.1 3 g 98.1 [degF] 76 /min 16 /min 99 % 99 % 112 mm[Hg] 76 mm[Hg] [place] [employer] [facility] 4 09:40:04 Date Recorded Body height Body mass index (BMI) Body weight Body temperature Heart rate Respiratory rate Oxygen saturation Oxygen saturation in Arterial blood by Pulse oximetry Systolic blood pressure Diastolic blood pressure Provider Name and Address Organization Details Last Updated DateTime 4 165.1 cm 26.1 kg/m2 74562.5 7 g 98.2 [degF] 76 /min 16 /min 99 % 99 % 118 mm[Hg] 78 mm[Hg] Adku [facility] 4 09:52:48 Date Recorded Body height Body mass index (BMI) Body weight Body temperature Heart rate Respiratory rate Oxygen saturation Oxygen saturation in Arterial blood by Pulse oximetry Systolic blood pressure Diastolic blood pressure Provider Name and Address Organization Details Last Updated DateTime 4 165.1 cm 25.7 kg/m2 33106.6 7 g 98.2 [degF] 84 /min 16 /min 98 % 98 % 106 mm[Hg] 76 mm[Hg] Josue Ayala [facility] [employer] [facility] 4 10:55:55 Date Recorded Body height Body mass index (BMI) Body weight Systolic blood pressure Diastolic blood pressure Provider Name and Address Organization Details Last Updated DateTime 07/10/2024 165.1 cm 25.1 kg/m2 11551.45 g 110 mm[Hg] 60 mm[Hg] Karen King Poonam [facility] [employer] [facility] 4 10:33:26 Date Recorded Body temperature Heart rate Respiratory rate Oxygen saturation Oxygen saturation in Arterial blood by Pulse oximetry Provider Name and Address Organization Details Last Updated DateTime 98 [degF] 80 /min 16 /min 98 % 98 % Luke Guidry MD [address], [place], [address], [facility] [place] 10:41:55 Date Recorded Body height Body mass index (BMI) Body weight Body temperature Heart rate Systolic blood pressure Diastolic blood pressure Provider Name and Address Organization Details Last Updated DateTime 165.1 cm 25 kg/m2 10229.6 1 g 97.2 [degF] 88 /min 112 mm[Hg] 70 mm[Hg] Sally Bellamy RN [facility] [employer] [facility] 5 09:56:35 Date Recorded Oxygen saturation Oxygen saturation in Arterial blood by Pulse oximetry Provider Name and Address Organization Details Last Updated DateTime 2024 98 % 98 % Luke Guidry MD [email or web address], [place], [address], [place] [employer] [facility] 2024 10:06:57 Social History Question Answer Notes LastModified by Organizat ion Details LastModified Time Tobacco Smoking Status Never Smoker Fidelina perez, [facility] [email or web address] 06/11/2023 09:52:34 Do You Have An Advance Directive? No [id number] Information not available 11/08/2022 What Is Your Level Of Alcohol Consumption? None [id number] Information not available 11/08/2022 Do You Wear A Helmet When Biking? No [email or web address] Information not available 06/11/2023 What Is Your Level Of Caffeine Consumption? Moderate [email or web address] Information not available 2024 How Much Tobacco Do You Chew? None [id number] Information not available 11/08/2022 In The 14 Days Before Symptom Onset, Have You Had Close Contact With A Laboratory-confi rmed COVID-19 While That Case Was Ill? No [email or web address] Information not available 06/11/2023 In The 14 Days Before Symptom Onset, Have You Had Close Contact With A Person Who Is Under Investigation For COVID-19 While That Person Was Ill? No [email or web address] Information not available 06/11/2023 What Type Of Diet Are You Following? REGULAR MIGRATION.[id number] Information not available 11/08/2022 Do You Or Have You Ever Used E-cigarettes Or Vape? Never Used Electronic Cigarettes [email or web address] Information not available 06/11/2023 What Is The Highest Grade Or Level Of School You Have Completed Or The Highest Degree You Have Received? 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 No [email or web address] Information not available 06/11/2023 What Is The Fluoride Status Of Your Home? Fluoridated [email or web address] Information not available 06/11/2023 Are There Any Guns Present In Your Home? No Information not available 06/11/2023 Do You Use Insect Repellent Routinely? Yes [email or web address] Information not available 06/11/2023 Where Do You Live? SingleLevelHouse [email or web address] Information not available 06/11/2023 Do You Have A Medical Power Of Roadside Mechanic? No [email or web address] Information not available 06/11/2023 What Was The Date Of Your Most Recent Tobacco Screening? 06/05/2022 [email or web address] Information not available 06/11/2023 Do You Have Any Pets? Yes [email or web address] Information not available 06/11/2023 What Is Your Relationship Status? MIGRATION.[id number] Information not available 11/08/2022 Do You Use Your Seat Belt Or Car Seat Routinely? Yes [email or web address] Information not available 06/11/2023 Do You Have Smoke And Carbon Monoxide Detectors In Your Home? Yes [email or web address] Information not available 06/11/2023 Are You Passively Exposed To Smoke? No [email or web address] Information not available 06/11/2023 Do You Or Have You Ever Used Smokeless Tobacco? Never Used Smokeless Tobacco MIGRATION.30053 72837 Information not available 11/08/2022 Are There Any Smokers In Your House? No [email or web address] Information not available 06/11/2023 Do You Participate In Social Media? Yes [email or web address] Information not available 06/11/2023 Do You Feel Stressed (tense, Restless, Nervous, Or Anxious, Or Unable To Sleep At Night)? [id number] [email or web address] Information not available 06/11/2023 Do You Use Any Illicit Or Recreational Drugs? No [email or web address] Information not available 06/11/2023 Do You Use Sunscreen Routinely? Yes [email or web address] Information not available 06/11/2023 Has Tobacco Cessation Counseling Been Provided? No [email or web address] Information not available 06/11/2023 Have You Recently Traveled Abroad? No [email or web address] Information not available 06/11/2023 Are You Currently In School? No [email or web address] Information not available 06/11/2023 Do You Have Any Dietary Restrictions? No [email or web address] Information not available 06/11/2023 Do You Or Have You Ever Used Any Other Forms Of Tobacco Or Nicotine? No Information not available 06/11/2023 Sex: Female Functional Status Question Answer Note LastModified by Organizat ion Details LastModified Time What is your exercise level? Heavy [id number] Information not available 11/08/2022 Mental Status None recorded. Family History Relationship Description Onset Age of this Age Resolved Age Notes LastModified by Organization Details LastModified Time Father Diabetes mellitus [id number] Not available 11/08/2022 04:42:08 Father Hypertensive disorder MIGRATION.516 [id number] Not available 11/08/2022 04:42:08 Father Family history of stroke [email or web address] Not available 09/24 09:47:28 Father Arthritis [email or web address] Not availa ble 2024 09:47:28 Mother Arthritis [email or web address] Not availa ble 2024 09:47:28 Mother Hypertensive disorder MIGRATION.832 [id number] Not available 11/08/2022 04:42:09 Medical History Condition [...] HAVE YOU BEEN HOSPITALIZED OR SEEN IN [facility] IN THE PAST YEAR ? N ATHEROSCLEROSIS [...] zoster recombinant 1 completed Luke Guidry MD [address], [address], [place], [address], [employer] 07/10/2024 10:45:40 zoster recombinant 0 completed Luke Guidry MD [address], [address], [place], [address], [employer] 07/10/2024 10:45:40 influenza, unspecified formulation 4 completed Luke Guidry MD [address], [address], [place], [address], [employer] 07/10/2024 10:45:40 influenza, unspecified formulation 9 completed Luke Guidry MD [address], [address], [place], [address], [employer] 07/10/2024 10:45:40 influenza, unspecified formulation 7 completed Luke Guidry MD [address], [address], [place], [address], [employer] 07/10/2024 10:45:40 influenza, unspecified formulation 8 completed Luke Guidry MD [address], [address], [place], [address], [employer] 07/10/2024 10:45:40 influenza, unspecified formulation 5 completed Luke Guidry MD [address], [address], [place], [address], [employer] 07/10/2024 10:45:40 Influenza, split virus, trivalent, preservative 4 completed Luke Guidry MD [address], [address], [place], [address], [employer] 07/10/2024 10:45:41 Influenza, split virus, quadrivalent, PF 9 completed Luke Guidry MD [address], [address], [place], [address], [facility] [employer] [facility] 07/10/2024 10:45:41 zoster recombinant 9 completed Not Available [facility] 10/05/2023 09:35:12 Influenza, split virus, quadrivalent, PF 8 completed Luke Guidry MD [address], [address], [place], [address], [facility] [employer] [facility] [employer] [facility] 07/10/2024 10:45:41 Influenza, split virus, quadrivalent, PF 7 completed Luke Guidry MD [address], [address], [place], [address], [facility] [employer] [facility] 07/10/2024 10:45:41 Influenza, split virus, quadrivalent, PF 2 completed Not Available [facility] 10/05/2023 09:35:12 Influenza, split virus, quadrivalent, PF 1 completed Not Available [facility] 10/05/2023 09:35:12 pneumococcal polysaccharide PPV23 0 completed Luke Guidry MD [address], [address], [place], [address], [facility] [employer] [facility] 07/10/2024 10:45:40 Tdap 4 completed Not Available [facility] 10/05/2023 09:35:12 Influenza, split virus, quadrivalent, PF 3 completed Luke Guidry MD [address], [address], [place], [address], [facility] [employer] [facility] [email or web address] 06/28/2023 11:18:51 Tdap 4 completed Josue perez, [email or web address] 05/21/2024 10:07:07 Past Encounters Encounter ID Performer Location Encounter Start Date Encounter Closed Date Diagnosis/Indication Diagnosis SNOMED-CT Code Diagnosis ICD10 Code Diagnosis Note [id number] [facility] [address] [address] 01/05/2021 00:00:00 01/05/2021 09:05:52 [id number] [facility] [place] [address] [place] [address] 01/19/2021 00:00:00 01/19/2021 12:01:17 [id number] [facility] [place] [address] [place] [address] 03/15/2021 00:00:00 03/15/2021 09:15:46 [id number] [facility] [place] [address] [place] [address] 04/21/2021 00:00:00 04/21/2021 09:26:13 [id number] [facility] [place] [address] [place] [address] 05/05/2021 00:00:00 05/05/2021 12:23:14 [id number] [facility] [place] [address] [place] [address] 07/25/2021 00:00:00 07/25/2021 10:27:05 [id number] [facility] [place] [address] [place] [address] 08/02/2021 00:00:00 08/02/2021 18:19:46 [id number] [facility] [place] [address] [place] [address] 10/19/2021 00:00:00 10/19/2021 10:21:41 [id number] [facility] [place] [address] [place] [address] 11/09/2021 00:00:00 11/10/2021 12:11:57 [id number] [facility] [place] [address] [place] [address] 11/17/2021 00:00:00 11/17/2021 12:43:19 [id number] [facility] [place] [address] [place] [address] 02/13/2022 00:00:00 02/13/2022 17:53:55 [id number] [facility] [place] [address] [place] [address] 03/23/2022 00:00:00 03/23/2022 16:07:09 [id number] [facility] [place] [address] [place] [address] 05/03/2022 00:00:00 05/03/2022 12:03:19 [id number] [facility] [place] [address] [place] [address], [place] [address] 05/17/2022 00:00:00 05/17/2022 12:34:46 [id number] _ATHENA_M IGRATION_ DEFAULT_1 _1 , 06/05/2022 00:00:00 06/05/2022 15:38:46 [id number] [facility] [place] [address] [place] [address], [place] [address] 08/02/2022 00:00:00 08/02/2022 17:34:28 [id number] [facility] [place] [address] [place] [address], [place] [address] 08/16/2022 00:00:00 08/16/2022 10:21:51 [id number] [facility] [place] [address] [place] [address], [place] [address] 10/30/2022 00:00:00 10/30/2022 11:59:14 [id number] Luke Guidry MD [facility] [place] [address] [place] [address], [place] [address] 11/09/2022 11:49:23 11/09/2022 12:35:26 Sore throat 762121889 J02.9 Dysuria 75276094 R30.0 Pharyngitis 681756693 J0 2.9 Hypertriglyceridemia 302 198491 E78.2 Hyperlipidemia 50387202 E78.5 Prediabetes 308441812 R7 3.03 Depressive disorder 3548 9007 F32.9 [id number] Luke Guidry MD [address] [address] 12/19/2022 09:45:19 12/19/2022 10:10:23 Fatigue 17597318 R53.83 Dyspnea on exertion 6084 5006 R06.09 Depressive disorder 3548 9007 F32.9 Hypertensive disorder 38 644960 I10 Mixed anxi ety and depressive disorder 069009756 F41.8 Prediabetes 358322058 R7 3.03 Gastroesop hageal reflux disease without esophagitis 052865966 K21.9 [id number] Luke Guidry MD [address] [address] 01/01/2023 10:10:01 01/01/2023 10:26:01 [id number] Luke Guidry MD [address] [address] 04/11/2023 13:56:42 04/11/2023 14:16:19 Dyspnea on exertion 22320177 R06.09 resolved Fatigue 98311103 R53.83 Depressive disorder 3548 9007 F32.9 Hypertensive disorder 38 667011 I10 Mixed anxi ety and depressive disorder 334396649 F41.8 Prediabetes 931572646 R7 3.03 Gastroesop hageal reflux disease without esophagitis 163530022 K21.9 Hyperlipidemia 41879617 E78.5 Hypertriglyceridemia 302 687746 E78.2 [id number] Luke Guidry MD [address] [address] 05/21/2023 09:49:01 05/21/2023 10:09:33 Depressive disorder 55501001 F32.9 Dyspnea on exertion 6084 5006 R06.09 resolved Fatigue 68780915 R53.83 Hypertensive disorder 38 462620 I10 Mixed anxi ety and depressive disorder 220665673 F41.8 Prediabetes 951909721 R7 3.03 Gastroesop hageal reflux disease without esophagitis 155091902 K21.9 Hyperlipidemia 57669401 E78.5 Hypertriglyceridemia 302 780126 E78.2 Adult [facility] th examination 181171521 Z00.00 Vitamin D deficiency 347 24672 E55.9 Screening mammography 24 905905 Z12.31 Sleep apnea 55419443 G47 .30 [id number] Luke Guidry MD [address] [address] 06/11/2023 09:51:50 06/11/2023 10:36:30 Depressive disorder 11199016 F32.9 Dyspnea on exertion 6084 5006 R06.09 resolved Fatigue 59805524 R53.83 Hypertensive disorder 38 476733 I10 Mixed anxi ety and depressive disorder 682718125 F41.8 Prediabetes 026972948 R7 3.03 Gastroesop hageal reflux disease without esophagitis 061993632 K21.9 Hyperlipidemia 14421352 E78.5 Hypertriglyceridemia 302 150255 E78.2 Vitamin D deficiency 347 66776 E55.9 Resolved [id number] Luke Guidry MD [address] [address] 06/28/2023 10:49:13 06/28/2023 11:25:35 Pain of right ankle joint 4278534603 8502954 M25.571 Pain of le ft shoulder joint 2466287503 7420839 M25.512 Pain in right foot 69175 95289 80378 M79.671 Administra tion of influenza vaccine 63239150 Z23 [id number] Luke Guidry MD [address] [address] 07/18/2023 10:16:02 07/18/2023 10:47:41 Pain of right ankle joint 4149889263 0205039 M25.571 Pain in right foot 56958 57396 90925 M79.671 Pain of le ft shoulder joint 4983184865 5411538 M25.512 Osteoarthritis 601010437 M19.90 Lt shoulder, Rt foot, Rt ankle [id number] Luke Guidry MD [facility] [address] 09/12/2023 09:56:20 09/12/2023 10:24:18 Pain in right hip joint 5884819450 28587 M25.551 Chronic low back pain 27 1263471 M54.50 Lumbar radiculopathy 128 670793 M54.16 Rt [id number] Luke Guidry MD [address] [address] 09/27/2023 09:55:22 09/27/2023 10:39:10 Prediabetes 923671455 R73.03 Depressive disorder 3548 9007 F32.9 Dyspnea on exertion 6084 5006 R06.09 resolved Fatigue 91788671 R53.83 Hypertensive disorder 38 253987 I10 Mixed anxi ety and depressive disorder 264030365 F41.8 Gastroesop hageal reflux disease without esophagitis 235568152 K21.9 Hyperlipidemia 07742154 E78.5 Hypertriglyceridemia 302 431464 E78.2 Vitamin D deficiency 347 20383 E55.9 Resolved Degenerati on of lumbar intervertebral disc 33066161 M51.36 [id number] Mono Linda DPM [facility] Podiatry Gonzalo Ramos [address] [place] [address] 10/04/2023 10:45:09 10/10/2023 09:34:14 Calcific tendinitis of achilles tendon 572476620 M76.61 recommend rice therapy and topical Voltaren gelStretch ing and icing instructio ns reviewed knee flexedcont inue supportive shoe gearFollow -up in February for surgical clearance- retrocalca kieran exostectom y with hardware Bone spur of right foot 3243916128 11790 M25.774 calcanealx -rays reviewedtr eatment options reviewed [id number] Luke Guidry MD [address] [address] 12/27/2023 09:55:10 12/27/2023 10:18:25 Prediabetes 391900239 R73.03 Depressive disorder 3548 9007 F32.9 Dyspnea on exertion 6084 5006 R06.09 resolved Hypertensive disorder 38 060309 I10 Mixed anxi ety and depressive disorder 414173459 F41.8 Gastroesop hageal reflux disease without esophagitis 426748431 K21.9 Hyperlipidemia 78168108 E78.5 Hypertriglyceridemia 302 813488 E78.2 Vitamin D deficiency 347 66141 E55.9 Resolved Degenerati on of lumbar intervertebral disc 72289410 M51.36 Chronic low back pain 27 6535763 M54.50 [id number] Luke Guidry MD [place] [address] 05/21/2024 09:33:14 05/21/2024 09:56:37 Prediabetes 348954289 R73.03 Hyperlipidemia 62742018 E78.5 Hypertriglyceridemia 302 514536 E78.2 Depressive disorder 3548 9007 F32.9 Hypertensive disorder 38 962958 I10 Mixed anxi ety and depressive disorder 025100953 F41.8 Gastroesop hageal reflux disease without esophagitis 589045307 K21.9 Vitamin D deficiency 347 88024 E55.9 Degenerati on of lumbar intervertebral disc 38866724 M51.36 Chronic low back pain 27 5623773 M54.50 Osteopenia 025409708 M85 .80 Active immunization 3387 9002 Z23 [id number] Luke Guidry MD [place] [address] 06/19/2024 09:44:17 06/19/2024 10:20:39 Hyperlipidemia 78044223 E78.5 Hypertriglyceridemia 302 033966 E78.2 Prediabetes 453902088 R7 3.03 Depressive disorder 3548 9007 F32.9 Hypertensive disorder 38 070912 I10 Gastroesop hageal reflux disease without esophagitis 372128535 K21.9 Vitamin D deficiency 347 20963 E55.9 Improved Degenerati on of lumbar intervertebral disc 30010905 M51.369 Chronic low back pain 27 2785260 M54.50 [id number] Luke Guidry MD [place] [address] 07/03/2024 10:43:37 07/03/2024 11:35:12 Epigastric pain 64742848 R10.13 Nausea and vomiting 1693 2000 R11.2 Gastritis 5030643 K29.70 Abdominal pain 22587530 R10.9 [id number] Luke Guidry MD [address] [address] 07/10/2024 10:25:30 07/10/2024 10:50:27 Seen in emergency clinic 136794204 Z76.89 D/w pt about her findings and further plan of care. Pt agreed. Epigastric pain 88214048 R10.13 Resolved Hiatal her karsten with gastroesophageal reflux 862955961 K21.9 [id number] Luke Guidry MD [address] [address] 2024 09:45:37 2024 10:18:31 Hyperlipidemia 04849217 E78.5 Hypertriglyceridemia 302 237539 E78.2 Prediabetes 569068656 R7 3.03 Depressive disorder 3548 9007 F32.9 Hypertensive disorder 38 866573 I10 Gastroesop hageal reflux disease without esophagitis 624492872 K21.9 Vitamin D deficiency 347 28765 E55.9 Improved Degenerati on of lumbar intervertebral disc 22678198 M51.369 Chronic low back pain 27 7868623 M54.50 Urinary tr act infectious disease 21633223 N39.0 Chronic id iopathic constipation 67490345 K59.04 Health Concerns Section Related Observation LastModified by Organization Detai ls LastModified Time None Recorded Concern Status LastModified by Organization Details LastModified Time None Recorded Advance Directives Directive N: Payers Encounter Date Sequence Insurance Name Policy Number Policy Wright Covered Member ID Wright Member ID Guarantor Name 05/21/2024 2 [place]AST - [place] PRIOR TO 2024 - [employer] () Haydee Delgado [id number] Haydee Delgado 05/21/2024 1 [place] Haydee Delgado [id number] Haydee Delgado 06/19/2024 2 [place]AST - [place] PRIOR TO 2024 - [employer] () Haydee Delgado [id number] Haydee Delgado 06/19/2024 1 [place] Haydee Delgado [id number] Haydee Delgado 07/03/2024 2 [place] - [place] PRIOR TO 2024 - [employer] () Haydee Delgado [id number] Haydee Delgado 07/03/2024 1 [place] Haydee Delgado [id number] Haydee Delgado 07/10/2024 2 [place] - [place] PRIOR TO 2024 - [employer] () Haydee Delgado [id number] Haydee Delgado 07/10/2024 1 [place] Haydee Delgado [id number] Haydee Delgado 2024 2 [place] - [place] PRIOR TO 2024 - [employer] () Haydee Delgado [id number] Haydee Delgado 2024 1 [place] Haydee Delgado [id number] Haydee Delgado Notes Date Note Type Note [...] in stool. Luke Guidry MD [address], [facility] [address], [place], [address], [employer] 05/21/2024 09:55:41 06/19/2024 text/html Pt is here [...] in stool. Luke Guidry MD [address], [place] [address], [place], [address], [employer] 06/19/2024 10:18:27 07/03/2024 text/html ACV: C/o epigastric [...] antibiotics. Luke Guidry MD [address], [facility] [address], [place], [address], [employer] [facility] 07/03/2024 11:27:28 07/10/2024 text/html Pt is here [...] any antibiotics. Luke Guidry MD [address], [address], [place], [address], [employer] 07/10/2024 10:47:29 2024 text/html FUV + ACV: [...] Guidry MD [address], [address], [place], [address], [employer] 2024 10:19:46 OBGyn Episode No OBEpisode recorded.
--- OUTSIDE RECORDS SUMMARY | 2024-11-24 14:41 | XMS_ITS | Patient Health Record ---
Author Organization [facility] Address [address] [place], [place] [id number] Care Team Providers Care Area Relief Pilot Name Role Phone ROSELIA Grant Unavailable [phone] Lasha Guidry Unavailable Unavailable Reason For Referral No Information Immunizations Vaccine Route Administration Date Status Comme nts Influenza, high dose seasonal Unknown 06/28/2023 Admini stered Plan Of Treatment No Information Insurance Providers Payer Name Payer Address Payer Phone Subscriber Number Group Number Insured Name Patient Relationship to Insured Coverage Start Date Coverage End Date [facility] [address] [place] [address] [id number] DIANA SHANNON Spouse - patient is the spouse of the insured
--- OUTSIDE RECORDS SUMMARY | 2024-11-24 14:41 | XMS_ITS | Referral Summary ---
Author Organization [facility] Address [address] [place] [address] Care Team Providers Care Riprap Placer Name Role Phone Luke Guidry MD Primary Care Provider [phone] Allergies Active Allergy Reactions Criticality Noted Date [...] file Insurance MEDICARE FOR LIFE Care Teams Riprap Placer Relationship Specialty Start Date End Date Luke Guidry MD [address] [facility] [place] [place] [address] PCP - General Family Medicine 12/29/22
--- OUTSIDE RECORDS SUMMARY | 2024-11-24 14:41 | XMS_ITS ---
Author Organization [facility] Address [address] [place], [place] [id number] Care Team Providers Care Warp Knitter Helper Name Role Phone ROSELIA Grant Unavailable [phone] Lasha Guidry Unavailable Unavailable FRANK MENDOZA Unavailable [phone] REASON FOR VISIT no reason given Encounters Encounter Location Date Provider Diagnosis [facility] [address] [place], [place] [id number] 07/17/2023 FRANK MENDOZA Plan Of Treatment No Information Progress Notes * MASTER SHANNONB: 9[birth year] (64 yo F)Acc No.[id number]:07/17/2023 Patient: SAMUEL LEMUS Provider: Suma Mendoza DPM :1960 A ge:62 Y S ex:Female Date:07/17/2023 Address:[address] [place], [place] [id number] Subjective: * Chief Complaints: * 1 . No reason given. * Medical History: Objective: * Vitals: Assessment: Plan: * Treatment: * Billing Information: * Visit Code: * Procedure Codes: * Electronic signature of FRANK MENDOZA DPM on 11/24/2024 at 02:41 PM CDT Sign off status: Pending * Provider: Suma Mendoza DPM Date: 1 09/16/2022 Generated for Amina jones/Joellen/eTransmitting on: 0 11/24/2024 02:41 PM CDT
--- OUTSIDE RECORDS SUMMARY | 2024-11-24 14:41 | XMS_ITS | Clinical Summary ---
Author Organization [facility] Address [address] [place] [id number] Care Team Providers Care Scabbler Name Role Phone Luke Guidry MD Primary Care Provider [phone] Allergies Active Allergy Reactions Criticality Noted Date [...] vaccine 65+ (2 of 2 - PCV) 11/10/2020 11/11/2019 Well Visit 65+ 2023 Covid-19 Vaccine (2 - 2023-2 5 season) 2024 05/13/2021 Influenza Vaccine (#1) 2024 , 08/16/2022, 08/03/2021, Additional history exists DTaP/Tdap/Td Vaccine (3 - Td or Tdap) 05/21/2034 05/21/2024, 01/09/2014 Zoster Vaccine Completed 09/25/2020, 06/11, 04/03/2019 Insurance MEDICARE FOR LIFE Care Teams Scabbler Relationship Specialty Start Date End Date Luke Guidry MD [address] [place] [address] PCP - General Family Medicine 12/29/22
--- OUTSIDE RECORDS SUMMARY | 2024-11-24 14:41 | XMS_ITS | CONTINUITY OF CARE DOCUMENT ---
Author Name isac chau Address Unknown Organization [facility] Address [address] [place] [address] Phone [phone] Care Team Providers Care Highway Engineering Technician Name Role Phone Francisco ESPINOSA, Isidro Unavailable [phone] AUNDREA ESPINOSA, MARTIR Stanton Unavailable BRONWYN ESPINOSA, EFFIE Stanton Unavailable INSURANCE PROVIDERS Payer name Policy type / Coverage type [place] [employer] LAURIE WALL [id number] [employer] Commercial insuran ce company [id number]
--- OUTSIDE RECORDS SUMMARY | 2024-11-24 14:42 | XMS_ITS | Data Portability ---
Author Organization [facility] [place] Address [address] [place] [address] Care Team Providers Care Dentofacial Orthopedics Dentist Name Role Phone JEN LUCIA Primary Care Provider Assessment Encounter Date Assessment Date Assessment LastModified by Organization Details LastModified Time 06/14/2023 06/14/2023 Annual gynecological exam performed. Patient will come back in a year unless there are new symptoms. [email or web address] Not available 06/14/2023 10:59:16 10/01/2024 10/01/2024 Annual gynecological exam performed. Patient will come back in a year unless there are new symptoms. [email or web address] Not available 10/01/2024 10:59:41 Plan of Treatment Reminders Order Date Submit Date Provider Last Modified By Organization Details Last Modified Time Details Appointments None recorded. Lab None recorded. Referral endocrinolo gy referral - Postmenopau gloria osteopeniaP lease contact this patient to schedule an appointment at your [place], [place] Location. This patient will be given your contact information also.Attach ed are the patients demographic s and most recent office visit notes.If you have any questions, please contact me at [phone].Thank you,Daiana, Referral's 2021 022 [place], [address], [place], [address], 3 05:01:[address] referral - Melanocytic nevus of skin. Patient would like full body check.Shanon prado contact this patient to schedule an appointment .Attached are the patients demographic s and most recent office visit notesIf you have any questions, please contact me at [phone].Thank you,Daiana, Referral's 2021 [address] [facility], [address] [place], [address], 2 13:08:13 Procedures None recorded. Surgeries None recorded. Imaging MAMMO, screening, digital, bilateral [address] [facility], [address], [address], [address], 5 11:23:35 Medication Orders None recorded. Patient TargetsNo targets recorded. Patient InstructionsNo instructions recorded. 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 Patient wants full body check. Melanocytic nevus of skin. Patient would like full body check.Please contact this patient to schedule an appointment.Attached are the patients demographics and most recent office visit notesIf you have any questions, please contact me at [phone].Thank you,Daiana Referral's Referring Physician: Ramonita Lozano, TIN FLOPPER, Encounter Date: 03/30/2022 Endocrinology Referral for P ostmenopausal osteopenia Postmenopausal osteopenia Postmenopausal osteopeniaPlease contact this patient to schedule an appointment at your [place], [place] Location. This patient will be given your contact information also.Attached are the patients demographics and most recent office visit notes.If you have any questions, please contact me at [phone].Thank you,Daiana Referral's Referring Physician: Ramonita Lozano TIN FLOPPER, Encounter Date: 04/19/2022 Results Created Date Observation Date Name Description Value Unit Range Abnormal Flag Note LastModifiedBy Organization Detail LastModifiedTime 03/09/20 22 03/09/2022 IMAGE GUIDE D PAP AND HPV REGAR DLESS image guided Pap, HPV regardless of Pap result SEE RESULT S BELOW CASE REPOR T: Cytol ogy Gynec ologi fer Repor t Case: [id number] Autho davian calderón Provi citlaly: Ramonita Lozano, JANESSA Ricks cted: 03/09 1156 Order ing Locat ion: [place] Patho logmaria g Recei jose armando: 03/10 0744 First Scree n: Katya Rangel Speci men: Scree cristiano Pap - Image d, Cervi x STATE MENT OF ADEQU ACY: Satis facto ry for evalu ation Trans forma tion zone compo nent prese nt FINAL DIAGN OSIS: Negat edward for Intra epith elial Lesio n or Briana rutledge (NIL) . Elect mariaelena palacios harriett d by Katya Rangel on 022 at 6:50 PM ----- ----- ----- ----- ----- ----- ----- ----- ----- ----- ----- ----- ----- ----- ----- ----- ----- ---- HPV RESUL TS: HPV mRNA E6/E7 : No HPV mRNA Detec chelsea NOTE: This high risk HPV mRNA assay detec ts fourt een high- risk HPV types (16, 18, 31, 33, 35, 39, 45, 51, 52, 56, 58, 59, 66, 68) witho ut diffe renti ation . COMME NT: Note: This speci men was revie wed by a Cytot echno logis t and/o r Patho logis t (as indic ated in this repor t) after evalu ation using the Thinp rep Imagi ng Syste m. CLINI FER INFOR MATIO N: Menst rual Statu s: LMP (if appli cable ): Clini fer Histo ry/Pr eviou s Pap: Type of Neopl rei (if appli cable ): Signi fican t Clini fer Findi ngs: Other Histo ry: Hormo nancy (if appli cable ): PAP EDUCA DALJIT L NOTE: The Pap Test is a scree cristiano test with an inher ent false negat edward rate. Liqui d-bas ed sampl ing may decre ase, but will not elimi ngozi, false negat edward resul ts. A negat edward resul t does not precl ude the prese nce and/o r devel opmen t of disea se, since the prese nce of abnor mal cells in the sampl e depen ds on the locat ion of the lesio n and sampl ing techn ique. Josefa nued regul ar scree cristiano is the best metho d of cance r preve ntion . If repor chelsea cytol ogic findi ng do not corre late with physi fer and/o r histo rical findi ngs, furth er inves tigat ion is recom storm d, as clini gregory wayne nted. Not Available [facility] (Lab) [address] [facility], [place], [address], 03/16/2022 19:53:15 03/09/20 22 03/09/2022 CT/GC (ELDON) , THINP REP VIAL chlamydia trachomatis, PCR Negati ve negati ve Not Available [facility] (Lab) [address], [place], [address], 03/16/2022 19:53:16 03/09/20 22 03/09/2022 CT/GC (ELDON) , THINP REP VIAL neisseria gonorrhoeae, PCR Negati ve negati ve Not Available [facility] (Lab) [address] [facility], [place], [address], 03/16/2022 19:53:16 03/09/20 22 03/09/2022 TRICH OMONA S VAGIN BERNARDINO (RRNA ) trichomonas vaginalis ribosomal RNA (rrna) Negati ve negati ve Not Available [facility] (Lab) [address] [facility], [place], [address], 03/16/2022 19:53:17 04/19/20 22 04/19/2022 SURGI FER PATHO LOGY surgical pathology SEE RESULT S BELOW CASE REPOR T: Surgi fer Patho logy Repor t Case: [id number] Autho davian calderón Provi citlaly: Ramonita Lozano, JANESSA Ricks cted: 04/19 1307 Order ing Locat ion: [place] Patho logy Recei jose armando: 04/20 0441 Patho logis t: Jennifer Jones MD Speci men: Endoc ervix , ECC FINAL DIAGN OSIS: Endoc ervix , curet tage: -Scan t mucus prese nt, tissu e insuf ficie nt for diagn osis. Elect mariaelena byrd by Jennifer Jones MD on 2021 at 1:48 PM ----- ----- ----- ----- ----- ----- ----- ----- ----- ----- ----- ----- ----- ----- ----- ----- ----- ---- CLINI FER INFOR MATIO N: n93.9 MICRO SCOPI C DESCR IPTIO N: A micro scopi c exami natio n was perfo rmed. GROSS DESCR IPTIO N: A. Endoc ervix . The speci men is label ed with the patie nt's name, demog raphi cs and ECC . Recei jose armando in forma elmer is a less than 0.1 [address] of mucus and minut e white -skelton tissu e. The entir e speci men is filte red throu gh a filte r bag and is submi tted in one casse tte; howev er, defin itive tissu e may not survi ve proce ssing . Gross ed by Richard Kim Not Available [facility] [address], [place], [address], 04/20/2022 14:50:17 03/23/20 22 03/23/2022 US, ronnie gregorio No observ ation record ed. [email or web address] [place] [address], [place], [address], 03/23/2022 13:00:30 03/23/20 22 03/23/2022 US, trans vagin al No observ ation record ed. [email or web address] [place] [address], [place], [address], 03/23/2022 13:00:39 03/23/20 22 03/23/2022 US, pelvi s No observ ation record ed. handy Granado [address], [place], [address], 03/30/2022 13:35:10 Result Notes None recorded. Problems Name Problem SNOMED Code Status Onset Date Resolution Date Notes Provider Name and Address Organization Details Recorded Time No current problems or disabili ty 667931669 Active [facility] 2 12:01:50 Screenin g for malignan t neoplasm of rectum Completed 201602/23/2021 Encounter for screening for malignant neoplasm of rectum;Pr actice ID: [id number] Lisa Reyes [facility] 14:45:[address] Concept Completed 201702/23/2021 Encntr for general adult medical exam w/o abnormal findings; Practice ID: [id number] Lisa perez [facility] 14:45:[address] Concept Completed 201702/23/2021 Encntr for patient registration manager exam (general) (routine) w/o abn findings; Practice ID: [id number] Lisa perez [facility] 14:45:41 Adult health examinat ion Completed 201302/23/2021 ROUTINE MEDICAL EXAM;Lasha rded Elsewhere : No Locati on: [facility] So urce: EHR Chron ic: N Practic e ID: [id number] Bill able Time: 11:00:00 AM Lisamaria g perez [facility] 06/16/202 1 14:45:28 Speciali yonny medical examinat ion Completed 201002/23/2021 Gynecolog ical Examinati on;Record ed Elsewhere : No Locati on: [facility] So urce: EHR Chron ic: N Practic e ID: [id number] Bill able Time: 10:15:00 AM Lisa Reyes [facility] 14:45:58 Radiolog ic finding [id number] Completed 201502/23/2021 Oth abn and inconclus edward findings on dx imaging of breast;Re corded Elsewhere : No Locati on: [facility] So urce: EHR Chron ic: N Practic e ID: 0001 Bill able Time: 08:30:00 AM Lisa Reyes [facility] 14:45:30 Screenin g for malignan t neoplasm of cervix Completed 201002/23/2021 Screening for malignant neoplasms of the cervix;Re corded Elsewhere : No Locati on: [facility] So urce: EHR Chron ic: N Practic e ID: 0001 Bill able Time: 10:15:00 AM Lisa Reyes [facility] 14:45:36 Mental disorder [id number] Completed 201302/23/2021 Anxiety as acute reaction to exception al stress;Re corded Elsewhere : No Locati on: [facility] So urce: EHR Chron ic: N Practic e ID: 0001 Bill able Time: 11:00:00 AM Lisa Reyes [facility] 14:45:32 Proteinu nic [id number] Completed 201102/23/2021 Proteinur ia;Practi ce ID: 0001 Lisa Reyes [facility] 14:45:34 Problem Notes None recorded. Procedures Surgical History Date Name Laterality Status Provider Name and Address Organization Details Recorded Time 06/14/20 Date of Last Pap Smear completed LAURA Song [facility] 10/01/2024 10:55:07 09/10/19 23 Date of Last Colonoscopy completed [facility] 06/14/2023 11:01:21 09/10/19 23 Date of Last Mammogram completed [facility] 06/14/2023 11:00:47 04/19/20 22 Endometrial Biopsy completed ADRIANA Calixto [address], [place], [address], [facility] 04/19/2022 13:44:41 05/03/20 21 Most Recent Bone Density completed [facility] 06/14/2023 11:01:37 10/30/19 19 completed [facility] 02/24/2021 10:26:03 10/01/19 16 completed [facility] 02/23/2021 14:48:53 09/10/18 83 ligation of bilateral fallopian tubes completed [facility] 02/23/2021 14:55:06 Imaging Results Imaging Date Name Status LastModified by Organization Details LastModified Time 03/23/2022 US, pelvis completed [email or web address] [place] [address], [place], [address], 03/23/2022 13:00:30 03/23/2022 US, transvaginal [email or web address] [address], [place], [address], 03/23/2022 13:00:39 03/23/2022 US, pelvis completed handy Granado [address], [place], [address], 03/30/2022 13:35:10 Procedure Notes None recorded. Medical Equipment None Reported. Allergies No known drug allergies Medications Name Sig Start Date Stop Date Status Note LastModified by Organization Details LastModified Time cyclobenz aprine 10 mg tablet active Not Available Not Available No t Available amoxicill in 500 mg capsule TAKE 1 CAPSULE BY MOUTH EVERY 8 HOURS FOR 7 DAYS DIRECTED 06/14 completed Not Available Not Available Not Available clonidine HCl 0.1 mg tablet TAKE 1 TABLET BY MOUTH EVERY 12 HOURS DIRECTED 06/14 completed Not Available Not Available Not Available prednison e 10 mg tablet TAKE 4 TABLETS BY MOUTH FOR 2 DAYS THEN 2 FOR 2 DAYS THEN 1 FOR 3 DAYS 02/23 completed Not Available Not Available Not Available atorvasta tin 20 mg tablet active Not Available Not Available Not Available atorvasta tin 10 mg tablet 10/01 completed Not Available Not Available Not Available benazepri l 5 mg tablet take 1 tablet by oral route every day 06/14 completed Prescrib ed Elsewher e: Yes Loca tion: Maryjane prado [facility] odify By: jasper spencer DateTime : 11/27/19 03:30:00 PM Not Available Not Available Not Available azithromy israel 250 mg tablet TK 2 TS PO ON DAY 1, THEN TK 1 T PO D FOR 4 DAYS 02/23 completed Not Available Not Available Not Available benzonata te 200 mg capsule TAKE 1 CAPSULE BY MOUTH EVERY 8 HOURS FOR 7 DAYS NEEDED 06/14 completed Not Available Not Available Not Available metoprolo l succinate ER 50 mg tablet,ex tended release 24 hr 10/01 completed Not Available Not Available Not Available phenazopy ridine 200 mg tablet TAKE 1 TABLET BY MOUTH EVERY 8 HOURS FOR 5 DAYS NEEDED 06/14 completed Not Available Not Available Not Available ondansetr on HCl 4 mg tablet TAKE 1 TABLET BY MOUTH EVERY 6 TO 8 HOURS FOR 7 DAYS NEEDED active Not Available Not Available No t Available fenofibra te micronize d 200 mg capsule active Not Available Not Available Not Available meloxicam 7.5 mg tablet TAKE 1 TABLET BY MOUTH EVERY 12 HOURS WITH FOOD NEEDED 10/01 completed Not Available Not Available Not Available Xanax 0.25 mg tablet take 1 tablet by oral route 2 times every day 10/29 completed Prescrib ed Elsewher e: No Locat ion: Maryjane e [facility] odify By: steffany spencer DateTime : 10/19/19 15 03:57:47 PM Not Available Not Available Not Available pantopraz ole 40 mg tablet,de layed release TAKE 1 TABLET BY MOUTH EVERY MORNING active Not Available Not Available No t Available buspirone 10 mg tablet TK 1 T PO Q 12 H PRN 02/24 completed Not Available Not Available Not Available docusate sodium 100 mg capsule TAKE 1 CAPSULE BY MOUTH TWICE DAILY NEEDED active Not Available Not Available No t Available raloxifen e 60 mg tablet TAKE 1 TABLET DAILY active Not Available Not Available No t Available diclofena c sodium 75 mg tablet,de layed release TAKE 1 TABLET BY MOUTH EVERY 12 HOURS NEEDED active Not Available Not Available No t Available metoprolo l succinate ER 25 mg tablet,ex tended release 24 hr active Not Available Not Available Not Available ergocalci ferol (vitamin D2) 1,250 mcg (50,000 unit) capsule take 1 capsule by oral route every week active Not Available Not Available No t Available methylpre dnisolone 4 mg tablets in a dose pack FOLLOW PACKAGE DIRECTIO NS 10/01 completed Not Available Not Available Not Available ondansetr on 4 mg disintegr ating tablet DISSOLVE 1 TABLET ON THE TONGUE EVERY 6 TO 8 HOURS NEEDED 02/24 completed Not Available Not Available Not Available metformin ER 500 mg tablet,ex tended release 24 hr TAKE 1 TABLET BY MOUTH TWICE DAILY AFTER MEALS FOR 7 DAYS active Not Available Not Available No t Available lisinopri l 2.5 mg tablet take 1 tablet (2.5MG) by oral route every day 07/10 completed Prescrib ed Elsewher e: Yes Loca tion: Maryjane johan [facility] odify By: chacho hurley DateTime : 06/21/20 11 10:15:00 AM Not Available Not Available Not Available benazepri l 10 mg-hydroc hlorothia zide 12.5 mg tablet active Not Available Not Available No t Available amoxicill in 875 mg-potass ium clavulana te 125 mg tablet TAKE 1 TABLET BY MOUTH EVERY 12 HOURS FOR 7 DAYS 03/09 completed Not Available Not Available Not Available escitalop shaneka 20 mg tablet TK 1 T PO D active Not Available Not Available No t Available Lexapro 10 mg tablet 02/24 completed Not Available Not Available Not Available bupropion HCl XL 150 mg 24 hr tablet, extended release active Not Available Not Available Not Available bupropion HCl (bulk) 100 % powder 03/09 completed Prescrib ed Elsewher e: Yes Loca tion: [facility] odify By: jasper spencer DateTime : 11/27/19 03:30:00 PM Not Available Not Available Not Available nitrofura ntoin monohydra te/macroc rystals 100 mg capsule TAKE 1 CAPSULE BY MOUTH EVERY 12 HOURS FOR 7 DAYS 10/01 completed Not Available Not Available Not Available fenofibra te 160 mg tablet 10/01 completed Not Available Not Available Not Available Infuvite Adult 3300 unit-150 mcg/10 mL intraveno us solution 06/21 completed Prescrib ed Elsewher e: Yes Loca tion: [facility] odify By: daphne spencer DateTime : 06/18/20 11 05:55:13 PM Not Available Not Available Not Available meloxicam 7.5 mg/5 mL oral suspensio n take 5 millilit er by oral route every day 10/01 completed Prescrib ed Elsewher e: Yes Loca tion: [facility] odify By: jasper spencer DateTime : 11/27/19 03:30:00 PM Not Available Not Available Not Available fenofibra te 50 mg capsule take 1 capsule by oral route every day with a meal 06/14 completed Prescrib ed Elsewher e: Yes Loca tion: [facility] odify By: jasper spencer DateTime : 11/27/19 03:30:00 PM Not Available Not Available Not Available fenofibra te 54 mg tablet 10/01 completed Not Available Not Available Not Available icosapent ethyl 1 gram capsule active Not Available Not Available Not Available Jardiance 25 mg tablet TAKE 1 TABLET BY MOUTH EVERY DAY IN THE MORNING active Not Available Not Available No t Available bupropion HCl 150 mg tablet,12 hr sustained -release( smoking deterrent ) Take 1 tablet twice a day by oral route. 06/14 completed Not Available Not Available Not Available Vitals Date Recorded Body height Body mass index (BMI) Body weight Systolic blood pressure Diastolic blood pressure Provider Name and Address Organization Details Last Updated DateTime 03/30/2022 167.64 cm 25.1 kg/m2 14954.25 g 139 mm[Hg] 83 mm[Hg] Natalia Anne [facility] 2 12:47:45 Date Recorded Body height Body mass index (BMI) Body weight Systolic blood pressure Diastolic blood pressure Provider Name and Address Organization Details Last Updated DateTime 04/19/2022 167.64 cm 25.2 kg/m2 69136.13 g 136 mm[Hg] 84 mm[Hg] [facility] 12:43:30 Date Recorded Body height Body mass index (BMI) Body weight Systolic blood pressure Diastolic blood pressure Provider Name and Address Organization Details Last Updated DateTime 05/09/2022 167.64 cm 25.5 kg/m2 94307.59 g 138 mm[Hg] 73 mm[Hg] Cristina Ho [facility] 2 10:58:22 Date Recorded Body height Body mass index (BMI) Body weight Systolic blood pressure Diastolic blood pressure Provider Name and Address Organization Details Last Updated DateTime 06/14/2023 167.64 cm 27.1 kg/m2 70655.52 g 109 mm[Hg] 67 mm[Hg] Cait Zepeda [facility] 3 10:59:31 Date Recorded Body height Body mass index (BMI) Body weight Systolic blood pressure Diastolic blood pressure Provider Name and Address Organization Details Last Updated DateTime 10/01/2024 167.64 cm 24.5 kg/m2 22835.04 g 130 mm[Hg] 72 mm[Hg] LAURA Song [facility] 5 11:00:20 Social History Question Answer Notes LastModified by Organizat ion Details LastModified Time Tobacco Smoking Status Never Smoker Jeevan perez [facility] 06/14/2023 10:44:47 Do You Have An Advance Directive? No Information n ot available 02/24/2021 What Is Your Level Of Alcohol Consumption? None [email or web address] Information not available 03/30/2022 Are You Blind Or Do You Have Difficulty Seeing? No Information n ot available 02/23/2021 What Is Your Level Of Caffeine Consumption? Heavy Information not available 02/24/2021 How Much Tobacco Do You Chew? None Information not available 02/24/2021 In The 14 Days Before Symptom Onset, Have You Had Close Contact With A Laboratory-confirm ed COVID-19 While That Case Was Ill? No Information n ot available 02/24/2021 In The 14 Days Before Symptom Onset, Have You Had Close Contact With A Person Who Is Under Investigation For COVID-19 While That Person Was Ill? No Information not available 02/24/2021 Have You Been To An Area Known To Be High Risk For COVID-19? No Information not available 02/24/2021 Are You Deaf Or Do You Have Serious Difficulty Hearing? No Information not available 02/23/2021 What Type Of Diet Are You Following? REGULAR Information n ot available 02/24/2021 What Is The Highest Grade Or Level Of School You Have Completed Or The Highest Degree You Have Received? 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 No Information not available 02/24/2021 Do You Use Your Seat Belt Or Car Seat Routinely? Yes Information not available 02/23/2021 Do You Have Smoke And Carbon Monoxide Detectors In Your Home? Yes Information not available 02/23/2021 How Much Tobacco Do You Smoke? No Information not available 02/24/2021 Do You Feel Stressed (tense, Restless, Nervous, Or Anxious, Or Unable To Sleep At Night)? [id number] Information not available 02/23/2021 Do You Use Any Illicit Or Recreational Drugs? No Information not available 02/23/2021 Do You Use Sunscreen Routinely? Yes Information not available 02/23/2021 Has Tobacco Cessation Counseling Been Provided? No [email or web address] Information not available 10/01/2024 Have You Used IV Drugs? No Information not available 02/24/2021 Sex: Unknown Functional Status Question Answer Note LastModified by Organizat ion Details LastModified Time Do you have difficulty walking or climbing stairs? No [email or web address] Information not available 06/14/2023 Are you able to walk? YESWOREST Information not available 02/24/2021 Are you able to care for yourself? Yes [email or web address] Information not available 06/14/2023 Do you have difficulty dressing or bathing? No [email or web address] Information not available 06/14/2023 What is your exercise level? Moderate Information not available 02/24/2021 Mental Status None recorded. Family History Relationship Description Onset Age of this Age Resolved Age Notes LastModified by Organization Details LastModified Time Brother Hypertensive disorder Not available 2020 14:51:36 Father Hypertensive disorder Not available 2020 14:51:36 Father Diabetes mellitus Not available 2020 14:51:46 Maternal Grandmother Hypertensive disorder Not available 2020 14:51:58 Maternal Grandmother Heart disease Not available 2020 14:53:48 Mother Hypertensive disorder Not available 2020 14:52:10 Mother Disorder of thyroid gland Not available 2020 14:53:25 Paternal Grandmother Hypertensive disorder Not available 2020 14:52:15 Paternal Grandmother Diabetes mellitus Not available 2020 14:52:53 Sister Hypertensive disorder Not available 2020 14:52:21 Medical History Condition Response Allergies (Food, seasonal, environmental ) N Other N Breast Cancer N Drug/Latex Allergies/Reactions N Blood Transfusion N Dermatologic Disorders N Lung Disease N Defects or Inherited Disease N Breast Problem N Gestational Diabetes N Hematologic disorders N Anesthesia Complications N History of STI N Deep Vein Thrombosis N Polycystic ovary syndrome N Anxiety Disorder N Autoimmune disease N Arthritis N Infertility N Polyps N Acid Reflux (GERD) N History of abnormal pap N Cancer N Stroke N Varicosities N Neurologic/Epilepsy N Endometriosis N High Cholesterol Y Headaches N Fibromyalgia N Kidney Disease N Heart Problems N Kidney or Bladder Problems N Thyroid Problems N GI Problems N Eating Disorder N Anemia N Art (IVF or FET) N Psychiatric Illness N Ovarian Cancer N Diabetes Y Pulmonary (TB, Asthma) N Hepatitis/Liver Disease N No Past Medical History N Eczema N Urinary Tract Infection N Abuse/Domestic Violence N Asthma N Trauma/Violence N Depression/ depression N Heart Disease N Pre-Eclampsia N Hypertension Y Osteoporosis N Thrombophilias N Gynecological History Statement/Question Response Date of Last Mammogram 09/10/2022 On BCP's at Conception? N N Was last menstrual period normal Y STIs/STDs N HPV Vaccine N 10/01/2015 Current Control Method Tubal Ligat ion Age at First Child 19 If Post Menopausal, Age at Menopause 40 Date of Last Colonoscopy 09/10/2022 Most Recent Bone Density 05/03/2021 Sexually Active? Y Menses Monthly N Age of first menstrual cycle 12 Date of Last Pap Smear 06/14/2023 Sexual Problems? N LMP Unknown 10/30/2018 N Obstetrics History GPAL:G 2 P 2 0 0 2 Type Value Full Term 2 Living 2 Total 2 Past Encounters Encounter ID Performer Location Encounter Start Date Encounter Closed Date Diagnosis/Indication Diagnosis SNOMED-CT Code Diagnosis ICD10 Code Diagnosis Note [id number] Maribel Silverio [facility] [address] [address] 02/24/2021 09:58:54 02/24/2021 10:40:58 Gynecologic examination 82021028 Z01.419 Take Calcium with Vitamin D 12-1500mg daily. Do monthly self breast exams. It is advised to get annual flu shot in the fall and she could obtain at [facility] or [facility]. If you haven't received the Tdap vaccine in the last 10 years you should obtain one as well. Have mammogram yearly, bone density every 2-3 years and colonoscop y every 5-10 years depending on findings and history. Engage in daily exercise of low impact aerobic exercise 45-60 minutes 4-5 times weekly. Avoid tobacco and illicit drugs as well as using moderation with alcohol intake less than 1-2 8 oz beverages daily. This lifestyle behavior pattern will lead to less health conditions and longer life span. If BMI greater than 25 weight watchers or dietary consult advised. Questions have been answered. Patient appears to understand instructio ns, but if you have any further questions call or respond to this email Pap/hpv 2016 wnlPap only [id number] wnlDexa-or deredColon -UTD PCPMammo ordered Postmenopa usal osteopenia 850651275 Z78.0 On Evista for >5-7yrs per pt.Recent Fx top right foot, wearing boot now.Hx of osteopenia .Will wait to see what Dexa reports says but we may need to consider bone specialist referral. [id number] ADRIANA Calixto [facility] [address] [address] 03/09/2022 11:49:47 03/09/2022 14:24:07 Gynecologic examination [id number] Z01.419 Take Calcium with Vitamin D 12-1500mg daily. Do monthly self breast exams. It is advised to get annual flu shot in the fall and she could obtain at [facility] or [facility] clinic. If you haven't received the Tdap vaccine in the last 10 years you should obtain one as well. Have mammogram yearly, bone density every 2-3 years and colonoscop y every 5-10 years depending on findings and history. Engage in daily exercise of low impact aerobic exercise 45-60 minutes 4-5 times weekly. Avoid tobacco and illicit drugs as well as using moderation with alcohol intake less than 1-2 8 oz beverages daily. This lifestyle behavior pattern will lead to less health conditions and longer life span. If BMI greater than 25 weight watchers or dietary consult advised. Questions have been answered. Patient appears to understand instructio ns, but if you have any further questions call or respond to this email WWEPostcoi rishi bleeding x 2 months. Light spotting after intercours e. No postmenopa usal bleeding other than with intercours Da hx of abnormal papsLast pap ap done today due to PCBSTI added to pap due to PCBHx of osteopenia , on Evista > 5-7 years, managed by PCP. Last Dexa 05/03/2021, osteopenia . Is due for repeat dexa 04/2023.[facility] will f/u with PCP for repeat testingPel radha u/s ordered, may need EMB pending resultsRTC for pelvic u/s f/u appointmen t Time spent in visit is a total of 30 mins with at least 50% of visit consisting of counseling and review of plan of care. Postcoital bleeding 4888 0000 N93.0 [id number] Blanca Monet [facility] [address],[place] [address] 03/23/2022 12:28:28 03/23/2022 13:05:34 Postcoital bleeding [id number] N93.0 N95.0 [id number] Ramonita Lozano JANESSA [facility] [address] [address] 03/30/2022 12:26:19 03/30/2022 16:37:22 Postmenopausal bleeding [id number] N95.0 Postmenopa usal bleeding on and off x 2 monthsMedi fer hx : HTN, elevated lipidsHx of osteopenia , on Evista > 5-7 years, managed by PCP. Last Dexa 05/03/2021, osteopenia . Is due for repeat dexa 04/2023. Pelvic u/s normalEndo 2mm, atrophicNo abnormalit ies notedWe discussed PMB could be due to postmenopa usal atrophy, still need an ECC and EMB to r/o malignancy .To schedule to RTC for EMBR/B of EMB discussed and accepted by patient Time spent in visit is a total of 20 mins with at least 50% of visit consisting of counseling and review of plan of care. Melanocyti c nevus of skin [id number] D22.9 Would like Derm referral for full body skin check as discussed at E [id number] ADRIANA Calixto [facility] [address],[place] [address] 04/19/2022 12:30:49 04/19/2022 13:59:08 Postmenopausal bleeding [id number] N95.0 Postmenopa usal bleeding on and off x 2 monthsMedi fer hx : HTN, elevated lipidsHx of osteopenia , on Evista > 5-7 years, managed by PCP. Last Dexa 05/03/2021, osteopenia . Is due for repeat dexa 04/2023. Has a hx a fracture, she has never seen a bone specialist . We discussed referral, referral sent. Pelvic u/s normalEndo 2mm, atrophicNo abnormalit ies notedWe discussed PMB could be due to postmenopa usal atrophy, still need an ECC and EMB to r/o malignancy . ECC obtained, EMB - upon attempting to sound the uterus patient stated she could no longer tolerate procedure and expressed that she wanted procedure to stop.Proce dure stopped, ECC sent but no EMB sample collectedS he will schedule an MD consult - MD can decide if any further testing is needed based on u/s and patient presentati on. Postmenopa usal osteopenia [id number] M85.80 Failed end ometrial biopsy 095391713 N99.89 ECC obtained, patient stopped EMB procedure due to pain, no endometria l sample collected [id number] Tex Conley MD [facility] [address] [address] 05/09/2022 10:49:27 05/10/2022 09:31:09 Postmenopausal bleeding 89153655 N95.0 patient is a 61-year-ol d female with post coital bleeding. She has no pain the intercours e. She has been evaluated. Ultrasound an attempted endometria l biopsy were completed. Endometria l biopsy failed. We talked about further evaluation in order to rule out endometria l cancer. The endometria l stripe on pelvic ultrasound is thin. Patient does not want to proceed with any further evaluation she refuses the recommenda tions. Recommende d that she have a hysterosco py D&C. She declined. She understand s there is risk of endometria l cancer present. [id number] ADRIANA Zheng-[facility] [address] [address] 06/14/2023 10:44:20 06/14/2023 11:16:31 Gynecologic examination 75196955 Z01.419 Z11.51 Take Calcium with Vitamin D 12-1500mg daily. Do monthly self breast exams. It is advised to get annual flu shot in the fall and she could obtain at [facility] or [facility] clinic. If you haven't received the Tdap vaccine in the last 10 years you should obtain one as well. Have mammogram yearly, bone density every 2-3 years and colonoscop y every 5-10 years depending on findings and history. Engage in daily exercise of low impact aerobic exercise 45-60 minutes 4-5 times weekly. Avoid tobacco and illicit drugs as well as using moderation with alcohol intake less than 1-2 8 oz beverages daily. This lifestyle behavior pattern will lead to less health conditions and longer life span. If BMI greater than 25 weight watchers or dietary consult advised. Questions have been answered. Patient appears to understand instructio ns, but if you have any further questions call or respond to this email Pap/hpv sent USPSTF recommends against screening for cervical cancer in women older than 65yo, those who've had a hysterecto my for non-cancer indication s, & who have had adequate prior screening & are not otherwise at high risk for cervical cancer. STD Screen declinedGe netic Screen discussedC olon Screen UTD PCPDexa Screen UTD PCPRoutine Labs UTD PCPRD informatio n given to use nutritiona l changes. Ammy Solomon, [place] [id number] ADRIANA Calixto [facility] [address] [address] 10/01/2024 10:47:44 10/01/2024 11:41:06 Gynecologic examination [id number] Z01.419 WWEpostmen opausalPap - no further paps neededSTI screen - declinedMa mmogram - order givenColon cancer screening - UTD, cologuard due 2025Dexa - has scheduled 10/2024Rout ine labs - UTD/PCPRTC in 1 yr or sooner if needed Do monthly self breast exams.It is advised to get annual flu shot in the fall and she could obtain at local pharmacy. If you haven't received the Tdap vaccine in the last 10 years you should obtain one as well.Have mammogram yearly, bone density every 2-3 years and stay up to date on colon cancer screening. Engage in regular exercise. Avoid tobacco and illicit drugs. This lifestyle behavior pattern will lead to less health conditions and longer life span. If BMI greater than 25 dietary consult advised.Qu estions have been answered. Screening for malignant neoplasm of breast [id number] Z12.39 Health Concerns Section Related Observation LastModified by Organization [facility] LastModified Time None Recorded Concern Status LastModified by Organization Details LastModified Time None Recorded Advance Directives Directive N: Payers Encounter Date Sequence Insurance Name Policy Number Policy Wright Covered Member ID Wright Member ID Guarantor Name 03/30/2022 1 [employer] () Giovanny Danny [id number] Haydee Bull Danny 04/19/2022 1 [employer] () Giovanny Delgado [id number] Haydee L Danny 05/09/2022 1 [employer] () Giovanny Delgado [id number] Haydee L Danny 06/14/2023 1 [employer] () Giovanny Delgado [id number] Haydee L Danny 10/01/2024 1 [place] Haydee Danny [id number] Haydee Ml Danny Notes Date Note Type Note Provider Name and Address Organization Details Recorded Time 03/30/20 text/htm l Here today to discuss pelvic u/s results due to postmenopausal bleeding / PCBPatient still having some light spotting on and off ADRIANA Calixto [address], [place], [address], [facility] 03/30/2022 14:47:52 04/19/20 22 text/htm l Patient presents for EMB due to PMB ADRIANA Calixto [address], [place], [address], [facility] 04/19/2022 13:51:00 05/09/20 22 text/htm l patient is a 61-year-old female with post coital bleeding. She has no pain the intercourse. She has been evaluated. Ultrasound an attempted endometrial biopsy were completed. Endometrial biopsy failed. We talked about further evaluation in order to rule out endometrial cancer. The endometrial stripe on pelvic ultrasound is thin. Patient does not want to proceed with any further evaluation she refuses the recommendations. Recommended that she have a hysteroscopy D&C. She declined. She understands there is risk of endometrial cancer present. Tex Conley MD [address], [place], [address], [facility] 05/09/2022 14:28:19 06/14/20 23 text/htm l Annual Practice Coordinator Post-MenopausalReported bypatient.Menopausal Symptoms:no menopausal symptoms; normal vaginal lubrication Vaginal Bleeding:history of menopause having occurred; no history of post menopausal bleeding Urinary Symptoms:no hematuria; no incontinence; no nocturia; no urinary frequency Vulva:no genital lesion; no vulvar atrophy Vagina:normal vaginal discharge; no vaginal atrophy Breast:no breast lump; no nipple discharge; no breast pain Sexual Complaints:no sexual complaints Psychological Symptoms:no depression; no anxiety Preventive Measures:encourage regular mammograms starting age 40; encourage self breast examination; encourage regular exercise; encourage no tobacco use; mammogram performed within the past year; history of recent colonoscopy ADRIANA Zheng- [address], [place], [address], [facility] 06/14/2023 11:16:22 10/01/19 25 text/htm l Annual Practice Coordinator Post-MenopausalReported bypatient.Menopausal Symptoms:no menopausal symptoms; normal vaginal lubrication Vaginal Bleeding:history of menopause having occurred; no history of post menopausal bleeding Urinary Symptoms:no hematuria; no incontinence; no nocturia; no urinary frequency Vulva:no genital lesion; no vulvar atrophy Vagina:normal vaginal discharge; no vaginal atrophy Breast:no breast lump; no nipple discharge; no breast pain Sexual Complaints:no sexual complaints Psychological Symptoms:no depression; no anxiety Preventive Measures:encourage regular mammograms starting age 40; encourage self breast examination; encourage regular exercise; encourage no tobacco useNotes:64yo wwepostmenopausaldenies any vaginal bleedingno h/o abnormal papslast pap 06/2023 : nilm, HPV (-)mammogram last ologuard done exa - has scheduled 10/2024 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 10/01/2024 11:22:27 OBGyn Episode Ob Episode Information Episode Created Date Number of Fetuses Patient Bloodtype Patient rh Status Prepregnancy Weight lbs Domestic Partner Domestic Partner Phone Father Name Balance Wheel Motion Inspector Status 02/24/20 21 1 CLOSED Fetus Data First Name Last Name Admitted to NICU Weight (g) Sex Living Outcome Pediatric Complications Fetus ID Race Codes Race Delivery Type F Full Term [id number] Vaginal Delivery Prasanna Calculation Initial Prasanna Date Initial Exam Date Initial Exam Provider Initial Ultrasound Date Last Menstrual Period Date Ultra Sound Weeks Gestation 0 Eighteen To Twenty Week Prasanna Update Ultra Sound Date Fundal Height At Umbil Quickening Date Ultra Sound Latest Weeks Gestation Final Prasanna Confirmed By Final Prasanna Confirmed Date Final Prasanna Date Ultra Sound Latest Days Gestation 0 0 Menstrual History Last Menstrual Date Menses Monthly On Bcp Conception Prior Menses Frequency Hcg Plus Date Menarche Onset Age Delivery Information Delivery Date Delivery Type Labor Anesthesia Weeks Gestation Incision Type Labor Labor Length Hrs Delivered By Post Complications Tubal Sterilization Discharge Date Comments 0 Discharge Information Feeding Method Contraceptive Method Maternal HG B and HCT Levels Ob Episode Information Episode Created Date Number of Fetuses Patient Bloodtype Patient rh Status Prepregnancy Weight lbs Domestic Partner Domestic Partner Phone Father Name Balance Wheel Motion Inspector Status 02/24/20 21 1 CLOSED Fetus Data First Name Last Name Admitted to NICU Weight (g) Sex Living Outcome Pediatric Complications Fetus ID Race Codes Race Delivery Type M Full Term [id number] Vaginal Delivery Prasanna Calculation Initial Prasanna Date Initial Exam Date Initial Exam Provider Initial Ultrasound Date Last Menstrual Period Date Ultra Sound Weeks Gestation 0 Eighteen To Twenty Week Prasanna Update Ultra Sound Date Fundal Height At Umbil Quickening Date Ultra Sound Latest Weeks Gestation Final Prasanna Confirmed By Final Prasanna Confirmed Date Final Prasanna Date Ultra Sound Latest Days Gestation 0 0 Menstrual History Last Menstrual Date Menses Monthly On Bcp Conception Prior Menses Frequency Hcg Plus Date Menarche Onset Age Delivery Information Delivery Date Delivery Type Labor Anesthesia Weeks Gestation Incision Type Labor Labor Length Hrs Delivered By Post Complications Tubal Sterilization Discharge Date Comments 3 Discharge Information Feeding Method Contraceptive Method Maternal HG B and HCT Levels
--- OUTSIDE RECORDS SUMMARY | 2024-11-24 14:42 | XMS_ITS ---
Author Organization [facility] Address [address] [place], [place] [address] Care Team Providers Care Beauty Parlor Cleaner Name Role Phone ROSELIA Grant Unavailable [phone] Lasha Guidry Unavailable Unavailable FRANK MENDOZA Unavailable [phone] REASON FOR VISIT *Foot Pain, For the [...] Location Date Provider Diagnosis [facility] [place] [address] [facility] [address] [place], [place] [id number] 07/03/2023 FRANK MENDOZA Peroneal tendinitis, right leg [...] * MASTER SHANNONB: 9[birth year] (62 yo F)Acc No.[id number]:07/03/2023 Patient: Louisa HERMES SAMUEL Provider: Suma Mendoza DPM :1960 A ge:62 Y S ex:Female Date:07/03/2023 Address:[address] [place], [place] [id number] Subjective: * Chief Complaints: * 1 . [...] tendons) * Billing Information: * Visit Code: 18727 Office Visit, Est Pt., Level 3. * Procedure Codes: 18201 X-RAY EXAM OF FOOT. Modifiers: RT L4361 WALKING BOOT PNEUMATIC AND/OR VAC. Modifiers: RT, NU * Sign off status: Completed true * Provider: Suma Mendoza DPM Date: Generated for Amina jones/Joellen/Li on: 0 11/24/2024 02:41 PM CDT History and Physical Notes * HPI (History [...]
--- OUTSIDE RECORDS SUMMARY | 2024-11-24 14:42 | XMS_ITS | Clinical Summary ---
Author Organization [facility] Address [address] [place] [address] Care Team Providers Care Clay Digger Name Role Phone Luke Guidry MD Primary Care Provider [phone] Allergies Active Allergy Reactions Criticality Noted Date [...] Screening Colonoscopy (10 Years) 1960 PHQ-2 (Physician Benton) 1970 Hepatitis C 1976 Mammogram Screening 1998 Annual Medicare Wellness Visit 2023 Dexa Scan (General) 2023 Pneumococcal Vaccine: 65+ Years (2 of 2 - PCV) 2023 11/11/2019 COVID-19 Vaccine (2 - 2023- season) 2024 05/13/2021 Influenza Adult (#1) 2024 06/28/2023, 08/16/2022, 08/03/2021, Additional history exists PHQ-2 (Physician Benton) 09/10/2024 RSV Immunization or 60+ Years (1 [...] age to complete this topic Insurance MEDICARE [facility] Care Teams Clay Digger Relationship Specialty Start Date End Date Luke Guidry MD PCP - General HOSPITALIST 09/04/23
== END 2024-11-24 12:22 | disposition home or self-care (01) ==
LOC: ANHIMG 12:23
PROVIDERS: PCP Family Medicine; Visit Provider Family Medicine
DX: M85.852 Other specified disorders of bone density and structure, left thigh (principal); M85.851 Other specified disorders of bone density and structure, right thigh
CPT/HCPCS: 77080

== ENCOUNTER 2025-02-18 08:19 | Outpatient (CLI) | payer MEDICARE, OTHER, SELFPAY ==
--- NOTE | ~2025-02-18 | MM_ITS ---
EXAMINATION: MM screening yves BI w joqauin HISTORY: Screening TECHNIQUE: Craniocaudal and mediolateral oblique 3-D tomosynthesis images were obtained and synthetic 2-D images were generated. CAD analysis was submitted and interpreted. COMPARISON: Comparison to multiple prior studies sequentially, with oldest reviewed study dated 01/2018. BREAST PARENCHYMAL COMPOSITION: Dense: The breasts are heterogeneously dense, which may obscure small masses FINDINGS: There is no evidence of suspicious mass, calcification, or architectural distortion to sugg est malignancy in either breast. There has been no suspicious interval change. IMPRESSION: 1. No mammographic evidence of malignancy. 2. Recommend routine screening mammography in one year. BI-RADS Category 1: Negative Reviewed, dictated and finalized at location []
--- OUTSIDE RECORDS SUMMARY | 2025-02-18 08:32 | XMS_ITS | Patient Health Record ---
Author Organization [facility] Address [address] [place], [place] [id number] Care Team Providers Care Retort Operator Name Role Phone ROSELIA Grant Unavailable [phone] Lasha Guidry Unavailable Unavailable Reason For Referral No Information Immunizations Vaccine Route Administration Date Status Comme nts Influenza, high dose seasonal Unknown 06/28/2023 Admini stered Plan Of Treatment No Information Insurance Providers Payer Name Payer Address Payer Phone Subscriber Number Group Number Insured Name Patient Relationship to Insured Coverage Start Date Coverage End Date [facility] [address] [place] [address] [id number] DIANA SHANNON Spouse - patient is the spouse of the insured
--- OUTSIDE RECORDS SUMMARY | 2025-02-18 08:32 | XMS_ITS | CONTINUITY OF CARE DOCUMENT ---
Author Name isac chau Address Unknown Organization [facility] Address [address] [place] [address] Phone [phone] Care Team Providers Care Front End Driver Name Role Phone Francisco ESPINOSA, Isidro Unavailable [phone] AUNDREA ESPINOSA, MARTIR Stanton Unavailable BRONWYN ESPINOSA, EFFIE Stanton Unavailable INSURANCE PROVIDERS Payer name Policy type / Coverage type [place] [employer] party ID LAURIE WALL [id number] [employer] Commercial insuran ce company [id number]
--- OUTSIDE RECORDS SUMMARY | 2025-02-18 08:32 | XMS_ITS | Clinical Summary ---
Author Organization [facility] Address [address] [place] [address] Care Team Providers Care Manager Front Name Role Phone Luke Guidry MD Primary Care Provider Allergies Active Allergy Reactions Criticality Noted Date [...] 1:08 PM CDT Height 167.6 cm (5' 6) 07/11/2024 1:08 PM CDT Body Mass Index [...] 2023-2 5 season) 2024 05/13/2021 Influenza Vaccine (Season Ended) 2025 06/28/2023, 08/16/2022, 08/03/2021, Additional history exists DTaP/Tdap/Td Vaccine (3 - Td or Tdap) 05/21/2034 05/21/2024, 01/09/2014 Zoster Vaccine Completed 09/25/2020, 06/11, 04/03/2019 Insurance MEDICARE FOR LIFE Care Teams Manager Front Relationship Specialty Start Date End Date Luke Guidry MD [address] [place] [address] PCP - General Family Medicine 12/29/22
--- OUTSIDE RECORDS SUMMARY | 2025-02-18 08:32 | XMS_ITS | Referral Summary ---
Author Organization [facility] Address [address] [place] [address] Care Team Providers Care Food Packer Name Role Phone Luke Guidry MD Primary Care Provider [phone] Allergies Active Allergy Reactions Criticality Noted Date [...] file Insurance MEDICARE FOR LIFE Care Teams Food Packer Relationship Specialty Start Date End Date Luke Guidry MD [address] [place] [address] PCP - General Family Medicine 12/29/22
--- OUTSIDE RECORDS SUMMARY | 2025-02-18 08:33 | XMS_ITS | Data Portability ---
Author Organization [facility] [place] Address [address] [place] [address] Care Team Providers Care Student Counsellor Name Role Phone JEN LUCIA Primary Care Provider Assessment Encounter Date Assessment Date Assessment LastModified by Organization Details LastModified Time 06/14/2023 06/14/2023 Annual gynecological exam performed. Patient will come back in a year unless there are new symptoms. [email or web address] Not available 06/14/2023 10:59:16 10/01/2024 10/01/2024 Annual gynecological exam performed. Patient will come back in a year unless there are new symptoms. [email or web address] Not available 10/01/2024 10:59:41 Plan of Treatment Reminders Order Date Submit Date Provider Last Modified By Organization Details Last Modified Time Details Appointments None recorded. Lab None recorded. Referral endocrinolo gy referral - Postmenopau gloria osteopeniaP lease contact this patient to schedule an appointment at your [place], [place] Location. This patient will be given your contact information also.Attach ed are the patients demographic s and most recent office visit notes.If you have any questions, please contact me at [phone].Thank you,Daiana, Referral's 2021 022 [place], [address], [place], [address], 3 05:01:[address] referral - Melanocytic nevus of skin. Patient would like full body check.Shanon prado contact this patient to schedule an appointment .Attached are the patients demographic s and most recent office visit notesIf you have any questions, please contact me at [phone].Thank you,Daiana, Referral's 2021 022 [facility], [address] [place], [address], 2 13:08:13 Procedures None recorded. Surgeries None recorded. Imaging MAMMO, screening, digital, bilateral [address] [facility], [address], [address], [address], 5 11:23:35 Medication Orders None recorded. Patient TargetsNo targets recorded. Patient InstructionsNo instructions recorded. Reason for Referral Structural Technician Referral for M elanocytic nevus of skin Melanocytic nevus of skin. Patient wants full body check. Melanocytic nevus of skin. Patient would like full body check.Please contact this patient to schedule an appointment.Attached are the patients demographics and most recent office visit notesIf you have any questions, please contact me at [phone].Thank you,Daiana Referral's Referring Physician: Ramonita Lzoano, CRANBERRY SORTER, Encounter Date: 03/30/2022 Endocrinology Referral for P ostmenopausal osteopenia Postmenopausal osteopenia Postmenopausal osteopeniaPlease contact this patient to schedule an appointment at your [place], [place] Location. This patient will be given your contact information also.Attached are the patients demographics and most recent office visit notes.If you have any questions, please contact me at [phone].Thank you,Daiana Referral's Referring Physician: Ramonita Lozano CRANBERRY SORTER, Encounter Date: 04/19/2022 Results Created Date Observation Date Name Description Value Unit Range Abnormal Flag Note LastModifiedBy Organization Detail LastModifiedTime 03/09/20 22 03/09/2022 IMAGE GUIDE D PAP AND HPV REGAR DLESS image guided Pap, HPV regardless of Pap result SEE RESULT S BELOW CASE REPOR T: Cytol ogy Gynec ologi lakisha Repor t Case: [id number] Autho [...] Thinp rep Imagi ng Syste m. CLINI L[facility]IS[facility] INFOR MATIO N: Menst rual Statu s: LMP (if appli cable ): Clini lakisha Histo ry/Pr eviou s Pap: Type of Neopl rei (if appli cable ): Signi fican t Clini lakisha Findi ngs: Other Histo ry: Hormo nancy [...] ng do not corre late with physi lakisha and/o r histo rical findi ngs, furth er inves tigat ion is recom storm d, as clini gregory wayne nted. Not Available [facility] (Lab) [address], [place], [address], 03/16/2022 19:53:15 03/09/20 22 03/09/2022 CT/GC (ELDON) , THINP REP VIAL chlamydia trachomatis, PCR Negati ve negati ve Not Available [facility] (Lab) [address], [place], [address], 03/16/2022 19:53:16 03/09/20 22 03/09/2022 CT/GC (ELDON) , THINP REP VIAL neisseria gonorrhoeae, PCR Negati ve negati ve Not Available [facility] (Lab) [address], [place], [address], 03/16/2022 19:53:16 03/09/20 22 03/09/2022 TRICH OMONA S VAGIN BERNARDINO (RRNA ) trichomonas vaginalis ribosomal RNA (rrna) Negati ve negati ve Not Available [facility] (Lab) [address], [place], [address], 03/16/2022 19:53:17 04/19/20 22 04/19/2022 SURGI LAKISHA PATHO LOGY surgical pathology SEE RESULT S BELOW CASE REPOR T: Surgi lakisha Patho logy Repor t Case: [id number] Autho davian calderón Provi citlaly: Ramonita [...] ----- ----- ----- ----- ----- ---- CLINI [facility] INFOR MATIO N: n93.9 MICRO SCOPI C [...] Richard Kim Not Available [facility] [address], [place], [address], 04/20/2022 14:50:17 03/23/20 22 03/23/2022 US, ronnie gregorio No observ ation record ed. [email or web address] [place] [address], [place], [address], 03/23/2022 13:00:30 03/23/20 22 03/23/2022 US, trans vagin al No observ ation record ed. [email or web address] [place] [address], [place], [address], 03/23/2022 13:00:39 03/23/20 22 03/23/2022 US, pelvi s No observ ation record ed. handy Granado [address], [place], [address], 03/30/2022 13:35:10 Result Notes None recorded. Problems Name Problem SNOMED Code Status Onset Date Resolution Date Notes Provider Name and Address Organization Details Recorded Time No current problems or disabili ty [id number] [facility] 12:01:50 Screenin g for malignan t neoplasm of rectum Completed 201602/23/2021 Encounter for screening for malignant neoplasm of rectum;Pr actice ID: [id number] Lisa Reyes [facility] 14:45:[address] Concept Completed 201702/23/2021 Encntr for general adult medical exam w/o abnormal findings; Practice ID: 0001 Lisa perez [facility] 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 14:45:41 Adult health examinat ion Completed 201302/23/2021 ROUTINE MEDICAL EXAM;Lasha rded Elsewhere : No Locati on: [facility] So urce: EHR Chron ic: N Practic e ID: 0001 Bill able Time: 11:00:00 AM Lisamaria g perez [facility] 06/16/202 1 14:45:28 Speciali yonny medical examinat ion Completed 201002/23/2021 Gynecolog ical Examinati on;Record ed Elsewhere : No Locati on: [facility] So urce: EHR Chron ic: N Practic e ID: 0001 Bill able Time: 10:15:00 AM Lisa Reyes [facility] 14:45:58 Evaluati on finding [id number] Completed 201502/23/2021 Oth abn and inconclus edward findings on dx imaging of breast;Re corded Elsewhere : No Locati on: [facility] So urce: EHR Chron ic: N Practic e ID: 0001 Bill able Time: 08:30:00 AM Lisa Reyes [facility] 14:45:30 Screenin g for malignan t neoplasm of cervix Completed 201002/23/2021 Screening for malignant neoplasms of the cervix;Re corded Elsewhere : No Locati on: [facility] So urce: EHR Chron ic: N Practic e ID: 0001 Bill able Time: 10:15:00 AM Lisa Reyes [facility] 14:45:36 Mental disorder [id number] Completed 201302/23/2021 Anxiety as acute reaction to exception al stress;Re corded Elsewhere : No Locati on: [facility] So urce: EHR Chron ic: N Practic e ID: 0001 Bill able Time: 11:00:00 AM Lisa Reyes [facility] 14:45:32 Proteinu nic [id number] Completed 201102/23/2021 Proteinur ia;Practi ce ID: 0001 Lisa Reyes [facility] 14:45:34 Problem Notes None recorded. Procedures Surgical History Date Name Laterality Status Provider Name and Address Organization Details Recorded Time 06/14/20 Date of Last Pap Smear completed LAURA Song [facility] 10/01/2024 10:55:07 09/10/19 23 Date of Last Colonoscopy completed [facility] 06/14/2023 11:01:21 09/10/19 23 Date of Last Mammogram completed [facility] 06/14/2023 11:00:47 04/19/20 22 Endometrial Biopsy completed ADRIANA Calixto [address], [place], [address], [facility] 04/19/2022 13:44:41 05/03/20 21 Most Recent Bone Density completed [facility] 06/14/2023 11:01:37 10/30/19 19 completed [facility] 02/24/2021 10:26:03 10/01/19 16 completed [facility] 02/23/2021 14:48:53 09/10/18 83 ligation of bilateral fallopian tubes completed [facility] 02/23/2021 14:55:06 Imaging Results None recorded. Procedure Notes None [...] Elsewher e: Yes Loca tion: Maryjane prado [facility] odify By: jasper spencer DateTime : 11/27/19 19 03:30:00 PM Not Available Not Available Not [...] Prescrib ed Elsewher e: No Locat ion: [facility] odify By: steffany spencer DateTime : [...] Prescrib ed Elsewher e: Yes Loca tion: [facility] odify By: chacho hurley DateTime : 06/21/20 [...] Prescrib ed Elsewher e: Yes Loca tion: [facility] odify By: jasper spencer DateTime : 11/27/19 19 03:30:00 PM Not Available Not Available Not [...] Prescrib ed Elsewher e: Yes Loca tion: [facility] odify By: daphne spencer DateTime : 06/18/20 11 05:55:13 PM Not Available Not Available Not Available meloxicam 7.5 mg/5 mL oral suspensio n take 5 millilit er by oral route every day 10/01 completed Prescrib ed Elsewher e: Yes Loca tion: [facility] odify By: jasper spencer DateTime : 11/27/19 03:30:00 PM Not Available Not Available Not Available fenofibra te 50 mg capsule take 1 capsule by oral route every day with a meal 06/14 completed Prescrib ed Elsewher e: Yes Loca tion: [facility] odify By: jasper spencer DateTime : 11/27/19 [...] Updated DateTime 10/01/2024 167.64 cm 24.5 kg/m2 57960.04 g 130 mm[Hg] 72 mm[Hg] LAURA Song [facility] 5 11:00:20 Date Recorded Body height Body mass index (BMI) Body weight Systolic blood pressure Diastolic blood pressure Provider Name and Address Organization Details Last Updated DateTime 03/30/2022 167.64 cm 25.1 kg/m2 15971.25 g 139 mm[Hg] 83 mm[Hg] Natalia Davis [facility] 2 12:47:45 Date Recorded Body height Body mass index (BMI) Body weight Systolic blood pressure Diastolic blood pressure Provider Name and Address Organization Details Last Updated DateTime 04/19/2022 167.64 cm 25.2 kg/m2 61433.13 g 136 mm[Hg] 84 mm[Hg] Natalia Davis [facility] 2 12:43:30 Date Recorded Body height Body mass index (BMI) Body weight Systolic blood pressure Diastolic blood pressure Provider Name and Address Organization Details Last Updated DateTime 05/09/2022 167.64 cm 25.5 kg/m2 83334.59 g 138 mm[Hg] 73 mm[Hg] Cristina Ho [facility] 2 10:58:22 Date Recorded Body height Body mass index (BMI) Body weight Systolic blood pressure Diastolic blood pressure Provider Name and Address Organization Details Last Updated DateTime 06/14/2023 167.64 cm 27.1 kg/m2 08246.52 g 109 mm[Hg] 67 mm[Hg] Cait Duane [facility] 3 10:59:31 Social History Question Answer Notes LastModified by Organizat ion Details LastModified Time Tobacco Smoking Status Never Smoker Jeevan perez, [facility] 06/14/2023 10:44:47 Do You Have An Advance Directive? No Information n ot available 02/24/2021 Are You Blind Or Do You Have [...] Or The Highest Degree You Have Received? [id number] Information not available 02/24/2021 Do You Use Protection During Sex? No Information not available 02/24/2021 Do You Use Your Seat Belt Or Car Seat Routinely? Yes Information not available 02/23/2021 Do You Have Smoke And Carbon Monoxide Detectors In Your Home? Yes Information not available 02/23/2021 How Much Tobacco Do You Smoke? No Information not available 02/24/2021 Do You Use Sunscreen Routinely? Yes Information not available 02/23/2021 Has Tobacco Cessation Counseling Been Provided? No [email or web address] Information not available 10/01/2024 Have You Used IV Drugs? No Information not available 02/24/2021 Do You Have Difficulty Walking Or Climbing Stairs? No [email or web address] Information not available 06/14/2023 Sex: Unknown Functional Status Question Answer Note LastModified by Organizat ion Details LastModified Time Do you use any illicit or recreational drugs? No Information not available 02/23/2021 What is your level of alcohol consumption? None [email or web address] Information not available 03/30/2022 Are you able to walk? YESWOREST Information not available 02/24/2021 Are you able to care for yourself? 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 No [email or web address] Information not available 06/14/2023 What is your exercise level? Moderate Information not available 02/24/2021 Mental Status Question Answer Note LastModified by Organization D etails LastModified Time Do you feel stressed (tense, restless, nervous, or anxious, or unable to sleep at night)? [id number] Information not available 02/23/2021 Family History Relationship Description Onset Age of [...] SNOMED-CT Code Diagnosis ICD10 Code Diagnosis Note [id number] [facility] [address] [address] 02/24/2021 09:58:54 02/24/2021 10:40:58 Gynecologic examination 11718880 Z01.419 Take Calcium with Vitamin D 12-1500mg daily. Do monthly self breast exams. It is advised to get annual flu shot in the fall and she could obtain at [facility] or [facility] clinic. If you haven't received the Tdap [...] to this email Pap/hpv 2016 wnlPap only [id number] wnlDexa-or deredColon -UTD PCPMammo ordered Postmenopa usal osteopenia 655234488 Z78.0 On Evista for >5-7yrs per pt.Recent Fx top right foot, wearing boot now.Hx of osteopenia .Will wait to see what Dexa reports says but we may need to consider bone specialist referral. [id number] ADRIANA Calixto [place] [address] [address] 03/09/2022 11:49:47 03/09/2022 14:24:07 Gynecologic examination 37835189 Z01.419 Take Calcium with Vitamin D 12-1500mg daily. Do monthly self breast exams. It is advised to get annual flu shot in the fall and she could obtain at [facility] or [facility] care clinic. If you haven't received the [...] repeat dexa 04/2023.[facility], will f/u with PCP for repeat testingPel radha u/s ordered, may need EMB pending resultsRTC for pelvic u/s f/u appointmen t Time spent in visit is a total of 30 mins with at least 50% of visit consisting of counseling and review of plan of care. Postcoital bleeding 4888 0000 N93.0 [id number] Tex Conley MD [place] [address],[facility] [place] [address] 03/23/2022 12:28:28 03/23/2022 13:05:34 Postcoital bleeding 68446008 N93.0 N95.0 [id number] ADRIANA Calixto [place] [address] [address] 03/30/2022 12:26:19 03/30/2022 16:37:22 Postmenopausal bleeding 77912195 N95.0 Postmenopa usal bleeding on and off x 2 monthsMedi lakisha hx : HTN, elevated lipidsHx of osteopenia [...] of care. Melanocyti c nevus of skin 381116423 D22.9 Would like Derm referral for full body skin check as discussed at WWE [id number] ADRIANA Calixto [place] [address] [address] 04/19/2022 12:30:49 04/19/2022 13:59:08 Postmenopausal bleeding 34152716 N95.0 Postmenopa usal bleeding on and off x 2 monthsMedi lakisha hx : HTN, elevated lipidsHx of osteopenia [...] and patient presentati on. Postmenopa usal osteopenia 012975131 M85.80 Failed end ometrial biopsy 468099799 N99.89 ECC obtained, patient stopped EMB procedure due to pain, no endometria l sample collected [id number] Tex Conley MD [place] [address] [address] 05/09/2022 10:49:27 05/10/2022 09:31:09 Postmenopausal bleeding 79328977 N95.0 patient is a 61-year-ol d female [...] is risk of endometria l cancer present. [id number] [facility] [address] [address] 06/14/2023 10:44:20 06/14/2023 11:16:31 Gynecologic examination 67104560 Z01.419 Z11.51 Take Calcium with Vitamin D 12-1500mg daily. Do monthly self breast exams. It is advised to get annual flu shot in the fall and she could obtain at [facility] or [facility] care clinic. If you haven't received the [...] given to use nutritiona l changes. Ammy Neha, [place] [id number] Ramonita ZeniadarielaADRIANA [place] [address] [address] 10/01/2024 10:47:44 10/01/2024 11:41:06 Gynecologic examination 00924015 Z01.419 WWEpostmen opausalPap - no further paps [...] answered. Screening for malignant neoplasm of breast 330326841 Z12.39 Health Concerns Section Related Observation LastModified by Organization Detai ls LastModified Time None Recorded Concern Status LastModified by Organization Details LastModified Time None Recorded Advance Directives Directive N: Payers Encounter Date Sequence Insurance Name Policy Number Policy Wright Covered Member ID Wright Member ID Guarantor Name 03/30/2022 1 [employer] () Giovanny Delgado [id number] Haydee Delgado 04/19/2022 1 [employer] () Giovanny Delgado [id number] Haydee Delgado 05/09/2022 1 [employer] () Giovanny Delgado [id number] Haydee Delgado 06/14/2023 1 [employer] () Giovanny Delgado [id number] Haydee Bull Danny 10/01/2024 1 [place] Haydee Delgado [id number] Haydee L Delgado Notes Date Note Type Note Provider Name and Address Organization Details Recorded Time 03/30/20 text/htm l Here today to discuss pelvic u/s results due to postmenopausal bleeding / PCBPatient still having some light spotting on and off ADRIANA Calixto [address], [place], [address], [facility] 03/30/2022 14:47:52 04/19/20 text/htm l Patient presents for EMB due to PMB ADRIANA Calixto [address], [place], [address], [facility] 04/19/2022 13:51:00 05/09/20 text/htm l patient is a 61-year-old female [...] endometrial cancer present. Tex Conley MD [address], [place], [address], [facility] 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 ADRIANA Calixto [address], [place], [address], [facility] 10/01/2024 11:22:27 OBGyn Episode Ob Episode Information Episode Created Date Number of Fetuses Patient Bloodtype Patient rh Status Prepregnancy Weight lbs Domestic Partner Domestic Partner Phone Father Name Delivery Motorcycle Driver Status 02/24/20 21 1 CLOSED Fetus Data First Name Last Name Admitted to NICU Weight (g) Sex Living Outcome Pediatric Complications Fetus ID Race Codes Race Delivery Type F Full Term [id number] Vaginal Delivery Prasanna Calculation Initial Prasanna Date [...] Domestic Partner Domestic Partner Phone Father Name Delivery Motorcycle Driver Status 02/24/20 21 1 CLOSED Fetus Data First Name Last Name Admitted to NICU Weight (g) Sex Living Outcome Pediatric Complications Fetus ID Race Codes Race Delivery Type M Full Term [id number] Vaginal Delivery Prasanna Calculation Initial Prasanna Date [...]
--- OUTSIDE RECORDS SUMMARY | 2025-02-18 08:34 | XMS_ITS | Data Portability ---
Author Organization [place] [facility] [place] [facility], Main Office Address [address] [place] [address] Care Team Providers Care Business Editor Name Role Phone LUKE GUIDRY Primary Care Provider LUKE GUIDRY Referring Provider LUKE GUIDRY Primary Care Provider [phone] Assessment Encounter Date Assessment Date Assessment LastModified [...] precautions explained. Cont f/u with Ortho at [place] as per schedule. Cont f/u with Gyne as per schedule. Cont f/u with Ophtho at [place] as per schedule. Cont f/u with Cardio [...] A1c in 10/04. Annual labs in 06/04. [email or web address] Not available 06/19/2024 10:17:25 07/03/2024 07/03/2024 D/w [...] Pt verbalized understanding it. F/u as directed. [email or web address] Not available 07/03/2024 11:25:23 2024 2024 64 [...] precautions explained. Cont f/u with Ortho at [place] as per schedule. Cont f/u with Gyne as per schedule. Cont f/u with Ophtho at [place] as per schedule. Cont f/u with Cardio [...] A1c in 01/02. Annual labs in 06/04. [email or web address] Not available 2024 10:19:27 12/31/2024 12/31/2024 64 yo F with - CHRONIC CONSTIPATION [...] 6.1(09/15/23) - 5.9(12/15/23) - 6.0(05/31/24) - 6.1(09/20/24) - 6.0(12/26/24) Annual labs: 05/31/24. X-ray L-spine: 09/12/23. X-ray [...] and further plan of care. Pt declined for Repatha. Advised pt to f/u with her GI [...] precautions explained. Cont f/u with Ortho at [place] as per schedule. Cont f/u with Gyne as per schedule. Cont f/u with Ophtho at [place] as per schedule. Cont f/u with Cardio as per schedule. Cont f/u with Derm at [facility] as per schedule. Pt has done PT and now doing at home. Advised to refer to Psych/counsellor; but pt declined. Advised to refer to Pain clinic/Spine surgeon; but pt declined. Pt declined any Repatha for her uncontrolled HLD. HM: WWE - 04/01, normal as per pt. Cont f/u with Gyne as per their recommendations. Mammo - 09/24/23, normal. Pt has order from her Gyne. Colonoscopy - 10-11 yrs ago, normal as per pt. Pt declined. Cologuard 05/17/22, Neg. DEXA - 11/24/24, Osteopenia ++. Tdap - 05/21/24. Flu - Pt declined. Pneumo - 11/11/19. At pharmacy. Shingrix - 07/03/20, 09/25/20. F/u in 3 months. Lipids in 04/03. Annual labs in 06/04. [email or web address] Not available 12/31/2024 10:50:17 Plan of Treatment Reminders Order Date Submit Date Provider Last Modified By Organization Details Last Modified Time Details Appointments Follow Up 2024 09:15A Maximino Guidry MD Not available Not available Not available Lab lipid panel, serum 2024 025 [email or web address] [facility] (Lab), [address] [place], [address], 12/31/2024 10:45:51 glycohemo globin, total, blood 2024 025 [email or web address] [facility] (Lab), [address] [place], [address], 01/16/2025 15:45:07 lipid panel, serum 2024 025 [facility] (Lab), [address] [place], [address], 12/27/2024 11:36:39 CBC w/ auto diff 2023 024 [facility] (Lab), [address] [place], [address], 07/05/2024 11:56:04 CMP, serum or plasma 2023 024 [facility] (Lab), [address] [place], [address], 07/04/2024 14:29:26 lipase, serum or plasma [address] (Lab), [address] [place], [address], 07/17/2024 08:25:27 amylase, serum or plasma [address] (Lab), [address] [place], [address], 07/17/2024 08:25:27 ESR (erythroc yte sedimenta tion rate), blood [address] (Lab), [address] [place], [address], 07/17/2024 08:25:27 urinalysi s complete, reflex culture [address] (Lab), [address] [place], [address], 07/17/2024 08:25:27 troponin I, ultrasens itive, serum [address] (Lab), [address] [place], [address], 07/17/2024 08:25:27 glycohemo globin, total, blood [address] (Lab), [address] [place], [address], 10/23/2024 14:01:26 lipid panel, serum [address] (Lab), [address] [place], [address], 10/23/2024 14:01:26 Referral gastroent erologist referral - Please call patient to schedule. 2023 024 [email or web address] Nicola Monreal MD, [address] [facility], [address], [place], [address], 07/18/2024 15:16:54 Procedures None recorded. Surgeries None recorded. Imaging XR, abdomen, 2 or more views + XR, chest, 1 view 2023 024 [email or web address] [facility], [address], [address], [place], [address], 07/10/2024 10:04:53 US, abdomen, complete 2023 024 [facility], [address], [address] [address], [place], [address], 07/09/2024 15:12:26 Medication Orders cyclobenz aprine 10 mg tablet 2024 025 [email or web address] [facility], [address] [place] [address], [address], 12/31/2024 10:45:51 Vascepa 1 gram capsule 2024 025 [email or web address] [facility], [address] [place] [address], [address], 12/31/2024 10:45:51 fenofibra te micronize d 200 mg capsule 2024 025 [facility], [address] [place] [address], [address], 12/31/2024 10:45:51 benazepri l 10 mg-hydroc hlorothia zide 12.5 mg tablet 2024 025 [facility], [address] [place] [address], [address], 12/31/2024 10:45:51 metformin ER 500 mg tablet,ex tended release 24 hr 2024 025 [facility], [address] [place] [address], [address], 12/31/2024 10:45:51 Jardiance 25 mg tablet 2024 025 [email or web address] [facility], [address] [place] [address], [address], 12/31/2024 10:45:51 diclofena c sodium 75 mg tablet,de layed release 2024 025 [email or web address] [facility], [address] [place] [address], [address], 12/31/2024 10:45:51 atorvasta tin 40 mg tablet 2024 025 [email or web address] [facility], [address] [place] [address], [address], 12/31/2024 10:45:52 docusate sodium 100 mg capsule 2024 025 [email or web address] [facility], [address] [place] [address], [address], 12/31/2024 10:45:51 Linzess 72 mcg capsule 2024 025 [facility], [address] [place] [address], [address], 12/31/2024 10:49:31 bupropion HCl XL 150 mg 24 hr tablet, extended release 2024 025 [email or web address] [facility], [address] [place] [address], [address], 12/31/2024 10:45:51 escitalop shaneka 20 mg tablet 2024 025 [facility], [address] [place] [address], [address], 12/31/2024 10:45:51 cyclobenz aprine 10 mg tablet 2024 025 [facility], [address] [place] [address], [address], 2024 10:08:33 Vascepa 1 gram capsule 2024 025 [facility], [address] [place] [address], [address], 2024 10:08:28 fenofibra te micronize d 200 mg capsule 2024 025 [facility], [address] [place] [address], [address], 2024 10:08:32 benazepri l 10 mg-hydroc hlorothia zide 12.5 mg tablet 2024 [facility], [address] [place] [address], [address], 2024 10:08:27 metformin ER 500 mg tablet,ex tended release 24 hr 2024 [facility], [address] [place] [address], [address], 2024 10:08:30 Jardiance 25 mg tablet 2024 [facility], [address] [place] [address], [address], 2024 10:08:33 diclofena c sodium 75 mg tablet,de layed release 2024 [facility], [address] [place] [address], [address], 2024 10:08:29 atorvasta tin 20 mg tablet 2024 025 [email or web address] [facility], [address] [place] [address], [address], 12/31/2024 10:42:45 docusate sodium 100 mg capsule 2024 [facility], [address], [place], [id number], 2024 10:11:03 Linzess 72 mcg capsule 2024 [facility], [address], [place], [id number], 2024 10:11:00 Macrobid 100 mg capsule 2024 [facility] #57788, [address] [facility], [place], [place], [id number], 2024 10:09:10 bupropion HCl XL 150 mg 24 hr tablet, extended release 2024 [facility], [address] [place] [address], [address], 2024 10:08:26 escitalop shaneka 20 mg tablet 2024 [facility], [address] [place] [address], [address], 2024 10:08:32 pantopraz ole 40 mg tablet,de layed release 2023 [facility] #59954, [address], [place], [id number], 07/10/2024 10:40:12 ondansetr on HCl 4 mg tablet 2023 [facility] #43384, [address], [place], [id number], 07/03/2024 11:05:55 pantopraz ole 40 mg tablet,de layed release 2023 [email or web address] [facility] #77953, [address], [place], [id number], 07/03/2024 11:27:24 cyclobenz aprine 10 mg tablet 2023 [facility], [address] [place] [address], [address], 06/19/2024 09:57:12 Vascepa 1 gram capsule 2023 [facility], [address] [place] [address], [address], 06/19/2024 09:57:07 fenofibra te micronize d 200 mg capsule 2023 [facility], [address] [place] [address], [address], 06/19/2024 09:57:10 benazepri l 10 mg-hydroc hlorothia zide 12.5 mg tablet 2023 [facility], [address] [place] [address], [address], 06/19/2024 09:57:08 metformin ER 500 mg tablet,ex tended release 24 hr 2023 [email or web address] [facility], [address] [place] [address], [address], 07/10/2024 10:44:57 Jardiance 25 mg tablet 2023 [facility], [address] [place] [address], [address], 07/10/2024 10:44:56 diclofena c sodium 75 mg tablet,de layed release 2023 [facility], [address] [place] [address], [address], 07/10/2024 10:44:55 atorvasta tin 20 mg tablet 2023 [email or web address] [facility], [address] [place] [address], [address], 12/31/2024 10:42:45 bupropion HCl XL 150 mg 24 hr tablet, extended release 2023 [facility], [address] [place] [address], [address], 06/19/2024 09:57:13 escitalop shaneka 20 mg tablet 2023 024 [facility], [address] [facility], [place], [address], 06/19/2024 09:57:07 Patient TargetsNo targets recorded. Patient InstructionsNo instructions recorded. Reason for Referral Corn Popper Referral for Hiatal hernia with gastroesophageal reflux Please call patient to schedule. Referring Physician: Luke Guidry, Family Medicine, Encounter Date: 07/10/2024 Results Created Date Observation Date Name Description Value Unit Range Abnormal Flag Note LastModifiedBy Organization Detail LastModifiedTime 07/09/2007/09/2024 US, abdom en, compl ete No observ ation record ed. [email or web address] [facility] [address], [place], [address], 07/10/2024 10:36:28 07/09/20 24 07/09/2024 XR, chest , 1 view No observ ation record ed. [email or web address] [facility] [address], [place], [address], 07/10/2024 11:45:08 10/17/19 25 10/17/2024 XR, kidne y + urete r + bladd er No observ ation record ed. [email or web address] [address], [place], [address], 12/31/2024 10:40:53 11/26/19 25 11/24/2024 DEXA No observ ation record ed. [email or web address], [place], [address], 12/31/2024 10:40:53 Result Notes None recorded. Problems Name Problem SNOMED Code Status Onset Date Resolution Date Notes Provider Name and Address Organization Details Recorded Time Sore throat 613456438 Active 2022 Luke Guidry MD [address] [place] [address] [address], [address], [place], [address] , [facility] 4 10:45:22 Dysuria 22979291 Active 2022 Luke Guidry MD [address] [address], [place], [address] , [facility] 4 10:45:22 Pharyngit is 364054315 Active 2022 Luke Guidry MD [address], [place], [address] , [facility] 4 10:45:22 Dyspnea on exertion 78858451 Active 2022 Luke Guidry MD [address], [place], [address] , [facility] 4 10:45:22 Gastroeso phageal reflux disease without esophagit is 720591702 Active 2022 Luke Guidry MD [address] [address], [place], [address] , [facility] 10:45:22 Sleep apnea 85092540 Active 2022 Luke Guidry MD [address], [address] , [facility] 4 10:45:22 Pain of right ankle joint 32002892846 012663 Active 2022 Luke Guidry MD [address] [address], [place], [address] , [facility] 4 10:45:21 Pain of left shoulder joint 18148431190 307743 Active 2022 Luke Guidry MD [address], [place], [address] , [facility] 4 10:45:21 Pain in right foot 76416047716 9107 Active 2022 Luke Guidry MD [address] [place], [address] , [place] [facility] 4 10:45:22 Pain of right hip joint 84216384993 9102 Active 2023 Luke Guidry MD [address], [place], [address] , [place] [facility] 4 10:45:22 Chronic low back pain 313889428 Active 2023 Luke Guidry MD [address], [place], [address] , [place] [facility] 4 10:45:22 Lumbar radiculop athy 996964543 Active 2023 Luke Guidry MD [address] [address], [place], [address] , [place] [facility] 4 10:45:21 Degenerat ion of lumbar intervert ebral disc 63628694 Active 2023 Luke Guidry MD [address], [place], [address] , [place] [facility] 10:45:22 Arthritis 3513134 Active 2023 Luke Guidry MD [address] [address], [place], [address] , [place] [facility] 4 10:45:22 Diabetes mellitus 20913655 Active 2023 Luke Guidry MD [address], [place], [address] , [facility] 4 10:45:22 Bone spur of right foot 87494861478 9103 Active 2023 Luke Guidry MD [address], [place], [address] , [facility] 4 10:45:22 Calcific tendiniti s of achilles tendon 591104033 Active 2023 Luke Guidry MD [address] [address], [place], [address] , [place] [facility] 4 10:45:22 Epigastri c pain 14484198 Active 2023 Luke Guidry MD [address], [address], [place], [address] , [place] [facility] 4 10:45:22 Nausea and vomiting 40923974 Active 2023 Luke Guidry MD [address], [address], [place], [address] , [facility] 4 10:45:22 Gastritis 1305176 Active 2023 Luke Guidry MD [address], [address] [address], [place], [address] , [facility] 4 10:45:22 Abdominal pain 01808021 Active 2023 Luke Guidry MD [address], [address], [place], [address] , [facility] [employer] [facility] 4 10:45:22 Hiatal hernia with gastroeso phageal reflux 307739884 Active 2023 Luke Guidry MD [address], [address] [address], [place], [address] , [facility] 4 10:45:22 Urinary tract infectiou s disease 00657198 Active 2024 Luke Guidry MD [address], [address], [place], [address] , [facility] 5 10:08:35 Chronic idiopathi c constipat ion 56461263 Active 2024 Luke Guidry MD [address], [address], [place], [address] , [facility] 5 10:09:35 Impacted cerumen of bilateral ears 44425758453 85991 Active 2017 Luke Guidry MD [address], [place], [address] , [employer] [facility] 4 10:45:21 Sprain of left foot 37483874240 462590 Active 2021 Luke uGidry MD [address], [place], [address] , [employer] [facility] 4 10:45:21 Urticaria 273073146 Completed Not Available [facility] 3 04:51:15 Excessive cerumen in ear canal 673445173 Completed Not Available [facility] 3 04:51:15 Acute sinusitis 14763163 Completed Not Available [facility] 3 04:51:15 Pain of left ankle joint 78204844682 868125 Active 2021 Luke Guidry MD [address], [address], [place], [address] , [employer] [facility] 4 10:45:21 Excessive upper gastroint estinal gas 013273995 Completed Not Available [facility] 3 04:51:15 Impacted cerumen 98003209 Completed Not Available [facility] 3 04:51:15 Congenita l pes cavus 051332001 Active 2021 Luke Guidry MD [address], [place], [address] , [employer] [facility] 4 10:45:22 Periphera l venous insuffici ency 11278919 Active 2017 Luke Guidry MD [address], [address], [place], [address] , [employer] [facility] 4 10:45:22 Abdominal pain 80975184 Completed Luke Guidry MD [address], [place], [address] , [employer] [facility] 4 11:02:57 Mixed anxiety and depressiv e disorder 264873797 Active 2016 Luke Guidry MD [address], [place], [address] , [employer] 4 10:45:22 Gastroeso phageal reflux disease 569694715 Active Luke Guidry MD [address], [address], [place], [address] , [facility] 4 10:45:22 Osteoarth ritis of knee 095415730 Active 2016 Luke Guidry MD [address], [address], [place], [address] , [facility] 4 10:45:22 Lumbar spondylos is 001778339 Active 2021 Luke Guidry MD [address], [address], [place], [address] , [facility] 4 10:45:22 Ankle pain 116816308 Active 2021 Luke Guidry MD [address], [address], [place], [address] , [employer] 4 10:45:22 Urinary symptoms 003228839 Completed Not Available [facility] 3 04:51:16 Gastroent eritis 87755586 Completed Not Available [facility] 3 04:51:16 Eruption 165555200 Completed Not Available [facility] 3 04:51:16 Hypertrig lyceridem ia 190903763 Active 2016 Luke Guidry MD [address], [address], [place], [address] , [facility] 4 10:45:22 Osteopeni a 104025166 Active 2017 Luke Guidry MD [address], [address], [place], [address] , [employer] 4 10:45:22 Pain in left foot 25261786914 9107 Active 2021 Luke Guidry MD [address], [address], [place], [address] , [employer] [facility] 4 10:45:22 Peroneal tendiniti s of left lower limb 55738096235 9107 Active 2021 Luke Guidry MD [address], [address], [place], [address] , [employer] [facility] 4 10:45:22 Vitamin D deficienc y 13109838 Active 2016 Luke Guidry MD [address], [address], [place], [address] , [employer] [facility] 4 10:45:22 Depressiv e disorder 78207901 Active Luke Guidry MD [address], [address], [place], [address] , [employer] [facility] 4 10:45:22 Sinusitis 13668936 Active 2021 Luke Guidry MD [address], [address], [place], [address] , [employer] [facility] 4 10:45:22 Hypertens edward disorder 34918925 Active 2020 Luke Guidry MD [address], [address], [place], [address] , [employer] [facility] 4 10:45:22 Cervical spondylos is 394184292 Active 2021 Luke Guidry MD [address], [address], [place], [address] , [employer] [facility] 4 10:45:22 Thoracic spondylos is 146485517 Active 2021 Luke Guidry MD [address], [address], [place], [address] , [employer] [facility] 4 10:45:22 Osteoarth ritis 232592784 Active Luke Guidry MD [address], [address], [place], [address] , [employer] 4 10:45:22 Kyphoscol iosis deformity of spine 282975779 Active 2021 Luke Guidry MD [address], [address], [place], [address] , [employer] 4 10:45:22 Kyphosis deformity of spine 533282630 Active 2017 Luke Guidry MD [address], [address], [place], [address] , [employer] 4 10:45:22 Nausea 377131366 Completed Not Available [employer] 3 04:51:18 Eczema 00476709 Completed Not Available [facility] 3 04:51:19 Anxiety 86349828 Active 2017 Luke Guidry MD [address], [address], [place], [address] , [employer] 4 10:45:22 Cough 09190381 Active 2021 Luke Guidry MD [address], [address], [place], [address] , [employer] 4 10:45:22 Abnormal gallbladd er function 77078106 Completed Not Available [employer] 3 04:51:19 Hyperlipi demia 15467529 Active Luke uGidry MD [address], [address], [place], [address] , [employer] 4 10:45:22 Essential hypertens ion 92362638 Completed Not Available [facility] 3 04:51:19 Diarrhea 38764907 Completed Not Available [employer] 3 04:51:20 Osteoporo sis 86721693 Active 2016 Luke Guidry MD [address], [address], [place], [address] , [employer] 4 10:45:22 Prediabet es 926453887 Active 2017 Luke Guidry MD [address] [employer], [address], [place], [address] , [facility] 4 10:45:22 Postmenop ausal osteopeni a 523304150 Active 2021 Luke Guidry MD [address] [employer], [address], [place], [address] , [facility] 4 10:45:22 Decreased renal function 23521752 Completed Not Available [facility] 3 04:51:20 Epigastri c pain 37580853 Completed Luke Guidry MD [address], [address], [place], [address] , [employer] 4 10:58:33 Hyperglyc emia 15962253 Completed Not Available [facility] 3 04:51:21 Neck pain 49073742 Completed Not Available [facility] 3 04:51:21 Fatigue 43142944 Active 2020 Luke Guidry MD [address], [address] [facility], [place], [address] , [employer] 4 10:45:22 Problem Notes None recorded. Procedures Surgical History Date Name Laterality Status Provider Name and Address Organization Details Recorded Time Cholecystectomy completed Not Available [employer] 11/08/2022 04:42:01 Imaging Results None recorded. Procedure Notes None recorded. Medical Equipment None Reported. Allergies Allergen ID Allergen Name Allergen Category Reaction Reaction Severity Criticality Documentation Date Start Date Code Code System Note Provider Name and Address Organization Details Recorded Time 53348 promethaz ine medicatio n dizziness Not available Not available 07/10/20242022 8745 RxNorm Luke Guidry MD [address], [address], [place], [address], [employer] 4 10:44:50 7971 Phenergan medicatio n dizziness Not available Not available 11/08/2022 83681 8 RxNorm Not Available [facility] 3 05:03:18 7972 codeine medicatio n dizziness Not available Not available 11/08/20222022 2670 RxNorm Luke Guidry MD [address], [address], [place], [address], [facility] [employer] [facility] 4 10:44:51 Medications Name Sig Start Date Stop Date Status Note LastModified by Organization Details LastModified Time cyclobenza medina 10 mg tablet Take 1 tablet every 12 hours by oral route as needed for 90 days. 2024 active Not Available Not Available Not Avai lable fenofibrat e micronized 160 mg tablet 160 mg by oral route. active Not Available Not Available No t Available amoxicilli n 500 mg capsule TAKE 1 CAPSULE BY MOUTH EVERY 8 HOURS FOR 7 DAYS DIRECTED 12/19 completed Not Available Not Available Not Available atorvastat in 40 mg tablet Take 1 tablet every day by oral route at bedtime for 90 days. 2024 active Not Available Not Available Not Avai lable clonidine HCl 0.1 mg tablet TAKE 1 [...] oral route at bedtime for 90 days. 12/31 completed Not Available Not Available Not Available atorvastat in 10 mg tablet 12/31 completed Not Available Not Available Not Available azithromyc [...] route in the morning for 90 days. 2024 active Not Available Not Available Not Avai lable TobraDex 0.3 %-0.1 % eye ointment APPLY [...] Not Available docusate sodium 100 mg capsule Take 1 capsule twice a day by oral route as needed for 90 days. 2024 active Not Available Not Available Not Avai lable omeprazole 20 mg capsule,de layed release TAKE ONE CAPSULE BY MOUTH EVERY DAY active Not Available Not Available No t Available raloxifene 60 mg tablet TAKE 1 TABLET DAILY DIRECTED , TAKE DIRECTED BY GYNECOLO GIST active Not Available Not Available No t Available diclofenac sodium 75 mg tablet,del ayed release take 1 tablet by mouth every 12 hours as needed 2024 active Not Available Not Available Not [...] oral route after meals for 90 days. 2024 active Not Available Not Available Not [...] oral route as directed for 90 days. 2024 active Not Available Not Available Not Avai lable bupropion HCl XL 150 mg 24 hr tablet, extended release TAKE 1 TABLET DAILY QPM. 2024 active Not Available Not Available Not [...] oral route as directed for 90 days. 2024 active Not Available Not Available Not Avai lable Virtussin AC 10 mg-100 mg/5 mL oral liquid 07/01 completed Not Available Not Available Not Available Afluria 5097-0386( PF) 45 mcg (15 mcg x 3)/0.5 mL intramuscu lar syringe TO BE ADMINIST ERED BY PHARMACI ST FOR IMMUNIZA TION 09/28 completed Not Available Not Available Not Available Jardiance 25 mg tablet Take 1 tablet every day by oral route in the morning for 90 days. 2024 active Not Available Not Available Not Avai lable Linzess 72 mcg capsule Take 1 capsule every day by oral route as directed for 90 days. 2024 active Not Available Not Available Not Avai lable Shingrix (PF) 50 mcg/0.5 mL intramuscu lar suspension , kit INJECT 0.5 ML IN THE MUSCLE DIRECTED 10/20 completed Not Available Not Available Not Available Adult Aspirin Regimen 81 mg tablet,del ayed release Take 1 tablet every day by oral route after meals for 90 days. active Not Available Not Available No t Available Vitals Date Recorded Oxygen saturation Oxygen saturation in Arterial blood by Pulse oximetry Provider Name and Address Organization Details Last Updated DateTime 2024 98 % 98 % Luke Guidry MD [address], [place], [address], [place] [employer] [facility] 2024 10:06:57 Date Recorded Body height Body mass index (BMI) Body weight Body temperature Heart rate Systolic blood pressure Diastolic blood pressure Provider Name and Address Organization Details Last Updated DateTime 5 165.1 cm 25 kg/m2 36849.6 1 g 97.2 [degF] 88 /min 112 mm[Hg] 70 mm[Hg] Sally Bellamy RN [facility] [employer] [facility] 5 09:56:35 Date Recorded Body height Body mass index (BMI) Body weight Body temperature Oxygen saturation Oxygen saturation in Arterial blood by Pulse oximetry Heart rate Systolic blood pressure Diastolic blood pressure Provider Name and Address Organization Details Last Updated DateTime 5 165.1 cm 25.1 kg/m2 39185.8 g 97 [degF] 99 % 99 % 77 /min 120 mm[Hg] 64 mm[Hg] Sally Bellamy RN [facility] [employer] [facility] 5 10:39:24 Date Recorded Body height Body mass index (BMI) Body weight Body temperature Heart rate Respiratory rate Oxygen saturation Oxygen saturation in Arterial blood by Pulse oximetry Systolic blood pressure Diastolic blood pressure Provider Name and Address Organization Details Last Updated DateTime 4 165.1 cm 26.1 kg/m2 69122.5 7 g 98.2 [degF] 76 /min 16 /min 99 % 99 % 118 mm[Hg] 78 mm[Hg] Josue Ayala [facility] [employer] [facility] 4 09:52:48 Date Recorded Body height Body mass index (BMI) Body weight Body temperature Heart rate Respiratory rate Oxygen saturation Oxygen saturation in Arterial blood by Pulse oximetry Systolic blood pressure Diastolic blood pressure Provider Name and Address Organization Details Last Updated DateTime 4 165.1 cm 25.7 kg/m2 00817.6 7 g 98.2 [degF] 84 /min 16 /min 98 % 98 % 106 mm[Hg] 76 mm[Hg] Josue [facility] [employer] [facility] 4 10:55:55 Date Recorded Body temperature Heart rate Respiratory rate Oxygen saturation Oxygen saturation in Arterial blood by Pulse oximetry Provider Name and Address Organization Details Last Updated DateTime 4 98 [degF] 80 /min 16 /min 98 % 98 % Luke Guidry MD [address] [place] [address], [address], [facility] [employer] [facility] 4 10:41:55 Date Recorded Body height Body mass index (BMI) Body weight Systolic blood pressure Diastolic blood pressure Provider Name and Address Organization Details Last Updated DateTime 07/10/2024 165.1 cm 25.1 kg/m2 53796.45 g 110 mm[Hg] 60 mm[Hg] Karen King [facility] [employer] [facility] 4 10:33:26 Social History Question Answer Notes LastModified by Organizat ion Details LastModified Time Tobacco Smoking Status Never Smoker Fidelina perez, [facility] [employer] 06/11/2023 09:52:34 Do You Have An Advance Directive? No [id number] Information not available 11/08/2022 Do You Wear A Helmet When Biking? No Information not available 06/11/2023 What Is Your Level Of Caffeine Consumption? Moderate [email or web address] Information not available 2024 How Much Tobacco Do You Chew? None [id number] Information not available 11/08/2022 In The 14 Days Before Symptom Onset, Have You Had Close Contact With A Laboratory-confir med COVID-19 While That Case Was Ill? No [email or web address] Information not available 06/11/2023 In The 14 Days Before Symptom Onset, Have You Had Close Contact With A Person Who Is Under Investigation For COVID-19 While That Person Was Ill? No [email or web address] Information not available 06/11/2023 What Type Of Diet Are You Following? REGULAR [id number] Information not available 11/08/2022 What Is The Highest Grade Or Level Of School You Have Completed Or The Highest Degree You Have Received? [id number] [email or web address] Information not available 06/11/2023 Have There Been Any Changes To Your Family Or Social Situation? No [email or web address] Information no t available 06/11/2023 What Is The Fluoride Status Of Your Home? Fluoridated [email or web address] Information not available 06/11/2023 Are There Any Guns Present In Your Home? No [email or web address] Information not available 06/11/2023 Do You Use Insect Repellent Routinely? Yes [email or web address] Information not available 06/11/2023 Where Do You Live? SingleLevelHouse [email or web address] Information not available 06/11/2023 Do You Have A Medical Power Of Export Clerk? No [email or web address] Information not available 06/11/2023 What Was The Date Of Your Most Recent Tobacco Screening? 06/05/2022 [email or web address] Information not available 06/11/2023 Do You Have Any Pets? Yes [email or web address] Information not available 06/11/2023 What Is Your Relationship Status? [id number] Information not available 11/08/2022 Do You Use Your Seat Belt Or Car Seat Routinely? Yes [email or web address] Information not available 06/11/2023 Do You Have Smoke And Carbon Monoxide Detectors In Your Home? Yes Information not available 06/11/2023 Are You Passively Exposed To Smoke? No [email or web address] Information no t available 06/11/2023 Are There Any Smokers In Your House? No [email or web address] Information not available 06/11/2023 Do You Participate In Social Media? Yes [email or web address] Information not available 06/11/2023 Do You Use Sunscreen Routinely? Yes [email or web address] Information not available 06/11/2023 Has Tobacco Cessation Counseling Been Provided? No [email or web address] Information not available 06/11/2023 Have You Recently Traveled Abroad? No [email or web address] Information not available 06/11/2023 Are You Currently In School? No [email or web address] Information not available 06/11/2023 Do You Have Any Dietary Restrictions? No [email or web address] Information not available 06/11/2023 Sex: Female Functional Status Question Answer Note LastModified by Organizat ion Details LastModified Time Do you use any illicit or recreational drugs? No [email or web address] Information not available 06/11/2023 Do you or have you ever used any other forms of tobacco or nicotine? No Information not available 06/11/2023 What is your level of alcohol consumption? None [id number] Information not available 11/08/2022 Do you or have you ever used smokeless tobacco? 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 Never used electronic cigarettes [email or web address] Information not available 06/11/2023 What is your exercise level? Heavy [id number] Information not available 11/08/2022 Mental Status Question Answer Note LastModified by Organization D etails LastModified Time Do you feel stressed (tense, restless, nervous, or anxious, or unable to sleep at night)? [id number] [email or web address] Information not available 06/11/2023 Family History Relationship Description Onset Age of this Age Resolved Age Notes LastModified by Organization Details LastModified Time Father Diabetes mellitus [id number] Not available 11/08/2022 04:42:08 Father Hypertensive disorder [id number] Not available 11/08/2022 04:42:08 Father Family history of stroke [email or web address] Not available 09/24 09:47:28 Father Arthritis [email or web address] Not availa ble 2024 09:47:28 Mother Arthritis [email or web address] Not availa ble 2024 09:47:28 Mother Hypertensive disorder [id number] Not available 11/08/2022 04:42:09 Medical History Condition [...] TB SKIN TEST N MYOCARDIAL INFARCTION N OBESITY N [place] [...] HAVE YOU BEEN HOSPITALIZED OR SEEN IN [facility] IN THE PAST YEAR ? N [...] completed Luke Guidry MD [address], [address], [address], [employer] 07/10/2024 10:45:40 zoster recombinant 0 completed Luke Guidry MD [address], [address] [address], [place], [address], [employer] 07/10/2024 10:45:40 influenza, unspecified formulation 4 completed Luke Guidry MD [address], [address], [address], [employer] 07/10/2024 10:45:40 influenza, unspecified formulation 9 completed Luke Guidry MD [address], [address], [place], [address], [employer] 07/10/2024 10:45:40 influenza, unspecified formulation 7 completed Luke Guidry MD [address], [address], [place], [address], [employer] 07/10/2024 10:45:40 influenza, unspecified formulation 8 completed Luke Guidry MD [address], [address], [place], [address], [employer] [facility] 07/10/2024 10:45:40 influenza, unspecified formulation 5 completed Luke Guidry MD [address], [address], [place], [address], [employer] [facility] 07/10/2024 10:45:40 Influenza, split virus, trivalent, preservative 4 completed Luke Guidry MD [address], [address], [place], [address], [employer] [facility] 07/10/2024 10:45:41 Influenza, split virus, quadrivalent, PF 9 completed Luke Guidry MD [address], [address], [place], [address], [employer] [facility] 07/10/2024 10:45:41 zoster recombinant 9 completed Not Available [facility] 10/05/2023 09:35:12 Influenza, split virus, quadrivalent, PF 8 completed Luke Guidry MD [address], [address], [place], [address], [employer] [facility] [employer] [facility] 07/10/2024 10:45:41 Influenza, split virus, quadrivalent, PF 7 completed Luke Guidry MD [address], [address], [place], [address], [employer] [facility] [employer] [facility] 07/10/2024 10:45:41 Influenza, split virus, quadrivalent, PF 2 completed Not Available [employer] 10/05/2023 09:35:12 Influenza, split virus, quadrivalent, PF 1 completed Not Available [employer] 10/05/2023 09:35:12 pneumococcal polysaccharide PPV23 0 completed Luke Guidry MD [address], [address], [place], [address], [employer] 07/10/2024 10:45:40 Tdap 4 completed Not Available [facility] 10/05/2023 09:35:12 Influenza, split virus, quadrivalent, PF 3 completed Luke Guidry MD [address], [place], [address], [employer] 06/28/2023 11:18:51 Tdap 4 completed Josue perez, [employer] 05/21/2024 10:07:07 Past Encounters Encounter ID Performer Location Encounter Start Date Encounter Closed Date Diagnosis/Indication Diagnosis SNOMED-CT Code Diagnosis ICD10 Code Diagnosis Note [id number] Luke Guidry MD [address] [address] 01/05/2021 00:00:00 01/05/2021 09:05:52 [id number] Luke Guidry MD [address] [address] 01/19/2021 00:00:00 01/19/2021 12:01:17 [id number] Luke Guidry MD [address] [address] 03/15/2021 00:00:00 03/15/2021 09:15:46 [id number] Luke Guidry MD [address] [address] 04/21/2021 00:00:00 04/21/2021 09:26:13 [id number] Luke Guidry MD [address] [address] 05/05/2021 00:00:00 05/05/2021 12:23:14 [id number] Luke Guidry MD [address] [address] 07/25/2021 00:00:00 07/25/2021 10:27:05 [id number] Luke Guidry MD [facility] [place] [address] [place] [address] 08/02/2021 00:00:00 08/02/2021 18:19:46 [id number] Luke Guidry MD [facility] [place] [address] [place] [address] 10/19/2021 00:00:00 10/19/2021 10:21:41 [id number] Luke Guidry MD [facility] [place] [address] [place] [address] 11/09/2021 00:00:00 11/10/2021 12:11:57 [id number] Luke Guidry MD [facility] [place] [address] [place] [address] 11/17/2021 00:00:00 11/17/2021 12:43:19 [id number] Luke Guidry MD [facility] [place] [address] [place] [address] 02/13/2022 00:00:00 02/13/2022 17:53:55 [id number] Luke Guidry MD [facility] [place] [address] [place] [address] 03/23/2022 00:00:00 03/23/2022 16:07:09 [id number] Luke Guidry MD [facility] [place] [address] [place] [address] 05/03/2022 00:00:00 05/03/2022 12:03:19 [id number] Luke Guidry MD [facility] [place] [address] [place] [address] 05/17/2022 00:00:00 05/17/2022 12:34:46 [id number] Mono Linda DPM _KIKO_Maximino IGRATION_ DEFAULT_1 _1 , 06/05/2022 00:00:00 06/05/2022 15:38:46 [id number] Luke Guidry MD [address] [address] 08/02/2022 00:00:00 08/02/2022 17:34:28 [id number] Luke Guidry MD [address] [address] 08/16/2022 00:00:00 08/16/2022 10:21:51 [id number] Luke Guidry MD [address] [address] 10/30/2022 00:00:00 10/30/2022 11:59:14 [id number] Luke Guidry MD [address] [address] 11/09/2022 11:49:23 11/09/2022 12:35:26 Sore throat 476459711 J02.9 Dysuria 77571399 R30.0 Pharyngitis 463508074 J0 2.9 Hypertriglyceridemia 302 931267 E78.2 Hyperlipidemia 95002812 E78.5 Prediabetes 123830897 R7 3.03 Depressive disorder 3548 9007 F32.9 [id number] Luke Guidry MD [address] [address] 12/19/2022 09:45:19 12/19/2022 10:10:23 Fatigue 05330183 R53.83 Dyspnea on exertion 6084 5006 R06.09 Depressive disorder 3548 9007 F32.9 Hypertensive disorder 38 272546 I10 Mixed anxi ety and depressive disorder 417034043 F41.8 Prediabetes 085008173 R7 3.03 Gastroesop hageal reflux disease without esophagitis 014905910 K21.9 [id number] Luke Guidry MD [address] [address] 01/01/2023 10:10:01 01/01/2023 10:26:01 [id number] Luke Guidry MD [address] [address] 04/11/2023 13:56:42 04/11/2023 14:16:19 Dyspnea on exertion 84528327 R06.09 resolved Fatigue 05695667 R53.83 Depressive disorder 3548 9007 F32.9 Hypertensive disorder 38 137772 I10 Mixed anxi ety and depressive disorder 833127903 F41.8 Prediabetes 644171554 R7 3.03 Gastroesop hageal reflux disease without esophagitis 048752748 K21.9 Hyperlipidemia 20107772 E78.5 Hypertriglyceridemia 302 139027 E78.2 [id number] Luke Guidry MD [address] [address] 05/21/2023 09:49:01 05/21/2023 10:09:33 Depressive disorder 51249669 F32.9 Dyspnea on exertion 6084 5006 R06.09 resolved Fatigue 24573271 R53.83 Hypertensive disorder 38 526675 I10 Mixed anxi ety and depressive disorder 868152937 F41.8 Prediabetes 979255041 R7 3.03 Gastroesop hageal reflux disease without esophagitis 908042132 K21.9 Hyperlipidemia 71727245 E78.5 Hypertriglyceridemia 302 720088 E78.2 Adult [facility] th examination 628959570 Z00.00 Vitamin D deficiency 347 11951 E55.9 Screening mammography 24 273748 Z12.31 Sleep apnea 72012531 G47 .30 [id number] Luke Guidry MD [address] [address] 06/11/2023 09:51:50 06/11/2023 10:36:30 Depressive disorder 94802699 F32.9 Dyspnea on exertion 6084 5006 R06.09 resolved Fatigue 37653728 R53.83 Hypertensive disorder 38 295722 I10 Mixed anxi ety and depressive disorder 482515038 F41.8 Prediabetes 288275364 R7 3.03 Gastroesop hageal reflux disease without esophagitis 307176723 K21.9 Hyperlipidemia 72032441 E78.5 Hypertriglyceridemia 302 802988 E78.2 Vitamin D deficiency 347 29609 E55.9 Resolved [id number] Luke Guidry MD [address] [address] 06/28/2023 10:49:13 06/28/2023 11:25:35 Pain of right ankle joint 1522331225 5932333 M25.571 Pain of le ft shoulder joint 0487843956 9892386 M25.512 Pain in right foot 29460 61467 46403 M79.671 Administra tion of influenza vaccine 05805068 Z23 [id number] Luke Guidry MD [address] [address] 07/18/2023 10:16:02 07/18/2023 10:47:41 Pain of right ankle joint 5225914041 8244689 M25.571 Pain in right foot 65690 69343 82808 M79.671 Pain of le ft shoulder joint 0433766166 8945922 M25.512 Osteoarthritis 250177264 M19.90 Lt shoulder, Rt foot, Rt ankle [id number] Luke Guidry MD [address] [address] 09/12/2023 09:56:20 09/12/2023 10:24:18 Pain of right hip joint 4383468690 03089 M25.551 Chronic low back pain 27 6981899 M54.50 Lumbar radiculopathy 128 165692 M54.16 Rt [id number] Luke Guidry MD [address] [address] 09/27/2023 09:55:22 09/27/2023 10:39:10 Prediabetes 657948122 R73.03 Depressive disorder 3548 9007 F32.9 Dyspnea on exertion 6084 5006 R06.09 resolved Fatigue 87995184 R53.83 Hypertensive disorder 38 433042 I10 Mixed anxi ety and depressive disorder 143868485 F41.8 Gastroesop hageal reflux disease without esophagitis 763909703 K21.9 Hyperlipidemia 29562840 E78.5 Hypertriglyceridemia 302 189346 E78.2 Vitamin D deficiency 347 02874 E55.9 Resolved Degenerati on of lumbar intervertebral disc 69988752 M51.36 [id number] Mono Linda DPM [facility] [place] [address] [place] [address] 10/04/2023 10:45:09 10/10/2023 09:34:14 Calcific tendinitis of achilles tendon 107949749 M76.61 recommend rice therapy and topical Voltaren gelStretch ing and icing instructio ns reviewed knee flexedcont inue supportive shoe gearFollow -up in February for surgical clearance- retrocalca kieran exostectom y with hardware Bone spur of right foot [id number] 40822 M25.774 calcanealx -rays reviewedtr eatment options reviewed [id number] Luke Guidry MD [address] [address] 12/27/2023 09:55:10 12/27/2023 10:18:25 Prediabetes 705583476 R73.03 Depressive disorder 3548 9007 F32.9 Dyspnea on exertion 6084 5006 R06.09 resolved Hypertensive disorder 38 239590 I10 Mixed anxi ety and depressive disorder 746616924 F41.8 Gastroesop hageal reflux disease without esophagitis 928406324 K21.9 Hyperlipidemia 97468960 E78.5 Hypertriglyceridemia 302 695328 E78.2 Vitamin D deficiency 347 17269 E55.9 Resolved Degenerati on of lumbar intervertebral disc 91554760 M51.36 Chronic low back pain 27 9929261 M54.50 [id number] Luke Guidry MD [address] [address] 05/21/2024 09:33:14 05/21/2024 09:56:37 Prediabetes 584999766 R73.03 Hyperlipidemia 44683121 E78.5 Hypertriglyceridemia 302 642704 E78.2 Depressive disorder 3548 9007 F32.9 Hypertensive disorder 38 313274 I10 Mixed anxi ety and depressive disorder 811893735 F41.8 Gastroesop hageal reflux disease without esophagitis 570135305 K21.9 Vitamin D deficiency 347 58745 E55.9 Degenerati on of lumbar intervertebral disc 91164998 M51.36 Chronic low back pain 27 1573249 M54.50 Osteopenia 634396627 M85 .80 Active immunization 3387 9002 Z23 [id number] Luke Guidry MD [address] [address] 06/19/2024 09:44:17 06/19/2024 10:20:39 Hyperlipidemia 60135159 E78.5 Hypertriglyceridemia 302 107673 E78.2 Prediabetes 366665755 R7 3.03 Depressive disorder 3548 9007 F32.9 Hypertensive disorder 38 101498 I10 Gastroesop hageal reflux disease without esophagitis 280117735 K21.9 Vitamin D deficiency 347 36551 E55.9 Improved Degenerati on of lumbar intervertebral disc 87119274 M51.369 Chronic low back pain 27 5062722 M54.50 [id number] Luke Guidry MD [address] [address] 07/03/2024 10:43:37 07/03/2024 11:35:12 Epigastric pain 33510772 R10.13 Nausea and vomiting 1693 1999 R11.2 Gastritis 5697443 K29.70 Abdominal pain 57061273 R10.9 [id number] Luke Guidry MD [address] [address] 07/10/2024 10:25:30 07/10/2024 10:50:27 Seen in emergency clinic 125420557 Z76.89 D/w pt about her findings and further plan of care. Pt agreed. Epigastric pain 91166917 R10.13 Resolved Hiatal her karsten with gastroesophageal reflux 408364314 K21.9 [id number] Luke Guidry MD [facility] [address] [place] [address] 2024 09:45:37 2024 10:18:31 Hyperlipidemia 08331741 E78.5 Hypertriglyceridemia 302 809588 E78.2 Prediabetes 263361746 R7 3.03 Depressive disorder 3548 9007 F32.9 Hypertensive disorder 38 104131 I10 Gastroesop hageal reflux disease without esophagitis 184778294 K21.9 Vitamin D deficiency 347 32847 E55.9 Improved Degenerati on of lumbar intervertebral disc 56656319 M51.369 Chronic low back pain 27 4699261 M54.50 Urinary tr act infectious disease 51890690 N39.0 Chronic id iopathic constipation 16544899 K59.04 [id number] Luke Guidry MD [facility] [address] [place] [address] 12/31/2024 10:27:04 12/31/2024 10:49:03 Prediabetes 593036791 R73.03 Hyperlipidemia 65420414 E78.5 Hypertriglyceridemia 302 189982 E78.2 Depressive disorder 3548 9007 F32.9 Hypertensive disorder 38 107993 I10 Gastroesop hageal reflux disease without esophagitis 603166762 K21.9 Vitamin D deficiency 347 43221 E55.9 Improved Degenerati on of lumbar intervertebral disc 83099254 M51.369 Chronic low back pain 27 7931926 M54.50 Chronic id iopathic constipation 53562777 K59.04 Health Concerns Section Related Observation LastModified by Organization Detai ls LastModified Time None Recorded Concern Status LastModified by Organization Details LastModified Time None Recorded Advance Directives Directive N: Payers Encounter Date Sequence Insurance Name Policy Number Policy Wright Covered Member ID Wright Member ID Guarantor Name 06/19/2024 2 [facility] () Haydee Delgado [id number] Haydee Delgado 06/19/2024 1 [place] Haydee Delgado [id number] Haydee Delgado 07/03/2024 2 [facility] [employer] () Haydee Delgado [id number] Haydee Delgado 07/03/2024 1 [place] Haydee Deglado [id number] Haydee Delgado 07/10/[address] [facility] () Haydee Delgado [id number] Haydee Delgado 07/10/2024 1 [place] Haydee Delgado [id number] Haydee Delgado [address] [facility] [facility] () Haydee Delgado [id number] Haydee Delgado 2024 1 MEDICARE-[place] (MEDICARE) Haydee Delgado [id number] Haydee Delgado 12/31/2024 1 MEDICARE-[place] (MEDICARE) Haydee Delgado [id number] Haydee Delgado 12/31/2024 2 FOR LIFE ( - MEDICARE SUPPLEMENT) Haydee Delgado [id number] Haydee Delgado Notes Date Note Type Note Provider Name and Address Organization Details Recorded Time 06/19/2024 text/html Pt is here for f [...] blood in stool. Luke Guidry MD [address] [facility], [facility] [address], [place], [address], [place] [facility] 06/19/2024 10:18:27 07/03/2024 text/html ACV: C/o epigastric [...] antibiotics. Luke Guidry MD [address], [facility] [address], [place], [address], [facility] [employer] [facility] 07/03/2024 11:27:28 07/10/2024 text/html Pt is here [...] antibiotics. Luke Guidry MD [address], [facility] [address], [place], [address], [facility] [employer] [facility] 07/10/2024 10:47:29 2024 text/html FUV + ACV: [...] blood in stool. Luke Guidry [facility] [address] [facility], [facility] [address], [place], [address], [employer] 2024 10:19:46 12/31/2024 text/html Pt is here for f /u on her labs and chronic conditions. Doing [...] hernia and is controlled well with meds. Pt is f/u with her GI for it. Denies any blood in stool. Luke Guidry MD [address] [facility], [address], [place], [address], [employer] 12/31/2024 10:50:54 OBGyn Episode No OBEpisode recorded.
== END 2025-02-18 08:20 | disposition home or self-care (01) ==
PROVIDERS: PCP Family Medicine; Visit Provider Family Medicine
DX: Z12.31 Encounter for screening mammogram for malignant neoplasm of breast (principal)
CPT/HCPCS: 77063; 77067